=== PATIENT | female | born 1950 | race Caucasian/White ===

== ENCOUNTER 2021-02-12 13:13 | Outpatient (CLI) | payer MEDICARE, SELFPAY ==
--- NOTE | 2021-02-12 13:19 | USCV_ITS ---
Nyasia Sultana Age: 70 Gender: F : 1950 Exam Date: 02/12/2021 13:37 Ordering Phys: Ruslan Wrad MD Technologist: MARIA TERESA Exam Location: [facility] – [place] Indication: DIZZINESS WITH AO REPLACEMEMT BP: / HR: 91 Rhythm: Sinus Technical Quality: Adequate MEASUREMENTS (Male / Female) Normal Values 2D ECHO LV Chamber Size 3.3 cm RV Chamber Size 3.2 cm LVOT Diameter 2.0 cm LV Ejection Fraction MOD 2C 42.6 % LV Ejection Fraction 2C AL 34.9 % LA Diameter 3.5 cm LA Width 2.8 cm LA Height 4.5 cm RA Width 3.6 cm RA Height 4.0 cm Aorta at Sinotubular Diameter 2.5 cm M-MODE LV Diastolic Diameter MM 4.6 cm 4.2 - 5.9 / 3.9 - 5.3 cm LV Systolic Diameter MM 3.5 cm LV Ejection Fraction MM Teich 47.8 % IVS Diastolic Thickness MM 0.7 cm 0.6 - 1.0 / 0.6 - 0.9 cm IVS Systolic Thickness MM 1.7 cm LVPW Diastolic Thickness MM 0.9 cm 0.6 - 1.0 / 0.6 - 0.9 cm LVPW Systolic Thickness MM 2.1 cm RV Diastolic Diameter MM 2.6 cm Aortic Annulus Diameter 3.3 cm LA Ao Ratio MM 1.4 MV E Point Septal Separation 0.9 cm DOPPLER AV Peak Velocity 355.0 cm/s LVOT Peak Velocity 155.0 cm/s AV Area Cont Eq vti 1.7 cm squared AV Area Cont Eq pk 1.4 cm squared MV Area PHT 3.4 cm squared Mitral E to A Ratio 0.9 MV E' Velocity 101.0 cm/s Mitral E to MV E' Ratio 21.9 Mitral E to LV E' Lateral Ratio 18.1 Mitral E to LV E' Septal Ratio 28.4 TR Peak Velocity 202.6 cm/s TR Peak Gradient 16.4 mmHg TR Mean Velocity 114.7 cm/s TR Mean Gradient 5.7 mmHg TR Velocity Time Integral 36.3 cm TV Peak E Velocity 81.0 cm/s Right Atrial Pressure 3.0 mmHg Pulmonary Artery Systolic Pressu 19.4 mmHg PV Peak Velocity 116.0 cm/s RV Acceleration Time 0.2 s RV Ejection Time 0.3 s RV AcT/ET 0.6 FINDINGS Left Ventricle Normal left ventricular size and systolic function, EF 59 %. Mild hypokinesia of the basal inferior wall segment.Grade I/IV diastolic dysfunction (abnormal relaxation filling pattern), normal to mildly elevated filling pressures. Right Ventricle The right ventricle is normal in size and function. Right Atrium The right atrium is normal in size. Left Atrium Mildly increased left atrial size. Mitral Valve Moderate mitral annular calcification. Thickened mitral valve. Aortic Valve Moderate aortic valve stenosis, with a valve area of 1.4 cm squared. Peak velocity of 3.55 m/s with a peak gradient of 50 and a mean gradient of 25 mmHg. Tricuspid Valve Trace tricuspid valve regurgitation. Pulmonic Valve Structurally normal pulmonic valve without significant stenosis. There is no pulmonic regurgitation. Pericardium Normal pericardium without effusion. Aorta Normal ascending aorta dimension. CONCLUSIONS Normal left ventricular size and systolic function, EF 59 %. Mild hypokinesia of the basal inferior wall segment.Grade I/IV diastolic dysfunction (abnormal relaxation filling pattern), normal to mildly elevated filling pressures. Moderate mitral annular calcification. Thickened mitral valve. Moderate aortic valve stenosis, with a valve area of 1.4 cm squared. Peak velocity of 3.55 m/s with a peak gradient of 50 and a mean gradient of 25 mmHg. Trace tricuspid valve regurgitation Estimated pulmonary artery peak systolic pressure of 19 mmHg There is no pericardial effusion. There are no intracardiac masses. Compared to the study from 04/22/2016, the aortic valve stenosis appears to be less severe Dr Suzy Zuleta MD [facility] (Electronically Signed) Final Date: 12 February 2021 18:49 S
== END 2021-02-12 13:14 | disposition home or self-care (01) ==
PROVIDERS: PCP Family Medicine; Visit Provider Family Medicine
DX: R42 Dizziness and giddiness (principal); Z95.2 Presence of prosthetic heart valve; I08.3 Combined rheumatic disorders of mitral, aortic and tricuspid valves
CPT/HCPCS: 93306

== ENCOUNTER → 2021-10-05 15:35 | Outpatient (BNVA) | payer MEDICARE, SELFPAY | PROVIDERS: PCP Family Medicine; Visit Provider Internal Medicine Pulmonary Disease | DX: Z01.812 Encounter for preprocedural laboratory examination (principal); Z20.822 Contact with and (suspected) exposure to COVID-19 | CPT/HCPCS: 87635; 87801 ==

== ENCOUNTER 2021-10-11 08:35 | Outpatient (CLI) | payer MEDICARE, SELFPAY ==
--- NOTE | 2021-10-11 12:54 | PFTS_ITS ---
Date of Study:10/11/21 Date of Dictation: MECHANICS: Forced vital capacity (FVC) is normal. Forced expiratory volume in one second (FEV1) is reduced. FEV1/FVC is normal. FLOW VOLUME LOOP: Scooping present. LUNG VOLUMES: Total lung capacity (TLC) is normal. Residual volume (RV) is normal. DIFFUSING CAPACITY FOR CARBON MONOXIDE: Normal. INTERPRETATION: The prebronchodilator spirometry is consistent with moderate restriction. The postbronchodilator spirometry is suggestive of mild restriction. There is a significant postbronchodilator response. The flow-volume loop is consistent with small airways disease. Lung volumes are normal. Gas exchange (DLCO) is normal. Overall pulmonary function test is consistent with reversible small airways disease. MTDD
== END 2021-10-11 08:36 | disposition home or self-care (01) ==
LOC: RT 08:37
PROVIDERS: PCP Family Medicine; Visit Provider Internal Medicine Pulmonary Disease
DX: R06.02 Shortness of breath (principal); F17.210 Nicotine dependence, cigarettes, uncomplicated
CPT/HCPCS: 94060; 94618; 94726; 94729; J7611

== ENCOUNTER → 2021-10-25 10:03 | Outpatient (BNVA) | payer MEDICARE, SELFPAY | PROVIDERS: PCP Family Medicine; Visit Provider Internal Medicine Pulmonary Disease | DX: I50.32 Chronic diastolic (congestive) heart failure (principal); J44.9 Chronic obstructive pulmonary disease, unspecified; J45.909 Unspecified asthma, uncomplicated; K21.9 Gastro-esophageal reflux disease without esophagitis; R05.3 Chronic cough; R06.00 Dyspnea, unspecified; Z87.891 Personal history of nicotine dependence; Z11.52 Encounter for screening for COVID-19; Z01.812 Encounter for preprocedural laboratory examination | CPT/HCPCS: 71046; 82785; 85025; 86003; 99214 ==

== ENCOUNTER → 2022-01-25 12:45 | Outpatient (BNVA) | payer MEDICARE, SELFPAY | PROVIDERS: PCP Family Medicine; Visit Provider Internal Medicine Pulmonary Disease | DX: R06.00 Dyspnea, unspecified (principal); K21.9 Gastro-esophageal reflux disease without esophagitis; J44.9 Chronic obstructive pulmonary disease, unspecified; I50.32 Chronic diastolic (congestive) heart failure; J45.909 Unspecified asthma, uncomplicated; M25.641 Stiffness of right hand, not elsewhere classified; M25.642 Stiffness of left hand, not elsewhere classified; J98.4 Other disorders of lung; Z87.891 Personal history of nicotine dependence; E11.8 Type 2 diabetes mellitus with unspecified complications; Z79.84 Long term (current) use of oral hypoglycemic drugs | CPT/HCPCS: 99214 ==

== ENCOUNTER 2022-02-27 16:30 | Emergency (ER) | payer MEDICARE, SELFPAY ==
[2022-02-27 16:55] VITALS: BP 146/77; PULSE 78; RESP 20; TEMP 36.9; O2SAT 95; BMI 43.7
--- NOTE | 2022-02-27 17:01 | W.ED.ABDPA2 ---
Documented by User: POLO Pradhan 02/27/22 20:15 HPI - Abdominal Pain General: Chief Complaint: Abdominal Pain Stated Complaint: Abd pains Time Seen by Provider: 02/27/22 17:00 History of Present Illness: 71-year-old female comes in today for complaints of right flank pain radiating around to the front of abdomen starting yesterday with worsening pain today. Patient denies any previous abdominal surgeries. Patient states that she does have her gallbladder and appendix both. Patient denies any fever or nausea or vomiting. Patient reports pain is increased with movement. Patient has a history of COPD, diabetes mellitus, CHF, GERD. Review of Systems General: Reports: 10 or more systems reviewed and unremarkable except in HPI and below Card: Denies: chest pain Resp: Denies: dyspnea GI: Reports: abdominal pain : Reports: flank pain PFSH ED PFSH: Medical History ASHD (arteriosclerotic heart disease) CHF (congestive heart failure) COPD (chronic obstructive pulmonary disease) Diabetes mellitus Hepatitis C Surgical History S/P aortic valve replacement S/P knee surgery Family History Mother Diabetes Myocardial infarction Hypertension Father Diabetes Myocardial infarction Hypertension Grandmother Myocardial infarction Cancer Grandfather Myocardial infarction Cancer Other Heart disease Social History Smoking and tobacco status: former smoker Quit status (tobacco): has quit using tobacco Year quit tobacco: 1992 2-3-pack per day Former quit date comment: smoked for 30 years Alcohol intake: never Lives independently: Yes Household members: spouse and other Details: brother Housing: House Marital status: Number of children: 0 Pets and animals: Yes Pets & animals: cat(s), dog(s) and bird(s) History of recent travel: No Physical Exam Const: COMMON NORMALS: alert HENMT: COMMON NORMALS: normocephalic HEAD & SCALP: normocephalic Neck/C-Spine: COMMON NORMALS: full ROM Resp: COMMON NORMALS: normal respiratory effort and clear to auscultation bilaterally AUSCULTATION: clear to auscultation bilaterally Cardio: COMMON NORMALS: regular rate and regular rhythm RATE: regular rate RHYTHM: regular rhythm GI: COMMON NORMALS: Soft to palpation AUSCULTATION: Yes normoactive bowel sounds PALPATION: Yes Soft to palpation, No Tenderness to palpation present (GI), No Guarding due to palpation present (GI) and No Abdominal wall crepitus present : BLADDER/KIDNEY EXAM: Yes CVA tenderness on the right Back/Pelvis: GENERAL BACK: Yes CVA tenderness Extremity: COMMON NORMALS: normal to inspection Neuro: SENSORIUM/ORIENTATION: Yes alert Skin: COMMON NORMALS: no rashes or lesions noted GENERAL SKIN EXAM: no rashes or lesions noted Course ED course: 1812, reviewed patient with Dr. Powell who recommended evaluation of the gallbladder through ultrasound. So far CT was unremarkable for any acute illness. Patient does have some gallstones. Patient's pain was brought under control with a total of 8 mg of morphine. Initial labs CBC had some mild thrombocytopenia with platelets being at 117, CMP had a mild increase in bilirubin at 1.4, BNP was 486. Chest x-ray noted a slight effusion in the left lower lung. 1844, ultrasound was unremarkable. Reviewed exam again with Dr. Powell expressing my concern for a portal vein thrombosis he agreed with plan for further evaluation with CT of the abdomen pelvis with contrast. Vital Signs: Vital signs: Vital Signs Temperature 97.5 F L 02/27/22 21:06 Pulse Rate 90 02/27/22 21:06 Respiratory Rate 18 02/27/22 21:06 Blood Pressure 141/68 02/27/22 20:31 Pulse Oximetry 96 02/27/22 20:31 Oxygen Delivery Nh thod 02/27/22 20:31 MDM - Abdominal Pain Medical Decision Making 71-year-old female comes in today with abdominal/right flank pain starting yesterday. Patient reports no nausea or vomiting. Patient reports that the pain is worse with movement. Patient on exam has some right flank CVA tenderness. Abdomen is slightly distended but soft. No tenderness is noted to the abdomen. No guarding or rebound tenderness is noted. Vital signs are normal. Differential diagnosis includes cholecystitis, renal calculi, appendicitis, bowel obstruction, musculoskeletal pain, atypical chest pain, portal vein thrombosis. Initial CT of the abdomen and pelvis noted a small stone in the gallbladder, cirrhosis of the liver, and splenomegaly. No signs of acute abdominal concern was noted. CBC and CMP were unremarkable except for some mild elevation in bilirubin at 1.4. Patient has cirrhosis of the liver secondary to hepatitis C. No renal calculi was noted on this CT. Concern for possible thrombosis of the portal vein was evaluated with a CT of the abdomen pelvis with contrast and no portal vein thrombosis was noted. I think the pain may be related to her cirrhosis versus musculoskeletal pain. Patient's pain was brought under control with morphine in the ER. We will continue patient with some hydrocodone and recommend follow-up with primary care for further evaluation and treatment return to the ER for worsening symptoms. Patient reported understanding and agreed to plan. Lab Data : 02/27/22 17:15 02/27/22 17:15 Labs/Radiology: Radiology Impressions Chest X-Ray 02/27/22 17:03 IMPRESSION: No acute finding. Gallbladder Ultrasound 02/27/22 18:13 IMPRESSION: No acute findings. The tiny calcified stones in the gallbladder visible on the CT study were not visualized on the ultrasound. Abdomen/Pelvis CT 02/27/22 18:53 IMPRESSION: 1. No acute finding in the abdomen or pelvis. 2. 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 3. Splenomegaly. 4. Diverticulosis of the distal colon without diverticulitis. Laboratory Results WBC 4.0 10^3/uL (4.0-10.0) 02/27/22 17:15 RBC 4.61 10^6/uL (4.1-5.3) 02/27/22 17:15 Hgb 14.0 g/dL (11.5-15.3) 02/27/22 17:15 Hct 42.7 % (37.0-47.0) 02/27/22 17:15 MCV 92.6 fl (81-99) 02/27/22 17:15 MCH 30.4 pg (28.0-34.0) 02/27/22 17:15 MCHC 32.8 g/dL (30.0-36.0) 02/27/22 17:15 RDW 14.4 % (12.1-15.1) 02/27/22 17:15 Plt Count 117 10^3/cmm (130-400) L 02/27/22 17:15 MPV 10.6 fL (7.4-10.4) H 02/27/22 17:15 Neut % (Auto) 67.4 % 02/27/22 17:15 Lymph % (Auto) 19.7 % 02/27/22 17:15 [place] % (Auto) 9.0 % 02/27/22 17:15 Eos % (Auto) 3.2 % 02/27/22 17:15 Baso % (Auto) 0.5 % 02/27/22 17:15 Neut # (Auto) 2.70 10^3/uL (1.8-7.7) 02/27/22 17:15 Lymph # (Auto) 0.8 10^3/uL (0.8-4.8) 02/27/22 17:15 [place] # (Auto) 0.4 10^3/uL (0.2-0.9) 02/27/22 17:15 Eos # (Auto) 0.1 10^3/uL (0.0-0.8) 02/27/22 17:15 Baso # (Auto) 0.0 10^3/uL (0.0-0.1) 02/27/22 17:15 Nucleated RBC % (auto) 0 % 02/27/22 17:15 Nucleated RBCs # 0.0 /100WBC 02/27/22 17:15 D-Dimer 1.10 ug/mIFEU (0-0.59) H 02/27/22 17:18 Sodium 137 mmol/L (136-145) 02/27/22 17:15 Potassium 4.6 mmol/L (3.5-5.1) 02/27/22 17:15 Chloride 99 mmol/L (98-107) 02/27/22 17:15 Carbon Dioxide 27 mmol/L (22-29) 02/27/22 17:15 Anion Gap 15.6 (5-19) 02/27/22 17:15 BUN 15 mg/dL (8-23) 02/27/22 17:15 Creatinine 0.6 mg/dL (0.5-0.9) 02/27/22 17:15 GFR Calculation 99.1 mL/min (90-130) 02/27/22 17:15 Glucose 247 mg/dL (65-115) H 02/27/22 17:15 Calculated Osmolality 293 mOsm/kg (285-295) 02/27/22 17:15 Calcium 9.3 mg/dL (8.5-10.5) 02/27/22 17:15 Total Bilirubin 1.4 mg/dL (0.15-1.2) H 02/27/22 17:15 AST 21 U/L (0-32) 02/27/22 17:15 ALT 14 U/L (0-33) 02/27/22 17:15 Alkaline Phosphatase 76 IU/L (35-105) 02/27/22 17:15 Troponin T Baseline 8 ng/L (0-10) 02/27/22 17:15 Troponin T 120 Minute 8.74 ng/L (0-10) 02/27/22 19:11 Delta Troponin T 0.74 ABS# (0-10) 02/27/22 19:11 NT-Pro-B Natriuret Pep 486 pg/mL (0-125) H 02/27/22 17:15 Total Protein 7.9 g/dL (6.6-8.7) 02/27/22 17:15 Albumin 4.1 g/dL (3.5-5.2) 02/27/22 17:15 Globulin 3.8 g/dL (1.3-4.6) 02/27/22 17:15 Lipase 20 U/L (13-60) 02/27/22 17:15 Urine Color Yellow (Yellow) 02/27/22 18:09 Urine Appearance Clear (CLEAR) 02/27/22 18:09 Urine pH 5 (5-7) 02/27/22 18:09 Ur Specific [place] 1.020 (1.005-1.030) 02/27/22 18:09 Urine Protein Neg (Negative) 02/27/22 18:09 Urine Glucose (UA) 4+ (Normal) H 02/27/22 18:09 Urine Ketones Negative (Negative) 02/27/22 18:09 Urine Blood 2+ (Negative) H 02/27/22 18:09 Urine Nitrate Negative (Negative) 02/27/22 18:09 Urine Bilirubin Neg (Negative) 02/27/22 18:09 Urine Urobilinogen Neg mg/dL (Negative) 02/27/22 18:09 Ur Leukocyte Esterase Trace (Negative) H 02/27/22 18:09 Urine RBC 5-10 /hpf (0-2) H 02/27/22 18:09 Urine WBC 5-10 /hpf (0-5) H 02/27/22 18:09 Ur Squamous Epith Cells 10-15 /hpf (0-5) H 02/27/22 18:09 Amorphous Sediment Not Reportable 02/27/22 18:09 Urine Bacteria Trace /hpf (NONE) 02/27/22 18:09 Urine Mucus Trace /hpf 02/27/22 18:09 Discharge Plan Discharge Patient Disposition: Home Clinical Impression: Rt flank pain Cirrhosis of liver Qualifiers: Hepatic cirrhosis type: unspecified hepatic cirrhosis Ascites presence: without ascites Qualified Code(s): K74.60 - Unspecified cirrhosis of liver Condition: Stable Prescriptions: New hydrocodone-acetaminophen 7.5-325 mg tablet 1 tab PO Q8H PRN (Reason: pain (scale score 7-10)) Qty: 14 0RF No Action metformin 1,000 mg tablet 1,000 mg PO BID albuterol sulfate [ProAir HFA] 90 mcg/actuation HFA aerosol inhaler 2 puff INHALATION Q6H PRN multivitamin Tablet 1 tab PO DAILY glipizide 5 mg tablet 5 mg PO BID aspirin [Aspirin Childrens] 81 mg tablet,chewable 81 mg PO DAILY PRN metoprolol tartrate 25 mg tablet 12.5 mg PO BID Qty: 60 3RF Probiotic 3 billion cell capsule 3,000 mmu cells PO DAILY Rx Instructions: administer with a meal omeprazole 20 mg capsule,delayed release(DR/EC) 20 mg PO DAILY Qty: 30 5RF cholecalciferol (vitamin D3) 125 mcg (5,000 unit) capsule 5,000 unit PO DAILY fluticasone propion-salmeterol [Advair Diskus] 500-50 mcg/dose blister with device 1 inh inhalation BID Qty: 60 5RF ipratropium-albuterol 0.5 mg-3 mg(2.5 mg base)/3 mL solution for nebulization 3 ml inhalation Q6H PRN (Reason: wheezing) Qty: 180 5RF Discharge Orders: Discharge ED (Routine); Ordered 02/27/22 Ordered By: Nahid Claros Referrals: Ruslan Ward MD [Primary Care Provider] - Discharge Diet: Usual diet Discharge Activity: Increase activity as tolerated Patient Instructions: Opioid Safety Activity Restrictions/Additional Instructions: Home and rest. Drink plenty of water. Use a stool softener if using narcotics. Follow-up with primary care for further instruction regarding other treatment options for your abdominal pain. No signs of serious illness or need for surgical intervention was noted at this time. The abdominal pain most likely is related to your cirrhosis of the liver however we cannot rule out completely musculoskeletal back pain. Follow-up with primary care in the morning with recommendations for further evaluation and treatment. Return to ER for such as high worsening symptoms fever greater than 100.4, blood in vomit or stool, or uncontrolled pain, or new concerns. Coding Level of Care Code ED Poacher Wringer Operator for Chg Fwd Exam Comprehensive Documented by User: Dominic Powell DO 02/28/22 02:23 HPI - Abdominal Pain General: Chief Complaint: Abdominal Pain Stated Complaint: Abd pains Time Seen by Provider: 02/27/22 17:00 PFSH ED PFSH: Medical History ASHD (arteriosclerotic heart disease) CHF (congestive heart failure) COPD (chronic obstructive pulmonary disease) Diabetes mellitus Hepatitis C Surgical History S/P aortic valve replacement S/P knee surgery Family History Mother Diabetes Myocardial infarction Hypertension Father Diabetes Myocardial infarction Hypertension Grandmother Myocardial infarction Cancer Grandfather Myocardial infarction Cancer Other Heart disease Social History Smoking and tobacco status: former smoker Quit status (tobacco): has quit using tobacco Year quit tobacco: 1992 2-3-pack per day Former quit date comment: smoked for 30 years Alcohol intake: never Lives independently: Yes Household members: spouse and other Details: brother Housing: House Marital status: Number of children: 0 Pets and animals: Yes Pets & animals: cat(s), dog(s) and bird(s) History of recent travel: No Course Vital Signs: Vital signs: Vital Signs Temperature 97.5 F L 02/27/22 21:06 Pulse Rate 90 02/27/22 21:06 Respiratory Rate 18 02/27/22 21:06 Blood Pressure 141/68 02/27/22 20:31 Pulse Oximetry 96 02/27/22 20:31 Oxygen Delivery Me thod 02/27/22 20:31 MDM - Abdominal Pain Medical Decision Making 71-year-old female comes in today with abdominal/right flank pain starting yesterday. Patient reports no nausea or vomiting. Patient reports that the pain is worse with movement. Patient on exam has some right flank CVA tenderness. Abdomen is slightly distended but soft. No tenderness is noted to the abdomen. No guarding or rebound tenderness is noted. Vital signs are normal. Differential diagnosis includes cholecystitis, renal calculi, appendicitis, bowel obstruction, musculoskeletal pain, atypical chest pain, portal vein thrombosis. Initial CT of the abdomen and pelvis noted a small stone in the gallbladder, cirrhosis of the liver, and splenomegaly. No signs of acute abdominal concern was noted. CBC and CMP were unremarkable except for some mild elevation in bilirubin at 1.4. Patient has cirrhosis of the liver secondary to hepatitis C. No renal calculi was noted on this CT. Concern for possible thrombosis of the portal vein was evaluated with a CT of the abdomen pelvis with contrast and no portal vein thrombosis was noted. I think the pain may be related to her cirrhosis versus musculoskeletal pain. Patient's pain was brought under control with morphine in the ER. We will continue patient with some hydrocodone and recommend follow-up with primary care for further evaluation and treatment return to the ER for worsening symptoms. Patient reported understanding and agreed to plan. This patient was originally seen by POLO Lee.? I agree with his history, evaluation, and treatment. Lab Data : 02/27/22 17:15 02/27/22 17:15 Labs/Radiology: Radiology Impressions Chest X-Ray 02/27/22 17:03 IMPRESSION: No acute finding. Gallbladder Ultrasound 02/27/22 18:13 IMPRESSION: No acute findings. The tiny calcified stones in the gallbladder visible on the CT study were not visualized on the ultrasound. Abdomen/Pelvis CT 02/27/22 18:53 IMPRESSION: 1. No acute finding in the abdomen or pelvis. 2. 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 3. Splenomegaly. 4. Diverticulosis of the distal colon without diverticulitis. Laboratory Results WBC 4.0 10^3/uL (4.0-10.0) 02/27/22 17:15 RBC 4.61 10^6/uL (4.1-5.3) 02/27/22 17:15 Hgb 14.0 g/dL (11.5-15.3) 02/27/22 17:15 Hct 42.7 % (37.0-47.0) 02/27/22 17:15 MCV 92.6 fl (81-99) 02/27/22 17:15 MCH 30.4 pg (28.0-34.0) 02/27/22 17:15 MCHC 32.8 g/dL (30.0-36.0) 02/27/22 17:15 RDW 14.4 % (12.1-15.1) 02/27/22 17:15 Plt Count 117 10^3/cmm (130-400) L 02/27/22 17:15 MPV 10.6 fL (7.4-10.4) H 02/27/22 17:15 Neut % (Auto) 67.4 % 02/27/22 17:15 Lymph % (Auto) 19.7 % 02/27/22 17:15 [place] % (Auto) 9.0 % 02/27/22 17:15 Eos % (Auto) 3.2 % 02/27/22 17:15 Baso % (Auto) 0.5 % 02/27/22 17:15 Neut # (Auto) 2.70 10^3/uL (1.8-7.7) 02/27/22 17:15 Lymph # (Auto) 0.8 10^3/uL (0.8-4.8) 02/27/22 17:15 [place] # (Auto) 0.4 10^3/uL (0.2-0.9) 02/27/22 17:15 Eos # (Auto) 0.1 10^3/uL (0.0-0.8) 02/27/22 17:15 Baso # (Auto) 0.0 10^3/uL (0.0-0.1) 02/27/22 17:15 Nucleated RBC % (auto) 0 % 02/27/22 17:15 Nucleated RBCs # 0.0 /100WBC 02/27/22 17:15 D-Dimer 1.10 ug/mIFEU (0-0.59) H 02/27/22 17:18 Sodium 137 mmol/L (136-145) 02/27/22 17:15 Potassium 4.6 mmol/L (3.5-5.1) 02/27/22 17:15 Chloride 99 mmol/L (98-107) 02/27/22 17:15 Carbon Dioxide 27 mmol/L (22-29) 02/27/22 17:15 Anion Gap 15.6 (5-19) 02/27/22 17:15 BUN 15 mg/dL (8-23) 02/27/22 17:15 Creatinine 0.6 mg/dL (0.5-0.9) 02/27/22 17:15 GFR Calculation 99.1 mL/min (90-130) 02/27/22 17:15 Glucose 247 mg/dL (65-115) H 02/27/22 17:15 Calculated Osmolality 293 mOsm/kg (285-295) 02/27/22 17:15 Calcium 9.3 mg/dL (8.5-10.5) 02/27/22 17:15 Total Bilirubin 1.4 mg/dL (0.15-1.2) H 02/27/22 17:15 AST 21 U/L (0-32) 02/27/22 17:15 ALT 14 U/L (0-33) 02/27/22 17:15 Alkaline Phosphatase 76 IU/L (35-105) 02/27/22 17:15 Troponin T Baseline 8 ng/L (0-10) 02/27/22 17:15 Troponin T 120 Minute 8.74 ng/L (0-10) 02/27/22 19:11 Delta Troponin T 0.74 ABS# (0-10) 02/27/22 19:11 NT-Pro-B Natriuret Pep 486 pg/mL (0-125) H 02/27/22 17:15 Total Protein 7.9 g/dL (6.6-8.7) 02/27/22 17:15 Albumin 4.1 g/dL (3.5-5.2) 02/27/22 17:15 Globulin 3.8 g/dL (1.3-4.6) 02/27/22 17:15 Lipase 20 U/L (13-60) 02/27/22 17:15 Urine Color Yellow (Yellow) 02/27/22 18:09 Urine Appearance Clear (CLEAR) 02/27/22 18:09 Urine pH 5 (5-7) 02/27/22 18:09 Ur Specific [place] 1.020 (1.005-1.030) 02/27/22 18:09 Urine Protein Neg (Negative) 02/27/22 18:09 Urine Glucose (UA) 4+ (Normal) H 02/27/22 18:09 Urine Ketones Negative (Negative) 02/27/22 18:09 Urine Blood 2+ (Negative) H 02/27/22 18:09 Urine Nitrate Negative (Negative) 02/27/22 18:09 Urine Bilirubin Neg (Negative) 02/27/22 18:09 Urine Urobilinogen Neg mg/dL (Negative) 02/27/22 18:09 Ur Leukocyte Esterase Trace (Negative) H 02/27/22 18:09 Urine RBC 5-10 /hpf (0-2) H 02/27/22 18:09 Urine WBC 5-10 /hpf (0-5) H 02/27/22 18:09 Ur Squamous Epith Cells 10-15 /hpf (0-5) H 02/27/22 18:09 Amorphous Sediment Not Reportable 02/27/22 18:09 Urine Bacteria Trace /hpf (NONE) 02/27/22 18:09 Urine Mucus Trace /hpf 02/27/22 18:09 Discharge Plan Discharge Patient Disposition: Home Clinical Impression: Rt flank pain Cirrhosis of liver Qualifiers: Hepatic cirrhosis type: unspecified hepatic cirrhosis Ascites presence: without ascites Qualified Code(s): K74.60 - Unspecified cirrhosis of liver Condition: Stable Prescriptions: New hydrocodone-acetaminophen 7.5-325 mg tablet 1 tab PO Q8H PRN (Reason: pain (scale score 7-10)) Qty: 14 0RF No Action metformin 1,000 mg tablet 1,000 mg PO BID albuterol sulfate [ProAir HFA] 90 mcg/actuation HFA aerosol inhaler 2 puff INHALATION Q6H PRN multivitamin Tablet 1 tab PO DAILY glipizide 5 mg tablet 5 mg PO BID aspirin [Aspirin Childrens] 81 mg tablet,chewable 81 mg PO DAILY PRN metoprolol tartrate 25 mg tablet 12.5 mg PO BID Qty: 60 3RF Probiotic 3 billion cell capsule 3,000 mmu cells PO DAILY Rx Instructions: administer with a meal omeprazole 20 mg capsule,delayed release(DR/EC) 20 mg PO DAILY Qty: 30 5RF cholecalciferol (vitamin D3) 125 mcg (5,000 unit) capsule 5,000 unit PO DAILY fluticasone propion-salmeterol [Advair Diskus] 500-50 mcg/dose blister with device 1 inh inhalation BID Qty: 60 5RF ipratropium-albuterol 0.5 mg-3 mg(2.5 mg base)/3 mL solution for nebulization 3 ml inhalation Q6H PRN (Reason: wheezing) Qty: 180 5RF Discharge Orders: Discharge ED (Routine); Ordered 02/27/22 Ordered By: Nahid Claros Referrals: Ruslan Ward MD [Primary Care Provider] - Discharge Diet: Usual diet Discharge Activity: Increase activity as tolerated Patient Instructions: Opioid Safety Activity Restrictions/Additional Instructions: Home and rest. Drink plenty of water. Use a stool softener if using narcotics. Follow-up with primary care for further instruction regarding other treatment options for your abdominal pain. No signs of serious illness or need for surgical intervention was noted at this time. The abdominal pain most likely is related to your cirrhosis of the liver however we cannot rule out completely musculoskeletal back pain. Follow-up with primary care in the morning with recommendations for further evaluation and treatment. Return to ER for such as high worsening symptoms fever greater than 100.4, blood in vomit or stool, or uncontrolled pain, or new concerns. Coding Level of Care Code ED Poacher Wringer Operator for [place] Fwd Exam Comprehensive
--- NOTE | 2022-02-27 17:03 | CTR_ITS ---
PROCEDURE INFORMATION: Exam: CT Abdomen And Pelvis Without Contrast Exam date and time: 02/27/2022 5:17 PM Age: 71 years old Clinical indication: Abdominal pain; Right; Patient HX: C/O R flank pain worsening since yesterday; Additional info: Right flank pain TECHNIQUE: Imaging protocol: Computed tomography of the abdomen and pelvis without contrast. Radiation optimization: All CT scans at this facility use at least one of these dose optimization techniques: automated exposure control; mA and/or kV adjustment per patient size (includes targeted exams where dose is matched to clinical indication); or iterative reconstruction. COMPARISON: CT abdomen w con* [id number] 05/11/2018 9:32 AM RADIATION DOSE METRICS: Total DLP (mGy-cm): 1063.13 FINDINGS: Heart: Mitral annulus calcifications. Liver: Cirrhotic liver morphology. No focal lesion identified. Gallbladder and bile ducts: Small calculi in the gallbladder. No wall thickening. The bile ducts are normal. Pancreas: Atrophic pancreas. Spleen: Splenomegaly. Adrenal glands: Normal. No mass. Kidneys and ureters: Normal. No hydronephrosis. Stomach and bowel: Diverticulosis of the colon. No diverticulitis. The stomach and small bowel are unremarkable. No wall thickening or obstruction. Appendix: The appendix is not visualized. No secondary signs of appendicitis. Intraperitoneal space: Trace ascites. No free air. Vasculature: Splenic hilar and mild gastroesophageal varices. Arterial calcifications. No aneurysm. Enlarged recanalized umbilical vein with collaterals in the right abdominal wall. Lymph nodes: Prominent peripancreatic lymph nodes are most likely reactive. Urinary bladder: Unremarkable as visualized. Reproductive: The uterus and ovaries are unremarkable. Bones/joints: Mild degenerative changes of the spine with mild anterior subluxation of L4 on L5. No acute fracture. Soft tissues: Small fat containing umbilical hernia. CT/CT kidney stone [id number] IMPRESSION: 1. No renal calculus or obstructive uropathy. 2. 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 3. Splenomegaly. 4. Diverticulosis of the colon. 5. Cholelithiasis.
--- NOTE | 2022-02-27 17:03 | XRR_ITS ---
PROCEDURE INFORMATION: Exam: XR Chest Exam date and time: 02/27/2022 5:37 PM Age: 71 years old Clinical indication: Right-sided; Prior surgery; Surgery date: 6+ months; Surgery type: Cabg; Patient HX: C/O R sided abd pain TECHNIQUE: Imaging protocol: Radiologic exam of the chest. Views: 1 view. COMPARISON: CR XR chest 2V* [id number] 10/25/2021 11:37 AM FINDINGS: Lungs: Shallow inspiration with crowding. Chronic interstitial changes in both lungs. No consolidation. Pleural spaces: Unremarkable. No pleural effusion. No pneumothorax. Heart/Mediastinum: The heart size is upper normal. Bones/joints: Sternotomy changes. Old left clavicle fracture. XR/XR chest 1V portable [id number] IMPRESSION: No acute finding.
--- NOTE | 2022-02-27 17:03 | ECG_ITS ---
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 Measurements Intervals [place] Rate: 84 P: 59 AZ: 176 QRS: -31 QRSD: 134 T: 56 QT: 388 QTc: 461 Interpretive Statements SINUS RHYTHM LEFT AXIS DEVIATION [QRS AXIS < -30] RIGHT BUNDLE BRANCH BLOCK [120+ ms QRS DURATION, UPRIGHT V1, 40+ ms S IN I/aVL/V4/V5/V6] Compared to ECG 11/30/2017 18:42:32 Left-axis deviation now present Electronically Signed On 02-28-2022 9:30:54 CDT by Dangelo Amin M.D. [id number]
[2022-02-27 17:13] VITALS: RESP 16; O2SAT 98
[2022-02-27] MEDS: morphine 4 mg/mL SDV 1 mL IVP ×2 (17:13→17:47)
[2022-02-27] MEDS: ondansetron 2 mg/ML SDV 2 mL 4 MG IVP (17:13)
[2022-02-27 17:25] LABS: Basophils % 0.5 %; Eosinophils # 0.1 10^3/uL (0.0-0.8); Eosinophils % 3.2 %; Hematocrit 42.7 % (37.0-47.0); Lymphocytes # 0.8 10^3/uL (0.8-4.8); Lymphocytes % 19.7 %; Mean Corpuscular HGB Conc 32.8 g/dL (30.0-36.0); Mean Corpuscular Hemoglobin 30.4 pg (28.0-34.0); Mean Corpuscular Volume 92.6 fl (81-99); Mean Platelet Volume 10.6 fL (7.4-10.4); Monocytes # 0.4 10^3/uL (0.2-0.9); Neutrophils % 67.4 %; Nucleated Red Blood Cells % 0 %; Platelet Count 117 10^3/cmm (130-400); Red Blood Count 4.61 10^6/uL (4.1-5.3); Red Cell Distribution Width 14.4 % (12.1-15.1)
[2022-02-27 17:47] VITALS: RESP 16
[2022-02-27 17:54] LABS: Troponin(5th) Baseline 8 ng/L (0-10)
[2022-02-27 18:03] LABS: Alanine Aminotransferase 14 U/L (0-33); Albumin Level 4.1 g/dL (3.5-5.2); Alkaline Phosphatase 76 IU/L (35-105); Anion Gap 15.6 (5-19); Aspartate Amino Transferase 21 U/L (0-32); Blood Urea Nitrogen 15 mg/dL (8-23); Calcium 9.3 mg/dL (8.5-10.5); Carbon Dioxide 27 mmol/L (22-29); Chloride 99 mmol/L (98-107); Globulin 3.8 g/dL (1.3-4.6); Glomerular Filtration Rate 99.1 mL/min (90-130); Glucose 247 mg/dL (65-115); Lipase 20 U/L (13-60); NT Pro B Type Natriuretic Pept 486 pg/mL (0-125); Osmolality Calculated 293 mOsm/kg (285-295); Potassium 4.6 mmol/L (3.5-5.1); Sodium 137 mmol/L (136-145); Total Bilirubin 1.4 mg/dL (0.15-1.2); Total Protein 7.9 g/dL (6.6-8.7)
--- NOTE | 2022-02-27 18:13 | USR_ITS ---
PROCEDURE INFORMATION: Exam: US Abdomen, Limited; Right Upper Quadrant Exam date and time: 02/27/2022 6:22 PM Age: 71 years old Clinical indication: Abdominal pain; Additional info: Ruq abd pain TECHNIQUE: Imaging protocol: Real time ultrasound of the abdomen with image documentation. Limited exam focused on the right upper quadrant. COMPARISON: US abdomen limited [id number] 11/23/2018 8:49 AM FINDINGS: Liver: Normal. No masses. Gallbladder: Normal. No gallstones. There is no gallbladder wall thickening. Biliary ducts: Normal. No stones. No dilation. Pancreas: Not visualized. Right kidney: Normal. No mass. No hydronephrosis. US/US gall bladder [id number] IMPRESSION: No acute findings. The tiny calcified stones in the gallbladder visible on the CT study were not visualized on the ultrasound.
[2022-02-27] MEDS: fentaNYL 50 mcg/mL INJ 2mL IVP (18:45)
[2022-02-27] MEDS: sodium chloride 0.9% 1,000 ML 999 ML IV (18:48)
--- NOTE | 2022-02-27 18:53 | CTR_ITS ---
PROCEDURE INFORMATION: Exam: CT Abdomen And Pelvis With Contrast Exam date and time: 02/27/2022 7:18 PM Age: 71 years old Clinical indication: Abdominal pain; Localized; Right; Patient HX: R sided abd pain w HX of cirrhosis and diabetes; Additional info: Concern for portal vein thrombosis TECHNIQUE: Imaging protocol: Computed tomography of the abdomen and pelvis with contrast. Radiation optimization: All CT scans at this facility use at least one of these dose optimization techniques: automated exposure control; mA and/or kV adjustment per patient size (includes targeted exams where dose is matched to clinical indication); or iterative reconstruction. Contrast material: OMNI 350; Contrast volume: 95 ml; Contrast route: INTRAVENOUS (IV); COMPARISON: CT kidney stone [id number] 02/27/2022 5:17 PM RADIATION DOSE METRICS: Total DLP (mGy-cm): 1073.33 FINDINGS: Heart: Mitral annulus calcifications. Liver: Cirrhotic appearing liver. No focal lesion. Gallbladder and bile ducts: Tiny stones in the gallbladder. No wall thickening. The bile ducts are normal. Pancreas: Atrophic pancreas. No focal lesion. Spleen: Splenomegaly. Adrenal glands: Normal. No mass. Kidneys and ureters: Normal. No hydronephrosis. Stomach and bowel: Diverticulosis of the distal colon. No diverticulitis. The stomach and small bowel are unremarkable. No wall thickening or obstruction. Appendix: The appendix is visualized and is normal. Intraperitoneal space: Unremarkable. No free air. No significant fluid collection. Vasculature: Portal venous hypertension within large recanalized umbilical vein and prominent collaterals in the right abdominal wall. Splenic hilar varices and mild gastroesophageal varices. No portal venous thrombosis. Arterial calcifications. No aneurysm. Lymph nodes: Unremarkable. No enlarged lymph nodes. Urinary bladder: Unremarkable as visualized. Reproductive: Unremarkable as visualized. Bones/joints: Mild degenerative changes of the spine. Anterior subluxation of L4 on L5. No fracture. Soft tissues: Unremarkable. CT/CT abdomen pelvis w con* [id number] IMPRESSION: 1. No acute finding in the abdomen or pelvis. 2. 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 3. Splenomegaly. 4. Diverticulosis of the distal colon without diverticulitis.
[2022-02-27 19:20] LABS: Add Urine Microscopic? YES; Bilirubin Urine Neg (Negative); Blood Urine 2+ (Negative); Glucose Urine UA 4+ (Normal); Ketones Urine Negative (Negative); Leukocyte Esterase Urine Trace (Negative); Nitrate Urine Negative (Negative); Protein Urine Neg (Negative); Urine Appearance Clear (CLEAR); Urine Color Yellow (Yellow); Urobilinogen Urine Neg (Negative); pH Urine 5 (5-7)
[2022-02-27 19:22] LABS: Bacteria Urine TRACE /hpf; Mucus Urine TRACE /hpf
[2022-02-27 19:23] LABS: Add Urine Culture? No
[2022-02-27] MEDS: iohexol 350 mg/mL 100 mL Btl IV (19:23)
[2022-02-27 19:43] LABS: Troponin 5 2HR 8.74 ng/L (0-10)
[2022-02-27 19:45] LABS: Troponin 5 2HR Delta 0.74 ABS# (0-10)
[2022-02-27] MEDS: HYDROcodone-acetaminophen 7.5-325 mg Tablet 1 TAB PO (20:27)
[2022-02-27 20:31] VITALS: BP 141/68; PULSE 96; RESP 18; TEMP 36.7; O2SAT 96
[2022-02-27 21:06] VITALS: PULSE 90; RESP 18; TEMP 36.4
== END 2022-02-27 20:45 | disposition home or self-care (01) ==
PROVIDERS: Physician Assistant; Emergency Provider Nurse Practitioner Family; PCP Family Medicine
DX: K74.60 Unspecified cirrhosis of liver (principal); R10.9 Unspecified abdominal pain; Z79.84 Long term (current) use of oral hypoglycemic drugs; Z79.82 Long term (current) use of aspirin; I50.9 Heart failure, unspecified; J44.9 Chronic obstructive pulmonary disease, unspecified; E11.9 Type 2 diabetes mellitus without complications; Z86.19 Personal history of other infectious and parasitic diseases; Z87.891 Personal history of nicotine dependence
CPT/HCPCS: 36415; 71045; 74176; 74177; 76705; 80053; 81000; 81001; 83690; 83880; 84484; 85025; 85378; 93005; 96361; 96374; 96375; 96376; 99285; J2270; J2405; J3010; J7030; Q9967

== ENCOUNTER 2022-02-28 17:34 | Emergency (ER) | payer MEDICARE, SELFPAY ==
[2022-02-28 18:07] VITALS: BP 124/73; PULSE 90; RESP 16; TEMP 38.1; O2SAT 92; BMI 38.9
[2022-02-28 18:42] LABS: Basophils % 0.4 %; Eosinophils # 0.1 10^3/uL (0.0-0.8); Eosinophils % 1.1 %; Hematocrit 39.4 % (37.0-47.0); Hemoglobin 12.9 g/dL (11.5-15.3); Lymphocytes # 0.5 10^3/uL (0.8-4.8); Mean Corpuscular HGB Conc 32.7 g/dL (30.0-36.0); Mean Corpuscular Hemoglobin 30.5 pg (28.0-34.0); Mean Corpuscular Volume 93.1 fl (81-99); Mean Platelet Volume 9.7 fL (7.4-10.4); Monocytes # 0.4 10^3/uL (0.2-0.9); Monocytes % 8.5 %; Neutrophils % 78.3 %; Nucleated Red Blood Cells % 0 %; Platelet Count 96 10^3/cmm (130-400); Red Blood Count 4.23 10^6/uL (4.1-5.3); Red Cell Distribution Width 14.4 % (12.1-15.1); White Blood Count 4.5 10^3/uL (4.0-10.0)
[2022-02-28 19:22] LABS: Troponin T (5th) Once 13 ng/L (0-10)
[2022-02-28 19:25] LABS: Alanine Aminotransferase 11 U/L (0-33); Alkaline Phosphatase 66 IU/L (35-105); Anion Gap 12.1 (5-19); Aspartate Amino Transferase 17 U/L (0-32); Blood Urea Nitrogen 12 mg/dL (8-23); Calcium 8.6 mg/dL (8.5-10.5); Carbon Dioxide 28 mmol/L (22-29); Chloride 94 mmol/L (98-107); Globulin 3.3 g/dL (1.3-4.6); Glomerular Filtration Rate 122.3 mL/min (90-130); Glucose 238 mg/dL (65-115); Lipase 15 U/L (13-60); Osmolality Calculated 278 mOsm/kg (285-295); Potassium 4.1 mmol/L (3.5-5.1); Sodium 130 mmol/L (136-145); Total Bilirubin 2.2 mg/dL (0.15-1.2); Total Protein 7.3 g/dL (6.6-8.7)
== END 2022-02-28 22:38 | disposition left against medical advice (07) ==
PROVIDERS: Nurse Practitioner Family; Emergency Provider Family Medicine; PCP Family Medicine
DX: Z53.21 Procedure and treatment not carried out due to patient leaving prior to being seen by health care provider (principal)
CPT/HCPCS: 80053; 83690; 84484; 85025

== ENCOUNTER → 2022-03-24 13:48 | Outpatient (BNVA) | payer MEDICARE, SELFPAY | PROVIDERS: PCP Family Medicine; Visit Provider Nurse Practitioner Family | DX: E11.9 Type 2 diabetes mellitus without complications (principal); R53.83 Other fatigue; Z12.39 Encounter for other screening for malignant neoplasm of breast | CPT/HCPCS: 80053; 80061; 82306; 82607; 83036; 84443; 85025 ==

== ENCOUNTER → 2022-03-25 11:19 | Outpatient (BNVA) | payer MEDICARE, SELFPAY | PROVIDERS: PCP Family Medicine; Visit Provider Internal Medicine Cardiovascular Disease | DX: I25.10 Atherosclerotic heart disease of native coronary artery without angina pectoris (principal); K74.60 Unspecified cirrhosis of liver; J44.9 Chronic obstructive pulmonary disease, unspecified; E65 Localized adiposity; I50.32 Chronic diastolic (congestive) heart failure; Z95.2 Presence of prosthetic heart valve; Z87.891 Personal history of nicotine dependence | CPT/HCPCS: 99213; 99214 ==

== ENCOUNTER 2022-03-31 13:52 | Outpatient (CLI) | payer MEDICARE, SELFPAY ==
--- NOTE | 2022-03-31 14:00 | CT_ITS ---
WS: [id number] CT CHEST CT-HIGH RESOLUTION, NONCONTRAST. HISTORY: Interstitial lung disease. Technique: High-resolution chest CT is performed in inspiration, expiration, supine and prone positio rangel. All CT scans at [facility] use at least one of these dose optimization techniques: automated exposure control; mA and/or kV adjustment per patient size (includes targeted exams where dose is mat ched to clinical indication); or iterative reconstruction. DLP: 2776.88 mGy.cm COMPARISON: None. Findings: Moderate pulmonary hyperinflation. Seen best on the high-resolution imaging is mild hazy at tenuation. During expiration there are multiple bilateral areas of groundglass attenuation and mosaic pattern involving both the upper and lower lung parikh with mild sparing of the periphery. Mosaic at tenuation with scattered lucencies and segments of groundglass attenuation. Prone imaging obtained in inspiration and there is resolution with almost completely of the groundglass opacifications. No honeycombing or bronchiectasis is appreciated. Moderate atherosclerotic changes within the aorta. Dilated pulmonary artery. Prior CABG. Heavy calcif ications are noted within the [place] coronary arteries. No pericardial or pleural effusions. Small ly mph nodes in the hilar regions would be difficult to exclude without IV contrast. High RIGHT paratrac heal lymph node measures 9 mm. Lobular appearance of the liver consistent with cirrhosis. Very heterogeneous appearance of the liver on this unenhanced study. Recanalization of the umbilical vein. Gallbladder is slightly contracted a nd may contain a stone. Spleen is enlarged. The entire spleen is not included in this examination. Va rices are noted at the splenic hilum. Increase in thoracic kyphosis and mild curvature. CT/CT chest wo con [id number] Impression: 1. Mosaic and groundglass attenuation with air trapping bilaterally involving upper and lower lobes. Differential includes hypersensitivity pneumonia, asthma , obstructive bronchiolitis and chronic pulmonary emboli. 2. Cirrhosis with portal venous hypertension and varices in the upper abdomen. 3. Prior CABG. 4. Enlarged pulmonary artery. 5. Extensive coronary artery calcifications.
== END 2022-03-31 13:53 | disposition home or self-care (01) ==
PROVIDERS: PCP Family Medicine; Visit Provider Internal Medicine Pulmonary Disease
DX: J44.9 Chronic obstructive pulmonary disease, unspecified (principal); R91.8 Other nonspecific abnormal finding of lung field
CPT/HCPCS: 71250

== ENCOUNTER 2022-04-01 10:28 | Outpatient (CLI) | payer MEDICARE, SELFPAY ==
[2022-04-01 12:03] LABS: Erythrocyte Sedimentation Rate 6 mm/hr (0-15)
[2022-04-05 11:24] LABS: Anti-Double Strand DNA AB 5 IU/mL; Centromere B Antibody <1.0 NEG AI (<1.0 NEG)
[2022-04-05 13:17] LABS: SCL 70 <1.0 NEG AI (<1.0 NEG); SS A Ro Sjogrens Antibody <1.0 NEG AI (<1.0 NEG); SS-B/LA IGG <1.0 NEG AI (<1.0 NEG); Sm/RNP Antibody <1.0 NEG AI (<1.0 NEG); Smith Antibody <1.0 NEG AI (<1.0 NEG)
[2022-04-05 15:47] LABS: Cyclic Citrullinated Peptide <16 UNITS
[2022-04-05 18:58] LABS: Immunoglobulin E 24 kU/L (<OR=114)
[2022-04-06 17:42] LABS: Anti-Nuclear Antibody Screen POSITIVE (NEGATIVE)
[2022-04-06 18:58] LABS: Alternaria Alternata (M6) Ige <0.10 kU/L; Alternaria Class 0; Bermuda Class 0; Bermuda Grass (G2) Ige <0.10 kU/L; Cat Dander (E1) Ige <0.10 kU/L; Cat Dander Class 0; Common Ragweed (Short) (W1) Ig <0.10 kU/L; D. Farinae Class 0; Dermatophagoides Class 0; Dermatophagoides Farinae (D2) <0.10 kU/L; Dermatophagoides Pteronyssinus <0.10 kU/L; Dog Dander (E5) Ige <0.10 kU/L; Dog Dander Class 0; Elm (T8) Ige <0.10 kU/L; Elm Class 0; English Plantain (W9) Ige <0.10 kU/L; English Plantain Class 0; House Dust (Greer) (H1) Ige <0.10 kU/L; House Dust (Hollister- Stier) <0.10 kU/L; House Dust Class 0; Immunoglobulin E 18 kU/L (<OR=114); Johnson Grass (G10) Ige <0.10 kU/L; Johnson Grass Cl 0; June Grass Class 0; June Grass(Kentucky Blue) (G8) <0.10 kU/L; Lamb'S Quarters (Goose Foot) <0.10 kU/L; Lamb'S Quarters Class 0; Maple (Box Elder) (T1) Ige <0.10 kU/L; Maple Class 0; Meadow Fescue (G4) Ige <0.10 kU/L; Meadow Fescue Class 0; Mucor Racemosus Class 0; Oak (T7) Ige <0.10 kU/L; Oak Class 0; Orchard Grass (Cocksfoot) (G3) <0.10 kU/L; Penicillium Class 0; Penicillium Notatum (M1) Ige <0.10 kU/L; Perennial Rye Grass (G5) Ige <0.10 kU/L; Perennial Rye Grass Class 0; Ragweeed Class 0; Rough Marsh Elder (W16) Ige <0.10 kU/L; Rough Marsh Elder Class 0; Sweet Vernal Class 0; Sweet Vernal Grass (G1) Ige <0.10 kU/L; Timothy Grass (G6) Ige <0.10 kU/L; Timothy Grass Class 0
[2022-04-06 19:47] LABS: Aspergillus Fumigatus, Igg Ab, 49.5 mg/L (<=102)
[2022-04-08 15:53] LABS: Pigeon Serum Ab NEGATIVE (NEGATIVE); Thermoactinomyces candidus Ab NEGATIVE (NEGATIVE)
[2023-04-25 16:41] LABS: SM/RNP Antibodies <1.0 NEG
== END 2022-04-01 10:29 | disposition home or self-care (01) ==
PROVIDERS: PCP Family Medicine; Visit Provider Internal Medicine Pulmonary Disease
DX: J45.909 Unspecified asthma, uncomplicated (principal); J98.4 Other disorders of lung; M25.641 Stiffness of right hand, not elsewhere classified; M25.642 Stiffness of left hand, not elsewhere classified; R05.9 Cough, unspecified; R06.00 Dyspnea, unspecified; R91.8 Other nonspecific abnormal finding of lung field; R06.02 Shortness of breath
CPT/HCPCS: 36415; 82785; 85651; 86003; 86038; 86140; 86200; 86225; 86235; 86331; 86431; 86606; 86609

== ENCOUNTER → 2022-04-21 08:52 | Outpatient (BNVA) | payer MEDICARE, SELFPAY | PROVIDERS: PCP Family Medicine; Visit Provider Internal Medicine Pulmonary Disease | DX: J44.9 Chronic obstructive pulmonary disease, unspecified (principal); R06.00 Dyspnea, unspecified; M25.641 Stiffness of right hand, not elsewhere classified; M25.642 Stiffness of left hand, not elsewhere classified; J98.4 Other disorders of lung; R05.9 Cough, unspecified; K21.9 Gastro-esophageal reflux disease without esophagitis; I50.32 Chronic diastolic (congestive) heart failure; J45.909 Unspecified asthma, uncomplicated; Z87.891 Personal history of nicotine dependence | CPT/HCPCS: 99214 ==

== ENCOUNTER 2022-05-12 10:08 | Oncology outpatient (recurring) (ONCR) | payer MEDICARE, SELFPAY ==
[2022-05-12 12:39] LABS: Basophils % 0.4 %; Eosinophils # 0.1 10^3/uL (0.0-0.8); Eosinophils % 2.2 %; Hematocrit 37.4 % (37.0-47.0); Hemoglobin 12.5 g/dL (11.5-15.3); Lymphocytes # 0.4 10^3/uL (0.8-4.8); Lymphocytes % 15.4 %; Mean Corpuscular HGB Conc 33.4 g/dL (30.0-36.0); Mean Corpuscular Hemoglobin 31.6 pg (28.0-34.0); Mean Corpuscular Volume 94.4 fl (81-99); Mean Platelet Volume 10.4 fL (7.4-10.4); Monocytes # 0.2 10^3/uL (0.2-0.9); Monocytes % 8.4 %; Neutrophils % 73.2 %; Nucleated Red Blood Cells % 0 %; Platelet Count 75 10^3/cmm (130-400); Red Blood Count 3.96 10^6/uL (4.1-5.3); Red Cell Distribution Width 14.5 % (12.1-15.1); White Blood Count 2.7 10^3/uL (4.0-10.0)
[2022-05-12 12:58] LABS: Alanine Aminotransferase 13 U/L (0-33); Albumin Level 3.9 g/dL (3.5-5.2); Alkaline Phosphatase 72 U/L (35-105); Aspartate Amino Transferase 22 U/L (0-32); Blood Urea Nitrogen 12 mg/dL (8-23); Calcium 9.2 mg/dL (8.5-10.5); Carbon Dioxide 26 mmol/L (22-29); Chloride 101 mmol/L (98-107); Globulin 3.2 g/dL (1.3-4.6); Glomerular Filtration Rate 122.3 mL/min (90-130); Glucose 200 mg/dL (65-115); Osmolality Calculated 289 mOsm/kg (285-295); Sodium 137 mmol/L (136-145); Total Protein 7.1 g/dL (6.6-8.7)
[2022-05-12 13:00] LABS: LAB Peripheral Smear Sent for Review
[2022-05-12 13:15] LABS: Vitamin B12 357 pg/mL (232-1245)
[2022-05-12 13:22] LABS: Tumor Marker Alpha Fetoprotein 5.5 ng/mL (0-8.3)
== END 2022-05-30 23:59 | disposition home or self-care (01) ==
PROVIDERS: PCP Family Medicine; Visit Provider Internal Medicine Medical Oncology
DX: D61.818 Other pancytopenia (principal); D73.1 Hypersplenism; Z86.19 Personal history of other infectious and parasitic diseases; K74.60 Unspecified cirrhosis of liver; E11.9 Type 2 diabetes mellitus without complications; Z79.84 Long term (current) use of oral hypoglycemic drugs; Z87.891 Personal history of nicotine dependence
CPT/HCPCS: 36415; 80053; 82105; 82607; 85025; 99204

== ENCOUNTER → 2022-06-02 11:21 | Outpatient (BNVA) | payer MEDICARE, SELFPAY | PROVIDERS: PCP Family Medicine; Visit Provider Internal Medicine | DX: R76.8 Other specified abnormal immunological findings in serum (principal); D61.818 Other pancytopenia; J98.4 Other disorders of lung; E11.9 Type 2 diabetes mellitus without complications; Z11.59 Encounter for screening for other viral diseases; Z11.1 Encounter for screening for respiratory tuberculosis; Z79.84 Long term (current) use of oral hypoglycemic drugs; Z86.19 Personal history of other infectious and parasitic diseases | CPT/HCPCS: 36415; 82550; 82657; 83516; 84182; 85651; 86140; 86160; 86235; 86480; 86704; 86803; 87340; 87522; 99204 ==

== ENCOUNTER → 2022-06-09 13:38 | Outpatient (BNVA) | payer MEDICARE, SELFPAY | PROVIDERS: PCP Family Medicine; Visit Provider Nurse Practitioner Family | DX: E55.9 Vitamin D deficiency, unspecified (principal); D69.6 Thrombocytopenia, unspecified; E11.9 Type 2 diabetes mellitus without complications; J06.9 Acute upper respiratory infection, unspecified | CPT/HCPCS: 83036 ==

== ENCOUNTER 2022-06-17 10:52 | Outpatient (CLI) | payer MEDICARE, SELFPAY ==
--- NOTE | 2022-06-17 10:59 | MM_ITS ---
WS: [id number] BILATERAL SCREENING DIGITAL TOMOSYNTHESIS MAMMOGRAM WITH CAD HISTORY: Screening. COMPARISON: 07/08/2014 Bilateral CC and MLO views with tomosynthesis and synthetic mammography submitted. Computer aided det ection analyzed. Breast composition: The breasts are extremely dense, which lowers the sensitivity of mammography. No suspicious masses, microcalcifications or architectural distortion. Benign calcifications and nodules within each breast. Very similar appearance to the prior examination. No suspicious grouping of calc ification. Bilateral breast biopsy clips are also noted. MM/[place] [id number] IMPRESSION: BI-RADS: 2-Benign FOLLOW UP: 1 Year Follow-up
== END 2022-06-17 10:53 | disposition home or self-care (01) ==
PROVIDERS: PCP Family Medicine; Visit Provider Nurse Practitioner Family
DX: Z12.31 Encounter for screening mammogram for malignant neoplasm of breast (principal)
CPT/HCPCS: 77063; 77067

== ENCOUNTER → 2022-06-30 14:55 | Outpatient (BNVA) | payer MEDICARE, SELFPAY | PROVIDERS: PCP Family Medicine; Visit Provider Internal Medicine | DX: R76.8 Other specified abnormal immunological findings in serum (principal); M79.673 Pain in unspecified foot; D61.818 Other pancytopenia; K74.60 Unspecified cirrhosis of liver; Z86.19 Personal history of other infectious and parasitic diseases | CPT/HCPCS: 99214 ==

== ENCOUNTER → 2022-09-01 09:34 | Outpatient (BNVA) | payer MEDICARE, SELFPAY | PROVIDERS: PCP Family Medicine; Visit Provider Nurse Practitioner Family | DX: E11.9 Type 2 diabetes mellitus without complications (principal); R76.8 Other specified abnormal immunological findings in serum; E55.9 Vitamin D deficiency, unspecified | CPT/HCPCS: 80053; 80061; 83036; 84443; 85025 ==

== ENCOUNTER → 2022-09-15 10:06 | Outpatient (BNVA) | payer MEDICARE, SELFPAY | PROVIDERS: PCP Family Medicine; Visit Provider Internal Medicine Cardiovascular Disease | DX: I25.10 Atherosclerotic heart disease of native coronary artery without angina pectoris (principal); I50.32 Chronic diastolic (congestive) heart failure; J44.9 Chronic obstructive pulmonary disease, unspecified; E11.9 Type 2 diabetes mellitus without complications; Z79.84 Long term (current) use of oral hypoglycemic drugs; K21.9 Gastro-esophageal reflux disease without esophagitis; T82.857A Stenosis of other cardiac prosthetic devices, implants and grafts, initial encounter; Y71.2 Prosthetic and other implants, materials and accessory cardiovascular devices associated with adverse incidents; Z87.891 Personal history of nicotine dependence | CPT/HCPCS: 99214 ==

== ENCOUNTER 2022-10-06 08:55 | Outpatient (CLI) | payer MEDICARE, SELFPAY ==
--- NOTE | 2022-10-06 09:00 | CT_ITS ---
WS: [id number] CT CHEST WITHOUT INTRAVENOUS CONTRAST HISTORY: f/u restrictive lung disease TECHNIQUE: Contiguous 5 mm axial imaging performed on the thorax. Coronal and sagittal reformats are submitted. All CT scans at [facility] use at least one of these dose optimization techniques: automated exposure control; mA and/or kV adjustment per patient size (includes targeted exams where dose is matched to clinical indication); or iterative reconstruction. CONTRAST: None DLP: 586.58 mGy.cm COMPARISON: 03/31/2022 Lungs and central airway: High-resolution chest CT was not performed today. Biapical pleural scarring is linear. Lungs are hyperexpanded. No areas of mosaic attenuation appreciated on this examination b ut they would be difficult to visualize without the high resolution imaging. There is no lobar collap se or consolidation. No evidence for pneumonitis. Pleura: Normal. No pleural effusion. Heart and pericardium: Prior CABG. Moderate cardiomegaly. There is severe extensive calcification in the lower [place]oux coronary arteries. Mediastinum and connie: No mediastinal or hilar enlarged lymph node nodes. Largest RIGHT paratracheal l ymph node measures 12 mm and is unchanged. There are smaller lymph nodes within the mediastinum. Vessels: Moderate atherosclerosis aorta. Pulmonary artery is mildly prominent. Chest wall and lower neck: Negative. Prior CABG. Upper abdomen: Cirrhosis. Spleen is enlarged but incompletely visualized. Numerous varices are noted in the upper abdomen extending to the splenic hilum. Although incompletely visualized suspect recanal ization of the umbilical vein. Cholelithiasis. No evidence for acute cholecystitis. No adrenal mass. Osseous structures: Increase in thoracic kyphosis. Vacuum disc phenomenon at several discs throughout the thoracic spine. CT/CT chest wo con [id number] IMPRESSION: 1. No pneumonia or adverse changes within the lungs since the prior study of . 2. No pleural effusion. 3. Prior CABG with extensive lower sioux coronary artery calcification. 4. No mediastinal or hilar adenopathy. 5. Cirrhosis with evidence for portal venous hypertension.
== END 2022-10-06 08:56 | disposition home or self-care (01) ==
PROVIDERS: PCP Family Medicine; Visit Provider Internal Medicine Pulmonary Disease
DX: J98.4 Other disorders of lung (principal); R91.8 Other nonspecific abnormal finding of lung field; Z95.1 Presence of aortocoronary bypass graft; I25.10 Atherosclerotic heart disease of native coronary artery without angina pectoris; K74.60 Unspecified cirrhosis of liver
CPT/HCPCS: 71250; 94060; 94726; 94729; J7613

== ENCOUNTER 2022-10-06 10:13 | Outpatient (CLI) | payer MEDICARE, SELFPAY ==
[2022-10-06 10:28] VITALS: PULSE 78; RESP 18; O2SAT 97
[2022-10-06] MEDS: albuterol 2.5 mg/3 mL Neb INHALATION (10:28)
[2022-10-06 10:33] VITALS: PULSE 81
== END 2022-10-06 10:14 | disposition home or self-care (01) ==
PROVIDERS: PCP Family Medicine; Visit Provider Internal Medicine Pulmonary Disease
DX: J98.4 Other disorders of lung (principal)
CPT/HCPCS: 94060; 94726; 94729; J7613

== ENCOUNTER 2022-10-13 11:37 | Outpatient (CLI) | payer MEDICARE, SELFPAY ==
--- NOTE | 2022-10-13 12:15 | USCV_ITS ---
Tristonselvin Nyasia Age: 71 Gender: F : 1950 Exam Date: 10/13/2022 12:27 Ordering Phys: Suzy Zuleta MD ([email or web address]) Technologist: Jeffrey Segura Exam Location: [facility] [place] Indication: SOB BP: 132 / 77 HR: 75 Rhythm: Sinus Technical Quality: Adequate MEASUREMENTS (Male / Female) Normal Values 2D ECHO LV Diastolic Diameter PLAX 4.4 cm 4.2 - 5.9 / 3.9 - 5.3 cm LV Systolic Diameter PLAX 3.0 cm IVS Diastolic Thickness 1.0 cm 0.6 - 1.0 / 0.6 - 0.9 cm IVS Systolic Thickness 1.3 cm LVPW Diastolic Thickness 1.3 cm 0.6 - 1.0 / 0.6 - 0.9 cm LVPW Systolic Thickness 1.7 cm LVOT Diameter 2.0 cm LV Ejection Fraction 2D Teich 60.6 % LV Ejection Fraction MOD 2C 60.5 % LV Ejection Fraction 2C AL 61.3 % LA Diameter 4.2 cm LA Width 3.4 cm LA Height 5.3 cm RA Width 3.8 cm RA Height 4.2 cm Aorta at Sinotubular Diameter 2.3 cm IVC Diameter 1.6 cm M-MODE Aortic Annulus Diameter 2.6 cm LA Ao Ratio MM 1.6 MV E Point Septal Separation 1.1 cm DOPPLER AV Peak Velocity 403.3 cm/s LVOT Peak Velocity 105.0 cm/s AV Area Cont Eq vti 1.0 cm squared AV Area Cont Eq pk 0.8 cm squared MV Peak Velocity 231.0 cm/s MV Area PHT 3.1 cm squared Mitral E to A Ratio 1.0 MV E' Velocity 93.0 cm/s Mitral E to MV E' Ratio 21.3 Mitral E to LV E' Lateral Ratio 17.0 Mitral E to LV E' Septal Ratio 28.4 TR Peak Velocity 303.8 cm/s TR Peak Gradient 36.9 mmHg TR Mean Velocity 241.1 cm/s TR Mean Gradient 26.0 mmHg TR Velocity Time Integral 101.8 cm Right Atrial Pressure 3.0 mmHg Pulmonary Artery Systolic Pressu 39.9 mmHg PV Peak Velocity 129.0 cm/s RV Acceleration Time 0.1 s RV Ejection Time 0.3 s RV AcT/ET 0.4 FINDINGS Left Ventricle Normal left ventricular size and systolic function, EF 55 %. Mild left ventricular hypertrophy. No regional wall motion abnormalities. Grade I/IV diastolic dysfunction (abnormal relaxation filling pattern), normal to mildly elevated filling pressures. Right Ventricle The right ventricle is normal in size and function. Right Atrium The right atrium is normal in size. Left Atrium Mildly increased left atrial size. Mitral Valve Thickened mitral valve. Severe mitral annular calcification. Mild-moderate mitral valve regurgitation. Aortic Valve Moderately severe aortic valve stenosis, mean gradient 31.6 mmHg, SARAH 1 cm squared. Peak velocity of 4.1 m/s with a peak gradient of 67 mmHg Tricuspid Valve Mild tricuspid valve regurgitation. Estimated pulmonary artery peak systolic pressure 40 mmHg Pulmonic Valve No gross abnormalities noted Pericardium No pericardial effusion. Aorta Normal ascending aorta dimension. IVC Normal inferior vena cava. CONCLUSIONS Normal left ventricular size and systolic function, EF 55 %. Mild left ventricular hypertrophy. No regional wall motion abnormalities. Grade I/IV diastolic dysfunction (abnormal relaxation filling pattern), normal to mildly elevated filling pressures. Thickened mitral valve. Severe mitral annular calcification. Mild-moderate mitral valve regurgitation. Moderately severe aortic valve stenosis, mean gradient 31.6 mmHg, SARAH 1 cm squared. Peak velocity of 4.1 m/s with a peak gradient of 67 mmHg. Mild tricuspid valve regurgitation. Estimated pulmonary artery peak systolic pressure 40 mmHg There is no pericardial effusion. There are no intracardiac masses. Compared to the study from 02/12/2021, there is worsening of the aortic valve stenosis. Dr Suzy Zuleta MD [facility] (Electronically Signed) Final Date: 15 October 2022 14:33 S
== END 2022-10-13 11:38 | disposition home or self-care (01) ==
LOC: RAD 11:41
PROVIDERS: PCP Family Medicine; Visit Provider Internal Medicine Cardiovascular Disease
DX: T82.857A Stenosis of other cardiac prosthetic devices, implants and grafts, initial encounter (principal); R06.02 Shortness of breath; I08.3 Combined rheumatic disorders of mitral, aortic and tricuspid valves; X58.XXXA Exposure to other specified factors, initial encounter
CPT/HCPCS: 93306; 99214

== ENCOUNTER → 2022-10-19 09:57 | Outpatient (BNVA) | payer MEDICARE, SELFPAY | PROVIDERS: PCP Family Medicine; Visit Provider Internal Medicine Pulmonary Disease | DX: J44.9 Chronic obstructive pulmonary disease, unspecified (principal); K21.9 Gastro-esophageal reflux disease without esophagitis; I50.32 Chronic diastolic (congestive) heart failure; M25.641 Stiffness of right hand, not elsewhere classified; M25.642 Stiffness of left hand, not elsewhere classified; J98.4 Other disorders of lung; R05.3 Chronic cough; J30.9 Allergic rhinitis, unspecified; Z87.891 Personal history of nicotine dependence; I35.0 Nonrheumatic aortic (valve) stenosis; R76.8 Other specified abnormal immunological findings in serum; Z95.1 Presence of aortocoronary bypass graft | CPT/HCPCS: 99214 ==

== ENCOUNTER → 2022-10-20 11:14 | Outpatient (BNVA) | payer MEDICARE, SELFPAY | PROVIDERS: PCP Family Medicine; Visit Provider Internal Medicine Cardiovascular Disease | DX: I25.10 Atherosclerotic heart disease of native coronary artery without angina pectoris (principal); T82.857A Stenosis of other cardiac prosthetic devices, implants and grafts, initial encounter; Y71.2 Prosthetic and other implants, materials and accessory cardiovascular devices associated with adverse incidents; I50.32 Chronic diastolic (congestive) heart failure; R06.02 Shortness of breath; Z87.891 Personal history of nicotine dependence; Z79.82 Long term (current) use of aspirin | CPT/HCPCS: 99215 ==

== ENCOUNTER → 2022-10-27 10:32 | Outpatient (BNVA) | payer MEDICARE, SELFPAY | PROVIDERS: PCP Family Medicine; Visit Provider Internal Medicine | DX: R76.8 Other specified abnormal immunological findings in serum (principal); Z79.899 Other long term (current) drug therapy; D61.818 Other pancytopenia; K74.60 Unspecified cirrhosis of liver; M79.673 Pain in unspecified foot; Z86.19 Personal history of other infectious and parasitic diseases | CPT/HCPCS: 99214 ==

== ENCOUNTER → 2022-11-15 11:36 | Outpatient (BNVA) | payer MEDICARE, SELFPAY | PROVIDERS: PCP Family Medicine; Visit Provider Nurse Practitioner Family | DX: M25.532 Pain in left wrist (principal); E11.9 Type 2 diabetes mellitus without complications; T82.857A Stenosis of other cardiac prosthetic devices, implants and grafts, initial encounter; X58.XXXA Exposure to other specified factors, initial encounter; E55.9 Vitamin D deficiency, unspecified; R06.02 Shortness of breath; R76.8 Other specified abnormal immunological findings in serum; Y99.9 Unspecified external cause status | CPT/HCPCS: 73110; 80053; 80061; 83036; 84443; 85025 ==

== ENCOUNTER 2022-11-23 15:09 | Outpatient (CLI) | payer MEDICARE, SELFPAY ==
[2022-11-23 15:55] LABS: Basophils % 0.3 %; Eosinophils # 0.1 10^3/uL (0.0-0.8); Eosinophils % 2.7 %; Hematocrit 36.5 % (37.0-47.0); Hemoglobin 12.2 g/dL (11.5-15.3); Lymphocytes # 0.5 10^3/uL (0.8-4.8); Lymphocytes % 12.7 %; Mean Corpuscular HGB Conc 33.4 g/dL (30.0-36.0); Mean Corpuscular Hemoglobin 31.4 pg (28.0-34.0); Mean Corpuscular Volume 94.1 fl (81-99); Mean Platelet Volume 9.9 fL (7.4-10.4); Monocytes # 0.3 10^3/uL (0.2-0.9); Monocytes % 8.1 %; Neutrophils # 2.82 10^3/uL (1.8-7.7); Neutrophils % 75.9 %; Nucleated Red Blood Cells % 0 %; Platelet Count 96 10^3/cmm (130-400); Red Blood Count 3.88 10^6/uL (4.1-5.3); Red Cell Distribution Width 14.3 % (12.1-15.1); White Blood Count 3.7 10^3/uL (4.0-10.0)
[2022-11-23 16:14] LABS: INR 1.18 (0.83-1.21); Prothrombin Time (Patient) 15.4 Seconds (12.0-15.1)
[2022-11-23 16:25] LABS: Anion Gap 17.2 (5-19); Blood Urea Nitrogen 14 mg/dL (8-23); Calcium 8.7 mg/dL (8.5-10.5); Carbon Dioxide 23 mmol/L (22-29); Chloride 102 mmol/L (98-107); Glomerular Filtration Rate 82.7 mL/min (90-130); Glucose 119 mg/dL (65-115); Osmolality Calculated 288 mOsm/kg (285-295); Potassium 4.2 mmol/L (3.5-5.1); Sodium 138 mmol/L (136-145)
== END 2022-11-23 15:10 | disposition home or self-care (01) ==
LOC: LAB 15:15
PROVIDERS: PCP Family Medicine; Visit Provider Internal Medicine Cardiovascular Disease
DX: T82.857A Stenosis of other cardiac prosthetic devices, implants and grafts, initial encounter (principal); X58.XXXA Exposure to other specified factors, initial encounter; I50.32 Chronic diastolic (congestive) heart failure
CPT/HCPCS: 36415; 80048; 85025; 85610; 86850; 86900

== ENCOUNTER 2022-11-24 07:26 | Outpatient (CLI) | payer MEDICARE, SELFPAY ==
[2022-11-24] VITALS (34 sets, daily range): BP systolic 96–150; BP diastolic 49–88; PULSE 70–96; RESP 11–26; TEMP 36.3–37.3; O2SAT 92–97; BMI 38.4
--- NOTE | 2022-11-24 07:00 | XACV_ITS ---
Exam Room: [facility] Ht: 160 cm Wt: 98 kg BSA: 2.14 m2 Gender: Female : 1950 Any Known Allergies: No known allergies Exam Priority: Routine Procedure(s): Procedure Description: Diagnostic procedure Procedure Description: Coronary Angiography Song MCCAULEY; Diagnostic Cath Status: Elective Diagnostic Findings * Left main is a medium caliber vessel with no significant stenotic lesions. * The left anterior descending artery is a medium caliber vessel which appears to have moderate diffuse disease in the midsegment. The proximal segment was found to have mild diffuse intimal irregularities. Right after the second septal easement man, the artery appears to be subtotally occluded. Competently flow was noted in the distal segment of the artery. * The left circumflex artery is a medium to large caliber codominant vessel. The proximal segment of the artery was found to have around 40% eccentric segmental narrowing. The first obtuse marginal branch was found to have no significant stenotic lesions. The second obtuse marginal artery was found to have a 40% segmental narrowing proximally. The distal artery and the ureter was found to have mild diffuse intimal irregularities.. * The right coronary artery appears to be totally occluded proximally. Mild diffuse disease was noted in the proximal segment of the artery. Grade 2-3 [id number] collaterals were noted filling up the PLV and PDA branches, during the left coronary injections. * The left internal mammary artery graft to the distal LAD was found to be widely patent. The distal LAD was found to have mild diffuse disease. Conclusions 1. 72-year-old white female with history of coronary disease, status post single-vessel coronary bypass surgery and aortic valve replacement in 2018, presenting with increasing shortness of breath, dizziness and weakness. She was found to have severe bioprosthetic aortic valve stenosis. Her peak velocity across the aortic valve 4.1 m/s. She also was recently diagnosed with congestive heart failure. For further evaluation of her coronary status as well as the hemodynamics, and right and left heart catheterization with coronary angiogram and graft angiogram was recommended. The findings are as follows. 2. Coronary angiogram revealing 1. No significant left main disease. 2. Moderate diffuse disease in the mid LAD with subtotal occlusion right after the second septal easement man. Patent ESTES to the LAD. Mild diffuse disease in the distal LAD. 3. Mild disease in the left circumflex artery.4. Total occlusion of the right coronary artery at the proximal segment. Grade 2-3 [id number] collaterals. 3. The right heart catheterization revealed PA pressure 55/35 with a mean of 41. RV pressure 58/10. The mean right atrial pressure was 18. Pulmonary capillary wedge pressure was 27. Cardiac output of 4.0 with an index of 2.0 based on Letty's. Diagnostic RX Recommendation: other cardiac therapy w/o CABG/PCI Pressures Phase:Rest AO : 138 / 63 ( 94 ) @ 1:55:00 PM 133 / 63 ( 93 ) @ 2:05:00 PM RV : 58 / 10 / 18 @ 1:51:00 PM PA : 55 / 35 ( 41 ) @ 1:50:00 PM RA : a wave = 21 v wave = 20 mean = 18 @ 1:53:00 PM PCW : a wave = 29 v wave = 30 mean = 27 @ 1:49:00 PM O2 Content Phase:Rest PA : O2 Content O2: 67.0 @ 1:55:00 PM Saturations Phase:Rest AO : 96 @ 1:49:00 PM RA : 70 @ 1:50:00 PM RV : 69 @ 2:05:00 PM PA : 67 @ 1:55:00 PM PCW : 27 @ 1:53:00 PM Cardiac Output Phase:Rest Letty : 4 @ 1:50:05 PM Letty Cardiac Index: 2 @ 1:50:05 PM Flow Phase:Rest Qp : 4 @ 1:50:05 PM Qs : 5 @ 1:50:05 PM Clinical Evaluation EBL: 5mL-10mL Procedural Details Procedure Consent Obtained. Admit Source: Out Patient. Identified patient by full name and date of as verbalized by the patient/guarantor. Does the consent match the physician's order: Yes. Accurate & Complete Informed Consent: Yes. Inpatient/Outpatient History & Physical on Chart: Yes. If H&P is completed, is and addenduem needed: No; If yes, is the addendum complete: N/A. Visualize and Verify Site with Patient/Guarantor: N/A. Relevant Radiology Images available: N/A. The risks, benefits, and alternatives of sedation and/or procedure were discussed by physician. The patient agrees to continue. Procedure started. [facility] Clinical Fraility Score: 3: Managing Well. Rn Procedures Indications: Valvular Disease. Chest Pain Symptom Assessment: Typical Angina Symptoms. Cardiovascular Instability: No. Correct patient, site and procedure confirmed by cath team. PERRLA. 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 Lungs clear x 5 lobes. IV Site on Arrival: 20 gauge in the right anticubital. IV Fluids: 0.9% NaCl at KVO. 200 mL infused prior to laborer pipeline. Pre Procedural Pulses: bilateral radial was 2+. Pre Procedural Pulses: bilateral dorsalis pedis was Doppled. Pre Procedural Pulses: bilateral posterior tibial was Doppled. bilateral groins was prepped with chloroprep then draped in the usual sterile fashion. Physician notified. Baseline sample Acquired. HR: 84 BPM. Physician arrived. Physician scrubbed in. Immediate Pre-Procedure Time Out. Correct Patient: Yes; Correct Procedure: Yes; Correct Site: Yes; Correct Patient Position: Yes; Correct Supplies: Yes; Dried Flammable Prep: Yes; Blood Products Available: N/A;. Lidocaine 1% infiltrated to the right groin. Venous access obtained with a micropuncture set. Arterial access obtained with micropuncture set. [place]-Grace catheter inserted. Oximetry samples were obtained. Normal venous range: 60-85%. Normal arterial range: 95-100%. Pressure measurements obtained. ABG drawn and sent with respiratory therapy. Oxygen started at 2liters/min via nasal canula. [place]-Grace out. A 5 malawian JL4 catheter in over wire. Multiple views taken of left coronary artery. Catheter out. A 5 malawian JR4 catheter in over wire. Multiple views taken of right coronary artery. Catherter repositioned to ESTES. ESTES to LAD visualized. Glidewire in through JL4 in attempt to cross the valve. Catheter out. Wire out. A Manual Compression was successful obtaining hemostatsis at the Right Femoral vein insertion site. A Manual Compression was successful obtaining hemostatsis at the Right Femoral artery insertion site. PERRLA. 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 No VTE prophylaxis required. Medication's Wasted: Heparin = 4500 units. Medication's Wasted: Other = Fentanyl 25 mcg. Total IV fluids: 23 mL. Post-op diagnosis: T O of RCA, severe ACS, pulmonary hypertension. Complications: none. Estimated blood loss: 5mL-10mL. Responsiveness - Normal response to verbal stimuli; alert and oriented, PERRLA. Airway - Unaffected, no intervention required; spontaneous ventilation. Circulation: W/N/L, pulses unchanged. Nausea/Vomiting: No. Procedure completed. Patient transferred by bed to 1st floor. Vital chart was stopped. Access Site Site: Right Femoral vein Sheath Size: 6 Fr Hemostasis Method: Manual Compression Hemostasis Success: Successful Site: Right Femoral artery Sheath Size: 5 Fr Hemostasis Method: Manual Compression Hemostasis Success: Successful Procedure Medications Start: 12:45 PM Stop: 12:45 PM Medication: Heparin Amount: 1500 units Route: I.V. Start: 12:55 PM Stop: 12:55 PM Medication: Versed Amount: 1 mg Route: I.V. Start: 1:04 PM Stop: 1:04 PM Medication: Fentanyl Amount: 25 mcg Route: I.V. I, the attending physician, have reviewed and verified all procedure medications. Yes, all medications given per verbal order History/Risk Factors Hypertension: Yes Dyslipidemia: Yes Peripheral Arterial Disease (PAD): No Myocardial Infarction (VT): No Obesity: No Tobacco Use: Former Prior Interventions PCI: No CABG: Yes Valve Surgery: No Report Signatures Finalized by Dr Suzy Zuleta MD [facility] on 11/25/2022 06:03 PM
--- NOTE | 2022-11-24 07:55 | P.HPUD_ITS ---
Surgery/Procedure H&P Update DATE OF PROCEDURE: November 24, 2022 DATE H&P PERFORMED: 11/24/22 H&P UPDATE INFORMATION: I have reviewed H&P completed within last 30 days, I have examined patient prior to procedure and No changes to prior documentation PREOP DIAGNOSIS: CHF, Severe , bioprosthetic valve stenosis PLANNED PROCEDURE: Operation Date: 11/24/22 08:30 Proposed Procedures p [facility] [place] [id number] T82.857A,I50.32,I25.60(Bilateral) - Suzy Zuleta MD PATIENT REASSESSED PRIOR TO SEDATION, WITH NO CHANGE NOTED: Yes PHYSICAL EXAM: alert, oriented x 3, clear to auscultation bilaterally, regular rate & rhythm and operative site marked AIRWAY EVAL/ANESTHESIA PLAN: normal airway, see other exam findings, ASA III, Local Anesthesia, Risks, benefits & alternatives of sedation and/or procedure discussed and Patient agrees to continue as planned
[2022-11-24] MEDS: diphenhydrAMINE 50 mg Capsule PO (07:59)
[2022-11-24] MEDS: aspirin 325 mg Tablet PO (07:59)
--- NOTE | 2022-11-24 08:02 | PM.HP ---
Providers/Chief Complaint Primary Care Provider: Ruslan Ward MD Chief Complaint: T82.527O History of Present Illness Nyasia Sultana is a 72 year old female with a history of single-vessel coronary bypass surgery and aortic valve replacement, is presenting with increasing shortness of breath, dizziness and weakness. She was found to have severe aortic valve stenosis. She had features of congestive heart failure. Echocardiogram revealed a severe aortic valve stenosis. For further evaluation of her aortic valve, coronary status and the graft status, a left and right heart catheterization with coronary angiogram and graft angiogram was recommended. Patient underwent the following surgery in 2018. 1.? Aortic valve replacement with a 21 mm pericardial tissue valve #2.? Coronary artery bypass grafting ?1 (1 artery) utilizing in situ left internal mammary artery to left anterior descending artery Review of Systems Narrative: CONSTITUTIONAL: No fever or chills. EYES: No blurring of vision or other visual disturbances lately. ENT: No hoarseness of voice, auditory disturbances or sore throat. CARDIOVASCULAR: As mentioned above. RESPIRATORY: Increasing shortness of breath. GASTROINTESTINAL: History of cirrhosis of the liver GENITOURINARY: No dysuria or hematuria. INTEGUMENTARY: No skin rashes or history of skin cancer. NEURO: No transient ischemic attacks or amaurosis. PSYCHIATRIC: No history of psychosis or major depression. HEMATOLOGIC: No bleeding disorders or significant anemia. ENDOCRINE: No history of polyuria or polydipsia. MUSCULOSKELETAL: No recent joint pain or swelling. ALLERGY/IMMUNOLOGY: As mentioned above. Medications/Allergies Home Medications Medication Instructions Recorded Confirmed Last Taken Type multivitamin 1 tab PO DAILY 09/27/19 11/24/22 11/23/22 09:00 History aspirin 81 mg chewable tablet 81 mg PO DAILY 07/15/21 11/24/22 11/23/22 09:00 History (Aspirin Childrens) lactobacillus combination no.4 3 3,000 mmu cells PO DAILY 07/15/21 11/24/22 11/23/22 09:00 History billion cell capsule (Probiotic) ipratropium 0.5 mg-albuterol 3 mg 3 ml inhalation Q6H PRN wheezing 02/10/22 11/24/22 Unknown Rx (2.5 mg base)/3 mL nebulization #180 mL soln albuterol sulfate 90 mcg/actuation 2 puff inhalation Q6H PRN 05/09/22 11/24/22 Unknown Rx aerosol inhaler (ProAir HFA) shortness of breath or wheezing #8.5 grams metformin 1,000 mg tablet See Rx Instructions .Route 09/01/22 11/24/22 11/23/22 09:00 Rx .COMPLEX #180 tabs omeprazole 20 mg capsule,delayed 20 mg PO DAILY #90 caps 09/01/22 11/24/22 11/23/22 09:00 Rx release hydroxychloroquine 200 mg tablet 200 mg PO BID #60 tabs 10/27/22 11/24/22 11/22/22 21:00 Rx glipizide 5 mg tablet See Rx Instructions .Route 11/14/22 11/24/22 11/23/22 09:00 Rx .COMPLEX #180 tabs metoprolol tartrate 25 mg tablet 12.5 mg PO BID #60 tabs 11/14/22 11/24/22 11/23/22 09:00 Rx spironolactone 25 mg tablet See Rx Instructions .Route 11/14/22 11/24/22 11/23/22 09:00 Rx .COMPLEX #30 tabs cholecalciferol (vitamin D3) 1,250 50,000 unit PO .weekly #4 caps 11/15/22 11/24/22 11/18/22 09:00 Rx mcg (50,000 unit) capsule rosuvastatin 5 mg tablet (Crestor) 5 mg PO DAILY 30 days #30 tabs 11/15/22 11/24/22 11/23/22 09:00 Rx semaglutide 0.25 mg or 0.5 mg (2 0.5 mg (0.4 mL) SUBCUT .weekly 30 11/15/22 11/24/22 11/20/22 09:00 Rx mg/1.5 mL) subcutaneous pen days #1.5 mL injector Allergies Allergy/AdvReac Type Severity Reaction Status Date / Time prednisone Allergy ADR/ALGY-Pa Verified 11/24/22 08:45 lpitations PFSH Acute PFSH: Medical History ASHD (arteriosclerotic heart disease) CHF (congestive heart failure) Cirrhosis of liver COPD (chronic obstructive pulmonary disease) Diabetes mellitus Foot pain Hepatitis C Surgical History H/O bilateral cataract extraction S/P aortic valve replacement S/P knee surgery Family History Mother Diabetes Myocardial infarction Hypertension Father Diabetes Myocardial infarction Hypertension Grandmother Myocardial infarction Cancer Grandfather Myocardial infarction Cancer Other Heart disease Social History Smoking and tobacco status: former smoker Quit status (tobacco): has quit using tobacco Year quit tobacco: 1992 2-3-pack per day Former quit date comment: smoked for 30 years Alcohol intake: never Substance/Drug Use: never Lives independently: Yes Household members: spouse and other Details: brother Housing: House Marital status: Number of children: 0 Pets and animals: Yes Pets & animals: cat(s), dog(s) and bird(s) Physical Exam Narrative: GENERAL: The patient is alert and oriented times three. Not in any acute distress. HEENT: No significant pallor, icterus or lymphadenopathy.Oral cavity: There are no mucous membrane lesions. NECK: Trachea appears to be central. No masses noted. No JVD or thyromegaly appreciated. RESPIRATORY: Chest is symmetrical. No intercostals muscle retraction or any accessory muscle activation. There is no chest wall tenderness. Breath sounds are heard bilaterally. No rales or rhonchi heard. No evidence of any consolidation. BREASTS: Deferred. HEART: The heart sounds are normal. No S3 or S4. No significant murmurs. No pericardial rub ABDOMEN: No vessel pulsations or distention. No tenderness. No organomegaly appreciated. Bowel sounds are normally heard. : Deferred. RECTAL: Deferred. LYMPHATIC: No lymphadenopathy noted in the neck. EXTREMITIES: No edema or cyanosis. No clubbing. MUSCULOSKELETAL: No acute joint deformities or swelling SKIN: There are no significant rashes or ecchymosis NEUROPSYCHIATRIC: The patient is alert and oriented x3. Appears to be in a good mood. No tremors or rigidity noted. Data Other data: Laboratory Last Values POC Glucose 148 mg/dL (70-110) H 11/24/22 07:46 A&P Assessment and plan (1) Prosthetic aortic valve stenosis: This patient had a 21 mm pericardial valve placed to the aortic position on 13 November 2017. The patient was found to have severe aortic valve stenosis by echocardiogram. Patient may require redo valve intervention. We will try to get an aortic valve gradient and right heart pressures to decide on further management. (2) Cirrhosis of liver: Patient is known to have pancytopenia (3) ASHD (arteriosclerotic heart disease): Patient had single-vessel coronary artery bypass surgery with a ESTES to the LAD. (4) COPD (chronic obstructive pulmonary disease): Clinically seems to be staying stable Qualifiers: COPD type: unspecified COPD Qualified Code(s): J44.9 - Chronic obstructive pulmonary disease, unspecified (5) CHF (congestive heart failure): Clinically seems to be compensated. Qualifiers: Heart failure chronicity: chronic Heart failure type: diastolic Qualified Code(s): I50.32 - Chronic diastolic (congestive) heart failure (6) Pancytopenia: Patient's white cell count was found to be 3.7 thousand. The platelet count was 97,000. At this point, the patient did not require any specific intervention. Plan For further evaluation of the patient's aortic valve and the coronary artery/bypass graft status, categorization with the coronary angiograms/graft angiogram was recommended. Risk and benefits were discussed. The risk of bleeding, hematoma, vascular injury, myocardial infarction, myocardial perforation, malignant cardiac arrhythmias ,CVA, renal failure and other concomitant complications were explained in detail. Patient understood this well and consented to proceed. Patient is scheduled to have this procedure today. Based on the results, further recommendations will be made. Attestations Medical Necessity Statement*: Patient may require 1 midnight stay. Coding Level of Care Code 70039 Diagnoses Prosthetic aortic valve stenosis T82.857A Cirrhosis of liver K74.60 ASHD (arteriosclerotic heart disease) I25.10 COPD (chronic obstructive pulmonary disease) J44.9 COPD type: unspecified COPD CHF (congestive heart failure) I50.32 Heart failure chronicity: chronic Heart failure type: diastolic Pancytopenia D61.818
[2022-11-24 08:36] LABS: Glucose Point of Care 148 mg/dL (70-110)
[2022-11-24] MEDS: sodium chloride 0.45% 1,000 ML 75 ML IV ×2 (09:41→18:00)
[2022-11-24 13:06] LABS: Alveolar-Arterial Oxygen Gradi 7.7 mmHg (5-10); Arterial Blood Gas Hematocrit 37.7 % (37-47); Blood Gas Operator Identificat glc; Blood Gas Sample Type Arterial; HGB O2 Sat 66.9 % (95-100); Methemoglobin 0.7 % (0.4-1.5); Oxygen Device ROOM AIR; Total Hemoglobin 12.3 g/dL (12-16)
[2022-11-24 13:07] LABS: Blood Gas Sample Site RV
[2022-11-24 13:11] LABS: Alveolar-Arterial Oxygen Gradi 7.7 mmHg (5-10); Arterial Blood Gas Hematocrit 33.7 % (37-47); Blood Gas Operator Identificat glc; Blood Gas Sample Type Arterial; HGB O2 Sat 68.4 % (95-100); Methemoglobin 0.7 % (0.4-1.5); Oxygen Device ROOM AIR
[2022-11-24 13:12] LABS: Blood Gas Sample Site RA
[2022-11-24 13:15] LABS: Alveolar-Arterial Oxygen Gradi 7.9 mmHg (5-10); Arterial Blood Gas Hematocrit 31.8 % (37-47); Blood Gas Operator Identificat glc; Blood Gas Sample Type Arterial; HGB O2 Sat 65.3 % (95-100); Methemoglobin 0.5 % (0.4-1.5); Oxygen Device ROOM AIR; Total Hemoglobin 10.4 g/dL (12-16)
[2022-11-24 13:16] LABS: Blood Gas Sample Site PA
[2022-11-24 13:18] LABS: Alveolar-Arterial Oxygen Gradi 3.6 mmHg (5-10); Blood Gas Operator Identificat glc; Blood Gas Sample Type Arterial; HGB O2 Sat 93.3 % (95-100); Methemoglobin 0.6 % (0.4-1.5); Oxygen Device ROOM AIR; Total Hemoglobin 11.7 g/dL (12-16)
[2022-11-24 13:19] LABS: Blood Gas Sample Site AO
[2022-11-24 20:27] LABS: Basophils % 0.3 %; Eosinophils # 0.1 10^3/uL (0.0-0.8); Hematocrit 36.3 % (37.0-47.0); Lymphocytes # 0.5 10^3/uL (0.8-4.8); Lymphocytes % 16.2 %; Mean Corpuscular HGB Conc 33.1 g/dL (30.0-36.0); Mean Corpuscular Volume 93.8 fl (81-99); Mean Platelet Volume 9.9 fL (7.4-10.4); Monocytes # 0.2 10^3/uL (0.2-0.9); Monocytes % 8.1 %; Neutrophils # 2.13 10^3/uL (1.8-7.7); Neutrophils % 72.1 %; Nucleated Red Blood Cells % 0 %; Platelet Count 93 10^3/cmm (130-400); Red Blood Count 3.87 10^6/uL (4.1-5.3); Red Cell Distribution Width 14.3 % (12.1-15.1)
[2022-11-24 20:48] LABS: Anion Gap 13.9 (5-19); Blood Urea Nitrogen 12 mg/dL (8-23); Calcium 8.3 mg/dL (8.5-10.5); Carbon Dioxide 25 mmol/L (22-29); Chloride 103 mmol/L (98-107); Glomerular Filtration Rate 98.8 mL/min (90-130); Glucose 177 mg/dL (65-115); Osmolality Calculated 290 mOsm/kg (285-295); Potassium 3.9 mmol/L (3.5-5.1); Sodium 138 mmol/L (136-145)
[2022-11-24] MEDS: acetaminophen 325 mg Tablet 650 MG PO (21:01)
[2022-11-24] MEDS: metoprolol tartrate 25 mg Tablet 12.5 MG PO (21:02)
[2022-11-24] MEDS: hydroxychloroquine 200 mg Tablet PO (21:02)
[2022-11-25] VITALS (36 sets, daily range): BP systolic 94–126; BP diastolic 35–57; PULSE 69–93; RESP 13–27; TEMP 36.6–36.7; O2SAT 95–97
[2022-11-25] MEDS: pantoprazole DR 40 mg Tablet PO (09:16)
[2022-11-25] MEDS: aspirin 81 mg Chew Tablet PO (09:16)
[2022-11-25] MEDS: multivitamin therapeutic Tablet 1 TAB PO (09:16)
[2022-11-25] MEDS: spironolactone 25 mg Tablet PO (09:16)
[2022-11-25] MEDS: atorvastatin 40 mg Tablet 20 MG PO (09:16)
[2022-11-25] MEDS: hydroxychloroquine 200 mg Tablet PO (09:17)
[2022-11-25] MEDS: metoprolol tartrate 25 mg Tablet 12.5 MG PO (09:18)
--- NOTE | 2022-11-25 10:40 | PC.NURSE ---
discharge instructions given and explained.pt verb understanding of instructions.discharged via w/c to exit at this time.spouse to drive pt home
== END 2022-11-25 10:48 | disposition home or self-care (01) ==
LOC: CCL 07:27 → CSU 13:05
PROVIDERS: PCP Family Medicine; Visit Provider Internal Medicine Cardiovascular Disease
DX: T82.857A Stenosis of other cardiac prosthetic devices, implants and grafts, initial encounter (principal); Y71.2 Prosthetic and other implants, materials and accessory cardiovascular devices associated with adverse incidents; I25.10 Atherosclerotic heart disease of native coronary artery without angina pectoris; Z79.82 Long term (current) use of aspirin; Z79.84 Long term (current) use of oral hypoglycemic drugs; K74.60 Unspecified cirrhosis of liver; E11.9 Type 2 diabetes mellitus without complications; Z87.891 Personal history of nicotine dependence; D61.818 Other pancytopenia; J44.9 Chronic obstructive pulmonary disease, unspecified; I50.32 Chronic diastolic (congestive) heart failure; I11.0 Hypertensive heart disease with heart failure; E78.5 Hyperlipidemia, unspecified
CPT/HCPCS: 36415; 36416; 80048; 82810; 82962; 85025; 93461; 96361; 96365; 96367; 99152; 99153; C1751; C1769; C1887; C1894; J1644; J2250; J3010; J7030; Q0163; Q9967

== ENCOUNTER → 2023-01-10 14:43 | Outpatient (BNVA) | payer MEDICARE, SELFPAY | PROVIDERS: PCP Family Medicine; Visit Provider Nurse Practitioner Family | DX: R50.9 Fever, unspecified (principal); R07.89 Other chest pain; J44.1 Chronic obstructive pulmonary disease with (acute) exacerbation | CPT/HCPCS: 80053; 84484; 85025; 87426 ==

== ENCOUNTER → 2023-01-11 09:47 | Outpatient (BNVA) | payer MEDICARE, SELFPAY | PROVIDERS: PCP Family Medicine; Visit Provider Internal Medicine Cardiovascular Disease | DX: R07.9 Chest pain, unspecified (principal); I45.10 Unspecified right bundle-branch block | CPT/HCPCS: 93005 ==

== ENCOUNTER 2023-01-24 12:08 | Outpatient (CLI) | payer MEDICARE, SELFPAY ==
--- NOTE | 2023-01-24 12:21 | XR_ITS ---
WS: [id number] Exam: XR chest 2V* [id number] Date/Time of Exam: 01/24/2023 12:21 PM Reason For Exam: Cough Comparison 02/27/2022. Chronic interstitial changes noted throughout both lungs. No consolidating infiltrates. The lungs are fully inflated. No pleural effusions. Cardiomediastinal silhouette is unremarkable. Signs of previou s CABG surgery. Bony structures are intact. Degenerative changes and increased kyphosis of the T-spin e. Cardiac valve replacement. XR/XR chest 2V* [id number] IMPRESSION: 1. Chronic interstitial changes noted bilaterally. No acute cardiopulmonary pro cess.
== END 2023-01-24 12:09 | disposition home or self-care (01) ==
LOC: RAD 12:13
PROVIDERS: PCP Family Medicine; Visit Provider Family Medicine
DX: R05.9 Cough, unspecified (principal); R91.8 Other nonspecific abnormal finding of lung field
CPT/HCPCS: 71046

== ENCOUNTER → 2023-02-07 10:24 | Outpatient (BNVA) | payer MEDICARE, SELFPAY | PROVIDERS: PCP Family Medicine; Visit Provider Nurse Practitioner Family | DX: E11.9 Type 2 diabetes mellitus without complications (principal) | CPT/HCPCS: 80053; 80061; 83036; 84443; 85025 ==

== ENCOUNTER 2023-03-23 17:13 | Outpatient (CLI) | payer MEDICARE, SELFPAY ==
--- NOTE | 2023-03-23 17:23 | XR_ITS ---
WS: [id number] EXAMINATION: XR ribs LT 2V* [id number] REASON FOR EXAM: Left rib pain COMPARISON: None available. ORDER DATE: 03/23/2023 5:23 PM FINDINGS :Chronic interstitial changes noted throughout both lungs. No consolidating infiltrates. The lungs are fully inflated. No pleural effusions. Cardiomediastinal silhouette is unremarkable. Signs of previous CABG surgery. There is an acute fracture of the anterior aspect of the left sixth rib withou t displacement. Left-sided cervical rib. Old left clavicle fracture. Degenerative changes and increas ed kyphosis of the T-spine. Cardiac valve replacement. IMPRESSION: Nondisplaced acute fracture of the left sixth rib
== END 2023-03-23 17:14 | disposition home or self-care (01) ==
PROVIDERS: PCP Family Medicine; Visit Provider Family Medicine
DX: S22.32XA Fracture of one rib, left side, initial encounter for closed fracture (principal); X58.XXXA Exposure to other specified factors, initial encounter
CPT/HCPCS: 71100

== ENCOUNTER → 2023-05-08 08:19 | Outpatient (BNVA) | payer MEDICARE, SELFPAY | PROVIDERS: PCP Family Medicine; Visit Provider Nurse Practitioner Family | DX: E11.9 Type 2 diabetes mellitus without complications (principal); E55.9 Vitamin D deficiency, unspecified | CPT/HCPCS: 80053; 80061; 82306; 83036; 84443; 85025 ==

== ENCOUNTER → 2023-05-10 08:25 | Outpatient (BNVA) | payer MEDICARE, SELFPAY | PROVIDERS: PCP Family Medicine; Visit Provider Internal Medicine Pulmonary Disease | DX: J44.9 Chronic obstructive pulmonary disease, unspecified (principal); I50.32 Chronic diastolic (congestive) heart failure; K21.9 Gastro-esophageal reflux disease without esophagitis; J30.9 Allergic rhinitis, unspecified; Z87.891 Personal history of nicotine dependence; Z95.5 Presence of coronary angioplasty implant and graft; M25.641 Stiffness of right hand, not elsewhere classified; M25.642 Stiffness of left hand, not elsewhere classified | CPT/HCPCS: 99214 ==

== ENCOUNTER → 2023-05-18 11:12 | Outpatient (BNVA) | payer MEDICARE, SELFPAY | PROVIDERS: PCP Family Medicine; Visit Provider Internal Medicine Cardiovascular Disease | DX: T82.857A Stenosis of other cardiac prosthetic devices, implants and grafts, initial encounter (principal); Y71.2 Prosthetic and other implants, materials and accessory cardiovascular devices associated with adverse incidents; I50.32 Chronic diastolic (congestive) heart failure; I25.10 Atherosclerotic heart disease of native coronary artery without angina pectoris; E11.9 Type 2 diabetes mellitus without complications; Z79.84 Long term (current) use of oral hypoglycemic drugs; M79.605 Pain in left leg; Z87.891 Personal history of nicotine dependence | CPT/HCPCS: 99214 ==

== ENCOUNTER 2023-06-13 09:51 | Outpatient (CLI) | payer MEDICARE, SELFPAY ==
--- NOTE | 2023-06-13 10:04 | MM_ITS ---
WS: [id number] VIEWS: MLO and CC views both breasts. 3D digital tomosynthesis is also included in this exam. Comparison made with prior exam of 02/29/2008, 09/25/2008, 06/23/2010, 12/14/2011, 05/28/2013, 07/08/2014, 06/17/2022.. Findings: There was no sign of mass, architectural distortion or suspicious calcification in either breast. Sta ble appearing nodular densities in both breasts. Benign-appearing bilateral calcifications. The breas ts are heterogeneously dense which may obscure small masses. Impression: MM/[place] [id number] BI-RADS: 2-Benign finding. FOLLOW-UP: 1 Year Follow-up This mammogram was also analyzed by the Computer Aided Detection System R2 Imag e Super[employer].
--- NOTE | 2023-06-13 11:15 | USCV_ITS ---
Nyasia Sultana Age: 72 Gender: F : 1950 Exam Date: 06/13/2023 10:18 Ordering Phys: Suzy Zuleta MD ([email or web address]) Technologist: ABEBA Exam Location: [facility] [place] Indication: LLE PAIN AND SWELLING HISTORY: Lower extremity swelling. Lower extremity pain. PROCEDURES: Venous duplex imaging was performed in only the left lower extremity. The following venous structures were evaluated: common femoral vein, profunda vein, proximal portion of the greater saphenous vein, superficial femoral vein, and the popliteal vein. In addition, the posterior tibial and peroneal trunk were evaluated. Serial compression, augmentation maneuvers, and spectral Doppler flow evaluation were performed. FINDINGS: No evidence of DVT seen in any vessel visualized at this time. CONCLUSIONS No evidence of left lower extremity DVT. Severo Francis MD (Electronically Signed) Final Date: 13 June 2023 11:51 S
== END 2023-06-13 09:52 | disposition home or self-care (01) ==
LOC: RAD 09:52
PROVIDERS: PCP Family Medicine; Visit Provider Nurse Practitioner Family
DX: R06.00 Dyspnea, unspecified (principal); E11.9 Type 2 diabetes mellitus without complications; M79.605 Pain in left leg
CPT/HCPCS: 77063; 77067; 93971

== ENCOUNTER 2023-07-29 11:33 | Emergency (ER) | payer MEDICARE, SELFPAY ==
[2023-07-29] VITALS (76 sets, daily range): BP systolic 93–148; BP diastolic 50–104; PULSE 105–126; RESP 17–35; TEMP 36.4; O2SAT 88–100; BMI 40.0
--- NOTE | 2023-07-29 11:45 | XRR_ITS ---
PROCEDURE INFORMATION: Exam: XR Chest Exam date and time: 07/29/2023 12:23 PM Age: 72 years old Clinical indication: Dyspnea; Prior surgery; Surgery date: <1 month; Surgery type: Open heart valve x 2wks; Additional info: Dyspnea/cough TECHNIQUE: Imaging protocol: Radiologic exam of the chest. Views: 1 view. COMPARISON: CR XR chest 2V* [id number] 01/24/2023 12:23 PM FINDINGS: Lungs: The upper lung parikh are grossly clear. No large effusion on the left. Pleural spaces: Newly demonstrated opacification of the lower right hemithorax which appears to represent a combination of airspace process and right-sided pleural fluid. Heart/Mediastinum: Cardiac silhouette appears enlarged though may be accentuated by lordotic AP projection. Patient is also rotated. Bones/joints: Median sternotomy wires. Chronic healed fracture deformity left clavicle. XR/XR chest 1V portable [id number] IMPRESSION: 1. New opacification of the lower right hemithorax consistent with combination of pleural fluid and airspace process such as atelectasis or pneumonia. Other etiology can not be excluded in the appropriate clinical context.
--- NOTE | 2023-07-29 11:45 | ECG_ITS ---
[facility] Test Date: 2023-07-29 Pat Name: Nyasia Sultana Department: Room: Gender: Female Standpipe Tender: : 1950 Requested By: Js Batres Order Number: [id number] Marisela MD: Kin Erickson M.D. Measurements Intervals [place] Rate: 108 P: 119 [place]: 250 QRS: -12 QRSD: 145 T: 53 QT: 358 QTc: 480 Interpretive Statements SINUS TACHYCARDIA WITH FIRST DEGREE AV BLOCK RIGHT BUNDLE BRANCH BLOCK [120+ ms QRS DURATION, UPRIGHT V1, 40+ ms S IN I/aVL/V4/V5/V6] Compared to ECG 01/11/2023 09:55:45 First degree AV block now present Sinus rhythm no longer present Electronically Signed On 07-29-2023 13:31:12 BEAD PICKER by Kin Erickson M.D. [id number]
--- NOTE | 2023-07-29 12:23 | ED_ITS ---
HPI - SOB/Dyspnea 2 General: Chief Complaint: Shortness of Breath/Dyspnea Stated Complaint: sob, swollen feet Time Seen by Provider: 07/29/23 11:44 Source: patient Mode of arrival: ambulatory History of Present Illness: HPI Narrative: 72-year-old female presents to the emerg ency room with a history of COPD and congestive heart failure. 2 weeks ago she had a aortic valve replacement at [facility] in [place] she had a sternotomy at that time. She is not on any anticoagulation other than aspirin. She denies any fever sweats or chills or productive cough no chest pain she has had significant increase in swelling in her lower extremities as well as oral onset of orthopnea denies abdominal pain. No vomiting no diarrhea no dysuria urgency or frequency MD elicited complaint: shortness of breath Pertinent past history: COPD and congestive heart failure Onset (ago): day(s) Severity: mild Exacerbating factors: nothing Associated symptoms: Reports orthopnea; Deny abdominal pain, chest congestion, chest pain, cough, diaphoresis, dizziness, extremity pain, fever(s), hemoptysis, lightheadedness, myalgias, nausea, palpitations, paresthesias, polydipsia, polyuria, rash, sense of impending doom, syncope or vomiting Treatment prior to arrival: none Review of Systems 2 Const: Denies: fever(s) or diaphoresis Card: Reports: dyspnea on exertion and orthopnea; Denies: chest pain, palpitations, lightheadedness or syncope Resp: Reports: dyspnea and non-productive cough; Denies: hemoptysis or chest congestion GI: Denies: abdominal pain, nausea or vomiting : Denies: dysuria, urinary frequency or urinary urgency Musc: Reports: extremity swelling; Denies: extremity pain Skin/Breast: Denies: rash Neuro: Denies: dizziness Endo: Denies: polyuria or polydipsia PFSH ED 2 PFSH: Medical History Pulmonary hypertension Foot pain Cirrhosis of liver Diabetes mellitus COPD (chronic obstructive pulmonary disease) Hepatitis C CHF (congestive heart failure) ASHD (arteriosclerotic heart disease) Surgical History H/O bilateral cataract extraction S/P knee surgery S/P aortic valve replacement Family History Mother Diabetes Myocardial infarction Hypertension Father Diabetes Myocardial infarction Hypertension Grandmother Myocardial infarction Cancer Grandfather Myocardial infarction Cancer Other Heart disease Social History Smoking and tobacco/nicotine status: former use of tobacco/nicotine Quit status (tobacco/nicotine): has quit using Year quit tobacco: 1992 2-3-pack per day Former quit date comment: smoked for 30 years Alcohol intake: never Substance/Drug Use: never Lives independently: Yes Household members: spouse and other Details: brother Housing: House Marital status: Number of children: 0 Pets and animals: Yes Pets & animals: cat(s), dog(s) and bird(s) Physical Exam 2 Const: GENERAL APPEARANCE: cooperative and comfortable O RIENTATION/CONSCIOUSNESS: Yes awake, Yes oriented to person, Yes oriented to place and Yes oriented to time HENMT: COMMON NORMALS: normocephalic, atraumatic and hearing grossly normal bilaterally HEAD & SCALP: normocephalic and atraumatic Resp: COMMON NORMALS: normal respiratory effort, No retractions and No use of accessory muscles AUSCULTATION: crackles and diminished lung sounds (Right base) Cardio: COMMON NORMALS: regular rhythm and No murmurs present (Cardio) R ATE: tachycardic RHYTHM: regular rhythm GI: COMMON NORMALS: Soft to palpation and No hepatosplenomegaly present A USCULTATION: Yes normoactive bowel sounds PALPATION: Yes Soft to palpation, No Tenderness to palpation present (GI), No Guarding due to palpation present (GI) and Yes No hepatosplenomegaly present Extremity: COMMON NORMALS: normal to inspection, capillary refill normal, no clubbing, cyanosis or edema, no calf tenderness and no pedal edema Neuro: SENSORIUM/ORIENTATION: Yes oriented to person, Yes oriented to place and Yes oriented to time Skin: COMMON NORMALS: no rashes or lesions noted GENERAL SKIN EXAM: no rashes or lesions noted Course 2 Vital Signs: Vital signs: Vital Signs Temperature 97.6 F 07/29/23 11:35 Pulse Rate 119 H 07/29/23 19:16 Respiratory Rate 28 H 07/29/23 19:16 Blood Pressure 112/76 07/29/23 19:16 Pulse Oximetry 95 12/30/23 19:16 Oxygen Delivery Me thod Room Air 07/29/23 19:16 MDM - SOB/Dyspnea Medical Decision Making Patient has pneumonia at the right base right pleural effusion and a left pulmonary embolism. She is 2 weeks status post aortic valve replacement. Discussed with hospitalist who recommends transfer back to facility where the aortic valve was stopped. Discussed with patient transfer back to [facility] they have excepted transfer via ambulance patient stable at the time. Patient's oxygenation is normal we have held off on starting any anticoagulation at this time due to the fact that the patient will potentially need thoracentesis. Medical Records I reviewed the patient's medical records. Lab Data I reviewed the patient's lab results. 07/29/23 12:16 07/29/23 12:16 Labs/Radiology: Radiology Impressions Chest X-Ray 07/29/23 11:45 IMPRESSION: 1. New opacification of the lower right hemithorax consistent with combination of pleural fluid and airspace process such as atelectasis or pneumonia. Other etiology can not be excluded in the appropriate clinical context. Chest CTA 07/29/23 12:40 IMPRESSION: 1. Small left lower lobe pulmonary embolus. Heart RV/ LV ratio = 0.73 2. Central pulmonary arterial enlargement, a finding which may be associated with pulmonary hypertension. Postoperative changes from aortic valve replacement. 4. Moderate-sized right-sided pleural effusion with substantial compressive atelectasis in the right lung. 5. A few enlarged lower right paratracheal lymph nodes possibly reactive. COMMENT: THIS REPORT CONTAINS FINDINGS THAT MAY BE CRITICAL TO PATIENT CARE. The exam findings were verbally communicated by me to JS GAVIN via telephone conference at 2:12 PM WATER POLLUTION CONTROL TECHNICIAN on 07/29/2023. The findings were acknowledged and understood. Laboratory Results WBC 6.09 10^3/uL (3.29-11.43) 07/29/23 12:16 RBC 2.96 10^6/uL (3.85-5.65) L 07/29/23 12:16 Hgb 9.10 g/dL (11.27-16.99) L 07/29/23 12:16 Hct 29.3 % (36-47) L 07/29/23 12:16 MCV 99.0 fl (85-98) H 07/29/23 12:16 MCH 30.7 pg (27-33) 07/29/23 12:16 MCHC 31.1 g/dL (30-55) 07/29/23 12:16 RDW 19.6 % (12.1-15.1) H 07/29/23 12:16 Plt Count 148 10^3/cmm (157-399) L 07/29/23 12:16 MPV 9.5 fL (7.4-10.4) 07/29/23 12:16 Neut % (Auto) 86.3 % 07/29/23 12:16 Lymph % (Auto) 6.2 % 07/29/23 12:16 Greene % (Auto) 5.1 % 07/29/23 12:16 Eos % (Auto) 1.6 % 07/29/23 12:16 Baso % (Auto) 0.3 % 07/29/23 12:16 Neut # (Auto) 5.25 10^3/uL (1.8-7.7) 07/29/23 12:16 Lymph # (Auto) 0.4 10^3/uL (0.8-4.8) L 07/29/23 12:16 Greene # (Auto) 0.3 10^3/uL (0.2-0.9) 07/29/23 12:16 Eos # (Auto) 0.1 10^3/uL (0.0-0.8) 07/29/23 12:16 Baso # (Auto) 0.0 10^3/uL (0.0-0.1) 07/29/23 12:16 Nucleated RBC % (auto) 0 % 07/29/23 12:16 Nucleated RBCs # 0.0 /100WBC 07/29/23 12:16 Sodium 130 mmol/L (136-145) L 07/29/23 12:16 Potassium 3.9 mmol/L (3.5-5.1) 07/29/23 12:16 Chloride 93 mmol/L (98-107) L 07/29/23 12:16 Carbon Dioxide 26 mmol/L (22-29) 07/29/23 12:16 Anion Gap 14.9 (5-19) 07/29/23 12:16 BUN 19 mg/dL (8-23) 07/29/23 12:16 Creatinine 0.8 mg/dL (0.5-0.9) 07/29/23 12:16 GFR Calculation 70.9 mL/min (90-130) L 07/29/23 12:16 Glucose 314 mg/dL (65-115) H 07/29/23 12:16 Calculated Osmolality 284 mOsm/kg (285-295) L 07/29/23 12:16 Lactic Acid 2.3 mmol/L (0.5-2.2) H 07/29/23 12:16 Lactic Acid (Sepsis) 2.4 mmol/L (0.5-2.2) H 07/29/23 15:30 Calcium 8.9 mg/dL (8.5-10.5) 07/29/23 12:16 Total Bilirubin 2.9 mg/dL (0.15-1.2) H 07/29/23 12:16 AST 26 U/L (0-32) 07/29/23 12:16 ALT 18 U/L (0-33) 07/29/23 12:16 Alkaline Phosphatase 99 U/L (35-105) 07/29/23 12:16 Troponin T Baseline 72 ng/L (0-10) H 07/29/23 12:16 Troponin T 120 Minute 60.98 ng/L (0-10) H 07/29/23 14:19 Delta Troponin T -11.02 ABS# (0-10) L 07/29/23 14:19 Troponin T Hi Sens 6Hr 65.43 ng/L (0-10) H 07/29/23 19:05 Troponin T Hi Sens 6Hr Delta -6.57 ng/L (0-12) L 07/29/23 19:05 NT-Pro-B Natriuret Pep 2553 pg/mL (0-125) H 07/29/23 12:16 Total Protein 7.4 g/dL (6.6-8.7) 07/29/23 12:16 Albumin 3.7 g/dL (3.5-5.2) 07/29/23 12:16 Globulin 3.7 g/dL (1.3-4.6) 07/29/23 12:16 SARS-CoV-2 Ag (Rapid) negative (Negative) 07/29/23 14:41 All radiology interpretation(s) finalized by discharge Discharge Plan Discharge Patient Disposition: Xfer Short-Term Hosp Clinical Impression: Pneumonia, ASHD (arteriosclerotic heart disease), Prosthetic aortic valve stenosis, Pulmonary hypertension, CHF (congestive heart failure), COPD (chronic obstructive pulmonary disease), Diabetes mellitus, Pleural effusion on right, Pulmonary embolism on right Condition: Stable Referrals: Ruslan Ward MD [Primary Care Provider] - Coding Level of Care Code ED Cnc Service Technician for Collette Cooley
[2023-07-29 12:31] LABS: Basophils % 0.3 %; Eosinophils # 0.1 10^3/uL (0.0-0.8); Eosinophils % 1.6 %; Hematocrit 29.3 % (36-47); Lymphocytes # 0.4 10^3/uL (0.8-4.8); Lymphocytes % 6.2 %; Mean Corpuscular HGB Conc 31.1 g/dL (30-55); Mean Corpuscular Hemoglobin 30.7 pg (27-33); Mean Platelet Volume 9.5 fL (7.4-10.4); Monocytes # 0.3 10^3/uL (0.2-0.9); Monocytes % 5.1 %; Neutrophils # 5.25 10^3/uL (1.8-7.7); Neutrophils % 86.3 %; Nucleated Red Blood Cells % 0 %; Platelet Count 148 10^3/cmm (157-399); Red Blood Count 2.96 10^6/uL (3.85-5.65); Red Cell Distribution Width 19.6 % (12.1-15.1); White Blood Count 6.09 10^3/uL (3.29-11.43)
--- NOTE | 2023-07-29 12:40 | CTR_ITS ---
PROCEDURE INFORMATION: Exam: CTA Chest With Contrast Exam date and time: 07/29/2023 1:21 PM Age: 72 years old Clinical indication: Shortness of breath; Prior surgery; Surgery date: <1 month; Surgery type: Heart; Additional info: Dyspnea TECHNIQUE: Imaging protocol: Computed tomographic angiography of the chest with contrast. Exam focused on the arteries. 3D rendering (Not supervised by radiologist): MIP and/or 3D reconstructed images were created by the technologist. Radiation optimization: All CT scans at this facility use at least one of these dose optimization techniques: automated exposure control; mA and/or kV adjustment per patient size (includes targeted exams where dose is matched to clinical indication); or iterative reconstruction. Contrast material: OMNI 350; Contrast volume: 67 ml; Contrast route: INTRAVENOUS (IV); REPORTING DATA: Count of CT and Cardiac NM exams in prior 12 months: This patient has received [address] and 0 known cardiac nuclear medicine studies in the 12 months prior to the current study. COMPARISON: CT chest wo con [id number] 10/06/2022 9:20 AM RADIATION DOSE METRICS: Total DLP (mGy-cm): 697.1 FINDINGS: Pulmonary arteries: The main pulmonary artery is enlarged measuring 31 mm. Small embolus present within left lower lobe branches (series 17 image [id number] -[id number]. Aorta: The thoracic aorta is not enlarged. Other arteries: Atherosclerosis is present. Veins: Suspected recanalized periumbilical venous collateral as well. Lungs: Imaged portions of the distal trachea as well as right and left mainstem bronchi are patent. There is substantial compressive atelectasis of the right middle and lower lobes due to adjacent pleural effusion. Lesser amount of right upper lobe compressive atelectasis is present. Posterior left upper lobe density abutting the interlobar fissure is likely atelectasis as are scattered linear opacities. Pleural spaces: No pneumothorax identified. A moderate-sized right-sided pleural effusion is present with a subpulmonic component of approximately 3.5 cm depth. There is only trace left-sided pleural fluid. Heart: The heart is not enlarged. The heart RV: LV ratio = 34.4/47.3 = 0.73. Patient is status post aortic valve replacement. Calcification associated with the mitral valve annulus and with the mitral valve leaflets. Coronary artery atherosclerotic calcification is present. A small pericardial effusion is noted. Lymph nodes: A few enlarged lower right paratracheal lymph nodes up to 1.3 cm diameter are noted, nonspecific Mediastinal space: Fluid is present in the anterior mediastinum consistent with sequelae of recent surgery. Liver: Imaged upper abdomen demonstrates a cirrhotic liver configuration with enlarged spleen. These structures are not imaged in their entirety. Intraperitoneal space: Ascites. Bones/joints: Median sternotomy wires are noted. Skeletal windows do not demonstrate acute appearing osseous abnormalities. Soft tissues: No soft tissue fluid collection identified.. CT/CT angio chest PE protcl [id number] IMPRESSION: 1. Small left lower lobe pulmonary embolus. Heart RV/ LV ratio = 0.73 2. Central pulmonary arterial enlargement, a finding which may be associated with pulmonary hypertension. Postoperative changes from aortic valve replacement. 4. Moderate-sized right-sided pleural effusion with substantial compressive atelectasis in the right lung. 5. A few enlarged lower right paratracheal lymph nodes possibly reactive. COMMENT: THIS REPORT CONTAINS FINDINGS THAT MAY BE CRITICAL TO PATIENT CARE. The exam findings were verbally communicated by me to PARUL GAVIN via telephone conference at 2:12 PM ADJUSTER on 07/29/2023. The findings were acknowledged and understood.
[2023-07-29 12:47] LABS: Troponin(5th) Baseline 72 ng/L (0-10)
[2023-07-29 13:00] LABS: Lactic Sepsis W/Reflex 2.3 mmol/L (0.5-2.2)
[2023-07-29 13:11] LABS: Alanine Aminotransferase 18 U/L (0-33); Albumin Level 3.7 g/dL (3.5-5.2); Alkaline Phosphatase 99 U/L (35-105); Anion Gap 14.9 (5-19); Aspartate Amino Transferase 26 U/L (0-32); Blood Urea Nitrogen 19 mg/dL (8-23); Calcium 8.9 mg/dL (8.5-10.5); Carbon Dioxide 26 mmol/L (22-29); Chloride 93 mmol/L (98-107); Globulin 3.7 g/dL (1.3-4.6); Glomerular Filtration Rate 70.9 mL/min (90-130); Glucose 314 mg/dL (65-115); NT Pro B Type Natriuretic Pept 2553 pg/mL (0-125); Osmolality Calculated 284 mOsm/kg (285-295); Potassium 3.9 mmol/L (3.5-5.1); Sodium 130 mmol/L (136-145); Total Bilirubin 2.9 mg/dL (0.15-1.2); Total Protein 7.4 g/dL (6.6-8.7)
[2023-07-29] MEDS: iohexol 350 mg/mL 500 mL Btl (per mL) IV (13:38)
--- NOTE | 2023-07-29 13:46 | ECG_ITS ---
[facility] Test Date: 2023-07-29 Pat Name: Nyasia Sultana Department: Room: Gender: Female Care Mgr: : 1950 Requested By: Js Batres Order Number: [id number] Marisela MD: Kin Erickson M.D. Measurements Intervals [place] Rate: 109 P: 32 [place]: 176 QRS: -23 QRSD: 95 T: 48 QT: 354 QTc: 477 Interpretive Statements SUPRAVENTRICULAR RHYTHM LOW QRS VOLTAGE IN PRECORDIAL LEADS [QRS DEFLECTION < 1.0 mV IN CHEST LEADS] POSSIBLE ANTERIOR MYOCARDIAL INFARCTION , PROBABLY OLD [30 ms Q WAVE IN V3/V4, OR R < 0.2 mV IN V4] INCOMPLETE RIGHT BUNDLE BRANCH BLOCK Compared to ECG 07/29/2023 11:57:10 Low QRS voltage now present Myocardial infarct finding now present ST (T wave) deviation now present First degree AV block no longer present Right bundle-branch block no longer present Electronically Signed On 07-30-2023 10:26:05 DOCUMENT CONTROL ASSISTANT by Kin Erickson M.D. [email or web address].[id number]
[2023-07-29 14:30] LABS: Reflex Lactate Order REFLEX LACTIC ORDERD
[2023-07-29] MEDS: FUROsemide 10 mg/mL SDV 10mL 60 MG IVP (14:43)
--- NOTE | 2023-07-29 14:43 | PC.NURSE ---
I have been unable to start the patient's antibiotics due to blood cultures have not been obtained by lab. Per lab 2 phlebotomists have tried twice and we had to get Dr. Camargo's permission for the marklogic developer to be able to poke the patient more than twice.
[2023-07-29 14:59] LABS: Troponin 5 2HR 60.98 ng/L (0-10)
[2023-07-29 15:02] LABS: Troponin 5 2HR Delta -11.02 ABS# (0-10)
[2023-07-29 15:25] LABS: SARS Covid-2 Antigen negative (Negative)
[2023-07-29] MEDS: levofloxacin-dextrose 5 % 750 MG/150 ML PREMIX 100 MG IV (16:13)
[2023-07-29 16:33] LABS: Lactic Acid level (Lactate) 2.4 mmol/L (0.5-2.2)
--- NOTE | 2023-07-29 17:46 | ECG_ITS ---
[facility] Test Date: 2023-07-29 Pat Name: Nyasia Sultana Department: Room: Gender: Female Cooperative Manager: : 1950 Requested By: Js Batres Order Number: [id number] Marisela MD: Kin Erickson M.D. Measurements Intervals [place] Rate: 109 P: 0 [place]: 0 QRS: -11 QRSD: 147 T: 37 QT: 353 QTc: 477 Interpretive Statements ATRIAL FIBRILLATION WITH RAPID VENTRICULAR RESPONSE INTRAVENTRICULAR CONDUCTION DELAY [130+ ms QRS DURATION] Compared to ECG 07/29/2023 13:45:25 Intraventricular conduction delay now present Sinus tachycardia no longer present Myocardial infarct finding no longer present ST (T wave) deviation no longer present Electronically Signed On 07-30-2023 10:25:13 PRE PLANNING ADVISOR by Kin Erickson M.D. [email or web address] [email or web address] [email or web address]/store/[id number]
[2023-07-29 19:28] LABS: Troponin 5 6HR 65.43 ng/L (0-10)
[2023-07-29 19:32] LABS: Troponin 5 6HR Delta -6.57 ng/L (0-12)
== END 2023-07-29 20:20 | disposition short-term general hospital (02) ==
PROVIDERS: Emergency Provider Family Medicine; PCP Family Medicine
DX: J44.0 Chronic obstructive pulmonary disease with (acute) lower respiratory infection (principal); J18.9 Pneumonia, unspecified organism; I26.99 Other pulmonary embolism without acute cor pulmonale; I25.10 Atherosclerotic heart disease of native coronary artery without angina pectoris; I35.0 Nonrheumatic aortic (valve) stenosis; I27.20 Pulmonary hypertension, unspecified; I11.0 Hypertensive heart disease with heart failure; I50.9 Heart failure, unspecified; J90 Pleural effusion, not elsewhere classified; E11.9 Type 2 diabetes mellitus without complications; Z11.52 Encounter for screening for COVID-19; Z87.891 Personal history of nicotine dependence; Z86.19 Personal history of other infectious and parasitic diseases
CPT/HCPCS: 36415; 71045; 71275; 80053; 83605; 83880; 84484; 85025; 87040; 87426; 93005; 96374; 96375; 99285; J1940; J1956; Q9967

== ENCOUNTER 2023-08-23 11:45 | Outpatient (CLI) | payer MEDICARE, SELFPAY ==
--- NOTE | 2023-08-23 11:51 | XR_ITS ---
WS: [id number] XR chest 2V* [id number] REASON FOR EXAM: Dyspnea FINDINGS: Sternal sutures with previous coronary artery bypass surgery and prosthetic aortic valve. Mild cardiomegaly. There continues to be right lower lung atelectasis/consolidation and right pleural effusion. Right pleural effusion may be somewhat decreased in volume. No other interval change or new finding. IMPRESSION: Abnormal chest stable to mild improvement of the lower right hemithorax as above.
== END 2023-08-23 11:46 | disposition home or self-care (01) ==
LOC: RAD 11:48
PROVIDERS: PCP Family Medicine; Visit Provider Family Medicine
DX: J94.2 Hemothorax (principal); I50.32 Chronic diastolic (congestive) heart failure; J91.8 Pleural effusion in other conditions classified elsewhere; I51.7 Cardiomegaly; Z95.2 Presence of prosthetic heart valve; Z95.1 Presence of aortocoronary bypass graft
CPT/HCPCS: 71046

== ENCOUNTER 2023-08-23 17:01 | Inpatient (IN) | payer MEDICARE, SELFPAY ==
[2023-08-23] VITALS (8 sets, daily range): BP systolic 110–135; BP diastolic 48–72; PULSE 100–115; RESP 16–18; TEMP 36.9; O2SAT 92–99; BMI 40.7
--- NOTE | 2023-08-23 17:11 | XRR_ITS ---
PROCEDURE INFORMATION: Exam: XR Chest Exam date and time: 08/23/2023 5:55 PM Age: 72 years old Clinical indication: Shortness of breath; Prior surgery; Surgery date: 1-6 months; Patient HX: Increased SOB; Fluid retention; Cabg x 1 mo ago; Copd; Chf TECHNIQUE: Imaging protocol: Radiologic exam of the chest. Views: 1 view. COMPARISON: CR XR chest 2V* [id number] 08/23/2023 12:05 PM FINDINGS: Lungs: Right basilar opacity adjacent to the effusion. Pleural spaces: Similar moderate volume right pleural effusion. Probable trace left pleural effusion. No pneumothorax. Heart/Mediastinum: Similar cardiomegaly. Cardiac valve replacement again noted. Bones/joints: Sternotomy wires noted. Visualized osseous structures are intact. XR/XR chest 1V portable [id number] IMPRESSION: Similar moderate volume right pleural effusion and right basilar opacity, likely corresponding to atelectasis. Similar cardiomegaly.
--- NOTE | 2023-08-23 17:38 | ED_ITS ---
HPI - SOB/Dyspnea 2 General: Chief Complaint: Shortness of Breath/Dyspnea Stated Complaint: sent over by , fluid build up Time Seen by Provider: 08/23/23 17:12 Source: patient Mode of arrival: ambulatory Limitations: no limitations History of Present Illness: HPI Narrative: 72-year-old female history of COPD along with CHF she had a CABG in June she states that she feels like she is fluid overloaded she is swelling in extremities along with dyspnea especially exertion she does take Lasix daily she states she did start that yesterday though. Denies any fever cough Associated symptoms: Deny abdominal pain, chest pain, fever(s), nausea or vomiting Review of Systems 2 Const: Denies: fever(s), chills, body aches or change in appetite Eyes: Denies: blurry vision or eye discomfort ENMT: Denies: throat pain or dental pain Card: Denies: chest pain Resp: Reports: dyspnea GI: Denies: abdominal pain, nausea, vomiting or diarrhea Musc: Reports: extremity swelling; Denies: neck pain or back pain Skin/Breast: Denies: rash Neuro: Denies: headache(s) PFSH ED 2 PFSH: Medical History Pulmonary hypertension Foot pain Cirrhosis of liver Diabetes mellitus COPD (chronic obstructive pulmonary disease) Hepatitis C CHF (congestive heart failure) ASHD (arteriosclerotic heart disease) Surgical History H/O bilateral cataract extraction S/P knee surgery S/P aortic valve replacement Family History Mother Diabetes Myocardial infarction Hypertension Father Diabetes Myocardial infarction Hypertension Grandmother Myocardial infarction Cancer Grandfather Myocardial infarction Cancer Other Heart disease Social History Smoking and tobacco/nicotine status: former use of tobacco/nicotine Quit status (tobacco/nicotine): has quit using Year quit tobacco: 1992 2-3-pack per day Former quit date comment: smoked for 30 years Alcohol intake: never Substance/Drug Use: never Lives independently: Yes Household members: spouse and other Details: brother Housing: House Marital status: Number of children: 0 Pets and animals: Yes Pets & animals: cat(s), dog(s) and bird(s) Physical Exam 2 Const: COMMON NORMALS: patient oriented x3 HENMT: COMMON NORMALS: normocephalic and atraumatic HEAD & SCALP: n ormocephalic and atraumatic Eye: COMMON NORMALS: Equal, round and reactive pupils present and EOMs intact bilaterally PUPIL: Yes Equal, round and reactive pupils present Neck/C-Spine: COMMON NORMALS: full ROM and supple Chest: COMMONS NORMALS: normal inspection of the chest and normal palpation of entire chest wall Resp: COMMON NORMALS: normal respiratory effort, No retractions, No use of accessory muscles and clear to auscultation bilaterally AUSCULTATION: clear to auscultation bilaterally Cardio: COMMON NORMALS: regular rate, regular rhythm and No murmurs present (Cardio) RATE: regular rate RHYTHM: regular rhythm GI: COMMON NORMALS: Normal to inspection, nondistended, normoactive bowel sounds present, Soft to palpation, non-tender and no masses PALPATION: Yes Soft to palpation Extremity: COMMON NORMALS: full ROM NARRATIVE EXTREMITY EXAM: 2+edema to LE Neuro: COMMON NORMALS: patient oriented x3, moves all extremities and no focal motor deficits Psych: COMMON NORMALS: mental status grossly normal, Normal thought process present and cooperative THOUGHT PROCESS: Normal thought process present Skin: COMMON NORMALS: no rashes or lesions noted and no wounds GENERAL SKIN EXAM: no rashes or lesions noted Course 2 Vital Signs: Vital signs: Vital Signs Temperature 98.4 F 08/23/23 17:12 Pulse Rate 115 H 08/23/23 19:24 Respiratory Rate 16 08/23/23 19:24 Blood Pressure 135/69 08/23/23 19:24 Pulse Oximetry 94 08/23/23 19:24 Oxygen Delivery Me thod Room Air 08/23/23 18:03 MDM - SOB/Dyspnea Medical Decision Making Patient presents here with CHF she is also in A-fib with RVR patient started on a Cardizem drip patient given Lasix here I did talk to the hospitalist and will admit to cardiac stepdown Medical Records I reviewed the patient's medical records. Lab Data I reviewed the patient's lab results. 08/23/23 17:55 08/23/23 17:55 Labs/Radiology: Radiology Impressions Chest X-Ray 08/23/23 17:11 IMPRESSION: Similar moderate volume right pleural effusion and right basilar opacity, likely corresponding to atelectasis. Similar cardiomegaly. Laboratory Results WBC 3.97 10^3/uL (3.29-11.43) 08/23/23 17:55 RBC 2.99 10^6/uL (3.85-5.65) L 08/23/23 17:55 Hgb 8.90 g/dL (11.27-16.99) L 08/23/23 17:55 Hct 28.7 % (36-47) L 08/23/23 17:55 MCV 96.0 fl (85-98) 08/23/23 17:55 MCH 29.8 pg (27-33) 08/23/23 17:55 MCHC 31.0 g/dL (30-55) 08/23/23 17:55 RDW 17.1 % (12.1-15.1) H 08/23/23 17:55 Plt Count 141 10^3/cmm (157-399) L 08/23/23 17:55 MPV 9.3 fL (7.4-10.4) 08/23/23 17:55 Neut % (Auto) 74.8 % 08/23/23 17:55 Lymph % (Auto) 12.3 % 08/23/23 17:55 [place] % (Auto) 10.1 % 08/23/23 17:55 Eos % (Auto) 2.0 % 08/23/23 17:55 Baso % (Auto) 0.5 % 08/23/23 17:55 Neut # (Auto) 2.97 10^3/uL (1.8-7.7) 08/23/23 17:55 Lymph # (Auto) 0.5 10^3/uL (0.8-4.8) L 08/23/23 17:55 [place] # (Auto) 0.4 10^3/uL (0.2-0.9) 08/23/23 17:55 Eos # (Auto) 0.1 10^3/uL (0.0-0.8) 08/23/23 17:55 Baso # (Auto) 0.0 10^3/uL (0.0-0.1) 08/23/23 17:55 Nucleated RBC % (auto) 0 % 08/23/23 17:55 Nucleated RBCs # 0.0 /100WBC 08/23/23 17:55 Specimen Type Arterial 08/23/23 17:47 Sample Site Radial, right 08/23/23 17:47 ABG pH 7.52 (7.35-7.45) H 08/23/23 17:47 ABG pCO2 36.6 mmHg (35-45) 08/23/23 17:47 ABG pO2 52.7 mmHg (80.0-100.0) L 08/23/23 17:47 ABG PO2/FiO2 Ratio 0 08/23/23 17:47 ABG HCO3 30.0 mmol/L (22-26) H 08/23/23 17:47 ABG Base Excess 6.8 mmol/L (-2.0-2.0) H 08/23/23 17:47 Elpidio Test Pos 08/23/23 17:47 Hematocrit 27.9 % (37-47) L 08/23/23 17:47 O2 Delivery Device Room air 08/23/23 17:47 FiO2 21.0 % 08/23/23 17:47 Director Radio News ID Dong 08/23/23 17:47 Sodium 129 mmol/L (136-145) L 08/23/23 17:55 Potassium 3.0 mmol/L (3.5-5.1) L 08/23/23 17:55 Chloride 90 mmol/L (98-107) L 08/23/23 17:55 Carbon Dioxide 28 mmol/L (22-29) 08/23/23 17:55 Anion Gap 14.0 (5-19) 08/23/23 17:55 BUN 16 mg/dL (8-23) 08/23/23 17:55 Creatinine 0.8 mg/dL (0.5-0.9) 08/23/23 17:55 GFR Calculation 70.9 mL/min (90-130) L 08/23/23 17:55 Glucose 332 mg/dL (65-115) H 08/23/23 17:55 Calculated Osmolality 282 mOsm/kg (285-295) L 08/23/23 17:55 Calcium 8.6 mg/dL (8.5-10.5) 08/23/23 17:55 Total Bilirubin 2.2 mg/dL (0.15-1.2) H 08/23/23 17:55 AST 21 U/L (0-32) 08/23/23 17:55 ALT 10 U/L (0-33) 08/23/23 17:55 Alkaline Phosphatase 87 U/L (35-105) 08/23/23 17:55 Troponin T Baseline 33 ng/L (0-10) H 08/23/23 17:55 NT-Pro-B Natriuret Pep 2043 pg/mL (0-125) H 08/23/23 17:55 Total Protein 7.3 g/dL (6.6-8.7) 08/23/23 17:55 Albumin 3.1 g/dL (3.5-5.2) L 08/23/23 17:55 Globulin 4.2 g/dL (1.3-4.6) 08/23/23 17:55 All radiology interpretation(s) finalized by discharge Critical Care Time 2 Critical Care Time: Critical Care Time: Yes Total Critical Care Time: 45 Attestation: The high probability of a clinically significant, sudden or life threatening deterioration of the patient's cv system(s) required my full and direct attention, intervention and personal management. The critical care time is as shown. This time is in addition to time spent performing any reported procedures but includes the following: [x] Data and vital sign review and interpretation [x] Patient assessment, examination and intervention [x] Documentation [x] Medication orders and management Discharge Plan Discharge Patient Disposition: Admitted As Inpatient Clinical Impression: CHF (congestive heart failure), Atrial fibrillation with RVR Condition: Stable Prescriptions: No Action multivitamin Tablet 1 tab PO DAILY Probiotic 3 billion cell capsule 3,000 mmu cells PO DAILY Rx Instructions: administer with a meal nitroglycerin 0.4 mg tablet, sublingual 0.4 mg sublingual Q5M PRN (Reason: chest pain) Qty: 30 2RF Rx Instructions: do not exceed 3 doses per episode metformin 1,000 mg tablet 1,000 mg PO BID 30 Days Qty: 60 3RF Hold Instructions: Resume on 11/27/22. Patient may restart on Monday omeprazole 20 mg capsule,delayed release(DR/EC) 20 mg PO DAILY PRN (Reason: Acid Reflux) atorvastatin 40 mg tablet 40 mg PO DAILY cholecalciferol (vitamin D3) 125 mcg (5,000 unit) capsule 125 mcg PO DAILY Eliquis 2.5 mg tablet 2.5 mg PO BID digoxin 125 mcg (0.125 mg) tablet 125 mcg PO DAILY Qty: 90 3RF fluticasone propion-salmeterol [Advair Diskus] 500-50 mcg/dose blister with device 1 inh inhalation BID Qty: 60 5RF albuterol sulfate [ProAir HFA] 90 mcg/actuation HFA aerosol inhaler 2 puff inhalation Q6H PRN (Reason: shortness of breath or wheezing) Qty: 8.5 6RF furosemide 40 mg tablet 80 mg PO BID Qty: 120 3RF insulin detemir U-100 100 unit/mL (3 mL) insulin pen 20 unit SUBCUT DAILY Qty: 15 3RF Rx Instructions: Inject 20 U SQ daily, increase by 5 units every 3 days if glucose fasting is >150 citalopram 10 mg tablet 10 mg PO DAILY Qty: 30 3RF (DME) pen needle, diabetic [TechLITE Pen Needle] 31 gauge x 5/16 needle See Rx Instructions .ROUTE .MEDSUPPLY Qty: 100 6RF Rx Instructions: As directed (DME) oxygen concentrator w/portable See Rx Instructions .Route .MEDSUPPLY Qty: 1 0RF Rx Instructions: As directed oxygen concentrator w/portable 2 litters n/c Aspir-81 81 mg Tablet,Delayed Release (Dr/Ec) 81 mg PO DAILY potassium chloride 20 mEq tablet extended release 20 meq PO DAILY glipizide 5 mg tablet 5 mg PO BID Referrals: Ruslan Ward MD [Primary Care Provider] - Coding Level of Care Code ED Patient Safety Coordinator for Chg Yasir
--- NOTE | 2023-08-23 17:40 | ECG_ITS ---
[facility] Test Date: 2023-08-23 Pat Name: Nyasia Sultana Department: Room: Gender: Female Pearl Technician: : 1950 Requested By: Reji Godoy Order Number: [id number] Marisela MD: Suzy Zuleta M.D. Measurements Intervals [place] Rate: 109 P: 0 [place]: 0 QRS: -8 QRSD: 144 T: 72 QT: 330 QTc: 445 Interpretive Statements ATRIAL FLUTTER/TACHYCARDIA WITH RAPID VENTRICULAR RESPONSE RIGHT BUNDLE BRANCH BLOCK [120+ ms QRS DURATION, UPRIGHT V1, 40+ ms S IN I/aVL/V4/V5/V6] Compared to ECG 07/29/2023 13:48:18 Right bundle-branch block now present Atrial fibrillation no longer present Intraventricular conduction delay no longer present Electronically Signed On 08-23-2023 21:39:35 PEARL TECHNICIAN by Suzy Zuleta M.D. [id number]
[2023-08-23 17:59] LABS: ABG PCO2 36.6 mmHg (35-45); ABG PH Result 7.52 (7.35-7.45); Arterial Blood Gas Hematocrit 27.9 % (37-47); Base Excess ABG 6.8 mmol/L (-2.0-2.0); Blood Gas Allen Test Pos; Blood Gas Operator Identificat WALCI; Blood Gas Sample Site Radial, right; Blood Gas Sample Type Arterial; Oxygen Device ROOM AIR; PO2 ABG 52.7 mmHg (80.0-100.0); PO2 FiO2 Ratio Arterial Blood 0
[2023-08-23] MEDS: albuterol 2.5 mg/3 mL Neb INHALATION (18:05)
[2023-08-23 18:17] LABS: Basophils % 0.5 %; Eosinophils # 0.1 10^3/uL (0.0-0.8); Hematocrit 28.7 % (36-47); Lymphocytes # 0.5 10^3/uL (0.8-4.8); Lymphocytes % 12.3 %; Mean Corpuscular Hemoglobin 29.8 pg (27-33); Mean Platelet Volume 9.3 fL (7.4-10.4); Monocytes # 0.4 10^3/uL (0.2-0.9); Monocytes % 10.1 %; Neutrophils # 2.97 10^3/uL (1.8-7.7); Neutrophils % 74.8 %; Nucleated Red Blood Cells % 0 %; Platelet Count 141 10^3/cmm (157-399); Red Blood Count 2.99 10^6/uL (3.85-5.65); Red Cell Distribution Width 17.1 % (12.1-15.1); White Blood Count 3.97 10^3/uL (3.29-11.43)
[2023-08-23] MEDS: FUROsemide 10 mg/mL SDV 10mL 60 MG IVP (18:28)
--- NOTE | 2023-08-23 18:30 | ECG_ITS ---
[facility] Test Date: 2023-08-23 Pat Name: Nyasia Sultana Department: Room: Gender: Female Tennis Ball Coverer Hand: : 1950 Requested By: Reji Godoy Order Number: [id number] Marisela MD: Suzy Zuleta M.D. Measurements Intervals [place] Rate: 114 P: 0 [place]: 0 QRS: 46 QRSD: 146 T: 78 QT: 428 QTc: 591 Interpretive Statements ATRIAL FLUTTER/TACHYCARDIA WITH RAPID VENTRICULAR RESPONSE WITH ABERRANT CONDUCTION OR VENTRICULAR PREMATURE COMPLEXES RIGHT BUNDLE BRANCH BLOCK [120+ ms QRS DURATION, UPRIGHT V1, 40+ ms S IN I/aVL/V4/V5/V6] Compared to ECG 08/23/2023 17:40:48 Ventricular premature complex(es) now present Aberrant conduction of supraventricular beat(s) now present Electronically Signed On 08-23-2023 21:39:43 CREATIVE SERVICES PRODUCER by Suzy Zuleta M.D. [id number]
[2023-08-23 18:46] LABS: Alanine Aminotransferase 10 U/L (0-33); Albumin Level 3.1 g/dL (3.5-5.2); Alkaline Phosphatase 87 U/L (35-105); Aspartate Amino Transferase 21 U/L (0-32); Blood Urea Nitrogen 16 mg/dL (8-23); Calcium 8.6 mg/dL (8.5-10.5); Carbon Dioxide 28 mmol/L (22-29); Chloride 90 mmol/L (98-107); Globulin 4.2 g/dL (1.3-4.6); Glomerular Filtration Rate 70.9 mL/min (90-130); Glucose 332 mg/dL (65-115); NT Pro B Type Natriuretic Pept 2043 pg/mL (0-125); Osmolality Calculated 282 mOsm/kg (285-295); Sodium 129 mmol/L (136-145); Total Bilirubin 2.2 mg/dL (0.15-1.2); Total Protein 7.3 g/dL (6.6-8.7)
[2023-08-23 19:07] LABS: Troponin(5th) Baseline 33 ng/L (0-10)
[2023-08-23] MEDS: dilTIAZem 100 MG in sodium chloride 0.9% (add-van) 100 ML IV (19:49)
[2023-08-23 19:55] LABS: Troponin 5 2HR 35.07 ng/L (0-10); Troponin 5 2HR Delta 2.07 ABS# (0-10)
[2023-08-23 19:56] LABS: INR 1.63 (0.8-1.2)
[2023-08-23 20:30] LABS: Procalcitonin 0.15 ng/mL (0-0.5); Thyroid Stimulating Hormone 1.32 uIU/mL (0.27-4.20)
[2023-08-23 20:41] LABS: C Reactive Protein 18.7 mg/L (0.0-4.9); Ferritin 177 ng/mL (15-150); Iron 36 ug/dL (37-145); Magnesium 1.7 mg/dL (1.7-2.3); Percent Saturation 10.7 % (20-50); Total Iron Binding Capacity 336 mcg/dl; Unsaturated Iron Binding 300 ug/dL (112-347)
--- NOTE | 2023-08-23 20:47 | CTR_ITS ---
PROCEDURE INFORMATION: Exam: CT Chest Without Contrast; Diagnostic Exam date and time: 08/23/2023 9:15 PM Age: 72 years old Clinical indication: Shortness of breath; Prior surgery; Surgery date: 6+ months; Surgery type: Open heart; Additional info: SOB TECHNIQUE: Imaging protocol: Diagnostic computed tomography of the chest without contrast. Radiation optimization: All CT scans at this facility use at least one of these dose optimization techniques: automated exposure control; mA and/or kV adjustment per patient size (includes targeted exams where dose is matched to clinical indication); or iterative reconstruction. COMPARISON: CT angio chest PE protcl [id number] 07/29/2023 1:21 PM RADIATION DOSE METRICS: Total DLP (mGy-cm): 674 FINDINGS: Tubes, catheters and devices: Recannulated umbilical vein partially visualized consistent with portal hypertension. Lungs: Scarring versus atelectatic changes in the left and right upper lobes. Pleural spaces: Kigvmxav-ns-dicwt right-sided pleural effusion. Significant atelectatic changes in the right lung base and lingula. Heart: Severe mitral annular calcifications present. Lymph nodes: Unremarkable. No enlarged lymph nodes. Vasculature: Unremarkable. No aortic aneurysm. Liver: Cirrhotic liver. Gallbladder and bile ducts: Tiny calcified stones in the gallbladder. Spleen: Splenomegaly with the spleen measuring up to 17.2 cm in length. Intraperitoneal space: Abdominal ascites partially visualized in the upper abdomen. Bones/joints: Prior median sternotomy, aortic valve replacement and CABG. Soft tissues: Unremarkable. CT/CT chest [facility] [id number] IMPRESSION: 1. Vhqdzrev-qg-cttkg right-sided pleural effusion. Significant atelectatic changes in the right lung base and lingula. 2. Cirrhotic liver. 3. Splenomegaly with the spleen measuring up to 17.2 cm in length. 4. Abdominal ascites partially visualized in the upper abdomen. 5. Recannulated umbilical vein partially visualized consistent with portal hypertension.
--- NOTE | 2023-08-23 20:47 | USCV_ITS ---
Nyasia Sultana Age: 72 Gender: F : 1950 Exam Date: 08/23/2023 21:39 Ordering Phys: Guru Garcia MD Technologist: DOLORES Exam Location: [facility] [place] Indication: Anasarca, SOB, 3+ pitting edema BLE, History of COPD, s/p CABG Jun 2023, No history of DVT per patient. HISTORY: Anasarca, SOB, 3+ pitting edema BLE, History of COPD, s/p CABG Jun 2023, No history of DVT per patient. PROCEDURES: Venous duplex imaging was performed in bilateral lower extremities. The following venous structures were evaluated: common femoral vein, profunda vein, proximal portion of the greater saphenous vein, superficial femoral vein, and the popliteal vein. In addition, the posterior tibial veins were evaluated. Serial compression, augmentation maneuvers, and spectral Doppler flow evaluation were performed, which were normal. Bilaterally, the common femoral, superficial femoral, profunda femoral, popliteal, posterior tibial, and greater saphenous veins were identified and interrogated in the standard fashion. These veins were found to be easily compressible with spontaneous blood flow. No evidence of thrombus noted. Highly pulsatile bilateral venous compartments suggest CHF. CONCLUSIONS No evidence of right lower extremity DVT. No evidence of left lower extremity DVT. Severo Francis MD (Electronically Signed) Final Date: 24 August 2023 10:36 S
--- NOTE | 2023-08-23 20:47 | USCV_ITS ---
Nyasia Sultana Age: 72 Gender: F : 1950 Exam Date: 08/23/2023 22:06 Ordering Phys: Guru Garcia MD Technologist: DOLORES [place] [facility] [place]: Anasarca, 3+ pitting edema BLE, SOB, history of COPD, s/p open-heart surgery 2022. BP: 110 / 58 HR: 102 Rhythm: Atrial fibrillation Technical Quality: Suboptimal MEASUREMENTS (Male / Female) Normal Values 2D ECHO LV Diastolic Diameter PLAX 4.5 cm 4.2 - 5.9 / 3.9 - 5.3 cm LV Systolic Diameter PLAX 2.6 cm IVS Diastolic Thickness 1.1 cm 0.6 - 1.0 / 0.6 - 0.9 cm IVS Systolic Thickness 1.1 cm LVPW Diastolic Thickness 1.4 cm 0.6 - 1.0 / 0.6 - 0.9 cm LVPW Systolic Thickness 1.1 cm LVOT Diameter 2.0 cm LV Ejection Fraction 2D Teich 72.9 % LV Ejection Fraction MOD 2C 72.0 % LV Ejection Fraction 2C AL 72.2 % LA Diameter 3.4 cm LA Width 3.9 cm LA Height 4.9 cm RA Width 4.3 cm RA Height 5.9 cm Aorta at Sinotubular Diameter 2.1 cm IVC Diameter 2.6 cm M-MODE Aortic Annulus Diameter 2.2 cm LA Ao Ratio MM 1.8 MV E Point Septal Separation 0.4 cm DOPPLER AV Peak Velocity 325.0 cm/s LVOT Peak Velocity 92.0 cm/s AV Area Cont Eq vti 0.9 cm squared AV Area Cont Eq pk 0.9 cm squared MV Peak Velocity 246.0 cm/s MV Area PHT 2.9 cm squared MV E' Velocity 138.0 cm/s Mitral E to MV E' Ratio 14.6 Mitral E to LV E' Lateral Ratio 15.0 Mitral E to LV E' Septal Ratio 14.2 TR Peak Velocity 280.0 cm/s TR Peak Gradient 31.4 mmHg TV Peak E Velocity 101.0 cm/s Right Atrial Pressure 10.0 mmHg Pulmonary Artery Systolic Pressu 41.4 mmHg PV Peak Velocity 121.0 cm/s RV Acceleration Time 0.1 s RV Ejection Time 0.3 s RV AcT/ET 0.4 FINDINGS Left Ventricle Normal left ventricular size, systolic function and wall thickness, with no regional wall motion abnormalities. Rhythm precludes evaluation of diastolic function. Left ventricular ejection fraction is estimated at 65 %. Abnormal (paradoxical) septal motion consistent with postoperative status. Right Ventricle Right Atrium Mildly increased right atrial size. Left Atrium Mildly increased left atrial size. Mitral Valve Severe mitral annular calcification. There is also some mitral calcification. The valve area by pressure half-time is normal however there may be some functional mitral stenosis. Trace to mild mitral regurgitation. Aortic Valve Aortic valve is very poorly seen. It has some characteristics of a prosthetic valve. Interrogation was difficult but it is stenotic.mild aortic valve stenosis, mean gradient 19.3 mmHg. Visually 1 cannot see the valve opening close. The gradient would suggest mild to moderate stenosis. No obvious aortic insufficiency. Tricuspid Valve Structurally normal tricuspid valve. Trace tricuspid valve regurgitation. Pulmonic Valve Structurally normal pulmonic valve. Pericardium Small pericardial effusion. Echocardiographic findings suggest a non hemodynamically significant pericardial effusion. Aorta The descending aorta appears to be mildly dilated 3.5 cm IVC The inferior vena cava is mildly dilated and does not collapse normally with respiration. This suggest mild elevation in the right atrial pressure to approximately 10 mmHg. CONCLUSIONS Normal left ventricular size, systolic function and wall thickness, with no regional wall motion abnormalities. Rhythm precludes evaluation of diastolic function. Left ventricular ejection fraction is estimated at 65 %. Abnormal (paradoxical) septal motion consistent with postoperative status. Normal right ventricular size and systolic function. Mild pulmonary hypertension, RVSP 41.4 mmHg. Mildly increased right atrial size. Mildly increased left atrial size. Severe mitral annular calcification. There is also some mitral calcification. The valve area by pressure half-time is normal however there may be some functional mitral stenosis. Trace to mild mitral regurgitation. Aortic valve is very poorly seen. It has some characteristics of a prosthetic valve. Interrogation was difficult but it is stenotic.mild aortic valve stenosis, mean gradient 19.3 mmHg. Visually 1 cannot see the valve opening close. The gradient would suggest mild to moderate stenosis. No obvious aortic insufficiency. Small pericardial effusion. Echocardiographic findings suggest a non hemodynamically significant pericardial effusion. The descending aorta appears to be mildly dilated 3.5 cm. The inferior vena cava is mildly dilated and does not collapse normally with respiration. This suggest mild elevation in the right atrial pressure to approximately 10 mmHg. Previous echo was performed 1 year ago. Since then, the atrial fibrillation is new, the degree of aortic stenosis is less suggesting the valve may have been replaced. The pericardial effusion is new. Dr. Dangelo Amin MD (Electronically Signed) Final Date: 24 August 2023 08:57 S
--- NOTE | 2023-08-23 21:16 | P.HP_ITS ---
Providers/Chief Complaint 2 Admitting Physician: Guru Garcia MD Primary Care Provider: Ruslan Ward MD Chief Complaint: sent over by dr, fluid build up History of Present Illness Nyasia Sultana is a 72 year old female who recently had a CABG at [facility] June 2023, history of bioprosthetic aortic valve for aortic valve stenosis, history of PE, history of atrial fibrillation, on Eliquis, hypertension, hyperlipidemia, history of mitral valve regurg with consideration of mitral valve surgery in [facility], COPD, liver cirrhosis, who presents to [facility] for shortness of breath. Patient tells me that in the last 2 months she has been hospitalized twice each for 2 weeks at [facility] since her open heart surgery, for fluid overload requiring diuresis regarding thoracocentesis, every time she is discharged she continues to have shortness of breath, she has been told that she has a leaky mitral valve and that at some point she is going to need to have mitral valve surgery at [facility], she was hoping that they would have fixed mitral valve when they did her open heart surgery but they did not, she tells me that she just got out of [facility] on Monday since getting out of the hospital she continues to feel short of breath, shortness of breath with exertion, orthopnea, proximal nocturnal dyspnea, with bilateral lower extremity edema, no fevers, no chills, no cough, no chest pain Review of Systems 2 Card: Denies: chest pain Resp: Reports: dyspnea GI: Denies: abdominal pain Medications/Allergies Home Medications Medication Instructions Recorded Confirmed Last Taken Type multivitamin 1 tab PO DAILY 09/27/19 07/29/23 07/28/23 History lactobacillus combination no.4 3 3,000 mmu cells PO DAILY 07/15/21 07/29/23 07/28/23 History billion cell capsule (Probiotic) oxygen concentrator w/portable #1 ea 03/09/23 07/29/23 Unknown Rx metformin 1,000 mg tablet 1,000 mg PO BID 30 days #60 tabs 05/08/23 07/29/23 Unknown Rx nitroglycerin 0.4 mg sublingual 0.4 mg sublingual Q5M PRN chest 05/08/23 07/29/23 Unknown Rx tablet pain #30 tabs omeprazole 20 mg capsule,delayed 20 mg PO DAILY PRN Acid Reflux 05/10/23 07/29/23 07/28/23 History release aspirin 81 mg tablet,delayed 81 mg PO DAILY 07/29/23 08/22/23 07/28/23 History release glipizide 5 mg tablet 5 mg PO BID 07/29/23 07/29/23 Unknown History potassium chloride 20 mEq 20 meq PO DAILY 07/29/23 07/29/23 07/28/23 History tablet,extended release albuterol sulfate 90 mcg/actuation 2 puff inhalation Q6H PRN 08/22/23 08/22/23 Unknown Rx aerosol inhaler (ProAir HFA) shortness of breath or wheezing #8.5 grams apixaban 2.5 mg tablet (Eliquis) 2.5 mg PO BID 08/22/23 08/22/23 Unknown History atorvastatin 40 mg tablet 40 mg PO DAILY 08/22/23 08/22/23 Unknown History cholecalciferol (vitamin D3) 125 125 mcg PO DAILY 08/22/23 08/22/23 Unknown History mcg (5,000 unit) capsule citalopram 10 mg tablet 10 mg PO DAILY #30 tabs 08/22/23 08/22/23 Unknown Rx digoxin 125 mcg (0.125 mg) tablet 125 mcg PO DAILY #90 tabs 08/22/23 08/22/23 Unknown Rx fluticasone 500 mcg-salmeterol 50 1 inh inhalation BID #60 ea 08/22/23 08/22/23 Unknown Rx mcg/dose blistr powdr for inhalation (Advair Diskus) furosemide 40 mg tablet 80 mg (2 x 40 mg) PO BID #120 tabs 08/22/23 08/22/23 Unknown Rx insulin detemir U-100 100 unit/mL 20 unit (0.2 mL) SUBCUT DAILY #15 08/22/23 08/22/23 Unknown Rx (3 mL) subcutaneous pen mL pen needle, diabetic 31 gauge x #100 ea 08/22/23 08/22/23 Unknown Rx 5/16 (TechLITE Pen Needle) Allergies Allergy/AdvReac Type Severity Reaction Status Date / Time prednisone Allergy ADR/ALGY-Pa Verified 05/18/23 12:10 lpitations PFSH Acute 2 PFSH: Medical History Pulmonary hypertension Foot pain Cirrhosis of liver Diabetes mellitus COPD (chronic obstructive pulmonary disease) Hepatitis C CHF (congestive heart failure) ASHD (arteriosclerotic heart disease) Surgical History H/O bilateral cataract extraction S/P knee surgery S/P aortic valve replacement Family History Mother Diabetes Myocardial infarction Hypertension Father Diabetes Myocardial infarction Hypertension Grandmother Myocardial infarction Cancer Grandfather Myocardial infarction Cancer Other Heart disease Social History Smoking and tobacco/nicotine status: former use of tobacco/nicotine Quit status (tobacco/nicotine): has quit using Year quit tobacco: 1993 2-3-pack per day Former quit date comment: smoked for 30 years Alcohol intake: never Substance/Drug Use: never Lives independently: Yes Household members: spouse and other Details: brother Housing: House Marital status: Number of children: 0 Pets and animals: Yes Pets & animals: cat(s), dog(s) and bird(s) Vitals/I&O/Wt Last Vital Signs Temp 98.4 F 08/23/23 17:12 Pulse 110 H 08/23/23 20:45 Resp 16 08/23/23 20:45 BP 110/58 08/23/23 20:45 Pulse Ox 92 08/23/23 20:45 O2 Del Method Room Air 08/23/23 20:45 Weight last 48 hrs Weight 104.326 kg Physical Exam 2 Const: COMMON NORMALS: no acute distress and patient oriented x3 HENMT: COMMON NORMALS: normocephalic HEAD & SCALP: normocephalic Eye: COMMON NORMALS: Equal, round and reactive pupils present and EOMs intact bilaterally Neck/C-Spine: COMMON NORMALS: no JVD Resp: COMMON NORMALS: normal respiratory effort, No retractions, No use of accessory muscles and clear to auscultation bilaterally AUSCULTATION: c rackles Cardio: COMMON NORMALS: regular rate, regular rhythm, S1 normal heart sound present and S2 normal heart sound present RATE: tachycardic RHYTHM: a bnormal rhythm HEART SOUNDS: S1 normal heart sound present and S2 normal heart sound present GI: COMMON NORMALS: Normal to inspection, nondistended, normoactive bowel sounds present, Soft to palpation and non-tender Extremity: OTHER: 2+ pitting edema Neuro: COMMON NORMALS: patient oriented x3, CN's II-XII intact bilaterally and moves all extremities Psych: COMMON NORMALS: mental status grossly normal Data 08/23/23 17:55 08/23/23 17:55 A&P Assessment and plan (1) Systolic CHF, acute: (2) Recurrent right pleural effusion: (3) Diabetes mellitus: (4) Atrial fibrillation with RVR: (5) Prosthetic aortic valve stenosis: (6) COPD (chronic obstructive pulmonary disease): Qualifiers: COPD type: unspecified COPD Qualified Code(s): J44.9 - Chronic obstructive pulmonary disease, unspecified (7) Central obesity: (8) Cirrhosis of liver: Plan Acute respiratory failure -secondary to systolic CHF -Pulmonary edema -Fluid overload -A-fib with RVR Plan -Admit to cardiac stepdown unit -Fluid restrictions at 1000 cc -Lasix 40 mg IV twice daily -Monitor creatinine, to potassium monitor sodium -Repeat cardiac echo -Continue Cardizem drip -Add p.o. Cardizem 30 every 6 hours -Continue Eliquis 2.5 mg twice daily -Monitor respiratory status closely -Start BiPAP if needed, as she continues to be short of breath -Full code -Eliquis for DVT prophylaxis A-fib with RVR, is on Eliquis 2.5 mg twice daily is on digoxin, no documented history of atrial fibrillation Patient has a known history of a small left lower lobe pulmonary embolism on CT scan 07/29/2023, she is on low-dose Eliquis 2.5 mg twice daily, potentially related to her anemia? Will o order a venous ultrasound bilateral lower extremities Recurrent right pleural effusion -She tells me that she had a thoracocentesis done at [facility], there was no infection there was no blood -Will consider ultrasound thoracocentesis tomorrow Type 2 diabetes mellitus, low-dose sliding scale History of bioprosthetic aortic valve History of CABG Acute on chronic anemia, iron studies Attestations 2 Medical Necessity Statement*: Patient requires hospitalization, inpatient, greater than 2 midnights, for acute respiratory failure, secondary to CHF exacerbation fluid overload, pulm edema, A-fib, inpatient, greater than 2 midnights Diagnoses Systolic CHF, acute I50.21 Recurrent right pleural effusion J90 Diabetes mellitus E11.9 Atrial fibrillation with RVR I48.91 Prosthetic aortic valve stenosis T82.857A Chronic obstructive pulmonary disease, unspecified COPD type J44.9 COPD type: unspecified COPD Central obesity E65 Cirrhosis of liver K74.60
[2023-08-23 21:43] LABS: Digoxin 0.6 ng/mL (0.6-1.2)
[2023-08-23 21:47] LABS: Lactic Sepsis W/Reflex 2.5 mmol/L (0.5-2.2)
[2023-08-23 22:46] LABS: Adenovirus Not Detected (NOT DETECT); Chlamydia Pneumoniae Not Detected (NOT DETECT); Coronavirus 229E,HKU1,NL63,OC4 Not Detected (NOT DETECT); Human Metapneumovirus Not Detected (NOT DETECT); Human Rhinovirus/Enterovirus Not Detected (NOT DETECT); Influenza A Not Detected (NOT DETECT); Influenza A H1 Not Detected (NOT DETECT); Influenza A H1-2009 Not Detected (NOT DETECT); Influenza A H3 Not Detected (NOT DETECT); Influenza B Not Detected (NOT DETECT); Mycoplasma Pneumoniae Not Detected (NOT DETECT); Parainfluenza Virus Type 1 Not Detected (NOT DETECT); Parainfluenza Virus Type 2 Not Detected (NOT DETECT); Parainfluenza Virus Type 3 Not Detected (NOT DETECT); Parainfluenza Virus Type 4 Not Detected (NOT DETECT); Respiratory Syncytial Virus A Not Detected (NOT DETECT); Respiratory Syncytial Virus B Not Detected (NOT DETECT); SARS-COV-2 Not Detected (NOT DETECT)
[2023-08-23 22:51] LABS: Reflex Lactate Order REFLEX LACTIC ORDERD
[2023-08-23] MEDS: dilTIAZem 30 mg Tablet PO (23:18)
[2023-08-23] MEDS: pantoprazole 40 mg SDV IVP (23:18)
[2023-08-23] MEDS: lidocaine 1% 5 ML in potassium chloride premix 100 ML 26.25 ML IV (23:20)
[2023-08-23 23:21] LABS: Lactic Acid level (Lactate) 2.8 mmol/L (0.5-2.2)
[2023-08-24] VITALS (21 sets, daily range): BP systolic 106–131; BP diastolic 46–68; PULSE 85–102; RESP 16–25; TEMP 36.4–37.1; O2SAT 96–100
[2023-08-24 00:40] LABS: Basophils % 0.4 %; Eosinophils # 0.1 10^3/uL (0.0-0.8); Eosinophils % 2.2 %; Hematocrit 28.9 % (36-47); Lymphocytes # 0.6 10^3/uL (0.8-4.8); Lymphocytes % 12.7 %; Mean Corpuscular HGB Conc 31.8 g/dL (30-55); Mean Corpuscular Volume 94.1 fl (85-98); Monocytes # 0.3 10^3/uL (0.2-0.9); Monocytes % 7.4 %; Neutrophils # 3.51 10^3/uL (1.8-7.7); Neutrophils % 76.9 %; Nucleated Red Blood Cells % 0 %; Platelet Count 150 10^3/cmm (157-399); Red Blood Count 3.07 10^6/uL (3.85-5.65); Red Cell Distribution Width 17.1 % (12.1-15.1); White Blood Count 4.57 10^3/uL (3.29-11.43)
[2023-08-24 00:50] LABS: Estmated Average Glucose 146; Hemoglobin A1C 6.7 % (4.0-6.0)
[2023-08-24 00:57] LABS: Troponin 5 6HR 35.89 ng/L (0-10); Troponin 5 6HR Delta 2.89 ng/L (0-12)
[2023-08-24 01:05] LABS: NT Pro B Type Natriuretic Pept 2408 pg/mL (0-125)
[2023-08-24 01:09] LABS: Anion Gap 17.3 (5-19); Blood Urea Nitrogen 16 mg/dL (8-23); Calcium 8.9 mg/dL (8.5-10.5); Carbon Dioxide 27 mmol/L (22-29); Chloride 92 mmol/L (98-107); Glomerular Filtration Rate 70.9 mL/min (90-130); Glucose 329 mg/dL (65-115); Magnesium 1.7 mg/dL (1.7-2.3); Osmolality Calculated 290 mOsm/kg (285-295); Phosphorus 3.1 mg/dL (2.5-4.5); Potassium 3.3 mmol/L (3.5-5.1); Sodium 133 mmol/L (136-145); Thyroid Stimulating Hormone 1.31 uIU/mL (0.27-4.20)
[2023-08-24] MEDS: ipratropium-albuterol 3 mL Neb INHALATION ×4 (02:35→20:24)
[2023-08-24] MEDS: dilTIAZem 30 mg Tablet PO ×4 (02:56→20:21)
--- NOTE | 2023-08-24 03:09 | PC.NURSE ---
Optifoam dressing provided to prevent breakdown on legs from rossi catheter.
[2023-08-24] MEDS: FUROsemide 10 mg/mL SDV 4mL 40 MG IVP ×2 (05:02→17:42)
[2023-08-24] MEDS: digoxin 125 mcg Tablet PO (10:38)
[2023-08-24] MEDS: citalopram 20 mg Tablet 10 MG PO (10:38)
[2023-08-24] MEDS: atorvastatin 40 mg Tablet PO (10:39)
[2023-08-24] MEDS: apixaban 5 mg Tablet 2.5 MG PO (10:39)
[2023-08-24] MEDS: aspirin 81 mg EC Tablet PO (10:39)
[2023-08-24 10:44] LABS: Glucose Point of Care 375 mg/dL (70-110)
[2023-08-24] MEDS: insulin glargine 100 units/1 mL 10 UNIT SUBCUT (10:49)
[2023-08-24 11:43] LABS: Glucose Point of Care 415 mg/dL (70-110)
[2023-08-24] MEDS: insulin lispro 100 unit/1 mL SUBCUT ×2 (12:20→17:42)
--- NOTE | 2023-08-24 14:50 | P.PN_ITS ---
Subjective 2 Subjective: Overnight labs and H&P reviewed. Patient states that her breathing is improved compared to last night. Currently on 3 L/min supplemental O2, saturating 94%. Fingersticks have been uncontrolled Medications: Reviewed: Yes Vitals/I&O/Wt Last Vital Signs Temp 98.6 F 08/24/23 12:00 Pulse 86 08/24/23 14:45 Resp 20 H 08/24/23 14:45 BP 116/60 08/24/23 12:00 Pulse Ox 98 08/24/23 14:45 O2 Del Method Nasal Cannula 08/24/23 14:45 O2 Flow Rate 3 08/24/23 14:45 FiO2 2 08/24/23 12:00 08/23/23 08/24/23 08/24/23 22:59 06:59 14:59 Intake Total 185.583 / 185.583 Balance 185.583 / 185.583 Weight last 48 hrs Weight 104.326 kg Physical Exam 2 Narrative: General: No acute distress, AO x3 HEENT: PERRLA, pupils bilaterally equal and reactive, pallors not present Chest: Normal vesicular breath sounds, no added sounds, equal good air entry bilaterally CVS: S1-S2 regular, no murmurs, no tachycardia, no gallops, no rubs Abdomen: Soft, nontender, no organomegaly, bowel sounds present Neuro: No focal deficits, no facial deformity, AO x3, power 5/5 in all limbs Extremities: 3+ pitting edema B/L Urinary Catheter Management: Begum Latex: Cath Placed During This Visit: yes Reason for Continuing Indwelling Catheter: Accurate Measurement of Urinary Output in Critically Ill Patients Urinary Catheter Date of Insertion: 08/23/23 Urinary Catheter Time of Insertion: 23:53 Data 08/24/23 00:26 08/24/23 00:26 A&P Assessment and plan (1) Systolic CHF, acute: (2) Recurrent right pleural effusion: (3) Diabetes mellitus: (4) Atrial fibrillation with RVR: (5) Prosthetic aortic valve stenosis: (6) COPD (chronic obstructive pulmonary disease): Qualifiers: COPD type: unspecified COPD Qualified Code(s): J44.9 - Chronic obstructive pulmonary disease, unspecified (7) Central obesity: (8) Cirrhosis of liver: Plan # Acute hypoxic respiratory failure -secondary to cute on chronic diastolic CHF -Pulmonary edema -Fluid overload -A-fib with RVR Plan -Admit to cardiac stepdown unit -Fluid restrictions at 1000 cc -Lasix 40 mg IV twice daily -Monitor creatinine, to potassium monitor sodium -Repeat cardiac echo -Continue Cardizem drip -Add p.o. Cardizem 30 every 6 hours -Continue Eliquis 2.5 mg twice daily -Monitor respiratory status closely -Start BiPAP if needed, as she continues to be short of breath -Full code -Eliquis for DVT prophylaxis A-fib with RVR, is on Eliquis 2.5 mg twice daily is on digoxin, no documented history of atrial fibrillation Patient has a known history of a small left lower lobe pulmonary embolism on CT scan 07/29/2023, she is on low-dose Eliquis 2.5 mg twice daily, potentially related to her anemia? Will o order a venous ultrasound bilateral lower extremities Recurrent right pleural effusion -She tells me that she had a thoracocentesis done at [facility], there was no infection there was no blood -Will consider ultrasound thoracocentesis tomorrow Type 2 diabetes mellitus, low-dose sliding scale History of bioprosthetic aortic valve History of CABG Acute on chronic anemia, iron studies Plan for today. August 24, 2023. Patient reports improved breathing status today. Less tachypneic and less dyspneic than before. States that she has intermittent panic attacks because of her dyspnea and also thinking about the future course of her illness, pending surgery for the mitral valve etc. At this present time she does not want to travel to [place]. Echocardiogram reviewed. LVEF estimated at 65%, abnormal septal motion consistent with postoperative status from CABG. Mild pulmonary hypertension with RSVP of 41.4. Mildly increased right atrial size. There is severe mitral annular calcification for which patient has been recommended surgery at [place], however at this present time she is unsure if she wants to proceed with surgery. Also noted to have mild aortic valve stenosis, initially was planned for a TAVR at the time of CABG, however it is my understanding that during procedure aortic valve was not as bad as previously estimated. Dilated IVC. Continue diuresis with Lasix 40 mg IV every 12 hours. Urine output not accurately charted. Patient has a Begum catheter in place. Unable to assess if she is net negative yet. She has close 3+ pitting edema bilateral lower extremities., Closely monitor urine output and renal function. Noted right- sided moderate to large pleural effusion on CT. May need thoracentesis. Repeat chest x-ray in a.m. to assess for improvement with diuresis. Hold Eliquis in case needs thoracentesis this admission. Add as needed Xanax and fluoxetine for panic disorder. Change insulin from low- dose sliding scale to high-dose sliding scale. Heart rate is currently well-controlled on p.o. Cardizem. She was able to be titrated off Cardizem drip overnight. Attestations 2 Medical Necessity Statement*: Need continued inpatient admission for IV diuresis. Coding Level of Care Code Acute Code for Chg Fwd Diagnoses Systolic CHF, acute I50.21 Recurrent right pleural effusion J90 Diabetes mellitus E11.9 Atrial fibrillation with RVR I48.91 Prosthetic aortic valve stenosis T82.857A Chronic obstructive pulmonary disease, unspecified COPD type J44.9 COPD type: unspecified COPD Central obesity E65 Cirrhosis of liver K74.60
[2023-08-24] MEDS: potassium chloride ER 20 mEq Tablet 40 MEQ PO (15:38)
[2023-08-24] MEDS: ALPRAZolam 0.5 mg Tablet 0.25 MG PO (15:39)
[2023-08-24 16:19] LABS: Glucose Point of Care 245 mg/dL (70-110)
[2023-08-24] MEDS: saline nasal spray 44mL Btl 1 SPRAY NASAL ×2 (17:41→20:21)
--- NOTE | 2023-08-24 18:00 | XRR_ITS ---
PROCEDURE INFORMATION: Exam: XR Chest Exam date and time: 08/24/2023 6:11 PM Age: 72 years old Clinical indication: Shortness of breath; Prior surgery; Surgery date: 6+ months; Surgery type: Open heart; Additional info: F/up pleural effusion TECHNIQUE: Imaging protocol: Radiologic exam of the chest. Views: 1 view. COMPARISON: CT chest wo con [id number] 08/23/2023 9:15 PM FINDINGS: Lungs: Stable mild interstitial pulmonary edema. Stable compressive atelectasis in the right middle and lower lobes. Pleural spaces: Stable large right pleural effusion. No pneumothorax. Heart/Mediastinum: Stable moderate enlargement of the cardiac silhouette. Mediastinal contours are unremarkable. Vasculature: Stable vascular calcifications in the aorta. Bones/joints: Poststernotomy changes in the chest. Bones are diffusely osteopenic. Degenerative changes in the spine and shoulders. XR/XR chest 1V portable [id number] IMPRESSION: 1. Stable mild interstitial pulmonary edema with a large right pleural effusion and compressive atelectasis in the right middle and lower lobes. 2. Incidental/nonacute findings are listed in the report.
--- NOTE | 2023-08-24 19:07 | PC.NURSE ---
Low / no urine output via rossi catheter. Called Dr. Guaman to notify that after having given 40mg IV Lasix approx 1 hour earlier that we still don't have any urine output. Informed her that we have checked the rossi and will bladder scan to make sure that low urine volume is accurate. Bladder scan was performed and was noted to only show 26ml urine at most in pt's bladder at this time. There may be 40-50ml in the rossi catheter bag at present.
[2023-08-24] MEDS: pantoprazole 40 mg SDV IVP (20:21)
[2023-08-24 21:12] LABS: Glucose Point of Care 351 mg/dL (70-110)
[2023-08-25] VITALS (13 sets, daily range): BP systolic 106–137; BP diastolic 52–73; PULSE 69–152; RESP 18–24; TEMP 36.6–37.1; O2SAT 94–100
[2023-08-25] MEDS: ipratropium-albuterol 3 mL Neb INHALATION ×4 (02:40→20:00)
[2023-08-25] MEDS: dilTIAZem 30 mg Tablet PO ×4 (03:37→21:53)
[2023-08-25] MEDS: FUROsemide 10 mg/mL SDV 4mL 40 MG IVP (04:55)
[2023-08-25 05:21] LABS: Basophils % 0.6 %; Eosinophils # 0.1 10^3/uL (0.0-0.8); Hematocrit 26.8 % (36-47); Lymphocytes # 0.5 10^3/uL (0.8-4.8); Mean Corpuscular HGB Conc 30.2 g/dL (30-55); Mean Corpuscular Volume 96.1 fl (85-98); Mean Platelet Volume 9.4 fL (7.4-10.4); Monocytes # 0.4 10^3/uL (0.2-0.9); Monocytes % 10.7 %; Neutrophils # 2.58 10^3/uL (1.8-7.7); Neutrophils % 71.1 %; Nucleated Red Blood Cells % 0 %; Platelet Count 126 10^3/cmm (157-399); Red Blood Count 2.79 10^6/uL (3.85-5.65); Red Cell Distribution Width 17.1 % (12.1-15.1); White Blood Count 3.63 10^3/uL (3.29-11.43)
[2023-08-25 05:36] LABS: INR 1.46 (0.8-1.2)
[2023-08-25 05:51] LABS: Alanine Aminotransferase 9 U/L (0-33); Albumin Level 3.2 g/dL (3.5-5.2); Alkaline Phosphatase 84 U/L (35-105); Anion Gap 15.8 (5-19); Aspartate Amino Transferase 19 U/L (0-32); Blood Urea Nitrogen 20 mg/dL (8-23); Calcium 8.6 mg/dL (8.5-10.5); Carbon Dioxide 28 mmol/L (22-29); Chloride 94 mmol/L (98-107); Glomerular Filtration Rate 54.8 mL/min (90-130); Glucose 312 mg/dL (65-115); Osmolality Calculated 292 mOsm/kg (285-295); Potassium 3.8 mmol/L (3.5-5.1); Sodium 134 mmol/L (136-145); Total Bilirubin 2.1 mg/dL (0.15-1.2); Total Protein 7.2 g/dL (6.6-8.7)
[2023-08-25 06:33] LABS: Glucose Point of Care 352 mg/dL (70-110)
[2023-08-25] MEDS: aspirin 81 mg EC Tablet PO (09:12)
[2023-08-25] MEDS: ALPRAZolam 0.5 mg Tablet 0.25 MG PO ×2 (09:12→23:07)
[2023-08-25] MEDS: digoxin 125 mcg Tablet PO (09:12)
[2023-08-25] MEDS: saline nasal spray 44mL Btl 1 SPRAY NASAL ×3 (09:13→21:52)
[2023-08-25] MEDS: insulin glargine 100 units/1 mL 10 UNIT SUBCUT (09:13)
[2023-08-25] MEDS: atorvastatin 40 mg Tablet PO (09:13)
[2023-08-25] MEDS: insulin lispro 100 unit/1 mL SUBCUT ×3 (09:13→17:23)
[2023-08-25] MEDS: fluoxetine 10 mg Capsule PO (09:13)
[2023-08-25 10:51] LABS: Glucose Point of Care 361 mg/dL (70-110)
--- NOTE | 2023-08-25 13:22 | PC.SOCIAL ---
Pg 2 IMM Explained to pt Pg 2 IMM. No questions voiced. Provided pt a copy. Initialed, dated, & timed a copy & placed in chart.
--- NOTE | 2023-08-25 15:36 | PM.PN ---
Subjective Subjective: Appears to be more tachypneic today. Unable to talk in complete sentences. Remains on same oxygen requirement. Unchanged lower extremity edema. Hemoglobin at 8.1. Uncontrolled fingersticks. Medications: Reviewed: Yes Vitals/I&O/Wt Last Vital Signs Temp 98.0 F 08/25/23 12:00 Pulse 97 08/25/23 14:00 Resp 20 H 08/25/23 14:00 BP 106/52 08/25/23 12:00 Pulse Ox 98 08/25/23 14:00 O2 Del Method Nasal Cannula 08/25/23 14:00 O2 Flow Rate 2 08/25/23 14:00 FiO2 3 08/24/23 16:00 08/25/23 08/25/23 08/25/23 06:59 14:59 22:59 Intake Total 150 / 150 Output Total 200 / 200 Balance -50 / -50 Weight last 48 hrs Weight 104.326 kg Physical Exam Narrative: General: No acute distress, AO x3 HEENT: PERRLA, pupils bilaterally equal and reactive, pallors not present Chest: Normal vesicular breath sounds, no added sounds, equal good air entry bilaterally CVS: S1-S2 regular, no murmurs, no tachycardia, no gallops, no rubs Abdomen: Soft, nontender, no organomegaly, bowel sounds present Neuro: No focal deficits, no facial deformity, AO x3, power 5/5 in all limbs Extremities: 3+ pitting edema B/L Urinary Catheter Management: Begum Latex: Cath Placed During This Visit: yes Reason for Continuing Indwelling Catheter: Accurate Measurement of Urinary Output in Critically Ill Patients Urinary Catheter Date of Insertion: 08/23/23 Urinary Catheter Time of Insertion: 23:53 Data 08/25/23 04:44 08/25/23 04:44 A&P Assessment and plan (1) Systolic CHF, acute: (2) Recurrent right pleural effusion: (3) Diabetes mellitus: (4) Atrial fibrillation with RVR: (5) Prosthetic aortic valve stenosis: (6) COPD (chronic obstructive pulmonary disease): Qualifiers: COPD type: unspecified COPD Qualified Code(s): J44.9 - Chronic obstructive pulmonary disease, unspecified (7) Central obesity: (8) Cirrhosis of liver: Plan # Acute hypoxic respiratory failure -secondary to cute on chronic diastolic CHF -Pulmonary edema -Fluid overload -A-fib with RVR Plan -Admit to cardiac stepdown unit -Fluid restrictions at 1000 cc -Lasix 40 mg IV twice daily -Monitor creatinine, to potassium monitor sodium -Repeat cardiac echo -Continue Cardizem drip -Add p.o. Cardizem 30 every 6 hours -Continue Eliquis 2.5 mg twice daily -Monitor respiratory status closely -Start BiPAP if needed, as she continues to be short of breath -Full code -Eliquis for DVT prophylaxis A-fib with RVR, is on Eliquis 2.5 mg twice daily is on digoxin, no documented history of atrial fibrillation Patient has a known history of a small left lower lobe pulmonary embolism on CT scan 07/29/2023, she is on low-dose Eliquis 2.5 mg twice daily, potentially related to her anemia? Will o order a venous ultrasound bilateral lower extremities Recurrent right pleural effusion -She tells me that she had a thoracocentesis done at [facility], there was no infection there was no blood -Will consider ultrasound thoracocentesis tomorrow Type 2 diabetes mellitus, low-dose sliding scale History of bioprosthetic aortic valve History of CABG Acute on chronic anemia, iron studies Plan for today. August 24, 2023. Patient reports improved breathing status today. Less tachypneic and less dyspneic than before. States that she has intermittent panic attacks because of her dyspnea and also thinking about the future course of her illness, pending surgery for the mitral valve etc. At this present time she does not want to travel to [place]. Echocardiogram reviewed. LVEF estimated at 65%, abnormal septal motion consistent with postoperative status from CABG. Mild pulmonary hypertension with RSVP of 41.4. Mildly increased right atrial size. There is severe mitral annular calcification for which patient has been recommended surgery at [place], however at this present time she is unsure if she wants to proceed with surgery. Also noted to have mild aortic valve stenosis, initially was planned for a TAVR at the time of CABG, however it is my understanding that during procedure aortic valve was not as bad as previously estimated. Dilated IVC. Continue diuresis with Lasix 40 mg IV every 12 hours. Urine output not accurately charted. Patient has a Begum catheter in place. Unable to assess if she is net negative yet. She has close 3+ pitting edema bilateral lower extremities., Closely monitor urine output and renal function. Noted right-sided moderate to large pleural effusion on CT. May need thoracentesis. Repeat chest x-ray in a.m. to assess for improvement with diuresis. Hold Eliquis in case needs thoracentesis this admission. Add as needed Xanax and fluoxetine for panic disorder. Change insulin from low-dose sliding scale to high-dose sliding scale. Heart rate is currently well-controlled on p.o. Cardizem. She was able to be titrated off Cardizem drip overnight. Plan for today. August 25, 2023. Heart heart rate remains controlled. Continue digoxin and Cardizem. Continue Prozac and Xanax. Increased frequency of Xanax to 3 times a day. Increase Lasix to 80 mg IV every 12 hours. Increase insulin glargine to 20 units daily from 10 units daily due to uncontrolled fingersticks. Continue to hold Eliquis for planned thoracentesis on Monday. Attestations Medical Necessity Statement*: Increase iv lasix, monitor kidney function, urine output Coding Level of Care Code Acute Code for [facility] Diagnoses Systolic CHF, acute I50.21 Recurrent right pleural effusion J90 Diabetes mellitus E11.9 Atrial fibrillation with RVR I48.91 Prosthetic aortic valve stenosis T82.857A Chronic obstructive pulmonary disease, unspecified COPD type J44.9 COPD type: unspecified COPD Central obesity E65 Cirrhosis of liver K74.60
[2023-08-25 16:58] LABS: Glucose Point of Care 364 mg/dL (70-110)
[2023-08-25] MEDS: FUROsemide 10 mg/mL SDV 10mL 80 MG IVP (17:23)
[2023-08-25 20:36] LABS: Glucose Point of Care 422 mg/dL (70-110)
[2023-08-25] MEDS: pantoprazole 40 mg SDV IVP (21:53)
[2023-08-26] VITALS (19 sets, daily range): BP systolic 104–116; BP diastolic 57–71; PULSE 83–103; RESP 16–29; TEMP 36.5–37; O2SAT 94–99
[2023-08-26] MEDS: ipratropium-albuterol 3 mL Neb INHALATION ×4 (02:22→19:27)
[2023-08-26] MEDS: FUROsemide 10 mg/mL SDV 10mL 80 MG IVP ×2 (03:03→15:10)
[2023-08-26] MEDS: dilTIAZem 30 mg Tablet PO ×3 (03:03→15:11)
[2023-08-26 04:04] LABS: Basophils % 0.9 %; Eosinophils # 0.1 10^3/uL (0.0-0.8); Eosinophils % 3.1 %; Hematocrit 27.1 % (36-47); Lymphocytes # 0.5 10^3/uL (0.8-4.8); Lymphocytes % 16.3 %; Mean Corpuscular HGB Conc 30.3 g/dL (30-55); Mean Corpuscular Hemoglobin 28.7 pg (27-33); Mean Corpuscular Volume 94.8 fl (85-98); Mean Platelet Volume 9.9 fL (7.4-10.4); Monocytes # 0.4 10^3/uL (0.2-0.9); Neutrophils # 2.22 10^3/uL (1.8-7.7); Neutrophils % 68.1 %; Nucleated Red Blood Cells % 0 %; Platelet Count 125 10^3/cmm (157-399); Red Blood Count 2.86 10^6/uL (3.85-5.65); Red Cell Distribution Width 16.9 % (12.1-15.1); White Blood Count 3.26 10^3/uL (3.29-11.43)
[2023-08-26 04:36] LABS: Alanine Aminotransferase 9 U/L (0-33); Albumin Level 3.2 g/dL (3.5-5.2); Alkaline Phosphatase 84 U/L (35-105); Aspartate Amino Transferase 23 U/L (0-32); Blood Urea Nitrogen 19 mg/dL (8-23); Calcium 8.4 mg/dL (8.5-10.5); Carbon Dioxide 30 mmol/L (22-29); Chloride 91 mmol/L (98-107); Globulin 3.9 g/dL (1.3-4.6); Glomerular Filtration Rate 61.9 mL/min (90-130); Glucose 354 mg/dL (65-115); Osmolality Calculated 290 mOsm/kg (285-295); Sodium 132 mmol/L (136-145); Total Bilirubin 2.2 mg/dL (0.15-1.2); Total Protein 7.1 g/dL (6.6-8.7)
[2023-08-26 04:37] LABS: Anion Gap 14.7 (5-19); Potassium 3.7 mmol/L (3.5-5.1)
[2023-08-26 06:32] LABS: Glucose Point of Care 351 mg/dL (70-110)
[2023-08-26] MEDS: aspirin 81 mg EC Tablet PO (09:25)
[2023-08-26] MEDS: saline nasal spray 44mL Btl 1 SPRAY NASAL ×3 (09:25→21:55)
[2023-08-26] MEDS: insulin glargine 100 units/1 mL 20 UNIT SUBCUT (09:25)
[2023-08-26] MEDS: fluoxetine 10 mg Capsule PO (09:25)
[2023-08-26] MEDS: atorvastatin 40 mg Tablet PO (09:25)
[2023-08-26] MEDS: digoxin 125 mcg Tablet PO (09:25)
[2023-08-26] MEDS: insulin lispro 100 unit/1 mL SUBCUT ×4 (09:26→21:54)
[2023-08-26 12:12] LABS: Glucose Point of Care 419 mg/dL (70-110)
[2023-08-26] MEDS: ALPRAZolam 0.5 mg Tablet 0.25 MG PO ×2 (12:27→22:44)
--- NOTE | 2023-08-26 15:53 | P.PN_ITS ---
Subjective 2 Subjective: States that she feels her breathing is worse today. She is on supplemental O2 at 2 L/min. Lower extremity edema continues to be about the same. Urine output 1.6 L. Net -400 cc. Medications: Reviewed: Yes Vitals/I&O/Wt Last Vital Signs Temp 98.5 F 08/26/23 11:46 Pulse 102 H 08/26/23 13:55 Resp 20 H 08/26/23 13:55 BP 115/60 08/26/23 11:46 Pulse Ox 94 08/26/23 13:55 O2 Del Method Nasal Cannula 08/26/23 13:55 O2 Flow Rate 2 08/26/23 13:55 FiO2 3 08/24/23 16:00 08/26/23 08/26/23 08/26/23 06:59 14:59 22:59 Intake Total 700 / 700 480 / 480 Output Total 1250 / 1650 Balance -550 / -950 480 / 480 Physical Exam 2 Narrative: General: No acute distress, AO x3 HEENT: PERRLA, pupils bilaterally equal and reactive, pallors not present Chest: Normal vesicular breath sounds, no added sounds, equal good air entry bilaterally CVS: S1-S2 regular, no murmurs, no tachycardia, no gallops, no rubs Abdomen: Soft, nontender, no organomegaly, bowel sounds present Neuro: No focal deficits, no facial deformity, AO x3, power 5/5 in all limbs Extremities: 3+ pitting edema B/L Urinary Catheter Management: Begum Latex: Cath Placed During This Visit: yes Reason for Continuing Indwelling Catheter: Accurate Measurement of Urinary Output in Critically Ill Patients Urinary Catheter Date of Insertion: 08/23/23 Urinary Catheter Time of Insertion: 23:53 Data 08/26/23 03:27 08/26/23 03:27 Micro: Microbiology 08/26/23 10:29 Occult Blood (FIT) - Final Stool Routine Collection A&P Assessment and plan (1) Systolic CHF, acute: (2) Recurrent right pleural effusion: (3) Diabetes mellitus: (4) Atrial fibrillation with RVR: (5) Prosthetic aortic valve stenosis: (6) COPD (chronic obstructive pulmonary disease): Qualifiers: COPD type: unspecified COPD Qualified Code(s): J44.9 - Chronic obstructive pulmonary disease, unspecified (7) Central obesity: (8) Cirrhosis of liver: Plan # Acute hypoxic respiratory failure -secondary to cute on chronic diastolic CHF -Pulmonary edema -Fluid overload -A-fib with RVR Plan -Admit to cardiac stepdown unit -Fluid restrictions at 1000 cc -Lasix 40 mg IV twice daily -Monitor creatinine, to potassium monitor sodium -Repeat cardiac echo -Continue Cardizem drip -Add p.o. Cardizem 30 every 6 hours -Continue Eliquis 2.5 mg twice daily -Monitor respiratory status closely -Start BiPAP if needed, as she continues to be short of breath -Full code -Eliquis for DVT prophylaxis A-fib with RVR, is on Eliquis 2.5 mg twice daily is on digoxin, no documented history of atrial fibrillation Patient has a known history of a small left lower lobe pulmonary embolism on CT scan 07/29/2023, she is on low-dose Eliquis 2.5 mg twice daily, potentially related to her anemia? Will o order a venous ultrasound bilateral lower extremities Recurrent right pleural effusion -She tells me that she had a thoracocentesis done at [facility], there was no infection there was no blood -Will consider ultrasound thoracocentesis tomorrow Type 2 diabetes mellitus, low-dose sliding scale History of bioprosthetic aortic valve History of CABG Acute on chronic anemia, iron studies Plan for today. August 24, 2023. Patient reports improved breathing status today. Less tachypneic and less dyspneic than before. States that she has intermittent panic attacks because of her dyspnea and also thinking about the future course of her illness, pending surgery for the mitral valve etc. At this present time she does not want to travel to [place]. Echocardiogram reviewed. LVEF estimated at 65%, abnormal septal motion consistent with postoperative status from CABG. Mild pulmonary hypertension with RSVP of 41.4. Mildly increased right atrial size. There is severe mitral annular calcification for which patient has been recommended surgery at [place], however at this present time she is unsure if she wants to proceed with surgery. Also noted to have mild aortic valve stenosis, initially was planned for a TAVR at the time of CABG, however it is my understanding that during procedure aortic valve was not as bad as previously estimated. Dilated IVC. Continue diuresis with Lasix 40 mg IV every 12 hours. Urine output not accurately charted. Patient has a Begum catheter in place. Unable to assess if she is net negative yet. She has close 3+ pitting edema bilateral lower extremities., Closely monitor urine output and renal function. Noted right- sided moderate to large pleural effusion on CT. May need thoracentesis. Repeat chest x-ray in a.m. to assess for improvement with diuresis. Hold Eliquis in case needs thoracentesis this admission. Add as needed Xanax and fluoxetine for panic disorder. Change insulin from low- dose sliding scale to high-dose sliding scale. Heart rate is currently well-controlled on p.o. Cardizem. She was able to be titrated off Cardizem drip overnight. Plan for today. August 25, 2023. Heart heart rate remains controlled. Continue digoxin and Cardizem. Continue Prozac and Xanax. Increased frequency of Xanax to 3 times a day. Increase Lasix to 80 mg IV every 12 hours. Increase insulin glargine to 20 units daily from 10 units daily due to uncontrolled fingersticks. Continue to hold Eliquis for planned thoracentesis on Monday. Plan for today August 26, 2023. HR remains controlled. LE edema is unchanged, patient feels more tachypneic today, though 02 requirements are stable. Increase lasix to 40mg iv q8h and use metolazone 5mg x 1. Closely monitor bicarb , kidney function and urine output. Attestations 2 Medical Necessity Statement*: ongoing need for iv diuresis Coding Level of Care Code Acute Code for [facility] Diagnoses Systolic CHF, acute I50.21 Recurrent right pleural effusion J90 Diabetes mellitus E11.9 Atrial fibrillation with RVR I48.91 Prosthetic aortic valve stenosis T82.857A Chronic obstructive pulmonary disease, unspecified COPD type J44.9 COPD type: unspecified COPD Central obesity E65 Cirrhosis of liver K74.60
[2023-08-26 16:53] LABS: Glucose Point of Care 303 mg/dL (70-110)
[2023-08-26] MEDS: metOLazone 5 MG Tablet PO (17:59)
[2023-08-26] MEDS: insulin lispro 100 unit/1 mL 10 UNIT SUBCUT (17:59)
[2023-08-26] MEDS: FUROsemide 10 mg/mL SDV 4mL 40 MG IVP (17:59)
[2023-08-26 21:19] LABS: Glucose Point of Care 177 mg/dL (70-110)
[2023-08-26] MEDS: metoprolol tartrate 25 mg Tablet PO (21:55)
[2023-08-26] MEDS: pantoprazole 40 mg SDV IVP (21:55)
[2023-08-27] VITALS (19 sets, daily range): BP systolic 105–115; BP diastolic 52–60; PULSE 82–91; RESP 14–26; TEMP 36.4–37.3; O2SAT 96–100
[2023-08-27] MEDS: FUROsemide 10 mg/mL SDV 4mL 40 MG IVP ×3 (00:20→16:58)
[2023-08-27] MEDS: ipratropium-albuterol 3 mL Neb INHALATION ×4 (01:47→19:53)
[2023-08-27 05:28] LABS: Basophils % 0.4 %; Eosinophils # 0.1 10^3/uL (0.0-0.8); Hematocrit 26.2 % (36-47); Lymphocytes # 0.4 10^3/uL (0.8-4.8); Lymphocytes % 15.4 %; Mean Corpuscular HGB Conc 30.2 g/dL (30-55); Mean Corpuscular Hemoglobin 28.5 pg (27-33); Mean Corpuscular Volume 94.6 fl (85-98); Mean Platelet Volume 9.2 fL (7.4-10.4); Monocytes # 0.3 10^3/uL (0.2-0.9); Monocytes % 10.4 %; Neutrophils % 68.1 %; Nucleated Red Blood Cells % 0 %; Platelet Count 109 10^3/cmm (157-399); Red Blood Count 2.77 10^6/uL (3.85-5.65); Red Cell Distribution Width 16.7 % (12.1-15.1); White Blood Count 2.79 10^3/uL (3.29-11.43)
[2023-08-27 05:48] LABS: Alanine Aminotransferase 8 U/L (0-33); Alkaline Phosphatase 77 U/L (35-105); Anion Gap 10.4 (5-19); Aspartate Amino Transferase 22 U/L (0-32); Blood Urea Nitrogen 17 mg/dL (8-23); Calcium 8.5 mg/dL (8.5-10.5); Carbon Dioxide 34 mmol/L (22-29); Chloride 92 mmol/L (98-107); Globulin 3.9 g/dL (1.3-4.6); Glomerular Filtration Rate 70.9 mL/min (90-130); Glucose 191 mg/dL (65-115); Osmolality Calculated 285 mOsm/kg (285-295); Sodium 134 mmol/L (136-145); Total Protein 6.9 g/dL (6.6-8.7)
[2023-08-27 05:54] LABS: Potassium 2.4 mmol/L (3.5-5.1)
[2023-08-27 06:27] LABS: Glucose Point of Care 208 mg/dL (70-110)
[2023-08-27] MEDS: lidocaine 1% 5 ML in potassium chloride premix 100 ML 26.25 ML IV ×2 (06:53→10:53)
[2023-08-27] MEDS: metoprolol tartrate 25 mg Tablet PO ×2 (08:35→21:27)
[2023-08-27] MEDS: fluoxetine 10 mg Capsule PO (08:35)
[2023-08-27] MEDS: aspirin 81 mg EC Tablet PO (08:35)
[2023-08-27] MEDS: digoxin 125 mcg Tablet PO (08:35)
[2023-08-27] MEDS: atorvastatin 40 mg Tablet PO (08:35)
[2023-08-27] MEDS: saline nasal spray 44mL Btl 1 SPRAY NASAL ×2 (08:36→16:57)
[2023-08-27] MEDS: insulin lispro 100 unit/1 mL SUBCUT ×4 (08:36→21:27)
[2023-08-27] MEDS: insulin glargine 100 units/1 mL 20 UNIT SUBCUT (08:36)
--- NOTE | 2023-08-27 08:37 | P.PN_ITS ---
Subjective 2 Subjective: net negative 1900 cc. hypokalemia today, increasing bicarb. Her lower extremity edema is improving today. States that her breathing is easier. She is noted to be more sleepy today, however states that she has been up since 3 AM and has finally settled down to rest. Medications: Reviewed: Yes Vitals/I&O/Wt Last Vital Signs Temp 97.6 F 08/27/23 07:11 Pulse 87 08/27/23 08:35 Resp 17 08/27/23 07:11 BP 110/52 08/27/23 07:11 Pulse Ox 98 08/27/23 07:11 O2 Del Method Nasal Cannula 08/27/23 07:11 O2 Flow Rate 2 08/27/23 01:47 FiO2 3 08/24/23 16:00 08/26/23 08/27/23 08/27/23 22:59 06:59 14:59 Intake Total 240 / 720 740 / 1460 Output Total 1000 / 1000 2000 / 3000 Balance -760 / -280 -1260 / -1540 Physical Exam 2 Narrative: General: No acute distress, AO x3 HEENT: PERRLA, pupils bilaterally equal and reactive, pallors not present Chest: Normal vesicular breath sounds, no added sounds, equal good air entry bilaterally CVS: S1-S2 regular, no murmurs, no tachycardia, no gallops, no rubs Abdomen: Soft, nontender, no organomegaly, bowel sounds present Neuro: No focal deficits, no facial deformity, AO x3, power 5/5 in all limbs Extremities: 3+ pitting edema B/L Urinary Catheter Management: Begum Latex: Cath Placed During This Visit: yes Reason for Continuing Indwelling Catheter: Accurate Measurement of Urinary Output in Critically Ill Patients Urinary Catheter Date of Insertion: 08/23/23 Urinary Catheter Time of Insertion: 23:53 Data 08/27/23 04:45 08/27/23 04:45 Micro: Microbiology 08/26/23 10:29 Occult Blood (FIT) - Final Stool Routine Collection A&P Assessment and plan (1) Systolic CHF, acute: (2) Recurrent right pleural effusion: (3) Diabetes mellitus: (4) Atrial fibrillation with RVR: (5) Prosthetic aortic valve stenosis: (6) COPD (chronic obstructive pulmonary disease): Qualifiers: COPD type: unspecified COPD Qualified Code(s): J44.9 - Chronic obstructive pulmonary disease, unspecified (7) Central obesity: (8) Cirrhosis of liver: Plan # Acute hypoxic respiratory failure -secondary to acute on chronic diastolic CHF -Pulmonary edema -Fluid overload -A-fib with RVR Plan -Admit to cardiac stepdown unit -Fluid restrictions at 1000 cc -Lasix 40 mg IV twice daily -Monitor creatinine, to potassium monitor sodium -Repeat cardiac echo -Continue Cardizem drip -Add p.o. Cardizem 30 every 6 hours -Continue Eliquis 2.5 mg twice daily -Monitor respiratory status closely -Start BiPAP if needed, as she continues to be short of breath -Full code -Eliquis for DVT prophylaxis A-fib with RVR, is on Eliquis 2.5 mg twice daily is on digoxin, no documented history of atrial fibrillation Patient has a known history of a small left lower lobe pulmonary embolism on CT scan 07/29/2023, she is on low-dose Eliquis 2.5 mg twice daily, potentially related to her anemia? Will o order a venous ultrasound bilateral lower extremities Recurrent right pleural effusion -She tells me that she had a thoracocentesis done at [facility], there was no infection there was no blood -Will consider ultrasound thoracocentesis tomorrow Type 2 diabetes mellitus, low-dose sliding scale History of bioprosthetic aortic valve History of CABG Acute on chronic anemia, iron studies Plan for today. August 24, 2023. Patient reports improved breathing status today. Less tachypneic and less dyspneic than before. States that she has intermittent panic attacks because of her dyspnea and also thinking about the future course of her illness, pending surgery for the mitral valve etc. At this present time she does not want to travel to [place]. Echocardiogram reviewed. LVEF estimated at 65%, abnormal septal motion consistent with postoperative status from CABG. Mild pulmonary hypertension with RSVP of 41.4. Mildly increased right atrial size. There is severe mitral annular calcification for which patient has been recommended surgery at [place], however at this present time she is unsure if she wants to proceed with surgery. Also noted to have mild aortic valve stenosis, initially was planned for a TAVR at the time of CABG, however it is my understanding that during procedure aortic valve was not as bad as previously estimated. Dilated IVC. Continue diuresis with Lasix 40 mg IV every 12 hours. Urine output not accurately charted. Patient has a Begum catheter in place. Unable to assess if she is net negative yet. She has close 3+ pitting edema bilateral lower extremities., Closely monitor urine output and renal function. Noted right- sided moderate to large pleural effusion on CT. May need thoracentesis. Repeat chest x-ray in a.m. to assess for improvement with diuresis. Hold Eliquis in case needs thoracentesis this admission. Add as needed Xanax and fluoxetine for panic disorder. Change insulin from low- dose sliding scale to high-dose sliding scale. Heart rate is currently well-controlled on p.o. Cardizem. She was able to be titrated off Cardizem drip overnight. Plan for today. August 25, 2023. Heart heart rate remains controlled. Continue digoxin and Cardizem. Continue Prozac and Xanax. Increased frequency of Xanax to 3 times a day. Increase Lasix to 80 mg IV every 12 hours. Increase insulin glargine to 20 units daily from 10 units daily due to uncontrolled fingersticks. Continue to hold Eliquis for planned thoracentesis on Monday. Plan for today August 26, 2023. HR remains controlled. LE edema is unchanged, patient feels more tachypneic today, though 02 requirements are stable. Increase lasix to 40mg iv q8h and use metolazone 5mg x 1. Closely monitor bicarb , kidney function and urine output. Oral Cardizem changed to [id number] 25 mg p.o. twice daily. Patient tells me that she takes metoprolol at home, however I am unable to find it on her list of home medications that she provided. Plan for today August 27, 2023. Heart rate remains controlled. Blood pressure is stable after starting metoprolol 25 mg p.o. twice daily. Lower extremity edema is finally starting to improve today. She is net negative by ~2 L over last 24 hours. Bicarb increased to 34 today. Continue with Lasix 40 mg IV every 8 hours with close monitoring of renal function. Currently creatinine remains stable at 0.8. Diamox to 50 mg p.o. x 1 additionally. Continue to hold Eliquis pending thoracentesis tomorrow. Reduce alprazolam to 0.25 mg twice daily as needed. Labs notable for developing leukopenia, thrombocytopenia at recent baseline. Mildly reduced hemoglobin as well. Respiratory viral panel is negative. Pancytopenia may be related to acute illness, will additionally check for hemolysis labs. Check LDH, haptoglobin and bilirubin fraction with a.m. labs. Fingersticks are much better controlled today. on 2lpm supplemental 02 today. Attestations 2 Medical Necessity Statement*: Continued admission for iv diuresis, monitor kidney function and respiratory status Coding Level of Care Code Acute Code for Chg Fwd High MDM includes number and complexity of problems actively addressed during encounter, amount and/or complexity of data reviewed/ordered and described risk of complication, morbidity or mortality of management as documented Diagnoses Systolic CHF, acute I50.21 Recurrent right pleural effusion J90 Diabetes mellitus E11.9 Atrial fibrillation with RVR I48.91 Prosthetic aortic valve stenosis T82.857A Chronic obstructive pulmonary disease, unspecified COPD type J44.9 COPD type: unspecified COPD Central obesity E65 Cirrhosis of liver K74.60
[2023-08-27] MEDS: acetaZOLAMIDE 250 mg Tablet PO (10:22)
[2023-08-27] MEDS: FUROsemide 40 mg Tablet PO (10:22)
[2023-08-27 11:40] LABS: Glucose Point of Care 207 mg/dL (70-110)
[2023-08-27 16:59] LABS: Glucose Point of Care 154 mg/dL (70-110)
[2023-08-27] MEDS: budesonide 0.5 mg/2 mL Neb 0.25 MG INHALATION (19:53)
[2023-08-27 20:28] LABS: Glucose Point of Care 188 mg/dL (70-110)
[2023-08-27] MEDS: pantoprazole 40 mg SDV IVP (21:26)
[2023-08-28] VITALS (16 sets, daily range): BP systolic 92–98; BP diastolic 49–52; PULSE 77–100; RESP 14–21; TEMP 36.6–36.9; O2SAT 95–100
[2023-08-28] MEDS: FUROsemide 10 mg/mL SDV 4mL 40 MG IVP ×3 (00:10→21:08)
[2023-08-28] MEDS: ipratropium-albuterol 3 mL Neb INHALATION ×4 (02:21→19:49)
[2023-08-28 04:23] LABS: Basophils % 0.6 %; Eosinophils # 0.2 10^3/uL (0.0-0.8); Eosinophils % 4.7 %; Hematocrit 27.5 % (36-47); Lymphocytes # 0.5 10^3/uL (0.8-4.8); Mean Corpuscular HGB Conc 29.8 g/dL (30-55); Mean Corpuscular Hemoglobin 28.2 pg (27-33); Mean Corpuscular Volume 94.5 fl (85-98); Mean Platelet Volume 9.6 fL (7.4-10.4); Monocytes # 0.3 10^3/uL (0.2-0.9); Monocytes % 10.3 %; Neutrophils # 2.16 10^3/uL (1.8-7.7); Neutrophils % 67.8 %; Nucleated Red Blood Cells % 0 %; Platelet Count 124 10^3/cmm (157-399); Red Blood Count 2.91 10^6/uL (3.85-5.65); Red Cell Distribution Width 16.9 % (12.1-15.1); White Blood Count 3.19 10^3/uL (3.29-11.43)
[2023-08-28 04:43] LABS: Lactate Dehydrogenase 286 U/L (135-214)
[2023-08-28 04:48] LABS: Alanine Aminotransferase 8 U/L (0-33); Albumin Level 3.2 g/dL (3.5-5.2); Alkaline Phosphatase 82 U/L (35-105); Anion Gap 11.8 (5-19); Aspartate Amino Transferase 20 U/L (0-32); Blood Urea Nitrogen 19 mg/dL (8-23); Calcium 8.8 mg/dL (8.5-10.5); Carbon Dioxide 38 mmol/L (22-29); Chloride 90 mmol/L (98-107); Globulin 4.1 g/dL (1.3-4.6); Glomerular Filtration Rate 54.8 mL/min (90-130); Glucose 149 mg/dL (65-115); Osmolality Calculated 289 mOsm/kg (285-295); Sodium 137 mmol/L (136-145); Total Bilirubin 1.9 mg/dL (0.15-1.2); Total Protein 7.3 g/dL (6.6-8.7)
[2023-08-28 04:57] LABS: Potassium 2.8 mmol/L (3.5-5.1)
[2023-08-28] MEDS: lidocaine 1% 5 ML in potassium chloride premix 100 ML 26.25 ML IV ×2 (05:54→21:18)
[2023-08-28 06:04] LABS: Glucose Point of Care 153 mg/dL (70-110)
[2023-08-28] MEDS: budesonide 0.5 mg/2 mL Neb 0.25 MG INHALATION ×2 (08:14→19:49)
[2023-08-28] MEDS: fluoxetine 10 mg Capsule PO (09:05)
[2023-08-28] MEDS: digoxin 125 mcg Tablet PO (09:05)
[2023-08-28] MEDS: atorvastatin 40 mg Tablet PO (09:05)
[2023-08-28] MEDS: aspirin 81 mg EC Tablet PO (09:05)
[2023-08-28] MEDS: insulin lispro 100 unit/1 mL SUBCUT ×3 (09:06→22:40)
[2023-08-28] MEDS: insulin glargine 100 units/1 mL 20 UNIT SUBCUT (09:06)
[2023-08-28] MEDS: saline nasal spray 44mL Btl 1 SPRAY NASAL (09:06)
[2023-08-28 09:18] LABS: INR 1.37 (0.8-1.2)
--- NOTE | 2023-08-28 11:10 | PC.SOCIAL ---
[facility]dp[facility] pg 2 of [facility] updated and reviewed w/ patient. Copy provided and copy dated, initialed and placed in chart.
[2023-08-28 11:18] LABS: Glucose Point of Care 272 mg/dL (70-110)
[2023-08-28] MEDS: potassium chloride ER 20 mEq Tablet 40 MEQ PO (12:25)
--- NOTE | 2023-08-28 13:50 | P.PN_ITS ---
Subjective 2 Subjective: seen this morning at bedside pressure soft therefore lopressor was held pt net 4.3L neg since admission Vitals/I&O/Wt Last Vital Signs Temp 97.9 F 08/28/23 09:19 Pulse 100 08/28/23 09:19 Resp 20 H 08/28/23 09:19 BP 94/50 08/28/23 09:19 Pulse Ox 97 08/28/23 09:19 O2 Del Method Nasal Cannula 08/28/23 08:00 O2 Flow Rate 2 08/28/23 08:00 FiO2 3 08/24/23 16:00 08/27/23 08/28/23 08/28/23 22:59 06:59 14:59 Intake Total 240 / 690 Output Total 1700 / 1700 1000 / 2700 Balance -1460 / -1010 -1000 / -2009 Physical Exam 2 Narrative: General: No acute distress, AO x3 HEENT: PERRLA, pupils bilaterally equal and reactive, pallors not present Chest: Normal vesicular breath sounds, no added sounds, equal good air entry bilaterally CVS: S1-S2 regular, no murmurs, no tachycardia, no gallops, no rubs Abdomen: Soft, nontender, no organomegaly, bowel sounds present Neuro: No focal deficits, no facial deformity, AO x3, Extremities: 2+ pitting edema B/L , pedal edema 3+, improved since admission Urinary Catheter Management: Begum Latex: Cath Placed During This Visit: yes Reason for Continuing Indwelling Catheter: Accurate Measurement of Urinary Output in Critically Ill Patients Urinary Catheter Date of Insertion: 08/23/23 Urinary Catheter Time of Insertion: 23:53 Data 08/28/23 03:49 08/28/23 03:49 A&P Assessment and plan (1) Systolic CHF, acute: (2) Recurrent right pleural effusion: (3) Diabetes mellitus: (4) Atrial fibrillation with RVR: (5) Prosthetic aortic valve stenosis: (6) COPD (chronic obstructive pulmonary disease): Qualifiers: COPD type: unspecified COPD Qualified Code(s): J44.9 - Chronic obstructive pulmonary disease, unspecified (7) Central obesity: (8) Cirrhosis of liver: Plan # Acute hypoxic respiratory failure -secondary to acute on chronic diastolic CHF -Pulmonary edema -Fluid overload -A-fib with RVR Plan -Admit to cardiac stepdown unit -Fluid restrictions at 1000 cc -Lasix 40 mg IV twice daily -Monitor creatinine, to potassium monitor sodium -Repeat cardiac echo -Continue Cardizem drip -Add p.o. Cardizem 30 every 6 hours -Continue Eliquis 2.5 mg twice daily -Monitor respiratory status closely -Start BiPAP if needed, as she continues to be short of breath -Full code -Eliquis for DVT prophylaxis A-fib with RVR, is on Eliquis 2.5 mg twice daily is on digoxin, no documented history of atrial fibrillation Patient has a known history of a small left lower lobe pulmonary embolism on CT scan 07/29/2023, she is on low-dose Eliquis 2.5 mg twice daily, potentially related to her anemia? Will o order a venous ultrasound bilateral lower extremities Recurrent right pleural effusion -She tells me that she had a thoracocentesis done at [facility], there was no infection there was no blood -Will consider ultrasound thoracocentesis tomorrow Type 2 diabetes mellitus, low-dose sliding scale History of bioprosthetic aortic valve History of CABG Acute on chronic anemia, iron studies Plan for today. August 24, 2023. Patient reports improved breathing status today. Less tachypneic and less dyspneic than before. States that she has intermittent panic attacks because of her dyspnea and also thinking about the future course of her illness, pending surgery for the mitral valve etc. At this present time she does not want to travel to [place]. Echocardiogram reviewed. LVEF estimated at 65%, abnormal septal motion consistent with postoperative status from CABG. Mild pulmonary hypertension with RSVP of 41.4. Mildly increased right atrial size. There is severe mitral annular calcification for which patient has been recommended surgery at [place], however at this present time she is unsure if she wants to proceed with surgery. Also noted to have mild aortic valve stenosis, initially was planned for a TAVR at the time of CABG, however it is my understanding that during procedure aortic valve was not as bad as previously estimated. Dilated IVC. Continue diuresis with Lasix 40 mg IV every 12 hours. Urine output not accurately charted. Patient has a Begum catheter in place. Unable to assess if she is net negative yet. She has close 3+ pitting edema bilateral lower extremities., Closely monitor urine output and renal function. Noted right- sided moderate to large pleural effusion on CT. May need thoracentesis. Repeat chest x-ray in a.m. to assess for improvement with diuresis. Hold Eliquis in case needs thoracentesis this admission. Add as needed Xanax and fluoxetine for panic disorder. Change insulin from low- dose sliding scale to high-dose sliding scale. Heart rate is currently well-controlled on p.o. Cardizem. She was able to be titrated off Cardizem drip overnight. Plan for today. August 25, 2023. Heart heart rate remains controlled. Continue digoxin and Cardizem. Continue Prozac and Xanax. Increased frequency of Xanax to 3 times a day. Increase Lasix to 80 mg IV every 12 hours. Increase insulin glargine to 20 units daily from 10 units daily due to uncontrolled fingersticks. Continue to hold Eliquis for planned thoracentesis on Monday. Plan for today August 26, 2023. HR remains controlled. LE edema is unchanged, patient feels more tachypneic today, though 02 requirements are stable. Increase lasix to 40mg iv q8h and use metolazone 5mg x 1. Closely monitor bicarb , kidney function and urine output. Oral Cardizem changed to [id number] 25 mg p.o. twice daily. Patient tells me that she takes metoprolol at home, however I am unable to find it on her list of home medications that she provided. Plan for today August 27, 2023. Heart rate remains controlled. Blood pressure is stable after starting metoprolol 25 mg p.o. twice daily. Lower extremity edema is finally starting to improve today. She is net negative by ~2 L over last 24 hours. Bicarb increased to 34 today. Continue with Lasix 40 mg IV every 8 hours with close monitoring of renal function. Currently creatinine remains stable at 0.8. Diamox to 50 mg p.o. x 1 additionally. Continue to hold Eliquis pending thoracentesis tomorrow. Reduce alprazolam to 0.25 mg twice daily as needed. Labs notable for developing leukopenia, thrombocytopenia at recent baseline. Mildly reduced hemoglobin as well. Respiratory viral panel is negative. Pancytopenia may be related to acute illness, will additionally check for hemolysis labs. Check LDH, haptoglobin and bilirubin fraction with a.m. labs. Fingersticks are much better controlled today. on 2lpm supplemental 02 today. Aug 28 2023 - stop alprazolam - bp soft. give 250 cc fluid bolus - switch to lasix 40 BID - refer to cts as outpatient at discharge - hb stable at 8.20 today - check occult blood - K 40 IV x 1 given this am. 40 oral added. recheck bmp at 6 pm - thoracentesis planned for today. await fluid cytology full code Attestations 2 Medical Necessity Statement*: Continued admission for iv diuresis, monitor kidney function and respiratory status Diagnoses Systolic CHF, acute I50.21 Recurrent right pleural effusion J90 Diabetes mellitus E11.9 Atrial fibrillation with RVR I48.91 Prosthetic aortic valve stenosis T82.857A Chronic obstructive pulmonary disease, unspecified COPD type J44.9 COPD type: unspecified COPD Central obesity E65 Cirrhosis of liver K74.60
[2023-08-28] MEDS: sodium chloride 0.9% 250 ML IV (15:12)
[2023-08-28 15:49] LABS: LAB Peripheral Smear Sent for Review
[2023-08-28 19:33] LABS: Anion Gap 11.6 (5-19); Blood Urea Nitrogen 19 mg/dL (8-23); Calcium 8.4 mg/dL (8.5-10.5); Carbon Dioxide 36 mmol/L (22-29); Chloride 88 mmol/L (98-107); Glomerular Filtration Rate 49.1 mL/min (90-130); Glucose 261 mg/dL (65-115); Osmolality Calculated 287 mOsm/kg (285-295); Sodium 133 mmol/L (136-145)
[2023-08-28 19:36] LABS: Potassium 2.6 mmol/L (3.5-5.1)
[2023-08-28] MEDS: pantoprazole 40 mg SDV IVP (21:07)
[2023-08-28] MEDS: metoprolol tartrate 25 mg Tablet PO (21:29)
[2023-08-28 21:55] LABS: Glucose Point of Care 316 mg/dL (70-110)
[2023-08-29] VITALS (12 sets, daily range): BP systolic 93–118; BP diastolic 47–64; PULSE 84–102; RESP 13–30; TEMP 36.9–37.8; O2SAT 89–100
[2023-08-29] MEDS: lidocaine 1% 5 ML in potassium chloride premix 100 ML 26.25 ML IV ×2 (02:10→09:36)
[2023-08-29] MEDS: ALPRAZolam 0.5 mg Tablet 0.25 MG PO (02:18)
[2023-08-29] MEDS: FUROsemide 10 mg/mL SDV 4mL 40 MG IVP ×2 (06:14→17:38)
[2023-08-29 06:18] LABS: Basophils % 0.3 %; Eosinophils # 0.1 10^3/uL (0.0-0.8); Eosinophils % 3.1 %; Hematocrit 26.7 % (36-47); Lymphocytes # 0.4 10^3/uL (0.8-4.8); Lymphocytes % 14.7 %; Mean Corpuscular HGB Conc 30.3 g/dL (30-55); Mean Corpuscular Hemoglobin 28.9 pg (27-33); Mean Corpuscular Volume 95.4 fl (85-98); Mean Platelet Volume 9.4 fL (7.4-10.4); Monocytes # 0.3 10^3/uL (0.2-0.9); Monocytes % 10.9 %; Neutrophils # 2.07 10^3/uL (1.8-7.7); Neutrophils % 70.7 %; Nucleated Red Blood Cells % 0 %; Platelet Count 107 10^3/cmm (157-399); Red Cell Distribution Width 17.2 % (12.1-15.1); White Blood Count 2.93 10^3/uL (3.29-11.43)
[2023-08-29 06:30] LABS: Glucose Point of Care 200 mg/dL (70-110)
[2023-08-29 06:39] LABS: Alanine Aminotransferase 8 U/L (0-33); Alkaline Phosphatase 80 U/L (35-105); Anion Gap 14.8 (5-19); Aspartate Amino Transferase 23 U/L (0-32); Blood Urea Nitrogen 20 mg/dL (8-23); Carbon Dioxide 34 mmol/L (22-29); Chloride 89 mmol/L (98-107); Glomerular Filtration Rate 54.8 mL/min (90-130); Glucose 177 mg/dL (65-115); Magnesium 1.9 mg/dL (1.7-2.3); Osmolality Calculated 287 mOsm/kg (285-295); Sodium 135 mmol/L (136-145)
[2023-08-29 06:53] LABS: Potassium 2.8 mmol/L (3.5-5.1)
--- NOTE | 2023-08-29 09:11 | P.CONIM_ITS ---
Providers/Reason For Consult 2 Consulting Physician/Specialty*: Chadwick Morillo MD, [facility]/p[facility] critical care Reason for Consult*: Right pleural effusion Requesting Physician: Yamileth Grace MD Attending Physician: Yamileth Grace MD Primary Care Provider: Ruslan Ward MD History of Present Illness History of Present Illness Nyasia Sultana is a 72 year old female recently had CABG [facility] June 2023, history of bioprosthetic aortic valve for aortic valve stenosis, history of PE, history of atrial fibrillation, on Eliquis, hypertension, hyperlipidemia, history of mitral valve regurg with consideration of mitral valve surgery in [facility], COPD, liver cirrhosis, presented on 08/23/2023 to [facility] for shortness of breath. Patient had TAVR replacement in 2018 number echocardiogram September 2022 showed mild to moderate mitral valve regurgitation and moderately severe aortic valve stenosis which is worsening compared to January 2021 echo. She had a redo open heart surgery at [facility] after aortic valve replacement but she got readmitted to [facility] for 2 weeks on 2 separate occasions in last 2 months since her open heart surgery. She had fluid overload requiring diuresis and even underwent thoracentesis, every time she got she continues to have shortness of breath and was told that her leaky mitral valve needs to have surgery at [facility]. Patient was also placed on Eliquis for left subsegmental PE noted in June last week. This admission she was admitted to cardiac stepdown unit for respiratory failure secondary to systolic CHF and acute pulmonary edema while patient is in A-fib RVR. She was placed on fluid restriction, given Lasix 40 Mg IV twice daily, started on Cardizem drip, Eliquis and BiPAP. Eventually her heart rate was controlled with digoxin and Cardizem. Patient had component of anxiety and Xanax helped. Lasix was increased to 80 Mg IV every 12 hours. Echocardiogram showed LV ejection fraction 65% with abnormal septal motion consistent with postoperative CABG. Mild pulmonary hypertension with RVSP 41. Mildly increased right atrial size. There is severe mitral annular calcification however there is trace to mild mitral regurgitation. There is also mild prosthetic aortic valve stenosis with mean gradient 19.3. CT chest 08/23/2023 showed moderate to large right-sided pleural effusion with significant atelectatic changes in the right lung base and lingula. Despite diuresing aggressively and patient being net -5 L-there is persistence of right pleural effusion as well as patient has conversational dyspnea although she is requiring only 2 L supplemental oxygen. Pulmonary consulted for thoracentesis. Today I have seen patient at bedside. She is a known patient to me in my pulmonary clinic-last seen in April 2023. She had 4-5-ejex-year smoking history for 30 years quit in 1992 and was following up with me for shortness of breath. She has a coexisting COPD as well as significant diastolic heart failure at that time. She also had aortic valve replacement in 2017 but she still had aortic valve regurgitation. 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 Tells me that she is tired. Denied any chest pains. Review of Systems 2 General: Reports: 10 or more systems reviewed and unremarkable except in HPI and below Medications/Allergies Home Medications Medication Instructions Recorded Confirmed Last Taken Type multivitamin 1 tab PO DAILY 09/27/19 08/24/23 08/23/23 History lactobacillus combination no.4 3 3,000 mmu cells PO DAILY 07/15/21 08/24/23 08/23/23 History billion cell capsule (Probiotic) oxygen concentrator w/portable #1 ea 03/09/23 08/24/23 Unknown Rx metformin 1,000 mg tablet 1,000 mg PO BID 30 days #60 tabs 05/08/23 08/24/23 08/23/23 Rx nitroglycerin 0.4 mg sublingual 0.4 mg sublingual Q5M PRN chest 05/08/23 08/24/23 Unknown Rx tablet pain #30 tabs omeprazole 20 mg capsule,delayed 20 mg PO DAILY PRN Acid Reflux 05/10/23 08/24/23 08/23/23 History release aspirin 81 mg tablet,delayed 81 mg PO DAILY 07/29/23 08/24/23 08/23/23 History release glipizide 5 mg tablet 5 mg PO BID 07/29/23 08/24/23 08/23/23 History potassium chloride 20 mEq 20 meq PO DAILY 07/29/23 08/24/23 08/23/23 History tablet,extended release albuterol sulfate 90 mcg/actuation 2 puff inhalation Q6H PRN 08/22/23 08/24/23 08/24/23 Rx aerosol inhaler (ProAir HFA) shortness of breath or wheezing #8.5 grams apixaban 2.5 mg tablet (Eliquis) 2.5 mg PO BID 08/22/23 08/24/23 08/23/23 08:00 History atorvastatin 40 mg tablet 40 mg PO DAILY 08/22/23 08/24/23 08/23/23 History cholecalciferol (vitamin D3) 125 125 mcg PO DAILY 08/22/23 08/24/23 08/23/23 History mcg (5,000 unit) capsule citalopram 10 mg tablet 10 mg PO DAILY #30 tabs 08/22/23 08/24/23 08/23/23 Rx digoxin 125 mcg (0.125 mg) tablet 125 mcg PO DAILY #90 tabs 08/22/23 08/24/23 08/23/23 Rx fluticasone 500 mcg-salmeterol 50 1 inh inhalation BID #60 ea 08/22/23 08/24/23 08/23/23 Rx mcg/dose blistr powdr for inhalation (Advair Diskus) furosemide 40 mg tablet 80 mg (2 x 40 mg) PO BID #120 tabs 08/22/23 08/24/23 08/23/23 Rx insulin detemir U-100 100 unit/mL 20 unit (0.2 mL) SUBCUT DAILY #15 08/22/23 08/24/23 08/23/23 Rx (3 mL) subcutaneous pen mL pen needle, diabetic 31 gauge x #100 ea 08/22/23 08/24/23 Unknown Rx 5/16 (TechLITE Pen Needle) midodrine 5 mg tablet 5 mg PO Q8H 08/24/23 08/24/23 Unknown History spironolactone 25 mg tablet 12.5 mg PO DAILY 08/24/23 08/24/23 Unknown History Allergies Allergy/AdvReac Type Severity Reaction Status Date / Time prednisone Allergy ADR/ALGY-Pa Verified 05/18/23 12:10 lpitations Current Medications Generic Name Dose Route Start Last Admin Trade Name Freq PRN Reason Stop Dose Admin Albuterol/Ipratropium 3 ml 08/24/23 02:00 08/29/23 02:46 Ipratropium-Albuterol 3 Ml Neb INHALATION Not Given Q6H.RESP KAYDEN Alprazolam 0.25 mg 08/27/23 14:35 08/29/23 02:18 Alprazolam 0.5 Mg Tablet PO 0.25 mg BID PRN Administration anxiety, sleep Apixaban 2.5 mg 08/24/23 09:00 08/24/23 10:39 Apixaban 5 Mg Tablet PO 2.5 mg BID KAYDEN Administration Aspirin 81 mg 08/24/23 09:00 08/28/23 09:05 Aspirin 81 Mg Ec Tablet PO 81 mg DAILY KAYDEN Administration Atorvastatin Calcium 40 mg 08/24/23 09:00 08/28/23 09:05 Atorvastatin 40 Mg Tablet PO 40 mg DAILY KAYDEN Administration Budesonide 0.25 mg 08/27/23 20:00 08/28/23 19:49 Budesonide 0.5 Mg/2 Ml Neb INHALATION 0.25 mg BID.RESPIRATORY KAYDEN Administration Digoxin 125 mcg 08/24/23 09:00 08/28/23 09:05 Digoxin 125 Mcg Tablet PO 125 mcg DAILY KAYDEN Administration Fluoxetine HCl 10 mg 08/25/23 09:00 08/28/23 09:05 Fluoxetine 10 Mg Capsule PO 10 mg DAILY KAYDEN Administration Furosemide 40 mg 08/28/23 19:00 08/29/23 06:14 Furosemide 10 Mg/Ml Sdv 4ml IVP 40 mg Q12H KAYDEN Administration Insulin Glargine 20 unit 08/26/23 09:00 08/28/23 09:06 Insulin Glargine 100 Units/1 Ml SUBCUT 20 unit DAILY KAYDEN Administration Insulin Human Lispro 0 unit 08/26/23 12:26 08/28/23 22:40 Insulin Lispro 100 Unit/1 Ml SUBCUT 14 unit WM&BEDTIME KAYDEN Administration Protocol Metoprolol Tartrate 25 mg 08/26/23 21:00 08/28/23 21:29 Metoprolol Tartrate 25 Mg Tablet PO 25 mg BID@0900,2100 KAYDEN Administration Pantoprazole Sodium 40 mg 08/23/23 21:00 08/28/23 21:07 Pantoprazole 40 Mg Sdv IVP 40 mg Q24H KAYDEN Administration Sodium Chloride 1 spray 08/24/23 15:00 08/28/23 21:32 Saline Nasal [place] 44ml Btl NASAL Not Given TID KAYDEN PFSH Acute 2 PFSH: Medical History Pulmonary hypertension Foot pain Cirrhosis of liver Diabetes mellitus COPD (chronic obstructive pulmonary disease) Hepatitis C CHF (congestive heart failure) ASHD (arteriosclerotic heart disease) Surgical History H/O bilateral cataract extraction S/P knee surgery S/P aortic valve replacement Family History Mother Diabetes Myocardial infarction Hypertension Father Diabetes Myocardial infarction Hypertension Grandmother Myocardial infarction Cancer Grandfather Myocardial infarction Cancer Other Heart disease Social History Smoking and tobacco/nicotine status: former use of tobacco/nicotine Quit status (tobacco/nicotine): has quit using Year quit tobacco: 1993 2-3-pack per day Former quit date comment: smoked for 30 years Alcohol intake: never Substance/Drug Use: never Lives independently: Yes Household members: spouse and other Details: brother Housing: House Marital status: Number of children: 0 Pets and animals: Yes Pets & animals: cat(s), dog(s) and bird(s) Vitals/I&O/Wt Last Vital Signs Temp 98.5 F 08/29/23 03:48 Pulse 84 08/29/23 05:37 Resp 16 08/29/23 03:48 BP 118/64 08/29/23 03:48 Pulse Ox 98 08/29/23 03:48 O2 Del Method Nasal Cannula 08/29/23 03:48 O2 Flow Rate 2 08/29/23 02:00 FiO2 3 08/24/23 16:00 08/28/23 08/29/23 08/29/23 22:59 06:59 14:59 Intake Total 850 / 850 210 / 1060 Output Total 1250 / 1250 Balance -400 / -400 210 / -190 Physical Exam 2 Narrative: General: alert, NAD HEENT: conj clear, EOMI, PERRL, mmm, Neck: supple, no meningismus Heme: no cervical LAP Respiratory: Inspection: No visible deformity of the chest wall Palpation: Trachea is mildly deviated to the right, bilateral symmetric expansion Percussion: Bilateral tympanic percussion note both anterior and posteriorly Auscultation: Reduced breath sounds on right lower lung zone Cardiovascular: rrr, nl s1s2, no mrg Abdomen: soft, nt, nd, no r/g, bs+ Extremities: pulses +, no edema, no c/c : no CVA tenderness Skin: intact, no rash MSK: no back or neck pain Neurologic: grossly intact Urinary Catheter Management: Begum Latex: Cath Placed During This Visit: yes Reason for Continuing Indwelling Catheter: Accurate Measurement of Urinary Output in Critically Ill Patients Urinary Catheter Date of Insertion: 08/23/23 Urinary Catheter Time of Insertion: 23:53 Data 08/31/23 04:39 08/31/23 17:12 A&P Assessment and plan (1) COPD (chronic obstructive pulmonary disease): She is on DuoNeb every 6 hours scheduled dose Pulmicort due to will Qualifiers: COPD type: unspecified COPD Qualified Code(s): J44.9 - Chronic obstructive pulmonary disease, unspecified (2) Recurrent right pleural effusion: (3) CHF (congestive heart failure): Currently on Lasix Acceptable urine output Hypokalemia-supplemented and monitoring Qualifiers: Heart failure type: diastolic Heart failure chronicity: chronic Qualified Code(s): I50.32 - Chronic diastolic (congestive) heart failure (4) S/P aortic valve replacement: (5) Atrial fibrillation with RVR: Heart rate is well-controlled Currently she is on metoprolol 25 twice daily digoxin 125 mcg p.o. daily Held Eliquis in view of thoracentesis Plan # Patient with significant cardiac history with a previous aortic valve replacement in 2018 and recent redo open heart surgery June 2023 at [facility] # Since then recurrent pleural effusion on right side-patient reports undergoing thoracentesis once at [facility] -Today thoracentesis showed 1000 cc dark red color pleural fluid-fluid analysis suggestive of transudative -Postthoracentesis chest x-ray-no pneumothorax-and significant improvement in pleural effusion -Patient is on diuretics and he is net -5 L since admission and currently requiring 2 to 3 L supplemental oxygen -Not sure if recurrent pleural effusion is secondary to trapped lung physiology or postoperative complication -Will continue to monitor H&H and chest x-ray to check for any recurrence-if there is any recurrence we will plan to place a chest tube -If there is no recurrence and patient respiratory status is better-she can be discharged from pulmonary standpoint Consult Attestations 2 Medical Necessity Statement: Monitor for 24 to 48 hours for improvement in respiratory status Time Spent in Patient Care: Greater than 35 minutes (>than 50% of time spent in counselling and/or direct pt care on unit) . Critical Care Time: The high probability of a clinically significant, sudden or life threatening deterioration of the patient's [pulmonary, cardiac] system(s) required my full and direct attention, intervention and personal management. The critical care time is as shown. This time is in addition to time spent performing any reported procedures but includes the following: [x] Data and vital sign review and interpretation [x] Patient assessment, examination and intervention [x] Documentation [x] Medication orders and management Critical Care Time (min): 51 Coding Level of Care Code Acute Code for [facility] Fwd Diagnoses Chronic obstructive pulmonary disease, unspecified COPD type J44.9 COPD type: unspecified COPD Recurrent right pleural effusion J90 Chronic diastolic congestive heart failure I50.32 Heart failure type: diastolic Heart failure chronicity: chronic S/P aortic valve replacement Z95.2 Atrial fibrillation with RVR I48.91 Time Spent (min) 51
--- NOTE | 2023-08-29 09:11 | P.PCN_ITS ---
Procedure/Consent 2 Time out: Time Out Performed: Yes Consent: Consent for Procedure: Consent obtained from patient Procedure Narrative: Pulmonary & Critical Care Medicine Procedure - Ultrasound guided Thoracentesis Procedure: CPT code 77901 thoracentesis, needle or catheter, aspiration of the pleural space; with imaging guidance Indication: Worsening right pleural effusion. C56.2 Residential Sales Associate(s): Chadwick Morillo MD [facility] Clinical history: 72-year-old female with past medical history of diastolic CHF; aortic stenosis s/p aortic valve replacement in 2017 as well as redo surgery June 2023-presents to hospital for shortness of breath secondary to acute pulmonary edema due to A-fib RVR/CHF. persistence of right pleural effusion despite aggressive diuresis. Plan for thoracentesis for symptomatic relief. Technique: The study was performed in an ACR accredited facility. Medication reconciliation form reviewed and any changes related this procedure resolved. Report: The procedure for thoracentesis was explained to the patient including the risks, benefits and possible complications. The patient was given the opportunity to ask questions, wished to proceed, and signed the written informed consent form. Using ultrasound guidance, a safe route of access was identified into the right pleural space. The site was then prepped and draped using maximal sterile barrier technique. The 1% lidocaine was used for local anesthetic. With sonographic guidance, a 6 Hungarian thoracentesis catheter was placed with return of 5 cc hemorrhagic pleural fluid. The catheter was slipped into the pleural cavity and approximately 1000 cc of dark maroon-colored pleural fluid was removed. The patient tolerated the procedure well without any immediate complications. Impression: 1. Successful ultrasound-guided right t horacentesis with removal of approximately 1000 cc sanguinous pleural fluid. ICD-10 code-J90 pleural effusion, not elsewhere classified Figure 1: Prior to thoracentesis Figure 2: Postthoracentesis Figure 3: 1000 cc bloody pleural fluid Acute Procedures 2 Epistaxis Control: Time out performed: Yes
--- NOTE | 2023-08-29 09:12 | XR_ITS ---
WS: [id number] CHEST XRAY TECHNIQUE: Portable chest. CLINICAL INFORMATION: post right side thoracentesis COMPARISON: None. FINDINGS: Heart: Cardiomegaly. Sternotomy. Aortic calcification. Lungs: Improved RIGHT pleural effusion post thoracentesis. Pulmonary vascular congestion. Patchy infi ltrates or atelectasis RIGHT lower lobe. Bones: Osteopenia. IMPRESSION: No pneumothorax post thoracentesis.
[2023-08-29] MEDS: insulin glargine 100 units/1 mL 20 UNIT SUBCUT (09:31)
[2023-08-29] MEDS: insulin lispro 100 unit/1 mL SUBCUT ×4 (09:31→21:41)
[2023-08-29] MEDS: aspirin 81 mg EC Tablet PO (09:34)
[2023-08-29] MEDS: metoprolol tartrate 25 mg Tablet PO ×2 (09:34→20:32)
[2023-08-29] MEDS: digoxin 125 mcg Tablet PO (09:35)
[2023-08-29] MEDS: atorvastatin 40 mg Tablet PO (09:35)
[2023-08-29] MEDS: potassium chloride ER 20 mEq Tablet 40 MEQ PO (09:35)
[2023-08-29] MEDS: fluoxetine 10 mg Capsule PO (09:35)
[2023-08-29 09:36] LABS: Body Fluid Polynuclear #Cells 0.029; Body Fluid WBC 211 /uL; Monocytes # Body Fluid 0.182
[2023-08-29] MEDS: saline nasal spray 44mL Btl 1 SPRAY NASAL ×3 (09:38→21:46)
[2023-08-29 09:41] LABS: Hematocrit Body Fluid 2.3 %
--- NOTE | 2023-08-29 09:46 | PC.NURSE ---
dr alcala performed thorocentesis on right lung.1 liter dark red drng noted.pt tolerated procedure well.
[2023-08-29 09:56] LABS: Apprearance, Body Fluid CLOUDY; Color, Body Fluid RED; PATH Referral YES
[2023-08-29 09:57] LABS: Fluid Laterality RIGHT PLEURAL FLUID
[2023-08-29 10:06] LABS: Albumin Body Fluid 1.7 g/dL; Creatinine Body Fluid 0.93 (0.5-0.9); Triglycerides, Pleural Fluid 30 mg/dL
[2023-08-29 10:07] LABS: LDH Pleural Fluid 139 U/L; Total Protein Pleural Fluid 3.2 g/dL
[2023-08-29 10:51] LABS: Cyto Order Verification Order Verified
--- NOTE | 2023-08-29 10:59 | P.CONIM_ITS ---
Providers/Reason For Consult 2 Consulting Physician/Specialty*: Kin Erickson MD/ Cardiology Reason for Consult*: Congestive heart failure Requesting Physician: Dr Grace Attending Physician: Yamileth Grace MD Primary Care Provider: Ruslan Ward MD History of Present Illness History of Present Illness Nyasia Sultana is a 72 year old female with past medical history of aortic valve replacement and a redo surgery was done last month at [facility] in [place]. Since then she had 2 admissions to [facility] and thoracentesis were done. She again presented to hospital with shortness of breath. She is getting diuresed. Still has pleural effusion. Pulmonology on board. Plan for possible thoracentesis. EKG is unremarkable. Echo here shows normal LV systolic function with mild mitral regurgitation. Aortic valve gradient is elevated and was 19 mmHg. Review of Systems 2 Card: Denies: chest pain Resp: Reports: dyspnea GI: Denies: abdominal pain Medications/Allergies Home Medications Medication Instructions Recorded Confirmed Last Taken Type multivitamin 1 tab PO DAILY 09/27/19 08/24/23 08/23/23 History lactobacillus combination no.4 3 3,000 mmu cells PO DAILY 07/15/21 08/24/23 08/23/23 History billion cell capsule (Probiotic) oxygen concentrator w/portable #1 ea 03/09/23 08/24/23 Unknown Rx metformin 1,000 mg tablet 1,000 mg PO BID 30 days #60 tabs 05/08/23 08/24/23 08/23/23 Rx nitroglycerin 0.4 mg sublingual 0.4 mg sublingual Q5M PRN chest 05/08/23 08/24/23 Unknown Rx tablet pain #30 tabs omeprazole 20 mg capsule,delayed 20 mg PO DAILY PRN Acid Reflux 05/10/23 08/24/23 08/23/23 History release aspirin 81 mg tablet,delayed 81 mg PO DAILY 07/29/23 08/24/23 08/23/23 History release glipizide 5 mg tablet 5 mg PO BID 07/29/23 08/24/23 08/23/23 History potassium chloride 20 mEq 20 meq PO DAILY 07/29/23 08/24/23 08/23/23 History tablet,extended release albuterol sulfate 90 mcg/actuation 2 puff inhalation Q6H PRN 08/22/23 08/24/23 08/24/23 Rx aerosol inhaler (ProAir HFA) shortness of breath or wheezing #8.5 grams apixaban 2.5 mg tablet (Eliquis) 2.5 mg PO BID 08/22/23 08/24/23 08/23/23 08:00 History atorvastatin 40 mg tablet 40 mg PO DAILY 08/22/23 08/24/23 08/23/23 History cholecalciferol (vitamin D3) 125 125 mcg PO DAILY 08/22/23 08/24/23 08/23/23 History mcg (5,000 unit) capsule citalopram 10 mg tablet 10 mg PO DAILY #30 tabs 08/22/23 08/24/23 08/23/23 Rx digoxin 125 mcg (0.125 mg) tablet 125 mcg PO DAILY #90 tabs 08/22/23 08/24/23 08/23/23 Rx fluticasone 500 mcg-salmeterol 50 1 inh inhalation BID #60 ea 08/22/23 08/24/23 08/23/23 Rx mcg/dose blistr powdr for inhalation (Advair Diskus) furosemide 40 mg tablet 80 mg (2 x 40 mg) PO BID #120 tabs 08/22/23 08/24/23 08/23/23 Rx insulin detemir U-100 100 unit/mL 20 unit (0.2 mL) SUBCUT DAILY #15 08/22/23 08/24/23 08/23/23 Rx (3 mL) subcutaneous pen mL pen needle, diabetic 31 gauge x #100 ea 08/22/23 08/24/23 Unknown Rx 5/16 (TechLITE Pen Needle) midodrine 5 mg tablet 5 mg PO Q8H 08/24/23 08/24/23 Unknown History spironolactone 25 mg tablet 12.5 mg PO DAILY 08/24/23 08/24/23 Unknown History Allergies Allergy/AdvReac Type Severity Reaction Status Date / Time prednisone Allergy ADR/ALGY-Pa Verified 05/18/23 12:10 lpitations Current Medications Generic Name Dose Route Start Last Admin Trade Name Freq PRN Reason Stop Dose Admin Albuterol/Ipratropium 3 ml 08/24/23 02:00 08/29/23 09:51 Ipratropium-Albuterol 3 Ml Neb INHALATION Not Given Q6H.RESP KAYDEN Alprazolam 0.25 mg 08/27/23 14:35 08/29/23 02:18 Alprazolam 0.5 Mg Tablet PO 0.25 mg BID PRN Administration anxiety, sleep Apixaban 2.5 mg 08/24/23 09:00 08/29/23 09:33 Apixaban 5 Mg Tablet PO Not Given BID KAYDEN Aspirin 81 mg 08/24/23 09:00 08/29/23 09:34 Aspirin 81 Mg Ec Tablet PO 81 mg DAILY KAYDEN Administration Atorvastatin Calcium 40 mg 08/24/23 09:00 08/29/23 09:35 Atorvastatin 40 Mg Tablet PO 40 mg DAILY KAYDEN Administration Budesonide 0.25 mg 08/27/23 20:00 08/29/23 09:51 Budesonide 0.5 Mg/2 Ml Neb INHALATION Not Given BID.RESPIRATORY KAYDEN Digoxin 125 mcg 08/24/23 09:00 08/29/23 09:35 Digoxin 125 Mcg Tablet PO 125 mcg DAILY KAYDEN Administration Fluoxetine HCl 10 mg 08/25/23 09:00 08/29/23 09:35 Fluoxetine 10 Mg Capsule PO 10 mg DAILY KAYDEN Administration Furosemide 40 mg 08/28/23 19:00 08/29/23 06:14 Furosemide 10 Mg/Ml Sdv 4ml IVP 40 mg Q12H KAYDEN Administration Lidocaine HCl 5 ml/ Potassium 105 mls @ 26.25 mls/hr 08/29/23 08:45 08/29/23 09:36 Chloride IV 08/29/23 12:44 26.25 mls/hr ONCE ONE Administration Insulin Glargine 20 unit 08/26/23 09:00 08/29/23 09:31 Insulin Glargine 100 Units/1 Ml SUBCUT 20 unit DAILY KAYDEN Administration Insulin Human Lispro 0 unit 08/26/23 12:26 08/29/23 09:31 Insulin Lispro 100 Unit/1 Ml SUBCUT 8 unit WM&BEDTIME KAYDEN Administration Protocol Metoprolol Tartrate 25 mg 08/26/23 21:00 08/29/23 09:34 Metoprolol Tartrate 25 Mg Tablet PO 25 mg BID@0900,2100 KAYDEN Administration Pantoprazole Sodium 40 mg 08/23/23 21:00 08/28/23 21:07 Pantoprazole 40 Mg Sdv IVP 40 mg Q24H KAYDEN Administration Sodium Chloride 1 spray 08/24/23 15:00 08/29/23 09:38 Saline Nasal Henriette 44ml Btl NASAL 1 spray TID KAYDEN Administration PFSH Acute 2 PFSH: Medical History Pulmonary hypertension Foot pain Cirrhosis of liver Diabetes mellitus COPD (chronic obstructive pulmonary disease) Hepatitis C CHF (congestive heart failure) ASHD (arteriosclerotic heart disease) Surgical History H/O bilateral cataract extraction S/P knee surgery S/P aortic valve replacement Family History Mother Diabetes Myocardial infarction Hypertension Father Diabetes Myocardial infarction Hypertension Grandmother Myocardial infarction Cancer Grandfather Myocardial infarction Cancer Other Heart disease Social History Smoking and tobacco/nicotine status: former use of tobacco/nicotine Quit status (tobacco/nicotine): has quit using Year quit tobacco: 1993 2-3-pack per day Former quit date comment: smoked for 30 years Alcohol intake: never Substance/Drug Use: never Lives independently: Yes Household members: spouse and other Details: brother Housing: House Marital status: Number of children: 0 Pets and animals: Yes Pets & animals: cat(s), dog(s) and bird(s) Vitals/I&O/Wt Last Vital Signs Temp 98.5 F 08/29/23 03:48 Pulse 102 H 08/29/23 09:51 Resp 16 08/29/23 09:51 BP 118/64 08/29/23 03:48 Pulse Ox 96 08/29/23 09:51 O2 Del Method Nasal Cannula 08/29/23 09:51 O2 Flow Rate 2 08/29/23 09:51 FiO2 3 08/24/23 16:00 08/28/23 08/29/23 08/29/23 22:59 06:59 14:59 Intake Total 850 / 850 210 / 1060 Output Total 1250 / 1250 Balance -400 / -400 210 / -190 Physical Exam 2 Narrative: GENERAL: Patient is alert, awake and oriented x3. [] NECK: No jugular vein distension. [] HEENT: No cyanosis. No icterus. No pallor. [] HEART: Regular S1 and S2. No murmur, rub or gallop. [] LUNGS: Diminished air entry. CENTRAL NERVOUS SYSTEM: Grossly nonfocal. [] EXTREMITIES: Lower extremities with 1+ edema bilaterally. Urinary Catheter Management: Begum Latex: Cath Placed During This Visit: yes Reason for Continuing Indwelling Catheter: Accurate Measurement of Urinary Output in Critically Ill Patients Urinary Catheter Date of Insertion: 08/23/23 Urinary Catheter Time of Insertion: 23:53 Data 08/31/23 04:39 08/31/23 04:39 A&P Assessment and plan (1) S/P aortic valve replacement: (2) CHF (congestive heart failure): Qualifiers: Heart failure type: diastolic Heart failure chronicity: chronic Qualified Code(s): I50.32 - Chronic diastolic (congestive) heart failure (3) Exertional dyspnea: (4) Atrial fibrillation with RVR: (5) Diabetes mellitus: Plan Patient appears volume overloaded. Continue IV diuresis. Monitor renal function Plan for possible thoracentesis. If patient's condition does not improve after significant diuresis/thoracentesis, can consider transfer to operating facility. Patient prefers not to go back to [facility]. Thank you for involving us with care of this patient. We will continue to follow. Please call with questions. Consult Attestations 2 Medical Necessity Statement: Care expected to cross 2 midnights. Coding Level of Care Code Acute Code for Chg Fwd Diagnoses S/P aortic valve replacement Z95.2 Chronic diastolic congestive heart failure I50.32 Heart failure type: diastolic Heart failure chronicity: chronic Exertional dyspnea R06.00 Atrial fibrillation with RVR I48.91 Diabetes mellitus E11.9
[2023-08-29 12:18] LABS: Glucose Point of Care 330 mg/dL (70-110)
--- NOTE | 2023-08-29 13:22 | PM.PN ---
Subjective Subjective: Seen this morning. Patient is status post paracentesis. 1 L bloody fluid was drained. Dr. Pryor saw patient in consultation. Cardiology also to see patient today. She has had 1250 urine output overnight. Net 4.5 L negative since admission at this time. Right ankle slightly weeping fluid at this time. Compression stockings in place. at bedside. and both state that they would like to follow-up with [facility] as an outpatient after discharge. Eliquis was restarted this morning however held after seen the bloody aspirate from thoracentesis. Hemoglobin is 8.10. I discussed with family that we will be holding Eliquis again today and may consider restarting it tomorrow versus holding at discharge for a few days. I will monitor hemoglobin. They are on board with the plan. Vitals/I&O/Wt Last Vital Signs Temp 98.5 F 08/29/23 03:48 Pulse 102 H 08/29/23 09:51 Resp 16 08/29/23 09:51 BP 118/64 08/29/23 03:48 Pulse Ox 96 08/29/23 09:51 O2 Del Method Nasal Cannula 08/29/23 09:51 O2 Flow Rate 2 08/29/23 09:51 FiO2 3 08/24/23 16:00 08/28/23 08/29/23 08/29/23 22:59 06:59 14:59 Intake Total 850 / 850 210 / 1060 Output Total 1250 / 1250 Balance -400 / -400 210 / -190 Physical Exam Narrative: General: No acute distress, AO x3 patient coughing. HEENT: PERRLA, pupils bilaterally equal and reactive, pallors not present Chest: Normal vesicular breath sounds, no added sounds, rhonchi bilaterally worse on right than left. CVS: S1-S2 regular, no murmurs, no tachycardia, no gallops, no rubs Abdomen: Soft, nontender, no organomegaly, bowel sounds present Neuro: No focal deficits, no facial deformity, AO x3, Extremities: 2+ pitting edema B/L , pedal edema 3+, improved since admission Urinary Catheter Management: Begum Latex: Cath Placed During This Visit: yes Reason for Continuing Indwelling Catheter: Accurate Measurement of Urinary Output in Critically Ill Patients Urinary Catheter Date of Insertion: 08/23/23 Urinary Catheter Time of Insertion: 23:53 Data 01/30/24 05:39 08/29/23 05:39 A&P Assessment and plan (1) Systolic CHF, acute: (2) Recurrent right pleural effusion: (3) Diabetes mellitus: (4) Atrial fibrillation with RVR: (5) Prosthetic aortic valve stenosis: (6) COPD (chronic obstructive pulmonary disease): Qualifiers: COPD type: unspecified COPD Qualified Code(s): J44.9 - Chronic obstructive pulmonary disease, unspecified (7) Central obesity: (8) Cirrhosis of liver: Plan # Acute hypoxic respiratory failure -secondary to acute on chronic diastolic CHF -Pulmonary edema -Fluid overload -A-fib with RVR Plan -Admit to cardiac stepdown unit -Fluid restrictions at 1000 cc -Lasix 40 mg IV twice daily -Monitor creatinine, to potassium monitor sodium -Repeat cardiac echo -Continue Cardizem drip -Add p.o. Cardizem 30 every 6 hours -Continue Eliquis 2.5 mg twice daily -Monitor respiratory status closely -Start BiPAP if needed, as she continues to be short of breath -Full code -Eliquis for DVT prophylaxis A-fib with RVR, is on Eliquis 2.5 mg twice daily is on digoxin, no documented history of atrial fibrillation Patient has a known history of a small left lower lobe pulmonary embolism on CT scan 07/29/2023, she is on low-dose Eliquis 2.5 mg twice daily, potentially related to her anemia? Will o order a venous ultrasound bilateral lower extremities Recurrent right pleural effusion -She tells me that she had a thoracocentesis done at [facility], there was no infection there was no blood -Will consider ultrasound thoracocentesis tomorrow Type 2 diabetes mellitus, low-dose sliding scale History of bioprosthetic aortic valve History of CABG Acute on chronic anemia, iron studies Plan for today. August 24, 2023. Patient reports improved breathing status today. Less tachypneic and less dyspneic than before. States that she has intermittent panic attacks because of her dyspnea and also thinking about the future course of her illness, pending surgery for the mitral valve etc. At this present time she does not want to travel to [place]. Echocardiogram reviewed. LVEF estimated at 65%, abnormal septal motion consistent with postoperative status from CABG. Mild pulmonary hypertension with RSVP of 41.4. Mildly increased right atrial size. There is severe mitral annular calcification for which patient has been recommended surgery at [place], however at this present time she is unsure if she wants to proceed with surgery. Also noted to have mild aortic valve stenosis, initially was planned for a TAVR at the time of CABG, however it is my understanding that during procedure aortic valve was not as bad as previously estimated. Dilated IVC. Continue diuresis with Lasix 40 mg IV every 12 hours. Urine output not accurately charted. Patient has a Begum catheter in place. Unable to assess if she is net negative yet. She has close 3+ pitting edema bilateral lower extremities., Closely monitor urine output and renal function. Noted right-sided moderate to large pleural effusion on CT. May need thoracentesis. Repeat chest x-ray in a.m. to assess for improvement with diuresis. Hold Eliquis in case needs thoracentesis this admission. Add as needed Xanax and fluoxetine for panic disorder. Change insulin from low-dose sliding scale to high-dose sliding scale. Heart rate is currently well-controlled on p.o. Cardizem. She was able to be titrated off Cardizem drip overnight. Plan for today. August 25, 2023. Heart heart rate remains controlled. Continue digoxin and Cardizem. Continue Prozac and Xanax. Increased frequency of Xanax to 3 times a day. Increase Lasix to 80 mg IV every 12 hours. Increase insulin glargine to 20 units daily from 10 units daily due to uncontrolled fingersticks. Continue to hold Eliquis for planned thoracentesis on Monday. Plan for today August 26, 2023. HR remains controlled. LE edema is unchanged, patient feels more tachypneic today, though 02 requirements are stable. Increase lasix to 40mg iv q8h and use metolazone 5mg x 1. Closely monitor bicarb , kidney function and urine output. Oral Cardizem changed to ghvs-vpvuyjjo-syebfowskw 25 mg p.o. twice daily. Patient tells me that she takes metoprolol at home, however I am unable to find it on her list of home medications that she provided. Plan for today August 27, 2023. Heart rate remains controlled. Blood pressure is stable after starting metoprolol 25 mg p.o. twice daily. Lower extremity edema is finally starting to improve today. She is net negative by ~2 L over last 24 hours. Bicarb increased to 34 today. Continue with Lasix 40 mg IV every 8 hours with close monitoring of renal function. Currently creatinine remains stable at 0.8. Diamox to 50 mg p.o. x 1 additionally. Continue to hold Eliquis pending thoracentesis tomorrow. Reduce alprazolam to 0.25 mg twice daily as needed. Labs notable for developing leukopenia, thrombocytopenia at recent baseline. Mildly reduced hemoglobin as well. Respiratory viral panel is negative. Pancytopenia may be related to acute illness, will additionally check for hemolysis labs. Check LDH, haptoglobin and bilirubin fraction with a.m. labs. Fingersticks are much better controlled today. on 2lpm supplemental 02 today. Aug 28 2023 - stop alprazolam - bp soft. give 250 cc fluid bolus - switch to lasix 40 BID - refer to cts as outpatient at discharge - hb stable at 8.20 today - check occult blood - K 40 IV x 1 given this am. 40 oral added. recheck bmp at 6 pm - thoracentesis planned for today. await fluid cytology August 29, 2023 ? Continue Lasix 40 twice daily at this time ? Continue to monitor urine output ? Refer to interventional cardiology at outpatient after discharge. Preferably [facility] as per family request ? Alcohol blood test still pending ? Peripheral smear sent for review. Pending as well. ? Potassium 2.8 this morning. 40 IV and 40 oral given. ? Thoracentesis done this morning showed red cloudy fluid. Will repeat chest x-ray in a.m. ? Consulted pulmonology. Appreciate recommendations ? Consult cardiology. Recommendations appreciated. ? Check BMP at 6 PM to monitor potassium. Patient is on high risk medication such as Lasix. full code Attestations Medical Necessity Statement*: Continued admission for iv diuresis, monitor kidney function and respiratory status Diagnoses Systolic CHF, acute I50.21 Recurrent right pleural effusion J90 Diabetes mellitus E11.9 Atrial fibrillation with RVR I48.91 Prosthetic aortic valve stenosis T82.857A Chronic obstructive pulmonary disease, unspecified COPD type J44.9 COPD type: unspecified COPD Central obesity E65 Cirrhosis of liver K74.60
[2023-08-29] MEDS: ipratropium-albuterol 3 mL Neb INHALATION ×2 (13:54→20:18)
[2023-08-29 17:18] LABS: Glucose Point of Care 204 mg/dL (70-110)
[2023-08-29] MEDS: budesonide 0.5 mg/2 mL Neb 0.25 MG INHALATION (20:18)
[2023-08-29] MEDS: pantoprazole 40 mg SDV IVP (20:32)
[2023-08-29 20:39] LABS: Hematocrit 30.7 % (36-47); Mean Corpuscular HGB Conc 30.3 g/dL (30-55); Mean Corpuscular Hemoglobin 28.9 pg (27-33); Mean Corpuscular Volume 95.3 fl (85-98); Mean Platelet Volume 9.7 fL (7.4-10.4); Platelet Count 111 10^3/cmm (157-399); Red Blood Count 3.22 10^6/uL (3.85-5.65); Red Cell Distribution Width 17.2 % (12.1-15.1); White Blood Count 4.34 10^3/uL (3.29-11.43)
[2023-08-29 20:56] LABS: Blood Urea Nitrogen 20 mg/dL (8-23); Calcium 8.5 mg/dL (8.5-10.5); Carbon Dioxide 36 mmol/L (22-29); Chloride 90 mmol/L (98-107); Glomerular Filtration Rate 61.9 mL/min (90-130); Glucose 205 mg/dL (65-115); Osmolality Calculated 287 mOsm/kg (285-295); Sodium 134 mmol/L (136-145)
[2023-08-29 20:58] LABS: Anion Gap 10.9 (5-19); Potassium 2.9 mmol/L (3.5-5.1)
[2023-08-29 21:12] LABS: Absolute Segmented Neutrophil 3.7 10/cmm (1.6-7.1); Lymphocytes 10 %; Monocytes Absolute 0.2 10^3/cmm (0.1-0.6); Segmented Neutrophils 86 %; Total Cells Counted 100 (0-100)
[2023-08-29 21:14] LABS: Eosinophils 0 %
[2023-08-29 21:29] LABS: Glucose Point of Care 243 mg/dL (70-110)
[2023-08-29 21:45] LABS: Platelet Estimate Decreased (Normal)
[2023-08-30] VITALS (14 sets, daily range): BP systolic 101–134; BP diastolic 61–68; PULSE 89–107; RESP 16–22; TEMP 36.8–37.6; O2SAT 89–100
[2023-08-30 03:52] LABS: Basophils % 0.3 %; Eosinophils # 0.1 10^3/uL (0.0-0.8); Eosinophils % 1.6 %; Hematocrit 27.6 % (36-47); Lymphocytes # 0.7 10^3/uL (0.8-4.8); Lymphocytes % 17.7 %; Mean Corpuscular HGB Conc 30.8 g/dL (30-55); Mean Corpuscular Hemoglobin 28.4 pg (27-33); Mean Corpuscular Volume 92.3 fl (85-98); Mean Platelet Volume 9.2 fL (7.4-10.4); Monocytes # 0.4 10^3/uL (0.2-0.9); Monocytes % 10.1 %; Neutrophils # 2.57 10^3/uL (1.8-7.7); Nucleated Red Blood Cells % 0 %; Platelet Count 110 10^3/cmm (157-399); Red Blood Count 2.99 10^6/uL (3.85-5.65); Red Cell Distribution Width 17.1 % (12.1-15.1); White Blood Count 3.67 10^3/uL (3.29-11.43)
[2023-08-30 04:15] LABS: Anion Gap 13.7 (5-19); Blood Urea Nitrogen 22 mg/dL (8-23); Calcium 8.9 mg/dL (8.5-10.5); Carbon Dioxide 35 mmol/L (22-29); Chloride 90 mmol/L (98-107); Glomerular Filtration Rate 61.9 mL/min (90-130); Glucose 178 mg/dL (65-115); Magnesium 1.8 mg/dL (1.7-2.3); Osmolality Calculated 290 mOsm/kg (285-295); Sodium 136 mmol/L (136-145)
[2023-08-30 04:43] LABS: Potassium 2.7 mmol/L (3.5-5.1)
[2023-08-30] MEDS: FUROsemide 10 mg/mL SDV 4mL 40 MG IVP ×3 (06:10→18:30)
[2023-08-30 06:45] LABS: Glucose Point of Care 214 mg/dL (70-110)
[2023-08-30] MEDS: ipratropium-albuterol 3 mL Neb INHALATION ×3 (07:28→20:14)
[2023-08-30] MEDS: budesonide 0.5 mg/2 mL Neb 0.25 MG INHALATION (07:28)
[2023-08-30] MEDS: insulin lispro 100 unit/1 mL SUBCUT ×4 (09:01→20:59)
[2023-08-30] MEDS: fluoxetine 10 mg Capsule PO (09:02)
[2023-08-30] MEDS: lidocaine 1% 5 ML in potassium chloride premix 100 ML 26.25 ML IV ×2 (09:02→13:32)
[2023-08-30] MEDS: atorvastatin 40 mg Tablet PO (09:02)
[2023-08-30] MEDS: metoprolol tartrate 25 mg Tablet PO ×2 (09:03→20:59)
[2023-08-30] MEDS: digoxin 125 mcg Tablet PO (09:03)
[2023-08-30] MEDS: aspirin 81 mg EC Tablet PO (09:04)
[2023-08-30] MEDS: insulin glargine 100 units/1 mL 20 UNIT SUBCUT (09:04)
[2023-08-30] MEDS: saline nasal spray 44mL Btl 1 SPRAY NASAL ×2 (09:05→23:52)
--- NOTE | 2023-08-30 10:28 | PM.PN ---
Subjective Subjective: This morning. No acute events overnight. 5.3 L net negative since admission. Hemoglobin 8.5 this morning. No evidence of true bleed from anywhere. Chest x-ray from this morning is pending at this time. Patient does feel dyspneic. Especially has some conversational dyspnea which is very mild. Does not appear to be in acute respiratory distress however. states that overnight her legs were weeping and MARTY stockings were soaked. Vitals/I&O/Wt Last Vital Signs Temp 98.4 F 08/30/23 08:13 Pulse 107 H 08/30/23 09:03 Resp 22 H 08/30/23 08:13 BP 101/61 08/30/23 08:13 Pulse Ox 90 08/30/23 08:13 O2 Del Method Room Air 08/30/23 08:13 O2 Flow Rate 2 08/30/23 02:00 FiO2 3 08/24/23 16:00 08/29/23 08/30/23 08/30/23 22:59 06:59 14:59 Intake Total 240 / 240 Output Total 250 / 250 850 / 1100 Balance -250 / -250 -850 / -1100 240 / 240 Physical Exam Narrative: General: No acute distress, AO x3 patient coughing. HEENT: PERRLA, pupils bilaterally equal and reactive, pallors not present Chest: Normal vesicular breath sounds, no added sounds, clear to auscultation bilaterally, improved than yesterday. CVS: S1-S2 regular, no murmurs, no tachycardia, no gallops, no rubs Abdomen: Soft, nontender, no organomegaly, bowel sounds present Neuro: No focal deficits, no facial deformity, AO x3, Extremities: 1+ pitting edema B/L , pedal edema 3+, Urinary Catheter Management: Begum Latex: Cath Placed During This Visit: yes Reason for Continuing Indwelling Catheter: Accurate Measurement of Urinary Output in Critically Ill Patients Urinary Catheter Date of Insertion: 08/23/23 Urinary Catheter Time of Insertion: 23:53 Data 08/30/23 03:23 08/30/23 03:23 Micro: Microbiology 08/29/23 08:45 Gram Stain - Final Pleural Fluid A&P Assessment and plan (1) Systolic CHF, acute: (2) Recurrent right pleural effusion: (3) Diabetes mellitus: (4) Atrial fibrillation with RVR: (5) Prosthetic aortic valve stenosis: (6) COPD (chronic obstructive pulmonary disease): Qualifiers: COPD type: unspecified COPD Qualified Code(s): J44.9 - Chronic obstructive pulmonary disease, unspecified (7) Central obesity: (8) Cirrhosis of liver: Plan #Acute hypoxic respiratory failure #Secondary to acute on chronic diastolic CHF #Recent CABG at [facility] June 2023 #Bioprosthetic aortic valve in place, history of arctic valve stenosis #History of PE #History of atrial fibrillation, chronically on Eliquis #Chronic anemia #History of liver cirrhosis #Chronic hypoxic respiratory failure on 2 L nasal cannula at home #Thrombocytopenia #Pulmonary hypertension ? Patient had a recent CABG and srzsfhvjyxxwg-dvbg-wtm graft placement in June 2023 at [facility]. She presented to [facility] for shortness of breath. She does state in the last 2 months she has been hospitalized twice each for 2 weeks since her CABG. She keeps having fluid overload and requires diuresis. He has been told that she has a leaky mitral valve and at some point she will need to have mitral valve surgery in particular MitraClip to be placed. Patient was discharged from [facility] on Sunday, August 20, 2023 but due to continued shortness of breath patient came into our emergency room on the . She is being diuresed aggressively since then. She has been placed on fluid restrictions 1000 daily. She was also found to be in A-fib with RVR initially and required a Cardizem drip which was later de-escalated to Cardizem 30 every 6. She was also on Eliquis 2.5 twice daily however it was held for potential thoracentesis. Thoracentesis was performed on 08/29 2023 which yielded 1 L dark bloody aspirate. It seems it was old blood and not a new bleed. Eliquis was restarted 08/30 2023. Due to recent CABG hemoglobin goal should be above 9. For hemoglobin 8.5 she was ordered a unit of blood on 08/30 2023. BiPAP has been ordered as needed. Pulmonology also was consulted. Cardiology has been consulted as well. Of note patient was also known to have pulmonary embolism diagnosed on 07/29 2023. She is being continued on Eliquis for that as well. Venous Dopplers bilateral lower extremities have ruled out DVT at this time. For her diabetes she has been on low-dose sliding scale insulin. Patient does have known history of liver cirrhosis. She also has thrombocytopenia which is most likely attributed to that at this time. Echo obtained this hospitalization: Echocardiogram reviewed. LVEF estimated at 65%, abnormal septal motion consistent with postoperative status from CABG. Mild pulmonary hypertension with RSVP of 41.4. Mildly increased right atrial size. There is severe mitral annular calcification for which patient has been recommended surgery at [place], however at this present time she is unsure if she wants to proceed with surgery. Plan for today 08/30 2023 ? Patient is 5.3 L net negative since admission ? Continue aggressive diuresis Lasix 40 IV 3 times daily ? Has been persistently hypokalemic and requiring up to 80 mEq of potassium daily. I will place her on 40 potassium oral twice daily for now. She is also getting additional IV 80 mill equivalents today. Oral potassium to start tonight after BMP reviewed. Continue to check BMP twice daily to keep an eye on creatinine and potassium. ? Restart Eliquis 2.5 twice daily ? Order 1 unit of blood today. Check posttransfusion CBC ? Recheck chest x-ray today to evaluate for reaccumulation of pleural effusion. ? Continue MARTY stockings ? Continue Cardizem 30 every 6 ? Continue digoxin 125 daily ? Thrombocytopenia secondary most likely to liver cirrhosis. ? Peripheral smear is pending. ? Pleural effusion is transudate by lights criteria. Most likely secondary to her CHF. ? Discussed with cardiology, nursing staff, at bedside. Full code DVT prophylaxis: Eliquis should suffice. Attestations Medical Necessity Statement*: Continued admission for iv diuresis, monitor kidney function and respiratory status Diagnoses Systolic CHF, acute I50.21 Recurrent right pleural effusion J90 Diabetes mellitus E11.9 Atrial fibrillation with RVR I48.91 Prosthetic aortic valve stenosis T82.857A Chronic obstructive pulmonary disease, unspecified COPD type J44.9 COPD type: unspecified COPD Central obesity E65 Cirrhosis of liver K74.60
--- NOTE | 2023-08-30 10:41 | XRR_ITS ---
PROCEDURE INFORMATION: Exam: XR Chest Exam date and time: 08/30/2023 10:46 AM Age: 72 years old Clinical indication: Condition or disease; Lung condition and disease; Pleural effusion; Other: Not soecified; Additional info: F/u pleural effusion TECHNIQUE: Imaging protocol: Radiologic exam of the chest. Views: 1 view. COMPARISON: CR XR chest 1V portable [id number] 08/29/2023 9:54 AM FINDINGS: Lungs: There is vascular and interstitial prominence. Pleural spaces: Right-sided pleural effusion with probable accompanying infiltrate or atelectasis is again seen and appears to be increasing. Heart/Mediastinum: Stable cardiomegaly. There is an aortic valve prosthesis. Bones/joints: Sternal sutures are again seen. No acute findings. XR/XR chest 1V portable [id number] IMPRESSION: 1. Right-sided pleural effusion with probable accompanying infiltrate or atelectasis is again seen and appears to be increasing. 2. There is vascular and interstitial prominence.
--- NOTE | 2023-08-30 12:00 | PC.SOCIAL ---
IMM Update pg 2 of IMM updated and reviewed w/ patient. Copy provided and copy dated, initialed and placed in chart.
[2023-08-30 12:11] LABS: Glucose Point of Care 211 mg/dL (70-110)
--- NOTE | 2023-08-30 18:27 | PM.PN ---
Subjective Subjective: Patient feeling better. Denies chest pain. Still has significant shortness of breath. Vitals/I&O/Wt Last Vital Signs Temp 98.2 F 08/30/23 12:27 Pulse 93 08/30/23 16:00 Resp 22 H 08/30/23 16:00 BP 134/68 08/30/23 12:27 Pulse Ox 96 08/30/23 16:00 O2 Del Method Nasal Cannula 08/30/23 16:00 O2 Flow Rate 1 08/30/23 16:00 FiO2 3 08/24/23 16:00 08/30/23 08/30/23 08/30/23 06:59 14:59 22:59 Intake Total 345 / 345 Output Total 850 / 1100 700 / 700 Balance -850 / -1100 345 / 345 -700 / -355 Physical Exam Narrative: GENERAL: Patient is alert, awake and oriented x3. [] NECK: No jugular vein distension. [] HEENT: No cyanosis. No icterus. No pallor. [] HEART: Regular S1 and S2. No murmur, rub or gallop. [] LUNGS: Diminished air entry. CENTRAL NERVOUS SYSTEM: Grossly nonfocal. [] EXTREMITIES: Lower extremities with 1+ edema bilaterally. Urinary Catheter Management: Begum Latex: Cath Placed During This Visit: yes Reason for Continuing Indwelling Catheter: Accurate Measurement of Urinary Output in Critically Ill Patients Urinary Catheter Date of Insertion: 08/23/23 Urinary Catheter Time of Insertion: 23:53 Data 08/31/23 04:39 08/31/23 04:39 Micro: Microbiology 08/29/23 08:45 Gram Stain - Final Pleural Fluid Body Fluid Culture - Preliminary A&P Assessment and plan (1) S/P aortic valve replacement: (2) CHF (congestive heart failure): Qualifiers: Heart failure type: diastolic Heart failure chronicity: chronic Qualified Code(s): I50.32 - Chronic diastolic (congestive) heart failure (3) Exertional dyspnea: (4) Atrial fibrillation with RVR: (5) Diabetes mellitus: Plan Will continue with IV diuresis. She had thoracentesis done with blood-tinged fluid obtained. Per initial report it appears transudative. If there is reaccumulation of fluid, can consider transfer to facility with CT surgery availability for assessment. Aortic valve gradients are moderately elevated. Thank you for involving us with care of this patient. We will continue to follow. Please call with questions. Attestations Medical Necessity Statement*: Care expected to cross 2 midnights. Coding Level of Care Code Acute Code for [facility] [employer] [facility] Diagnoses S/P aortic valve replacement Z95.2 Chronic diastolic congestive heart failure I50.32 Heart failure type: diastolic Heart failure chronicity: chronic Exertional dyspnea R06.00 Atrial fibrillation with RVR I48.91 Diabetes mellitus E11.9
[2023-08-30] MEDS: potassium chloride ER 20 mEq Tablet 40 MEQ PO (18:30)
--- NOTE | 2023-08-30 18:46 | PC.NURSE ---
Arrived from [facility] approximatly 0615, Dr. Morillo assessed and performed ultrasound. plan to monitor Hgb and HCP will perform another ultrasound in AM to determine if chest tube is indicated
[2023-08-30 19:31] LABS: Blood Urea Nitrogen 22 mg/dL (8-23); Calcium 8.5 mg/dL (8.5-10.5); Carbon Dioxide 30 mmol/L (22-29); Chloride 91 mmol/L (98-107); Glomerular Filtration Rate 70.9 mL/min (90-130); Glucose 238 mg/dL (65-115); Osmolality Calculated 281 mOsm/kg (285-295); Sodium 130 mmol/L (136-145)
[2023-08-30 19:34] LABS: Anion Gap 14.7 (5-19); Potassium 5.7 mmol/L (3.5-5.1)
[2023-08-30 19:34] LABS: Basophils % 0.5 %; Eosinophils # 0.1 10^3/uL (0.0-0.8); Eosinophils % 1.8 %; Hematocrit 28.1 % (36-47); Lymphocytes # 0.6 10^3/uL (0.8-4.8); Lymphocytes % 15.1 %; Mean Corpuscular HGB Conc 32.4 g/dL (30-55); Mean Corpuscular Hemoglobin 29.4 pg (27-33); Mean Corpuscular Volume 90.6 fl (85-98); Monocytes # 0.3 10^3/uL (0.2-0.9); Monocytes % 8.2 %; Neutrophils # 2.88 10^3/uL (1.8-7.7); Neutrophils % 73.9 %; Nucleated Red Blood Cells % 0 %; Platelet Count 41 10^3/cmm (157-399); Red Cell Distribution Width 17.2 % (12.1-15.1)
--- NOTE | 2023-08-30 20:02 | P.PNCC_ITS ---
Critical Care Event Note The high probability of a clinically significant, sudden or life threatening deterioration of the patient's [] system(s) required my full and direct attention, intervention and personal management. The critical care time is as shown. This time is in addition to time spent performing any reported procedures but includes the following: [x] Data and vital sign review and interpretation [x] Patient assessment, examination and intervention [x] Documentation [x] Medication orders and management Coding Level of Care Code Acute Code for [facility]
[2023-08-30 20:07] LABS: Slide Review Slide Review Perform
[2023-08-30] MEDS: sodium polystyrene sulfonate 15 gm/60 mL Btl PO (20:07)
[2023-08-30] MEDS: calcium gluconate 0.1 gm/mL 10% SDV 10mL 1 GM IVP (20:08)
[2023-08-30] MEDS: dextrose 50% syringe 50 mL IVP (20:19)
[2023-08-30] MEDS: insulin regular-human 10 UNIT in SYRINGE 1 EACH 2 UNIT IVP (20:21)
[2023-08-30 20:50] LABS: Glucose Point of Care 344 mg/dL (70-110)
[2023-08-30 20:50] LABS: Glucose Point of Care 245 mg/dL (70-110)
[2023-08-30] MEDS: pantoprazole 40 mg SDV IVP (22:25)
[2023-08-30 22:39] LABS: Anion Gap 11.7 (5-19); Blood Urea Nitrogen 23 mg/dL (8-23); Calcium 9.2 mg/dL (8.5-10.5); Carbon Dioxide 36 mmol/L (22-29); Chloride 90 mmol/L (98-107); Glomerular Filtration Rate 61.9 mL/min (90-130); Glucose 260 mg/dL (65-115); Osmolality Calculated 293 mOsm/kg (285-295); Sodium 135 mmol/L (136-145)
[2023-08-30 22:48] LABS: Potassium 2.7 mmol/L (3.5-5.1)
[2023-08-30] MEDS: potassium chloride ER 20 mEq Tablet PO (23:50)
[2023-08-31] VITALS (16 sets, daily range): BP systolic 90–102; BP diastolic 46–58; PULSE 79–97; RESP 14–30; TEMP 36.6; O2SAT 97–100
[2023-08-31] MEDS: FUROsemide 10 mg/mL SDV 4mL 40 MG IVP ×3 (02:40→17:42)
[2023-08-31] MEDS: ipratropium-albuterol 3 mL Neb INHALATION ×3 (03:25→20:56)
[2023-08-31 05:03] LABS: Basophils % 0.5 %; Eosinophils # 0.1 10^3/uL (0.0-0.8); Eosinophils % 2.7 %; Hematocrit 27.6 % (36-47); Lymphocytes # 0.6 10^3/uL (0.8-4.8); Lymphocytes % 16.2 %; Mean Corpuscular HGB Conc 30.4 g/dL (30-55); Mean Corpuscular Hemoglobin 28.8 pg (27-33); Mean Corpuscular Volume 94.5 fl (85-98); Mean Platelet Volume 9.6 fL (7.4-10.4); Monocytes # 0.3 10^3/uL (0.2-0.9); Monocytes % 9.3 %; Neutrophils # 2.57 10^3/uL (1.8-7.7); Neutrophils % 70.8 %; Nucleated Red Blood Cells % 0 %; Platelet Count 99 10^3/cmm (157-399); Red Blood Count 2.92 10^6/uL (3.85-5.65); Red Cell Distribution Width 17.3 % (12.1-15.1); White Blood Count 3.64 10^3/uL (3.29-11.43)
--- NOTE | 2023-08-31 05:26 | PC.NURSE ---
Patient rested comfortably throughout shift. at bedside. Patient remains on 2L NC, no reports of pain. Two soft bowel movements. Patient ambulated to bedside commode with 1X assist. 550 urine out for shift. K+ swings treated with medication per hospitalist.
[2023-08-31 05:31] LABS: Blood Urea Nitrogen 22 mg/dL (8-23); Carbon Dioxide 35 mmol/L (22-29); Chloride 92 mmol/L (98-107); Glomerular Filtration Rate 61.9 mL/min (90-130); Glucose 210 mg/dL (65-115); Osmolality Calculated 292 mOsm/kg (285-295); Sodium 136 mmol/L (136-145)
[2023-08-31] MEDS: potassium chloride ER 20 mEq Tablet PO (06:19)
--- NOTE | 2023-08-31 08:00 | XR_ITS ---
WS: [id number] Portable AP upright chest, 08/31/2023 Clinical Data: f/u effusion Comparison: Portable chest, 08/30/2023 Findings: The right pleural effusion appears to be the same. The pulmonary vascularity is slightly in creased. The heart is enlarged. No pneumothorax is seen. There are no nodules or masses. The aortic a rch and descending thoracic aorta show calcification and tortuosity. There is an artificial heart irma ve. Midline sternotomy sutures and monitor leads are noted. There is a healed fracture of the mid sha ft of the left clavicle. Impression: 1. No change in right pleural effusion. 2. No change in cardiomegaly, atherosclerosis and pulmonary vascular congestion.
[2023-08-31] MEDS: budesonide 0.5 mg/2 mL Neb 0.25 MG INHALATION ×2 (08:50→20:56)
[2023-08-31] MEDS: insulin lispro 100 unit/1 mL SUBCUT ×4 (08:58→20:29)
[2023-08-31] MEDS: aspirin 81 mg EC Tablet PO (09:02)
[2023-08-31] MEDS: digoxin 125 mcg Tablet PO (09:03)
[2023-08-31] MEDS: fluoxetine 10 mg Capsule PO (09:03)
[2023-08-31] MEDS: atorvastatin 40 mg Tablet PO (09:03)
--- NOTE | 2023-08-31 09:08 | P.PN_ITS ---
Subjective 2 Subjective: Patient feeling shortness of breath. Vitals/I&O/Wt Last Vital Signs Temp 97.9 F 08/31/23 05:42 Pulse 97 08/31/23 09:03 Resp 18 08/31/23 08:52 BP 90/58 08/31/23 05:42 Pulse Ox 99 08/31/23 08:52 O2 Del Method Nasal Cannula 08/31/23 08:52 O2 Flow Rate 3 08/31/23 08:52 FiO2 3 08/24/23 16:00 08/30/23 08/31/23 08/31/23 22:59 06:59 14:59 Intake Total 400 / 745 Output Total 700 / 700 Balance -700 / -355 400 / 45 Physical Exam 2 Narrative: GENERAL: Patient is alert, awake and oriented x3. [] NECK: No jugular vein distension. [] HEENT: No cyanosis. No icterus. No pallor. [] HEART: Regular S1 and S2. No murmur, rub or gallop. [] LUNGS: Diminished air entry. CENTRAL NERVOUS SYSTEM: Grossly nonfocal. [] EXTREMITIES: Lower extremities with 1+ edema bilaterally. Urinary Catheter Management: Begum Latex: Cath Placed During This Visit: yes Reason for Continuing Indwelling Catheter: Accurate Measurement of Urinary Output in Critically Ill Patients Urinary Catheter Date of Insertion: 08/23/23 Urinary Catheter Time of Insertion: 23:53 Data 09/01/23 04:33 09/01/23 04:33 Micro: Microbiology 08/29/23 08:45 Gram Stain - Final Pleural Fluid Body Fluid Culture - Preliminary A&P Assessment and plan (1) S/P aortic valve replacement: (2) CHF (congestive heart failure): Qualifiers: Heart failure type: diastolic Heart failure chronicity: chronic Qualified Code(s): I50.32 - Chronic diastolic (congestive) heart failure (3) Exertional dyspnea: (4) Atrial fibrillation with RVR: (5) Diabetes mellitus: Plan Patient is feeling worsening shortness of breath. Plan for possible chest tube placement per pulmonology. Continue IV diuresis. Close I&O's. Monitor renal function. Thank you for involving us with care of this patient. We will continue to follow. Please call with questions. Attestations 2 Medical Necessity Statement*: Care expected to cross 2 midnights. Coding Level of Care Code Acute Code for [facility]g Fwd Diagnoses S/P aortic valve replacement Z95.2 Chronic diastolic congestive heart failure I50.32 Heart failure type: diastolic Heart failure chronicity: chronic Exertional dyspnea R06.00 Atrial fibrillation with RVR I48.91 Diabetes mellitus E11.9
[2023-08-31] MEDS: insulin glargine 100 units/1 mL 20 UNIT SUBCUT (09:19)
[2023-08-31] MEDS: metoprolol tartrate 25 mg Tablet PO (09:19)
[2023-08-31] MEDS: saline nasal spray 44mL Btl 1 SPRAY NASAL (09:19)
[2023-08-31] MEDS: ALPRAZolam 0.5 mg Tablet 0.25 MG PO (09:33)
[2023-08-31 11:31] LABS: Glucose Point of Care 247 mg/dL (70-110)
[2023-08-31 11:31] LABS: Glucose Point of Care 371 mg/dL (70-110)
--- NOTE | 2023-08-31 12:12 | PM.PN ---
Subjective Subjective: Seen this morning. Currently on 1 L nasal cannula. Overnight required 5 L Chest x-ray from this morning shows similar effusion compared to yesterday however there is slightly greater fluid in the fissure. States my legs are looking better today. Vitals/I&O/Wt Last Vital Signs Temp 97.9 F 08/31/23 05:42 Pulse 91 08/31/23 10:15 Resp 17 08/31/23 10:15 BP 94/55 08/31/23 10:15 Pulse Ox 100 08/31/23 10:15 O2 Del Method Nasal Cannula 08/31/23 08:52 O2 Flow Rate 3 08/31/23 08:52 FiO2 3 08/24/23 16:00 08/30/23 08/31/23 08/31/23 22:59 06:59 14:59 Intake Total 400 / 745 Output Total 700 / 700 Balance -700 / -355 400 / 45 Physical Exam Narrative: General: No acute distress, AO x3 HEENT: PERRLA, pallors not present Chest: Normal vesicular breath sounds, no added sounds, clear to auscultation bilaterally, improved than yesterday. CVS: S1-S2 regular, no murmurs, no tachycardia, no gallops, no rubs Abdomen: Soft, nontender, bowel sounds present Neuro: No focal deficits, no facial deformity, AO x3, Extremities: 1+ pitting edema B/L , pedal edema 3+, Urinary Catheter Management: Begum Latex: Cath Placed During This Visit: yes Reason for Continuing Indwelling Catheter: Accurate Measurement of Urinary Output in Critically Ill Patients Urinary Catheter Date of Insertion: 08/23/23 Urinary Catheter Time of Insertion: 23:53 Data 08/31/23 04:39 08/31/23 04:39 Micro: Microbiology 08/29/23 08:45 Gram Stain - Final Pleural Fluid Body Fluid Culture - Preliminary A&P Assessment and plan (1) Systolic CHF, acute: (2) Recurrent right pleural effusion: (3) Diabetes mellitus: (4) Atrial fibrillation with RVR: (5) Prosthetic aortic valve stenosis: (6) COPD (chronic obstructive pulmonary disease): Qualifiers: COPD type: unspecified COPD Qualified Code(s): J44.9 - Chronic obstructive pulmonary disease, unspecified (7) Central obesity: (8) Cirrhosis of liver: Plan #Acute hypoxic respiratory failure #Secondary to acute on chronic diastolic CHF #Recent CABG at [facility] June 2023 #Bioprosthetic aortic valve in place, history of arctic valve stenosis #History of PE #History of atrial fibrillation, chronically on Eliquis #Chronic anemia #History of liver cirrhosis #Chronic hypoxic respiratory failure on 2 L nasal cannula at home #Thrombocytopenia #Pulmonary hypertension ? Patient had a recent CABG and xwevmayqfoknm-ybgp-yft graft placement in June 2023 at [facility]. She presented to [facility] for shortness of breath. She does state in the last 2 months she has been hospitalized twice each for 2 weeks since her CABG. She keeps having fluid overload and requires diuresis. He has been told that she has a leaky mitral valve and at some point she will need to have mitral valve surgery in particular MitraClip to be placed. Patient was discharged from [facility] on Monday, August 20, 2023 but due to continued shortness of breath patient came into our emergency room on the . She is being diuresed aggressively since then. She has been placed on fluid restrictions 1000 daily. She was also found to be in A-fib with RVR initially and required a Cardizem drip which was later de-escalated to Cardizem 30 every 6. She was also on Eliquis 2.5 twice daily however it was held for potential thoracentesis. Thoracentesis was performed on 08/29 2023 which yielded 1 L dark bloody aspirate. It seems it was old blood and not a new bleed. Eliquis was restarted 08/30 2023. Due to recent CABG hemoglobin goal should be above 9. For hemoglobin 8.5 she was ordered a unit of blood on 08/30 2023. BiPAP has been ordered as needed. Pulmonology also was consulted. Cardiology has been consulted as well. Of note patient was also known to have pulmonary embolism diagnosed on 07/29 2023. She is being continued on Eliquis for that as well. Venous Dopplers bilateral lower extremities have ruled out DVT at this time. For her diabetes she has been on low-dose sliding scale insulin. Patient does have known history of liver cirrhosis. She also has thrombocytopenia which is most likely attributed to that at this time. Echo obtained this hospitalization: Echocardiogram reviewed. LVEF estimated at 65%, abnormal septal motion consistent with postoperative status from CABG. Mild pulmonary hypertension with RSVP of 41.4. Mildly increased right atrial size. There is severe mitral annular calcification for which patient has been recommended surgery at [place], however at this present time she is unsure if she wants to proceed with surgery. Plan for today 08/31/2023 ? Patient is 5.6 L net negative since admission ? Continue aggressive diuresis Lasix 40 IV 3 times daily ? Hypokalemic today. Potassium 3.0. Will order 40 oral x 1. ? Continue to hold Eliquis at this time. We are unsure of the repeat effusion is bloody or not. I have discussed with the family and they are well aware of why anticoagulation is being held at this time. ? Blood was not given. ? Recheck chest x-ray today to evaluate for reaccumulation of pleural effusion. ? Continue MARTY stockings ? Continue Cardizem 30 every 6 ? Continue digoxin 125 daily ? Thrombocytopenia secondary most likely to liver cirrhosis. ? Peripheral smear is pending. ? Pleural effusion is transudate by lights criteria. Most likely secondary to her CHF. ? Discussed with cardiology, nursing staff, at bedside. ? Discussed with pulmonology. Patient may require a chest tube today. Full code DVT prophylaxis: Eliquis should suffice. Attestations Medical Necessity Statement*: Continued admission for iv diuresis, monitor kidney function and respiratory status Diagnoses Systolic CHF, acute I50.21 Recurrent right pleural effusion J90 Diabetes mellitus E11.9 Atrial fibrillation with RVR I48.91 Prosthetic aortic valve stenosis T82.857A Chronic obstructive pulmonary disease, unspecified COPD type J44.9 COPD type: unspecified COPD Central obesity E65 Cirrhosis of liver K74.60
[2023-08-31] MEDS: fentaNYL 50 mcg/mL INJ 2mL 25 MCG IVP (12:20)
--- NOTE | 2023-08-31 13:26 | PM.ACPR ---
Procedure/Consent Time out: Time Out Performed: Yes Consent: Consent for Procedure: Consent obtained from patient Procedure Narrative: Name of the procedure:CPT code 95598: Pleural drainage, percutaneous, with insertion of indwelling catheter with imaging guidance Indication: Recurrent right pleural effusion Picker(s): Chadwick Bustillor [facility] Consent: Signed by patient. Placed in chart Anesthesia: 15 cc 1% lidocaine without epinephrine; fentanyl 25 mcg Description of the procedure: An ultrasound was performed and a moderate right-sided pleural effusion was identified. A safe fluid pocket was identified with the ultrasound guidance and marked. The skin, subcutaneous tissue and the pleura was anesthetized with 1% lidocaine. Using ultrasound guidance (16581 ) needle was advanced till flash back was noted. Straw-colored fluid was noted. Using Seldinger technique the 14 Tamazight indwelling chest tube was put in(20975). Catheter was connected to chest tube chamber and left under gravity. The chest tube was secured with suture and transparent dressing. 1000 cc serosanguineous fluid was obtained. Complications:There was minimal air leak which resolved after few minutes. Postprocedure chest x-ray showed small apical pneumothorax-which might be unexpanded lung. Ultrasound guidance used: Yes EBL: 5-10 cc Acute Procedures Epistaxis Control: Time out performed: Yes
--- NOTE | 2023-08-31 13:38 | PC.NURSE ---
Left chest tube placed by Dr. Morillo at bedside, 1,000 ml of pleural fluid drained upon insertion
--- NOTE | 2023-08-31 13:41 | XR_ITS ---
WS: [id number] Portable AP upright chest, 08/31/2023,1356 hours Clinical Data: Chest tube placement Comparison: Portable chest, 08/31/2023, 0809 hours Findings: A small right chest tube has been inserted to drain the right pleural effusion. There is a minimal right apical pneumothorax. The remainder of the chest shows no change. Impression: Insertion of small right basilar chest tube with drainage of right pleural effusion.
--- NOTE | 2023-08-31 14:15 | CTR_ITS ---
PROCEDURE INFORMATION: Exam: CTA Chest With Contrast Exam date and time: 08/31/2023 4:00 PM Age: 72 years old Clinical indication: Pain; Chest pressure; Additional info: R/O pe, PT dyspneic, has chest tube in place TECHNIQUE: Imaging protocol: Computed tomographic angiography of the chest with contrast. Exam focused on the arteries. 3D rendering (Not supervised by radiologist): MIP and/or 3D reconstructed images were created by the technologist. Radiation optimization: All CT scans at this facility use at least one of these dose optimization techniques: automated exposure control; mA and/or kV adjustment per patient size (includes targeted exams where dose is matched to clinical indication); or iterative reconstruction. Contrast material: OMNI 350; Contrast volume: 100 ml; Contrast route: INTRAVENOUS (IV); COMPARISON: CT angio chest PE protcl [id number] 07/29/2023 1:21 PM, CT chest 08/23/2023 RADIATION DOSE METRICS: Total DLP (mGy-cm): 457 FINDINGS: Pulmonary arteries: The previously visualized left lower lobe subsegmental PE has resolved. No evidence of new PE within limitations of motion degradation. Within the same pulmonary segment as the previously visualized PE, there is subtle hypoattenuation within a small distal subsegmental branch, favored to be motion related though may reflect residual subsegmental PE (for example, image 302 of the axial series 6). Dilation of the pulmonary trunk to 3.3 cm suggesting pulmonary arterial hypertension. Aorta: Mild atherosclerosis without evidence of aneurysmal dilatation or dissection of the thoracic aorta. Thyroid: Grossly unremarkable. Lungs: No focal consolidation. Moderate pulmonary edema with mid to lower lung ground-glass and interlobular septal thickening. Pleural spaces: Trace bilateral pleural effusions, tvlgn-qzfyyyb-ylvi-left, significantly improved since prior exam from August 23, 2023. There is a right-sided chest tube in place with trace associated pneumothorax (less than 5%). Heart: Mild cardiomegaly. Trace pericardial effusion. Mediastinal space: Postsurgical changes of the mediastinum compatible with prior CABG. Aortic mechanical valve in place. There is mediastinal adenopathy, similar to prior exam from August 23, 2023. For example, there is a 17 mm short axis right paratracheal node, previously measuring approximately 15 mm short axis. Lymph nodes: No mediastinal or hilar adenopathy. Bones/joints: No evidence of acute fracture or aggressive osseous lesion. Soft tissues: No evidence of fluid collection or hematoma in the superficial soft tissues. Other findings: Hepatic cirrhosis with splenomegaly, similar to prior exam from July 29, 2023. CT/CT angio chest PE protcl [id number] IMPRESSION: 1. Resolution of the previously visualized left lower lobe subsegmental PE. No evidence of new PE within limitations of motion degradation. Within the same pulmonary segment as the previously visualized PE, there is subtle hypoattenuation within a small distal subsegmental branch, favored to be motion related though may reflect residual subsegmental PE. 2. Moderate pulmonary edema with trace bilateral pleural effusions, significantly improved since placement of the right-sided chest tube. The degree of pulmonary edema has worsened since prior. 3. Trace right-sided pneumothorax associated with the indwelling chest tube. 4. Postsurgical changes of the mediastinum status post CABG and aortic valve replacement. There is mediastinal adenopathy, possibly secondary to lymphovascular congestion. Correlation with clinical laboratory findings to exclude a lymphoproliferative process is recommended. 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 The findings were acknowledged and understood.
[2023-08-31] MEDS: iohexol 350 mg/mL 500 mL Btl (per mL) IV (16:02)
[2023-08-31 17:25] LABS: Glucose Point of Care 254 mg/dL (70-110)
[2023-08-31 17:38] LABS: Anion Gap 12.1 (5-19); Blood Urea Nitrogen 23 mg/dL (8-23); Calcium 8.4 mg/dL (8.5-10.5); Carbon Dioxide 35 mmol/L (22-29); Chloride 90 mmol/L (98-107); Glomerular Filtration Rate 61.9 mL/min (90-130); Glucose 258 mg/dL (65-115); Osmolality Calculated 291 mOsm/kg (285-295); Potassium 3.1 mmol/L (3.5-5.1); Sodium 134 mmol/L (136-145)
[2023-08-31] MEDS: potassium chloride ER 20 mEq Tablet 40 MEQ PO (18:24)
[2023-08-31] MEDS: metOLazone 5 MG Tablet 2.5 MG PO (18:25)
[2023-08-31] MEDS: FUROsemide 10 mg/mL SDV 4mL 60 MG IVP (18:25)
[2023-08-31 20:24] LABS: Glucose Point of Care 234 mg/dL (70-110)
[2023-08-31] MEDS: pantoprazole 40 mg SDV IVP (20:29)
[2023-09-01] VITALS (23 sets, daily range): BP systolic 92–121; BP diastolic 46–58; PULSE 84–111; RESP 14–20; TEMP 36.5–37.1; O2SAT 93–100
[2023-09-01] MEDS: acetaminophen 325 mg Tablet 650 MG PO (00:57)
[2023-09-01] MEDS: ALPRAZolam 0.5 mg Tablet 0.25 MG PO (01:19)
[2023-09-01] MEDS: ipratropium-albuterol 3 mL Neb INHALATION ×4 (02:02→20:40)
[2023-09-01] MEDS: albumin 25 G/100 ML BAG 60 G IV (02:23)
--- NOTE | 2023-09-01 02:35 | PC.NURSE ---
Addendum entered by Go Pulido RN 09/01/23 05:30: Patient responded to treatment, Maps maintaining 65+. Original Note: Hospitalist notified of low MAP results while patient is sleeping. MAPs trending into the 50s. Hospitalist gave order to hold 0200 lasix. Patient noted to have had low albumin levels and order to admin 25mg albumin now. Patient noted to be nearing -8L for hospital stay. Pulses remain strong with cap refill of 2 seconds. Consent signed and patient and spouse educated on purpose of Albumin.
[2023-09-01 05:23] LABS: Basophils % 0.7 %; Eosinophils # 0.1 10^3/uL (0.0-0.8); Eosinophils % 3.4 %; Lymphocytes # 0.5 10^3/uL (0.8-4.8); Lymphocytes % 16.2 %; Mean Corpuscular HGB Conc 30.4 g/dL (30-55); Mean Corpuscular Hemoglobin 28.9 pg (27-33); Mean Corpuscular Volume 94.9 fl (85-98); Mean Platelet Volume 9.7 fL (7.4-10.4); Monocytes # 0.3 10^3/uL (0.2-0.9); Monocytes % 9.4 %; Neutrophils # 2.08 10^3/uL (1.8-7.7); Nucleated Red Blood Cells % 0 %; Platelet Count 90 10^3/cmm (157-399); Red Blood Count 2.53 10^6/uL (3.85-5.65); Red Cell Distribution Width 17.4 % (12.1-15.1); White Blood Count 2.97 10^3/uL (3.29-11.43)
[2023-09-01 05:48] LABS: Anion Gap 11.9 (5-19); Blood Urea Nitrogen 23 mg/dL (8-23); Calcium 8.6 mg/dL (8.5-10.5); Carbon Dioxide 36 mmol/L (22-29); Chloride 91 mmol/L (98-107); Glomerular Filtration Rate 54.8 mL/min (90-130); Glucose 192 mg/dL (65-115); Magnesium 1.7 mg/dL (1.7-2.3); Osmolality Calculated 291 mOsm/kg (285-295); Phosphorus 3.5 mg/dL (2.5-4.5); Sodium 136 mmol/L (136-145)
[2023-09-01 05:58] LABS: Potassium 2.9 mmol/L (3.5-5.1)
[2023-09-01] MEDS: lidocaine 1% 5 ML in potassium chloride premix 100 ML 26.25 ML IV ×2 (06:58→21:23)
--- NOTE | 2023-09-01 07:16 | P.PN_ITS ---
Subjective 2 Subjective: Patient has chest tube. Feeling better. Vitals/I&O/Wt Last Vital Signs Temp 98.8 F 09/01/23 04:53 Pulse 90 09/01/23 06:00 Resp 18 09/01/23 04:53 BP 97/47 09/01/23 04:53 Pulse Ox 98 09/01/23 04:53 O2 Del Method Nasal Cannula 09/01/23 02:05 O2 Flow Rate 3 09/01/23 02:05 FiO2 3 08/24/23 16:00 08/31/23 09/01/23 09/01/23 22:59 06:59 14:59 Intake Total 240 / 240 Output Total 1750 / 1750 975 / 2725 Balance -1750 / -1750 -735 / -2485 Physical Exam 2 Narrative: GENERAL: Patient is alert, awake and oriented x3. [] NECK: No jugular vein distension. [] HEENT: No cyanosis. No icterus. No pallor. [] HEART: Regular S1 and S2. No murmur, rub or gallop. [] LUNGS: Diminished air entry. CENTRAL NERVOUS SYSTEM: Grossly nonfocal. [] EXTREMITIES: Lower extremities with 1+ edema bilaterally. Urinary Catheter Management: Begum Latex: Cath Placed During This Visit: yes Reason for Continuing Indwelling Catheter: Accurate Measurement of Urinary Output in Critically Ill Patients Urinary Catheter Date of Insertion: 08/23/23 Urinary Catheter Time of Insertion: 23:53 Data 09/02/23 03:25 09/02/23 03:25 Micro: Microbiology 08/29/23 08:45 Gram Stain - Final Pleural Fluid Body Fluid Culture - Preliminary A&P Assessment and plan (1) S/P aortic valve replacement: (2) CHF (congestive heart failure): Qualifiers: Heart failure type: diastolic Heart failure chronicity: chronic Qualified Code(s): I50.32 - Chronic diastolic (congestive) heart failure (3) Exertional dyspnea: (4) Atrial fibrillation with RVR: (5) Diabetes mellitus: Plan Diuretic therapy has been uptitrated. Close I&O's. Monitor renal function. Chest tube in place. Management per pulmonary team. Thank you for involving us with care of this patient. We will continue to follow. Please call with questions. Attestations 2 Medical Necessity Statement*: Care expected to cross 2 midnights. Coding Level of Care Code Acute Code for Chg Fwd Diagnoses S/P aortic valve replacement Z95.2 Chronic diastolic congestive heart failure I50.32 Heart failure type: diastolic Heart failure chronicity: chronic Exertional dyspnea R06.00 Atrial fibrillation with RVR I48.91 Diabetes mellitus E11.9
[2023-09-01 07:47] LABS: Glucose Point of Care 220 mg/dL (70-110)
[2023-09-01] MEDS: insulin lispro 100 unit/1 mL SUBCUT ×4 (08:27→20:45)
[2023-09-01] MEDS: digoxin 125 mcg Tablet PO (08:28)
[2023-09-01] MEDS: fluoxetine 10 mg Capsule PO (08:28)
[2023-09-01] MEDS: metOLazone 5 MG Tablet 2.5 MG PO (08:28)
[2023-09-01] MEDS: aspirin 81 mg EC Tablet PO (08:28)
[2023-09-01] MEDS: atorvastatin 40 mg Tablet PO (08:28)
[2023-09-01] MEDS: insulin glargine 100 units/1 mL 20 UNIT SUBCUT (08:29)
[2023-09-01] MEDS: budesonide 0.5 mg/2 mL Neb 0.25 MG INHALATION ×2 (09:08→20:40)
[2023-09-01] MEDS: FUROsemide 10 mg/mL SDV 4mL 60 MG IVP ×2 (09:37→17:56)
--- NOTE | 2023-09-01 10:41 | XR_ITS ---
WS: [id number] Portable AP upright chest, 09/01/2023 Clinical Data: pleural effusions, chest tube Comparison: Portable chest, 08/31/2023 Findings: The small right basilar chest tube remains in good position. There is minimal opacification over the surface of the right diaphragm. There is probable linear atelectasis in the minor fissure. A small right apical pneumothorax still remains. The left lung shows no change. Midline sternotomy wagner tures with an artificial cardiac valve remain the same. The heart is slightly enlarged. The aortic ar ch and descending thoracic aorta show calcification and minimal tortuosity. There are monitor leads o n the chest wall. Impression: 1. No change in small right basilar chest tube. 2. Slight increase in opacification over right diaphragm. 3. Persistence of small apical right pneumothorax. 4. No change in cardiomegaly and atherosclerosis.
[2023-09-01 11:48] LABS: Glucose Point of Care 350 mg/dL (70-110)
--- NOTE | 2023-09-01 12:02 | PM.PN ---
Subjective Subjective: -Patient seen today morning at bedside -Reported that her shortness of breath has improved since placing the pigtail catheter-drained about 600 cc since insertion yesterday afternoon -Postprocedure CT chest showed small apical pneumothorax-suspect trapped lung-as there is good tidaing but no air leak in the chamber -Clamp chest tube today morning-repeat chest x-ray showed persistence of small apical right pneumo; slight increase in opacification of right hemidiaphragm -If there is recurrence of fluid-she may benefit from pleurodesis -Review of labs showed drop in H&H to 7.3/24-1 unit PRBC ordered Medications: Reviewed: Yes Vitals/I&O/Wt Last Vital Signs Temp 98.8 F 09/01/23 11:03 Pulse 92 09/01/23 11:03 Resp 16 09/01/23 11:03 BP 104/56 09/01/23 11:03 Pulse Ox 98 09/01/23 11:03 O2 Del Method Nasal Cannula 09/01/23 09:10 O2 Flow Rate 2 09/01/23 09:10 FiO2 3 08/24/23 16:00 08/31/23 09/01/23 09/01/23 22:59 06:59 14:59 Intake Total 240 / 240 200 / 200 Output Total 1750 / 1750 975 / 2725 Balance -1750 / -1750 -735 / -2485 200 / 200 Physical Exam Narrative: General: alert, NAD HEENT: conj clear, EOMI, PERRL, mmm, Neck: supple, no meningismus Heme: no cervical LAP Respiratory: Inspection: No visible deformity of the chest wall Palpation: Trachea is mildly deviated to the right, bilateral symmetric expansion Percussion: Bilateral tympanic percussion note both anterior and posteriorly Auscultation: Improved breath sounds on right lower lung zone Cardiovascular: rrr, nl s1s2, no mrg Abdomen: soft, nt, nd, no r/g, bs+ Extremities: pulses +, no edema, no c/c : no CVA tenderness Skin: intact, no rash MSK: no back or neck pain Neurologic: grossly intact Urinary Catheter Management: Begum Latex: Cath Placed During This Visit: yes Reason for Continuing Indwelling Catheter: Accurate Measurement of Urinary Output in Critically Ill Patients Urinary Catheter Date of Insertion: 08/23/23 Urinary Catheter Time of Insertion: 23:53 Data 09/01/23 04:33 09/01/23 04:33 Other Labs: Radiology Impressions Chest CT 08/23/23 20:47 IMPRESSION: 1. Gdewkkoc-ny-ulfib right-sided pleural effusion. Significant atelectatic changes in the right lung base and lingula. 2. Cirrhotic liver. 3. Splenomegaly with the spleen measuring up to 17.2 cm in length. 4. Abdominal ascites partially visualized in the upper abdomen. 5. Recannulated umbilical vein partially visualized consistent with portal hypertension. Chest CTA 08/31/23 14:15 IMPRESSION: 1. Resolution of the previously visualized left lower lobe subsegmental PE. No evidence of new PE within limitations of motion degradation. Within the same pulmonary segment as the previously visualized PE, there is subtle hypoattenuation within a small distal subsegmental branch, favored to be motion related though may reflect residual subsegmental PE. 2. Moderate pulmonary edema with trace bilateral pleural effusions, significantly improved since placement of the right-sided chest tube. The degree of pulmonary edema has worsened since prior. 3. Trace right-sided pneumothorax associated with the indwelling chest tube. 4. Postsurgical changes of the mediastinum status post CABG and aortic valve replacement. There is mediastinal adenopathy, possibly secondary to lymphovascular congestion. Correlation with clinical laboratory findings to exclude a lymphoproliferative process is recommended. The findings were verbally communicated by telephone with Yamileth Dunham at 4:44 PM VP PRODUCT on 08/31/2023. The findings were acknowledged and understood. Laboratory Results WBC 2.97 10^3/uL (3.29-11.43) L 09/01/23 04:33 RBC 2.53 10^6/uL (3.85-5.65) L 09/01/23 04:33 Hgb 7.30 g/dL (11.27-16.99) L 09/01/23 04:33 Hct 24.0 % (36-47) L 09/01/23 04:33 MCV 94.9 fl (85-98) 09/01/23 04:33 MCH 28.9 pg (27-33) 09/01/23 04: MCHC 30.4 g/dL (30-55) 09/01/23 04:33 RDW 17.4 % (12.1-15.1) H 09/01/23 04:33 Plt Count 90 10^3/cmm (157-399) L 09/01/23 04:33 MPV 9.7 fL (7.4-10.4) 09/01/23 04:33 Neut % (Auto) 70.0 % 09/01/23 04:33 Lymph % (Auto) 16.2 % 09/01/23 04:33 Fountain % (Auto) 9.4 % 09/01/23 04:33 Eos % (Auto) 3.4 % 09/01/23 04:33 Baso % (Auto) 0.7 % 09/01/23 04:33 Neut # (Auto) 2.08 10^3/uL (1.8-7.7) 09/01/23 04:33 Lymph # (Auto) 0.5 10^3/uL (0.8-4.8) L 09/01/23 04:33 Fountain # (Auto) 0.3 10^3/uL (0.2-0.9) 09/01/23 04:33 Eos # (Auto) 0.1 10^3/uL (0.0-0.8) 09/01/23 04:33 Baso # (Auto) 0.0 10^3/uL (0.0-0.1) 09/01/23 04:33 Nucleated RBC % (auto) 0 % 09/01/23 04:33 Total Counted 100 (0-100) 08/29/23 20:33 Atypical Lymphs % Not Reportable 08/29/23 20:33 Segmented Neutrophils 86 % 08/29/23 20:33 Abs Segm Neuts (Man) 3.7 10/cmm (1.6-7.1) 08/29/23 20:33 Band Neutrophils Not Reportable 08/29/23 20:33 Lymphocytes (Manual) 10 % 08/29/23 20:33 Monocytes (Manual) 4.0 % 08/29/23 20:33 Absolute Monocytes 0.2 10^3/cmm (0.1-0.6) 08/29/23 20:33 Eosinophils (Manual) 0 % 08/29/23 20:33 Absolute Eosinophils 0.0 10^3/cmm (0.0-0.7) 08/29/23 20:33 Basophils (Manual) 0.0 % 08/29/23 20:33 Absolute Basophils 0.0 10^3/cmm (0.0-0.2) 08/29/23 20:33 Nucleated RBCs # 0.0 /100WBC 09/01/23 04:33 Differential Comment Yes 08/29/23 08:45 Platelet Estimate Decreased (Normal) L 08/29/23 20:33 Peripher Smr Path Cons Sent for review 08/28/23 03:49 Haptoglobin 36.0 mg/L (30-200) 08/28/23 03:49 PT 17.30 SECONDS (12.1-14.9) H 08/28/23 08:39 INR 1.37 (0.8-1.2) H 08/28/23 08:39 Specimen Type Arterial 08/23/23 17:47 Sample Site Radial, right 08/23/23 17:47 ABG pH 7.52 (7.35-7.45) H 08/23/23 17:47 ABG pCO2 36.6 mmHg (35-45) 08/23/23 17:47 ABG pO2 52.7 mmHg (80.0-100.0) L 08/23/23 17:47 ABG PO2/FiO2 Ratio 0 08/23/23 17:47 ABG HCO3 30.0 mmol/L (22-26) H 08/23/23 17:47 ABG Base Excess 6.8 mmol/L (-2.0-2.0) H 08/23/23 17:47 Elpidio Test Pos 08/23/23 17:47 Hematocrit 27.9 % (37-47) L 08/23/23 17:47 O2 Delivery Device Room air 08/23/23 17:47 FiO2 21.0 % 08/23/23 17:47 Generation Technologist ID Dong 08/23/23 17:47 Sodium 136 mmol/L (136-145) 09/01/23 04:33 Potassium 2.9 mmol/L (3.5-5.1) L 09/01/23 04:33 Chloride 91 mmol/L (98-107) L 09/01/23 04:33 Carbon Dioxide 36 mmol/L (22-29) H 09/01/23 04:33 Anion Gap 11.9 (5-19) 09/01/23 04:33 BUN 23 mg/dL (8-23) 09/01/23 04:33 Creatinine 1.0 mg/dL (0.5-0.9) H 09/01/23 04:33 GFR Calculation 54.8 mL/min (90-130) L 09/01/23 04:33 Glucose 192 mg/dL (65-115) H 09/01/23 04:33 POC Glucose 350 mg/dL (70-110) H 09/01/23 11:12 Estimat Average Glucose 146 08/24/23 00:26 Hemoglobin A1c 6.7 % (4.0-6.0) H 08/24/23 00:26 Calculated Osmolality 291 mOsm/kg (285-295) 09/01/23 04:33 Lactic Acid 2.5 mmol/L (0.5-2.2) H 08/23/23 17:55 Lactic Acid (Sepsis) 2.8 mmol/L (0.5-2.2) H 08/23/23 22:59 Calcium 8.6 mg/dL (8.5-10.5) 09/01/23 04:33 Phosphorus 3.5 mg/dL (2.5-4.5) 09/01/23 04:33 Magnesium 1.7 mg/dL (1.7-2.3) 09/01/23 04:33 Iron 36 ug/dL (37-145) L 08/23/23 19:27 TIBC 336 mcg/dl 08/23/23 19:27 % Saturation 10.7 % (20-50) L 08/23/23 19:27 Unsat Iron Binding 300 ug/dL (112-347) 08/23/23 19:27 Ferritin 177 ng/mL (15-150) H 08/23/23 19:27 Total Bilirubin 2.0 mg/dL (0.15-1.2) H 08/29/23 05:39 Direct Bilirubin 0.70 mg/dL (0.00-0.30) H 08/28/23 03:49 Indirect Bilirubin 1.30 08/28/23 03:49 AST 23 U/L (0-32) 08/29/23 05:39 ALT 8 U/L (0-33) 08/29/23 05:39 Alkaline Phosphatase 80 U/L (35-105) 08/29/23 05:39 Lactate Dehydrogenase 286 U/L (135-214) H 08/28/23 03:49 Troponin T Baseline 33 ng/L (0-10) H 08/23/23 17:55 Troponin T 120 Minute 35.07 ng/L (0-10) H 08/23/23 19:27 Delta Troponin T 2.07 ABS# (0-10) 08/23/23 19:27 Troponin T Hi Sens 6Hr 35.89 ng/L (0-10) H 08/24/23 00:26 Troponin T Hi Sens 6Hr Delta 2.89 ng/L (0-12) 08/24/23 00:26 C-Reactive Protein 18.7 mg/L (0.0-4.9) H 08/23/23 19:27 NT-Pro-B Natriuret Pep 2408 pg/mL (0-125) H 08/24/23 00:26 Total Protein 7.0 g/dL (6.6-8.7) 08/29/23 05:39 Albumin 3.0 g/dL (3.5-5.2) L 08/29/23 05:39 Globulin 4.0 g/dL (1.3-4.6) 08/29/23 05:39 Procalcitonin 0.15 ng/mL (0-0.5) 08/23/23 19:27 TSH 1.31 uIU/mL (0.27-4.20) 08/24/23 00:26 Fluid Color Red 08/29/23 08:45 Fluid Appearance Cloudy 08/29/23 08:45 Fluid WBC 211 /uL 08/29/23 08:45 Fluid RBC 202.000 10^3/uL 08/29/23 08:45 Fluid Hematocrit 2.3 % 08/29/23 08:45 Fld Polynuclear WBCs # 0.029 08/29/23 08:45 Fld Polynuclear WBCs % 13.700 % 08/29/23 08:45 Fl Mononucl WBCs #(Auto) 0.182 08/29/23 08:45 Fl Mononuclear % Auto 86.300 % 08/29/23 08:45 Fld Crystal Laterality Right pleural fluid 08/29/23 08:45 Fluid Albumin 1.7 g/dL 08/29/23 08:45 Fluid Creatinine 0.93 (0.5-0.9) H 08/29/23 08:45 Pleural pH 7.00 (6.5-7.5) 08/29/23 08:45 Pleural Total Protein 3.2 g/dL 08/29/23 08:45 Pleural LDH 139 U/L 08/29/23 08:45 Pleural Glucose 198.0 mg/dL 08/29/23 08:45 Pleural Amylase 16.0 U/L 08/29/23 08:45 Pleural Triglycerides 30 mg/dL 08/29/23 08:45 Digoxin 0.6 ng/mL (0.6-1.2) 08/23/23 19:27 Adenovirus (PCR) Not detected (NOT DETECT) 08/23/23 20:42 C. pneumoniae DNA (PCR) Not detected (NOT DETECT) 08/23/23 20:42 Coronavirus 229E (PCR) Not detected (NOT DETECT) 08/23/23 20:42 Human Metapneumovir PCR Not detected (NOT DETECT) 08/23/23 20:42 Influenza A (H1) PCR Not detected (NOT DETECT) 08/23/23 20:42 Influ A (H1/09) PCR Not detected (NOT DETECT) 08/23/23 20:42 Influenza A (H3) PCR Not detected (NOT DETECT) 08/23/23 20:42 Influenza Type A (PCR) Not detected (NOT DETECT) 08/23/23 20:42 Influenza Type B (PCR) Not detected (NOT DETECT) 08/23/23 20:42 M. pneumoniae (PCR) Not detected (NOT DETECT) 08/23/23 20:42 Parainfluenza 1 (PCR) Not detected (NOT DETECT) 08/23/23 20:42 Parainfluenza 2 (PCR) Not detected (NOT DETECT) 08/23/23 20:42 Parainfluenza 3 (PCR) Not detected (NOT DETECT) 08/23/23 20:42 Parainfluenza 4 (PCR) Not detected (NOT DETECT) 08/23/23 20:42 RSV Type A (PCR) Not detected (NOT DETECT) 08/23/23 20:42 RSV Type B (PCR) Not detected (NOT DETECT) 08/23/23 20:42 Entero/Rhino (PCR) Not detected (NOT DETECT) 08/23/23 20:42 SARS-CoV-2 (PCR) Not detected (NOT DETECT) 08/23/23 20:42 Blood Type O Positive 08/30/23 11:16 Rho(D) Type Rh positive 08/30/23 11:16 Antibody Screen Negative 08/30/23 11:16 Crossmatch See Detail 08/30/23 11:16 Micro: Microbiology 08/29/23 08:45 Gram Stain - Final Pleural Fluid Body Fluid Culture - Preliminary A&P Assessment and plan (1) Recurrent right pleural effusion: S/p 14 Greek pigtail placement 08/31/2023-drained 1600 cc serosanguineous fluid Clamped chest tube today morning-chest x-ray 2 hours later slight increase in opacification over right hemidiaphragm and persistence of small apical right pneumothorax If there is recurrence of pleural effusion-she may benefit from pleurodesis (2) COPD (chronic obstructive pulmonary disease): She is on DuoNeb every 6 hours scheduled dose She is not in exacerbation-we can switch to as needed Qualifiers: COPD type: unspecified COPD Qualified Code(s): J44.9 - Chronic obstructive pulmonary disease, unspecified (3) CHF (congestive heart failure): Currently on Lasix 60 Mg every 8-and metolazone 2.5 Mg daily Acceptable urine output Hypokalemia-supplemented and monitoring Qualifiers: Heart failure type: diastolic Heart failure chronicity: chronic Qualified Code(s): I50.32 - Chronic diastolic (congestive) heart failure (4) S/P aortic valve replacement: Patient with significant cardiac history with a previous aortic valve replacement in 2018 and recent redo open heart surgery June 2023 at [facility] (5) Atrial fibrillation with RVR: Heart rate is well-controlled Currently she is on metoprolol 25 twice daily digoxin 125 mcg p.o. daily Held [facility] in view of thoracentesis Attestations Medical Necessity Statement*: Patient has a pigtail for persistent right pleural effusion- Coding Level of Care Code Acute Code for Chg Fwd Diagnoses Recurrent right pleural effusion J90 Chronic obstructive pulmonary disease, unspecified COPD type J44.9 COPD type: unspecified COPD Chronic diastolic congestive heart failure I50.32 Heart failure type: diastolic Heart failure chronicity: chronic S/P aortic valve replacement Z95.2 Atrial fibrillation with RVR I48.91 Time Spent (min) 41
--- NOTE | 2023-09-01 12:08 | PM.PN ---
Subjective Subjective: Seen at bedside this morning. Hemoglobin 7.30. Currently running a blood transfusion Potassium 2.9. Patient states she is finally starting to feel better no longer dyspneic. Chest tube was clamped earlier today. There was serosanguineous drainage about 1500 cc since it was placed. Urine output 1200 overnight. Patient 7.8 L net negative since admission. Vitals/I&O/Wt Last Vital Signs Temp 98.8 F 09/01/23 11:03 Pulse 92 09/01/23 11:03 Resp 16 09/01/23 11:03 BP 104/56 09/01/23 11:03 Pulse Ox 98 09/01/23 11:03 O2 Del Method Nasal Cannula 09/01/23 09:10 O2 Flow Rate 2 09/01/23 09:10 FiO2 3 08/24/23 16:00 08/31/23 09/01/23 09/01/23 22:59 06:59 14:59 Intake Total 240 / 240 200 / 200 Output Total 1750 / 1750 975 / 2725 Balance -1750 / -1750 -735 / -2485 200 / 200 Physical Exam Narrative: General: No acute distress, AO x3 HEENT: PERRLA, pallors not present Chest: Normal vesicular breath sounds, no added sounds, clear to auscultation bilaterally CVS: S1-S2 regular, no murmurs, no tachycardia, no gallops, no rubs Abdomen: Soft, nontender, bowel sounds present Neuro: No focal deficits, no facial deformity, AO x3, Extremities: 1+ pitting edema B/L , pedal edema 2+, Urinary Catheter Management: Begum Latex: Cath Placed During This Visit: yes Reason for Continuing Indwelling Catheter: Accurate Measurement of Urinary Output in Critically Ill Patients Urinary Catheter Date of Insertion: 08/23/23 Urinary Catheter Time of Insertion: 23:53 Data 09/01/23 04:33 09/01/23 04:33 Micro: Microbiology 08/29/23 08:45 Gram Stain - Final Pleural Fluid Body Fluid Culture - Preliminary A&P Assessment and plan (1) Systolic CHF, acute: (2) Recurrent right pleural effusion: (3) Diabetes mellitus: (4) Atrial fibrillation with RVR: (5) Prosthetic aortic valve stenosis: (6) COPD (chronic obstructive pulmonary disease): Qualifiers: COPD type: unspecified COPD Qualified Code(s): J44.9 - Chronic obstructive pulmonary disease, unspecified (7) Central obesity: (8) Cirrhosis of liver: Plan #Acute hypoxic respiratory failure #Secondary to acute on chronic diastolic CHF #Recent CABG at [facility] June 2023 #Bioprosthetic aortic valve in place, history of arctic valve stenosis #History of PE #History of atrial fibrillation, chronically on Eliquis #Chronic anemia #History of liver cirrhosis #Chronic hypoxic respiratory failure on 2 L nasal cannula at home #Thrombocytopenia #Pulmonary hypertension ? Patient had a recent CABG and xgbzuaqobmcrv-mfbl-kjz graft placement in June 2023 at [facility]. She presented to [facility] for shortness of breath. She does state in the last 2 months she has been hospitalized twice each for 2 weeks since her CABG. She keeps having fluid overload and requires diuresis. He has been told that she has a leaky mitral valve and at some point she will need to have mitral valve surgery in particular MitraClip to be placed. Patient was discharged from [facility] on Sunday, August 20, 2023 but due to continued shortness of breath patient came into our emergency room on the . She is being diuresed aggressively since then. She has been placed on fluid restrictions 1000 daily. She was also found to be in A-fib with RVR initially and required a Cardizem drip which was later de-escalated to Cardizem 30 every 6. She was also on Eliquis 2.5 twice daily however it was held for potential thoracentesis. Thoracentesis was performed on 08/29 2023 which yielded 1 L dark bloody aspirate. It seems it was old blood and not a new bleed. Eliquis was restarted 08/30 2023. Due to recent CABG hemoglobin goal should be above 9. For hemoglobin 8.5 she was ordered a unit of blood on 08/30 2023. BiPAP has been ordered as needed. Pulmonology also was consulted. Cardiology has been consulted as well. Of note patient was also known to have pulmonary embolism diagnosed on 07/29 2023. She is being continued on Eliquis for that as well. Venous Dopplers bilateral lower extremities have ruled out DVT at this time. For her diabetes she has been on low-dose sliding scale insulin. Patient does have known history of liver cirrhosis. She also has thrombocytopenia which is most likely attributed to that at this time. Echo obtained this hospitalization: Echocardiogram reviewed. LVEF estimated at 65%, abnormal septal motion consistent with postoperative status from CABG. Mild pulmonary hypertension with RSVP of 41.4. Mildly increased right atrial size. There is severe mitral annular calcification for which patient has been recommended surgery at [place], however at this present time she is unsure if she wants to proceed with surgery. Plan for today 09/01/2023 ? Patient is 7.8 L net negative since admission ? Continue aggressive diuresis Lasix 60 IV 3 times daily, add metolazone 2.5 daily ? Hypokalemic today. Potassium 3.0. Will order 40 oral x 1. ? Continue to hold Eliquis at this time. We are unsure of the repeat effusion is bloody or not. I have discussed with the family and they are well aware of why anticoagulation is being held at this time. ? Order 1 unit blood transfusion today. Recheck CBC posttransfusion. ? Recheck chest x-ray today and tomorrow. ? Continue MARTY stockings ? Continue Cardizem 30 every 6 ? Continue digoxin 125 daily ? Thrombocytopenia secondary most likely to liver cirrhosis. ? Discussed with cardiology, nursing staff, at bedside. ? Discussed with pulmonology. Patient may require a chest tube today. -Continue current management as stated above. Full code DVT prophylaxis: SCDs. Still awaiting operative records from [facility] updated at bedside. Attestations Medical Necessity Statement*: Patient has a pigtail for persistent right pleural effusion- Diagnoses Systolic CHF, acute I50.21 Recurrent right pleural effusion J90 Diabetes mellitus E11.9 Atrial fibrillation with RVR I48.91 Prosthetic aortic valve stenosis T82.857A Chronic obstructive pulmonary disease, unspecified COPD type J44.9 COPD type: unspecified COPD Central obesity E65 Cirrhosis of liver K74.60
--- NOTE | 2023-09-01 12:46 | PC.SOCIAL ---
IMM Update pg 2 of IMM updated and reviewed w/ patient and her . Copy provided and copy dated, initialed and placed in chart.
[2023-09-01] MEDS: HYDROcodone-acetaminophen 5-325 mg Tablet 1 TAB PO (12:52)
[2023-09-01 13:55] LABS: Basophils % 0.5 %; Eosinophils # 0.1 10^3/uL (0.0-0.8); Eosinophils % 2.7 %; Hematocrit 29.2 % (36-47); Lymphocytes # 0.4 10^3/uL (0.8-4.8); Lymphocytes % 10.6 %; Mean Corpuscular HGB Conc 30.8 g/dL (30-55); Mean Corpuscular Hemoglobin 29.1 pg (27-33); Mean Corpuscular Volume 94.5 fl (85-98); Mean Platelet Volume 9.8 fL (7.4-10.4); Monocytes # 0.3 10^3/uL (0.2-0.9); Monocytes % 7.4 %; Neutrophils # 3.17 10^3/uL (1.8-7.7); Neutrophils % 78.3 %; Nucleated Red Blood Cells % 0 %; Platelet Count 107 10^3/cmm (157-399); Red Blood Count 3.09 10^6/uL (3.85-5.65); Red Cell Distribution Width 17.3 % (12.1-15.1); White Blood Count 4.05 10^3/uL (3.29-11.43)
[2023-09-01] MEDS: saline nasal spray 44mL Btl 1 SPRAY NASAL ×2 (16:00→21:24)
[2023-09-01 16:58] LABS: Glucose Point of Care 323 mg/dL (70-110)
[2023-09-01 20:17] LABS: Glucose Point of Care 237 mg/dL (70-110)
[2023-09-01] MEDS: pantoprazole 40 mg SDV IVP (20:45)
[2023-09-01 20:59] LABS: Blood Urea Nitrogen 23 mg/dL (8-23); Calcium 8.3 mg/dL (8.5-10.5); Carbon Dioxide 35 mmol/L (22-29); Chloride 88 mmol/L (98-107); Glomerular Filtration Rate 54.8 mL/min (90-130); Glucose 222 mg/dL (65-115); Osmolality Calculated 289 mOsm/kg (285-295); Sodium 134 mmol/L (136-145)
[2023-09-01 21:00] LABS: Anion Gap 13.7 (5-19)
[2023-09-01 21:01] LABS: Potassium 2.7 mmol/L (3.5-5.1)
[2023-09-02] VITALS (33 sets, daily range): BP systolic 90–124; BP diastolic 50–74; PULSE 79–103; RESP 14–30; TEMP 36.8–37; O2SAT 95–100
[2023-09-02] MEDS: FUROsemide 10 mg/mL SDV 4mL 60 MG IVP ×3 (02:36→18:42)
--- NOTE | 2023-09-02 04:00 | XRR_ITS ---
PROCEDURE INFORMATION: Exam: XR Chest Exam date and time: 09/02/2023 4:52 AM Age: 72 years old Clinical indication: Patient HX: F/u for RT pneumothorax. Chest tube in place. ; Additional info: Watching pnumo TECHNIQUE: Imaging protocol: Radiologic exam of the chest. Views: 1 view. COMPARISON: CR XR chest 1V portable [id number] 09/01/2023 11:21 AM FINDINGS: Tubes, catheters and devices: Right chest tube stable in position. Lungs: Diffuse increase in interstitial markings. Diffuse nodular/linear opacities of the bilateral lung bases.. Pleural spaces: Stable blunting of the right costophrenic angle. Heart/Mediastinum: Stable prominence of the cardiomediastinal silhouette. Bones/joints: Unremarkable. XR/XR chest 1V portable [id number] IMPRESSION: Stable nodular/linear opacities of the bilateral lung bases. Stable increased interstitial markings. Stable appearance of the right pleural effusion.
[2023-09-02 04:23] LABS: Basophils % 0.7 %; Eosinophils # 0.2 10^3/uL (0.0-0.8); Eosinophils % 3.6 %; Hematocrit 28.7 % (36-47); Lymphocytes # 0.4 10^3/uL (0.8-4.8); Lymphocytes % 9.7 %; Mean Corpuscular Hemoglobin 29.1 pg (27-33); Mean Corpuscular Volume 93.8 fl (85-98); Mean Platelet Volume 9.7 fL (7.4-10.4); Monocytes # 0.3 10^3/uL (0.2-0.9); Neutrophils # 3.21 10^3/uL (1.8-7.7); Neutrophils % 77.8 %; Nucleated Red Blood Cells % 0 %; Platelet Count 101 10^3/cmm (157-399); Red Blood Count 3.06 10^6/uL (3.85-5.65); Red Cell Distribution Width 17.8 % (12.1-15.1); White Blood Count 4.13 10^3/uL (3.29-11.43)
[2023-09-02 04:41] LABS: Anion Gap 9.8 (5-19); Blood Urea Nitrogen 22 mg/dL (8-23); Calcium 8.3 mg/dL (8.5-10.5); Carbon Dioxide 38 mmol/L (22-29); Chloride 89 mmol/L (98-107); Glomerular Filtration Rate 61.9 mL/min (90-130); Glucose 215 mg/dL (65-115); Magnesium 1.7 mg/dL (1.7-2.3); Osmolality Calculated 288 mOsm/kg (285-295); Sodium 134 mmol/L (136-145)
[2023-09-02 05:34] LABS: Potassium 2.8 mmol/L (3.5-5.1)
[2023-09-02] MEDS: lidocaine 1% 5 ML in potassium chloride premix 100 ML 26.25 ML IV ×2 (06:42→20:04)
[2023-09-02 08:09] LABS: Glucose Point of Care 252 mg/dL (70-110)
[2023-09-02] MEDS: insulin lispro 100 unit/1 mL SUBCUT ×4 (08:21→21:03)
[2023-09-02] MEDS: insulin glargine 100 units/1 mL 20 UNIT SUBCUT (08:21)
[2023-09-02] MEDS: metoprolol tartrate 25 mg Tablet PO ×2 (08:22→21:04)
[2023-09-02] MEDS: fluoxetine 10 mg Capsule PO (08:22)
[2023-09-02] MEDS: digoxin 125 mcg Tablet PO (08:22)
[2023-09-02] MEDS: atorvastatin 40 mg Tablet PO (08:22)
[2023-09-02] MEDS: aspirin 81 mg EC Tablet PO (08:22)
[2023-09-02] MEDS: metOLazone 5 MG Tablet 2.5 MG PO (08:22)
[2023-09-02] MEDS: saline nasal spray 44mL Btl 1 SPRAY NASAL ×3 (08:23→21:05)
[2023-09-02] MEDS: budesonide 0.5 mg/2 mL Neb 0.25 MG INHALATION ×2 (08:26→19:45)
[2023-09-02] MEDS: ipratropium-albuterol 3 mL Neb INHALATION ×3 (08:26→19:46)
--- NOTE | 2023-09-02 10:16 | P.PN_ITS ---
Subjective 2 Subjective: Patient is feeling better. However has on and off shortness of breath. Vitals/I&O/Wt Last Vital Signs Temp 98.3 F 09/02/23 04:58 Pulse 98 09/02/23 08:45 Resp 19 H 09/02/23 08:30 BP 110/54 09/02/23 08:30 Pulse Ox 96 09/02/23 08:30 O2 Del Method Nasal Cannula 09/02/23 08:30 O2 Flow Rate 2 09/02/23 08:30 FiO2 3 08/24/23 16:00 09/01/23 09/02/23 09/02/23 22:59 06:59 14:59 Intake Total 200 / 950 0 / 950 120 / 120 Output Total 850 / 850 1150 / 2000 Balance -650 / 100 -1150 / -1050 120 / 120 Physical Exam 2 Narrative: GENERAL: Patient is alert, awake and oriented x3. [] NECK: No jugular vein distension. [] HEENT: No cyanosis. No icterus. No pallor. [] HEART: Regular S1 and S2. No murmur, rub or gallop. [] LUNGS: Diminished air entry. CENTRAL NERVOUS SYSTEM: Grossly nonfocal. [] EXTREMITIES: Lower extremities with 1+ edema bilaterally. Urinary Catheter Management: Begum Latex: Cath Placed During This Visit: yes Reason for Continuing Indwelling Catheter: Accurate Measurement of Urinary Output in Critically Ill Patients Urinary Catheter Date of Insertion: 08/23/23 Urinary Catheter Time of Insertion: 23:53 Data 09/03/23 03:51 09/03/23 03:51 Micro: Microbiology 08/29/23 08:45 Gram Stain - Final Pleural Fluid Body Fluid Culture - Final A&P Assessment and plan (1) S/P aortic valve replacement: (2) CHF (congestive heart failure): Qualifiers: Heart failure type: diastolic Heart failure chronicity: chronic Qualified Code(s): I50.32 - Chronic diastolic (congestive) heart failure (3) Exertional dyspnea: (4) Atrial fibrillation with RVR: (5) Diabetes mellitus: Plan Continue diuresis. If renal function worsens, will need to down titrate. Close I&O's. If pleural effusion continued to reaccumulate, will need CT surgery evaluation. Aortic valve has mild to moderately elevated gradients. Thank you for involving us with care of this patient. We will continue to follow. Please call with questions. Attestations 2 Medical Necessity Statement*: Care expected to cross 2 [facility]. Coding Level of Care Code Acute Code for [facility] Fw Diagnoses S/P aortic valve replacement Z95.2 Chronic diastolic congestive heart failure I50.32 Heart failure type: diastolic Heart failure chronicity: chronic Exertional dyspnea R06.00 Atrial fibrillation with RVR I48.91 Diabetes mellitus E11.9
[2023-09-02] MEDS: ondansetron 2 mg/ML SDV 2 mL 4 MG IVP (11:24)
[2023-09-02 11:46] LABS: Glucose Point of Care 243 mg/dL (70-110)
--- NOTE | 2023-09-02 12:51 | PM.PN ---
Subjective Subjective: Seen this morning. Chest x-ray from this morning reviewed. Effusion seems to be returning. Hemoglobin 8.90 this morning. Potassium 2.8. Patient starting to get short of breath again. 9 Liters negative balance since admission. Vitals/I&O/Wt Last Vital Signs Temp 98.3 F 09/02/23 04:58 Pulse 98 09/02/23 08:45 Resp 19 H 09/02/23 08:30 BP 110/54 09/02/23 08:30 Pulse Ox 96 09/02/23 08:30 O2 Del Method Nasal Cannula 09/02/23 08:30 O2 Flow Rate 2 09/02/23 08:30 FiO2 3 08/24/23 16:00 09/01/23 09/02/23 09/02/23 22:59 06:59 14:59 Intake Total 200 / 950 0 / 950 330 / 330 Output Total 850 / 850 1150 / 2000 500 / 500 Balance -650 / 100 -1150 / -1050 -170 / -170 Physical Exam Narrative: General: No acute distress, AO x3 HEENT: PERRLA, pallors not present Chest: Normal vesicular breath sounds, no added sounds, clear to auscultation bilaterally CVS: S1-S2 regular, no murmurs, no tachycardia, no gallops, no rubs Abdomen: Soft, nontender, bowel sounds present Neuro: No focal deficits, no facial deformity, AO x3, Extremities: 1+ pitting edema B/L , pedal edema 2+, Urinary Catheter Management: Begum Latex: Cath Placed During This Visit: yes Reason for Continuing Indwelling Catheter: Accurate Measurement of Urinary Output in Critically Ill Patients Urinary Catheter Date of Insertion: 08/23/23 Urinary Catheter Time of Insertion: 23:53 Data 09/02/23 03:25 09/02/23 03:25 Micro: Microbiology 08/29/23 08:45 Gram Stain - Final Pleural Fluid Body Fluid Culture - Final A&P Assessment and plan (1) Systolic CHF, acute: (2) Recurrent right pleural effusion: (3) Diabetes mellitus: (4) Atrial fibrillation with RVR: (5) Prosthetic aortic valve stenosis: (6) COPD (chronic obstructive pulmonary disease): Qualifiers: COPD type: unspecified COPD Qualified Code(s): J44.9 - Chronic obstructive pulmonary disease, unspecified (7) Central obesity: (8) Cirrhosis of liver: Plan #Acute hypoxic respiratory failure #Secondary to acute on chronic diastolic CHF #Recent CABG at [facility] June 2023 #Bioprosthetic aortic valve in place, history of arctic valve stenosis #History of PE #History of atrial fibrillation, chronically on Eliquis #Chronic anemia #History of liver cirrhosis #Chronic hypoxic respiratory failure on 2 L nasal cannula at home #Thrombocytopenia #Pulmonary hypertension ? Patient had a recent CABG and rliznaikqwuqu-jiwb-fzy graft placement in June 2023 at [facility]. She presented to [facility] for shortness of breath. She does state in the last 2 months she has been hospitalized twice each for 2 weeks since her CABG. She keeps having fluid overload and requires diuresis. He has been told that she has a leaky mitral valve and at some point she will need to have mitral valve surgery in particular MitraClip to be placed. Patient was discharged from [facility] on Monday, August 20, 2023 but due to continued shortness of breath patient came into our emergency room on the . She is being diuresed aggressively since then. She has been placed on fluid restrictions 1000 daily. She was also found to be in A-fib with RVR initially and required a Cardizem drip which was later de-escalated to Cardizem 30 every 6. She was also on Eliquis 2.5 twice daily however it was held for potential thoracentesis. Thoracentesis was performed on 08/29 2023 which yielded 1 L dark bloody aspirate. It seems it was old blood and not a new bleed. Eliquis was restarted 08/30 2023. Due to recent CABG hemoglobin goal should be above 9. For hemoglobin 8.5 she was ordered a unit of blood on 08/30 2023. BiPAP has been ordered as needed. Pulmonology also was consulted. Cardiology has been consulted as well. Of note patient was also known to have pulmonary embolism diagnosed on 07/29 2023. She is being continued on Eliquis for that as well. Venous Dopplers bilateral lower extremities have ruled out DVT at this time. For her diabetes she has been on low-dose sliding scale insulin. Patient does have known history of liver cirrhosis. She also has thrombocytopenia which is most likely attributed to that at this time. Echo obtained this hospitalization: Echocardiogram reviewed. LVEF estimated at 65%, abnormal septal motion consistent with postoperative status from CABG. Mild pulmonary hypertension with RSVP of 41.4. Mildly increased right atrial size. There is severe mitral annular calcification for which patient has been recommended surgery at [place], however at this present time she is unsure if she wants to proceed with surgery. Plan for today 09/02/2023 ? Patient is 9 L net negative since admission ? Continue aggressive diuresis Lasix 60 IV 3 times daily,continue metolazone 2.5 daily ? Hypokalemic today. Potassium 3.0. Will order 40 oral x 1. ? Continue to hold Eliquis at this time. I have discussed with the family and they are well aware of why anticoagulation is being held at this time. ? s/p 1 unit blood transfusion 09/01. hb 8.9 today ? Recheck chest x-ray today and tomorrow. ? Continue MARTY stockings ? Continue Cardizem 30 every 6 ? Continue digoxin 125 daily ? Thrombocytopenia secondary most likely to liver cirrhosis. ? Discussed with cardiology, nursing staff, at bedside. ? Discussed with pulmonology. continue chest tube clamp. recheck cxr in am. pt may need pleurodesis -Continue current management as stated above. Full code DVT prophylaxis: SCDs. Family updated at bedside. Attestations Medical Necessity Statement*: Patient has a pigtail for persistent right pleural effusion- Diagnoses Systolic CHF, acute I50.21 Recurrent right pleural effusion J90 Diabetes mellitus E11.9 Atrial fibrillation with RVR I48.91 Prosthetic aortic valve stenosis T82.857A Chronic obstructive pulmonary disease, unspecified COPD type J44.9 COPD type: unspecified COPD Central obesity E65 Cirrhosis of liver K74.60
[2023-09-02 17:49] LABS: Glucose Point of Care 296 mg/dL (70-110)
[2023-09-02 19:12] LABS: Anion Gap 9.8 (5-19); Blood Urea Nitrogen 24 mg/dL (8-23); Calcium 8.5 mg/dL (8.5-10.5); Carbon Dioxide 38 mmol/L (22-29); Chloride 85 mmol/L (98-107); Glomerular Filtration Rate 49.1 mL/min (90-130); Glucose 295 mg/dL (65-115); Osmolality Calculated 285 mOsm/kg (285-295); Sodium 130 mmol/L (136-145)
[2023-09-02 19:17] LABS: Potassium 2.8 mmol/L (3.5-5.1)
[2023-09-02 20:39] LABS: Glucose Point of Care 280 mg/dL (70-110)
[2023-09-02] MEDS: pantoprazole 40 mg SDV IVP (21:04)
[2023-09-03] VITALS (41 sets, daily range): BP systolic 78–108; BP diastolic 37–55; PULSE 74–94; RESP 9–24; TEMP 36.3–37; O2SAT 90–100
[2023-09-03] MEDS: FUROsemide 10 mg/mL SDV 4mL 60 MG IVP ×2 (02:13→10:10)
[2023-09-03] MEDS: ipratropium-albuterol 3 mL Neb INHALATION ×4 (03:18→19:55)
[2023-09-03 05:00] LABS: Basophils % 0.6 %; Eosinophils # 0.2 10^3/uL (0.0-0.8); Eosinophils % 4.4 %; Hematocrit 30.5 % (36-47); Lymphocytes # 0.6 10^3/uL (0.8-4.8); Lymphocytes % 13.6 %; Mean Corpuscular HGB Conc 30.2 g/dL (30-55); Mean Corpuscular Hemoglobin 28.9 pg (27-33); Mean Corpuscular Volume 95.9 fl (85-98); Mean Platelet Volume 10.5 fL (7.4-10.4); Monocytes # 0.3 10^3/uL (0.2-0.9); Monocytes % 7.2 %; Neutrophils # 3.46 10^3/uL (1.8-7.7); Neutrophils % 73.4 %; Nucleated Red Blood Cells % 0 %; Platelet Count 112 10^3/cmm (157-399); Red Blood Count 3.18 10^6/uL (3.85-5.65); Red Cell Distribution Width 17.9 % (12.1-15.1); White Blood Count 4.72 10^3/uL (3.29-11.43)
[2023-09-03 05:17] LABS: Blood Urea Nitrogen 25 mg/dL (8-23); Calcium 8.4 mg/dL (8.5-10.5); Carbon Dioxide 36 mmol/L (22-29); Chloride 87 mmol/L (98-107); Glomerular Filtration Rate 49.1 mL/min (90-130); Glucose 196 mg/dL (65-115); Magnesium 1.8 mg/dL (1.7-2.3); Osmolality Calculated 284 mOsm/kg (285-295); Sodium 132 mmol/L (136-145)
[2023-09-03 05:18] LABS: Anion Gap 12.1 (5-19); Potassium 3.1 mmol/L (3.5-5.1)
--- NOTE | 2023-09-03 06:32 | XRR_ITS ---
PROCEDURE INFORMATION: Exam: XR Chest Exam date and time: 09/03/2023 8:01 AM Age: 72 years old Clinical indication: Other: Pleural effusion TECHNIQUE: Imaging protocol: Radiologic exam of the chest. Views: 1 view. COMPARISON: CR (CHEST, ) 09/02/2023 4:52 AM FINDINGS: Tubes, catheters and devices: Right-sided chest tube remains in satisfactory position. Lungs: There are increased lung markings and haziness of the lungs in association with small right pleural effusion, which in the setting of cardiomegaly is consistent with pulmonary edema. Pneumonia should be excluded clinically. No pneumothorax. Pleural spaces: See Lungs finding. Heart/Mediastinum: Stable cardiomediastinal silhouette. The patient is status post CABG. Bones/joints: Median sternotomy changes seen. Degenerative changes of the spine seen. XR/XR chest 1V portable [id number] IMPRESSION: 1. Imaging findings of pulmonary edema with small right pleural effusion. Pneumonia should be excluded clinically. 2. Right-sided chest tube remains in satisfactory position. No pneumothorax.
[2023-09-03 07:56] LABS: Glucose Point of Care 235 mg/dL (70-110)
[2023-09-03] MEDS: budesonide 0.5 mg/2 mL Neb 0.25 MG INHALATION ×2 (08:35→19:55)
[2023-09-03] MEDS: aspirin 81 mg EC Tablet PO (08:36)
[2023-09-03] MEDS: metoprolol tartrate 25 mg Tablet PO (08:36)
[2023-09-03] MEDS: fluoxetine 10 mg Capsule PO (08:36)
[2023-09-03] MEDS: atorvastatin 40 mg Tablet PO (08:37)
[2023-09-03] MEDS: digoxin 125 mcg Tablet PO (08:37)
[2023-09-03] MEDS: insulin lispro 100 unit/1 mL SUBCUT ×4 (08:37→21:10)
[2023-09-03] MEDS: metOLazone 5 MG Tablet 2.5 MG PO (08:37)
[2023-09-03] MEDS: saline nasal spray 44mL Btl 1 SPRAY NASAL ×3 (08:40→21:11)
[2023-09-03] MEDS: insulin glargine 100 units/1 mL 20 UNIT SUBCUT (08:40)
--- NOTE | 2023-09-03 08:51 | P.PN_ITS ---
Subjective 2 Subjective: Patient seen at bedside today morning in recliner Tells me that her sleep was not as good as it was the day, has mild respiratory distress Morning chest x-ray showed worsening right pleural effusion-will unclamp chest tube Currently on 2 L nasal cannula saturating 96% Recommended CT surgery to evaluate for pleurodesis Medications: Reviewed: Yes Vitals/I&O/Wt Last Vital Signs Temp 97.4 F L 09/03/23 02:00 Pulse 88 09/03/23 08:37 Resp 16 09/03/23 08:35 BP 96/49 09/03/23 06:00 Pulse Ox 96 09/03/23 08:35 O2 Del Method Nasal Cannula 09/03/23 08:35 O2 Flow Rate 2 09/03/23 08:35 FiO2 3 08/24/23 16:00 09/02/23 09/03/23 09/03/23 22:59 06:59 14:59 Intake Total 420 / 990 135 / 1125 240 / 240 Output Total 350 / 850 850 / 1700 Balance 70 / 140 -715 / -575 240 / 240 Physical Exam 2 Narrative: General: alert, NAD HEENT: conj clear, EOMI, PERRL, mmm, Neck: supple, no meningismus Heme: no cervical LAP Respiratory: Inspection: No visible deformity of the chest wall Palpation: Trachea is mildly deviated to the right, bilateral symmetric expansion Percussion: Bilateral tympanic percussion note both anterior and posteriorly Auscultation: Improved breath sounds on right lower lung zone Cardiovascular: rrr, nl s1s2, no mrg Abdomen: soft, nt, nd, no r/g, bs+ Extremities: pulses +, no edema, no c/c : no CVA tenderness Skin: intact, no rash MSK: no back or neck pain Neurologic: grossly intact Urinary Catheter Management: Begum Latex: Cath Placed During This Visit: yes Reason for Continuing Indwelling Catheter: Accurate Measurement of Urinary Output in Critically Ill Patients Urinary Catheter Date of Insertion: 08/23/23 Urinary Catheter Time of Insertion: 23:53 Data 09/03/23 03:51 09/03/23 03:51 Other Labs: Radiology Impressions Chest CT 08/23/23 20:47 IMPRESSION: 1. Ynzteumf-ew-jdtkd right-sided pleural effusion. Significant atelectatic changes in the right lung base and lingula. 2. Cirrhotic liver. 3. Splenomegaly with the spleen measuring up to 17.2 cm in length. 4. Abdominal ascites partially visualized in the upper abdomen. 5. Recannulated umbilical vein partially visualized consistent with portal hypertension. Chest CTA 08/31/23 14:15 IMPRESSION: 1. Resolution of the previously visualized left lower lobe subsegmental PE. No evidence of new PE within limitations of motion degradation. Within the same pulmonary segment as the previously visualized PE, there is subtle hypoattenuation within a small distal subsegmental branch, favored to be motion related though may reflect residual subsegmental PE. 2. Moderate pulmonary edema with trace bilateral pleural effusions, significantly improved since placement of the right-sided chest tube. The degree of pulmonary edema has worsened since prior. 3. Trace right-sided pneumothorax associated with the indwelling chest tube. 4. Postsurgical changes of the mediastinum status post CABG and aortic valve replacement. There is mediastinal adenopathy, possibly secondary to lymphovascular congestion. Correlation with clinical laboratory findings to exclude a lymphoproliferative process is recommended. The findings were verbally communicated by telephone with Yamileth Dunham at 4:44 PM FERTILIZER MIXER on 08/31/2023. The findings were acknowledged and understood. Chest X-Ray 09/03/23 06:32 IMPRESSION: 1. Imaging findings of pulmonary edema with small right pleural effusion. Pneumonia should be excluded clinically. 2. Right-sided chest tube remains in satisfactory position. No pneumothorax. Laboratory Results WBC 4.72 10^3/uL (3.29-11.43) 09/03/23 03:51 RBC 3.18 10^6/uL (3.85-5.65) L 09/03/23 03:51 Hgb 9.20 g/dL (11.27-16.99) L 09/03/23 03:51 Hct 30.5 % (36-47) L 09/03/23 03:51 MCV 95.9 fl (85-98) 09/03/23 03:51 MCH 28.9 pg (27-33) 09/03/23 03:51 MCHC 30.2 g/dL (30-55) 09/03/23 03:51 RDW 17.9 % (12.1-15.1) H 09/03/23 03:51 Plt Count 112 10^3/cmm (157-399) L 09/03/23 03:51 MPV 10.5 fL (7.4-10.4) H 09/03/23 03:51 Neut % (Auto) 73.4 % 09/03/23 03:51 Lymph % (Auto) 13.6 % 09/03/23 03:51 [place] % (Auto) 7.2 % 09/03/23 03:51 Eos % (Auto) 4.4 % 09/03/23 03:51 Baso % (Auto) 0.6 % 09/03/23 03:51 Neut # (Auto) 3.46 10^3/uL (1.8-7.7) 09/03/23 03:51 Lymph # (Auto) 0.6 10^3/uL (0.8-4.8) L 09/03/23 03:51 [place] # (Auto) 0.3 10^3/uL (0.2-0.9) 09/03/23 03:51 Eos # (Auto) 0.2 10^3/uL (0.0-0.8) 09/03/23 03:51 Baso # (Auto) 0.0 10^3/uL (0.0-0.1) 09/03/23 03:51 Nucleated RBC % (auto) 0 % 09/03/23 03:51 Total Counted 100 (0-100) 08/29/23 20:33 Atypical Lymphs % Not Reportable 08/29/23 20:33 Segmented Neutrophils 86 % 08/29/23 20:33 Abs Segm Neuts (Man) 3.7 10/cmm (1.6-7.1) 08/29/23 20:33 Band Neutrophils Not Reportable 08/29/23 20:33 Lymphocytes (Manual) 10 % 08/29/23 20:33 Monocytes (Manual) 4.0 % 08/29/23 20:33 Absolute Monocytes 0.2 10^3/cmm (0.1-0.6) 08/29/23 20:33 Eosinophils (Manual) 0 % 08/29/23 20:33 Absolute Eosinophils 0.0 10^3/cmm (0.0-0.7) 08/29/23 20:33 Basophils (Manual) 0.0 % 08/29/23 20:33 Absolute Basophils 0.0 10^3/cmm (0.0-0.2) 08/29/23 20:33 Nucleated RBCs # 0.0 /100WBC 09/03/23 03:51 Differential Comment Yes 08/29/23 08:45 Platelet Estimate Decreased (Normal) L 08/29/23 20:33 Peripher Smr Path Cons Sent for review 08/28/23 03:49 Haptoglobin 36.0 mg/L (30-200) 08/28/23 03:49 PT 17.30 SECONDS (12.1-14.9) H 08/28/23 08:39 INR 1.37 (0.8-1.2) H 08/28/23 08:39 Specimen Type Arterial 08/23/23 17:47 Sample Site Radial, right 08/23/23 17:47 ABG pH 7.52 (7.35-7.45) H 08/23/23 17:47 ABG pCO2 36.6 mmHg (35-45) 08/23/23 17:47 ABG pO2 52.7 mmHg (80.0-100.0) L 08/23/23 17:47 ABG PO2/FiO2 Ratio 0 08/23/23 17:47 ABG HCO3 30.0 mmol/L (22-26) H 08/23/23 17:47 ABG Base Excess 6.8 mmol/L (-2.0-2.0) H 08/23/23 17:47 Elpidio Test Pos 08/23/23 17:47 Hematocrit 27.9 % (37-47) L 08/23/23 17:47 O2 Delivery Device Room air 08/23/23 17:47 FiO2 21.0 % 08/23/23 17:47 Crawler Dragline Operator ID Dong 08/23/23 17:47 Sodium 132 mmol/L (136-145) L 09/03/23 03:51 Potassium 3.1 mmol/L (3.5-5.1) L 09/03/23 03:51 Chloride 87 mmol/L (98-107) L 09/03/23 03:51 Carbon Dioxide 36 mmol/L (22-29) H 09/03/23 03:51 Anion Gap 12.1 (5-19) 09/03/23 03:51 BUN 25 mg/dL (8-23) H 09/03/23 03:51 Creatinine 1.1 mg/dL (0.5-0.9) H 09/03/23 03:51 GFR Calculation 49.1 mL/min (90-130) L 09/03/23 03:51 Glucose 196 mg/dL (65-115) H 09/03/23 03:51 POC Glucose 235 mg/dL (70-110) H 09/03/23 07:33 Estimat Average Glucose 146 08/24/23 00:26 Hemoglobin A1c 6.7 % (4.0-6.0) H 08/24/23 00:26 Calculated Osmolality 284 mOsm/kg (285-295) L 09/03/23 03:51 Lactic Acid 2.5 mmol/L (0.5-2.2) H 08/23/23 17:55 Lactic Acid (Sepsis) 2.8 mmol/L (0.5-2.2) H 08/23/23 22:59 Calcium 8.4 mg/dL (8.5-10.5) L 09/03/23 03:51 Phosphorus 3.5 mg/dL (2.5-4.5) 09/01/23 04:33 Magnesium 1.8 mg/dL (1.7-2.3) 09/03/23 03:51 Iron 36 ug/dL (37-145) L 08/23/23 19:27 TIBC 336 mcg/dl 08/23/23 19:27 % Saturation 10.7 % (20-50) L 08/23/23 19:27 Unsat Iron Binding 300 ug/dL (112-347) 08/23/23 19:27 Ferritin 177 ng/mL (15-150) H 08/23/23 19:27 Total Bilirubin 2.0 mg/dL (0.15-1.2) H 08/29/23 05:39 Direct Bilirubin 0.70 mg/dL (0.00-0.30) H 08/28/23 03:49 Indirect Bilirubin 1.30 08/28/23 03:49 AST 23 U/L (0-32) 08/29/23 05:39 ALT 8 U/L (0-33) 08/29/23 05:39 Alkaline Phosphatase 80 U/L (35-105) 08/29/23 05:39 Lactate Dehydrogenase 286 U/L (135-214) H 08/28/23 03:49 Troponin T Baseline 33 ng/L (0-10) H 08/23/23 17:55 Troponin T 120 Minute 35.07 ng/L (0-10) H 08/23/23 19:27 Delta Troponin T 2.07 ABS# (0-10) 08/23/23 19:27 Troponin T Hi Sens 6Hr 35.89 ng/L (0-10) H 08/24/23 00:26 Troponin T Hi Sens 6Hr Delta 2.89 ng/L (0-12) 08/24/23 00:26 C-Reactive Protein 18.7 mg/L (0.0-4.9) H 08/23/23 19:27 NT-Pro-B Natriuret Pep 2408 pg/mL (0-125) H 08/24/23 00:26 Total Protein 7.0 g/dL (6.6-8.7) 08/29/23 05:39 Albumin 3.0 g/dL (3.5-5.2) L 08/29/23 05:39 Globulin 4.0 g/dL (1.3-4.6) 08/29/23 05:39 Procalcitonin 0.15 ng/mL (0-0.5) 08/23/23 19:27 TSH 1.31 uIU/mL (0.27-4.20) 08/24/23 00:26 Fluid Color Red 08/29/23 08:45 Fluid Appearance Cloudy 08/29/23 08:45 Fluid WBC 211 /uL 08/29/23 08:45 Fluid RBC 202.000 10^3/uL 08/29/23 08:45 Fluid Hematocrit 2.3 % 08/29/23 08:45 Fld Polynuclear WBCs # 0.029 08/29/23 08:45 Fld Polynuclear WBCs % 13.700 % 08/29/23 08:45 Fl Mononucl WBCs #(Auto) 0.182 08/29/23 08:45 Fl Mononuclear % Auto 86.300 % 08/29/23 08:45 Fld Crystal Laterality Right pleural fluid 08/29/23 08:45 Fluid Albumin 1.7 g/dL 08/29/23 08:45 Fluid Creatinine 0.93 (0.5-0.9) H 08/29/23 08:45 Pleural pH 7.00 (6.5-7.5) 08/29/23 08:45 Pleural Total Protein 3.2 g/dL 08/29/23 08:45 Pleural LDH 139 U/L 08/29/23 08:45 Pleural Glucose 198.0 mg/dL 08/29/23 08:45 Pleural Amylase 16.0 U/L 08/29/23 08:45 Pleural Triglycerides 30 mg/dL 08/29/23 08:45 Digoxin 0.6 ng/mL (0.6-1.2) 08/23/23 19:27 Adenovirus (PCR) Not detected (NOT DETECT) 08/23/23 20:42 C. pneumoniae DNA (PCR) Not detected (NOT DETECT) 08/23/23 20:42 Coronavirus 229E (PCR) Not detected (NOT DETECT) 08/23/23 20:42 Human Metapneumovir PCR Not detected (NOT DETECT) 08/23/23 20:42 Influenza A (H1) PCR Not detected (NOT DETECT) 08/23/23 20:42 Influ A (H1/09) PCR Not detected (NOT DETECT) 08/23/23 20:42 Influenza A (H3) PCR Not detected (NOT DETECT) 08/23/23 20:42 Influenza Type A (PCR) Not detected (NOT DETECT) 08/23/23 20:42 Influenza Type B (PCR) Not detected (NOT DETECT) 08/23/23 20:42 M. pneumoniae (PCR) Not detected (NOT DETECT) 08/23/23 20:42 Parainfluenza 1 (PCR) Not detected (NOT DETECT) 08/23/23 20:42 Parainfluenza 2 (PCR) Not detected (NOT DETECT) 08/23/23 20:42 Parainfluenza 3 (PCR) Not detected (NOT DETECT) 08/23/23 20:42 Parainfluenza 4 (PCR) Not detected (NOT DETECT) 08/23/23 20:42 RSV Type A (PCR) Not detected (NOT DETECT) 08/23/23 20:42 RSV Type B (PCR) Not detected (NOT DETECT) 08/23/23 20:42 Entero/Rhino (PCR) Not detected (NOT DETECT) 08/23/23 20:42 SARS-CoV-2 (PCR) Not detected (NOT DETECT) 08/23/23 20:42 Blood Type O Positive 08/30/23 11:16 Rho(D) Type Rh positive 08/30/23 11:16 Antibody Screen Negative 08/30/23 11:16 Crossmatch See Detail 08/30/23 11:16 A&P Assessment and plan (1) Recurrent right pleural effusion: S/p 14 [place] pigtail placement 08/31/2023-drained 1900 cc serosanguineous fluid Clamped chest tube 2 days ago-chest x-ray today morning show gradual recurrence of right pleural effusion despite aggressive diuresis Will unclamp chest tube today-she may benefit from pleurodesis-please consult CT surgery (2) COPD (chronic obstructive pulmonary disease): She is on DuoNeb every 6 hours scheduled dose She is not in exacerbation-we can switch to as needed Qualifiers: COPD type: unspecified COPD Qualified Code(s): J44.9 - Chronic obstructive pulmonary disease, unspecified (3) CHF (congestive heart failure): Currently on Lasix 60 Mg every 8-and metolazone 2.5 Mg daily She is net -9 L. Hypokalemia-supplemented and monitoring Qualifiers: Heart failure type: diastolic Heart failure chronicity: chronic Qualified Code(s): I50.32 - Chronic diastolic (congestive) heart failure (4) S/P aortic valve replacement: Patient with significant cardiac history with a previous aortic valve replacement in 2017 and recent redo open heart surgery June 2023 at [facility] 08/23/2023-showed severe mitral annular calcification with trace to mild mitral regurgitation. Aortic valve is poorly seen but appeared mild aortic valve stenosis with mean gradient 19.3. The gradient to suggest mild to moderate stenosis Cardiology is following up (5) Atrial fibrillation with RVR: Heart rate is well-controlled Currently she is on metoprolol 25 twice daily digoxin 125 mcg p.o. daily Held Eliquis in view of chest tube; CTA 08/31/2019 for 3 days ago showed resolution of previously visualized left lower lobe subsegmental PE. Attestations 2 Medical Necessity Statement*: Patient has a pigtail for persistent right pleural effusion- Time Spent in Patient Care: Greater than 35 minutes (>than 50% of time spent in counselling and/or direct pt care on unit) . Coding Level of Care Code Acute Code for Chg Fwd Diagnoses Recurrent right pleural effusion J90 Chronic obstructive pulmonary disease, unspecified COPD type J44.9 COPD type: unspecified COPD Chronic diastolic congestive heart failure I50.32 Heart failure type: diastolic Heart failure chronicity: chronic S/P aortic valve replacement Z95.2 Atrial fibrillation with RVR I48.91 Time Spent (min) 46
--- NOTE | 2023-09-03 10:07 | PM.PN ---
Subjective Subjective: Patient is hypotensive. Shortness of breath improved after chest tube is unclamped. Vitals/I&O/Wt Last Vital Signs Temp 97.4 F L 09/03/23 02:00 Pulse 88 09/03/23 08:37 Resp 16 09/03/23 08:35 BP 96/49 09/03/23 06:00 Pulse Ox 96 09/03/23 08:35 O2 Del Method Nasal Cannula 09/03/23 08:35 O2 Flow Rate 2 09/03/23 08:35 FiO2 3 08/24/23 16:00 09/02/23 09/03/23 09/03/23 22:59 06:59 14:59 Intake Total 420 / 990 135 / 1125 240 / 240 Output Total 350 / 850 850 / 1700 Balance 70 / 140 -715 / -575 240 / 240 Physical Exam Narrative: GENERAL: Patient is alert, awake and oriented x3. [] NECK: No jugular vein distension. [] HEENT: No cyanosis. No icterus. No pallor. [] HEART: Regular S1 and S2. No murmur, rub or gallop. [] LUNGS: Diminished air entry. CENTRAL NERVOUS SYSTEM: Grossly nonfocal. [] EXTREMITIES: Lower extremities with 1+ edema bilaterally. Urinary Catheter Management: Begum Latex: Cath Placed During This Visit: yes Reason for Continuing Indwelling Catheter: Accurate Measurement of Urinary Output in Critically Ill Patients Urinary Catheter Date of Insertion: 08/23/23 Urinary Catheter Time of Insertion: 23:53 Data 09/04/23 03:17 09/04/23 03:17 A&P Assessment and plan (1) S/P aortic valve replacement: (2) CHF (congestive heart failure): Qualifiers: Heart failure type: diastolic Heart failure chronicity: chronic Qualified Code(s): I50.32 - Chronic diastolic (congestive) heart failure (3) Exertional dyspnea: (4) Atrial fibrillation with RVR: (5) Diabetes mellitus: Plan Patient is hypotensive. Will hold diuresis for tonight. Depending on renal function and blood pressure in the morning can decide further diuretics. Breathing is improved after chest tube was unclamped and more pleural effusion drained. Recommend CT surgery evaluation I reviewed the records from [facility] for surgery and postsurgical admissions. She was found to have elevated aortic valve gradients even during those admissions. Medical therapy was decided. Mean gradient was 20 which is in line with echocardiogram performed here. Peak velocity is over 3 m/s. This will need further evaluation. Thank you for involving us with care of this patient. We will continue to follow. Please call with questions. Attestations Medical Necessity Statement*: Care expected to cross 2 midnights. Coding Level of Care Code Acute Code for [facility] Diagnoses S/P aortic valve replacement Z95.2 Chronic diastolic congestive heart failure I50.32 Heart failure type: diastolic Heart failure chronicity: chronic Exertional dyspnea R06.00 Atrial fibrillation with RVR I48.91 Diabetes mellitus E11.9
[2023-09-03] MEDS: HYDROcodone-acetaminophen 5-325 mg Tablet 1 TAB PO (10:24)
[2023-09-03 11:35] LABS: Glucose Point of Care 225 mg/dL (70-110)
[2023-09-03] MEDS: potassium chloride ER 20 mEq Tablet 40 MEQ PO (12:35)
--- NOTE | 2023-09-03 12:51 | P.PN_ITS ---
Subjective 2 Subjective: seen this am says she feels dryness in nose 2/2 to o2 cxr this am shows recurring effusion chest tube unclamped, drained 450 cc immediately. hb stable 9.4L net neg since admission Vitals/I&O/Wt Last Vital Signs Temp 97.4 F L 09/03/23 02:00 Pulse 88 09/03/23 08:37 Resp 16 09/03/23 08:35 BP 96/49 09/03/23 06:00 Pulse Ox 96 09/03/23 08:35 O2 Del Method Nasal Cannula 09/03/23 08:35 O2 Flow Rate 2 09/03/23 08:35 FiO2 3 08/24/23 16:00 09/02/23 09/03/23 09/03/23 22:59 06:59 14:59 Intake Total 420 / 990 135 / 1125 240 / 240 Output Total 350 / 850 850 / 1700 Balance 70 / 140 -715 / -575 240 / 240 Physical Exam 2 Narrative: General: No acute distress, AO x3 HEENT: PERRLA, pallors not present Chest: Normal vesicular breath sounds, no added sounds, clear to auscultation bilaterally CVS: S1-S2 regular, no murmurs, no tachycardia, no gallops, no rubs Abdomen: Soft, nontender, bowel sounds present Neuro: No focal deficits, no facial deformity, AO x3, Extremities: 1+ pitting edema B/L , pedal edema 2+, slightly improved Urinary Catheter Management: Begum Latex: Cath Placed During This Visit: yes Reason for Continuing Indwelling Catheter: Accurate Measurement of Urinary Output in Critically Ill Patients Urinary Catheter Date of Insertion: 08/23/23 Urinary Catheter Time of Insertion: 23:53 Data 09/03/23 03:51 09/03/23 03:51 A&P Assessment and plan (1) Systolic CHF, acute: (2) Recurrent right pleural effusion: (3) Diabetes mellitus: (4) Atrial fibrillation with RVR: (5) Prosthetic aortic valve stenosis: (6) COPD (chronic obstructive pulmonary disease): Qualifiers: COPD type: unspecified COPD Qualified Code(s): J44.9 - Chronic obstructive pulmonary disease, unspecified (7) Central obesity: (8) Cirrhosis of liver: Plan #Acute hypoxic respiratory failure #Recurrent pleural effusion #Small pneumothorax right side #Secondary to acute on chronic diastolic CHF #Recent CABG at [facility] June 2023 #Bioprosthetic aortic valve in place, history of arctic valve stenosis #History of PE #History of atrial fibrillation, chronically on Eliquis #Chronic anemia #History of liver cirrhosis #Chronic hypoxic respiratory failure on 2 L nasal cannula at home #Thrombocytopenia #Pulmonary hypertension ? Patient had a recent CABG and cdfwmtfouioyl-gljq-vwy graft placement in June 2023 at [facility]. She presented to [facility] for shortness of breath. She does state in the last 2 months she has been hospitalized twice each for 2 weeks since her CABG. She keeps having fluid overload and requires diuresis. He has been told that she has a leaky mitral valve and at some point she will need to have mitral valve surgery in particular MitraClip to be placed. Patient was discharged from [facility] on Sunday, August 20, 2023 but due to continued shortness of breath patient came into our emergency room on the . She is being diuresed aggressively since then. She has been placed on fluid restrictions 1000 daily. She was also found to be in A-fib with RVR initially and required a Cardizem drip which was later de- escalated to Cardizem 30 every 6. She was also on Eliquis 2.5 twice daily however it was held for potential thoracentesis. Thoracentesis was performed on 08/29 2023 which yielded 1 L dark bloody aspirate. It seems it was old blood and not a new bleed. Eliquis was restarted 08/30 2023. Due to recent CABG hemoglobin goal should be above 9. For hemoglobin 8.5 she was ordered a unit of blood on 08/30 2023. BiPAP has been ordered as needed. Pulmonology also was consulted. Cardiology has been consulted as well. Of note patient was also known to have pulmonary embolism diagnosed on 07/29 2023. She is being continued on Eliquis for that as well. Venous Dopplers bilateral lower extremities have ruled out DVT at this time. For her diabetes she has been on low-dose sliding scale insulin. Patient does have known history of liver cirrhosis. She also has thrombocytopenia which is most likely attributed to that at this time. Chest tube placed regarding effusion 08/31/2023. It was clamped for 24 hours later but due to recurring fluid it was unclamped 09/03/1911/18/2023 with immediate drainage of 400 cc. Total drainage so far has been 2 L from chest tube output since placement. Patient also required blood transfusion 08/2023. Hemoglobin stable since then. Effusion has recurred and we will plan to discuss with CT surgery for potential pleurodesis at this time. CT surgery not available playground monitor today. Plan to consult in AM. Echo obtained this hospitalization: Echocardiogram reviewed. LVEF estimated at 65%, abnormal septal motion consistent with postoperative status from CABG. Mild pulmonary hypertension with RSVP of 41.4. Mildly increased right atrial size. There is severe mitral annular calcification for which patient has been recommended surgery at [place], however at this present time she is unsure if she wants to proceed with surgery. Plan for today 09/03/2023 ? Patient is 9.4 L net negative since admission ? Continue aggressive diuresis Lasix 60 IV 3 times daily,stop metolazone 2.5 daily ? Hypokalemic today. Potassium 3.1. Will order 40 oral x 1. ? Continue to hold Eliquis at this time. I have discussed with the family and they are well aware of why anticoagulation is being held at this time. ? s/p 1 unit blood transfusion 09/01. hb 8.9 today ? Recheck chest x-ray today and tomorrow. ? Continue MARTY stockings ? Stop Cardizem 30 every 6 hours. Switch to 30 every 8 hours with holding parameters of not to be administered if BP less than 100/60. Discussed with RN. Blood pressure slightly soft today. ? Continue digoxin 125 daily ? Thrombocytopenia secondary most likely to liver cirrhosis. ? Discussed with cardiology, nursing staff, at bedside. ? Discussed with pulmonology. Chest tube placed regarding effusion 08/31/2023. It was clamped for 24 hours later but due to recurring fluid it was unclamped 09/03/1911/18/2023 with immediate drainage of 400 cc. Total drainage so far has been 2 L from chest tube output since placement. Patient also required blood transfusion 08/2023. Hemoglobin stable since then. Effusion has recurred and we will plan to discuss with CT surgery for potential pleurodesis at this time. CT surgery not available playground monitor today. Plan to consult in AM. -Patient also has a small pneumothorax on right side which appears to be present on previous scans that were also done at [facility]. ? Records from [facility] reviewed. They are in the chart. They will be scanned into the computer. Operative note also reviewed and available. Full code DVT prophylaxis: SCDs. Family updated at bedside. Attestations 2 Medical Necessity Statement*: Patient has a pigtail for persistent right pleural effusion- Diagnoses Systolic CHF, acute I50.21 Recurrent right pleural effusion J90 Diabetes mellitus E11.9 Atrial fibrillation with RVR I48.91 Prosthetic aortic valve stenosis T82.857A Chronic obstructive pulmonary disease, unspecified COPD type J44.9 COPD type: unspecified COPD Central obesity E65 Cirrhosis of liver K74.60
[2023-09-03] MEDS: sodium chloride 0.9% 250 ML IV ×2 (17:02→19:26)
[2023-09-03 17:12] LABS: Glucose Point of Care 340 mg/dL (70-110)
[2023-09-03 18:33] LABS: Anion Gap 9.9 (5-19); Blood Urea Nitrogen 28 mg/dL (8-23); Calcium 8.2 mg/dL (8.5-10.5); Carbon Dioxide 38 mmol/L (22-29); Chloride 86 mmol/L (98-107); Glomerular Filtration Rate 40.5 mL/min (90-130); Glucose 302 mg/dL (65-115); Osmolality Calculated 289 mOsm/kg (285-295); Sodium 131 mmol/L (136-145)
[2023-09-03 18:37] LABS: Potassium 2.9 mmol/L (3.5-5.1)
[2023-09-03 21:04] LABS: Glucose Point of Care 297 mg/dL (70-110)
[2023-09-03] MEDS: pantoprazole 40 mg SDV IVP (21:11)
[2023-09-03] MEDS: norepinephrine 4 MG/250 ML BAG 7.5 MG IV (23:17)
[2023-09-03 23:19] LABS: C Reactive Protein 19.6 mg/L (0.0-4.9)
[2023-09-03 23:26] LABS: Procalcitonin 0.18 ng/mL (0-0.5)
[2023-09-04] VITALS (94 sets, daily range): BP systolic 89–142; BP diastolic 45–72; PULSE 72–107; RESP 6–31; TEMP 36.8–37.1; O2SAT 88–100
[2023-09-04] MEDS: HYDROcodone-acetaminophen 5-325 mg Tablet 1 TAB PO ×2 (01:47→18:14)
--- NOTE | 2023-09-04 02:11 | PC.NURSE ---
Addendum entered by GABRIELA Chow 09/04/23 03:32: Levo restarted with new IV access @0300 in Right AC per MAP of 64 Original Note: Pt Levophed paused, MAP 69. Left IV infiltration, nursing attempting New IV access at this time. Will continue to monitor BP
[2023-09-04] MEDS: ipratropium-albuterol 3 mL Neb INHALATION ×4 (03:25→20:28)
[2023-09-04 04:12] LABS: Basophils % 0.8 %; Eosinophils # 0.2 10^3/uL (0.0-0.8); Eosinophils % 4.5 %; Hematocrit 27.1 % (36-47); Lymphocytes # 0.4 10^3/uL (0.8-4.8); Lymphocytes % 11.5 %; Mean Corpuscular Hemoglobin 29.1 pg (27-33); Mean Corpuscular Volume 93.8 fl (85-98); Mean Platelet Volume 9.6 fL (7.4-10.4); Monocytes # 0.4 10^3/uL (0.2-0.9); Monocytes % 10.2 %; Neutrophils % 72.2 %; Nucleated Red Blood Cells % 0 %; Platelet Count 92 10^3/cmm (157-399); Red Blood Count 2.89 10^6/uL (3.85-5.65); White Blood Count 3.74 10^3/uL (3.29-11.43)
[2023-09-04 04:40] LABS: Blood Urea Nitrogen 30 mg/dL (8-23); Carbon Dioxide 38 mmol/L (22-29); Chloride 88 mmol/L (98-107); Glomerular Filtration Rate 37.2 mL/min (90-130); Glucose 255 mg/dL (65-115); Magnesium 1.9 mg/dL (1.7-2.3); Osmolality Calculated 287 mOsm/kg (285-295); Sodium 131 mmol/L (136-145)
--- NOTE | 2023-09-04 08:00 | PC.NURSE ---
Dr Morillo stated pt no longer NPO. Advised nurse to restart diet order.
[2023-09-04] MEDS: budesonide 0.5 mg/2 mL Neb 0.25 MG INHALATION ×2 (08:12→20:28)
[2023-09-04 08:20] LABS: Glucose Point of Care 280 mg/dL (70-110)
--- NOTE | 2023-09-04 08:53 | P.PN_ITS ---
Subjective 2 Subjective: Patient is feeling well. No chest pain Vitals/I&O/Wt Last Vital Signs Temp 98.5 F 09/03/23 21:15 Pulse 88 09/04/23 08:20 Resp 20 H 09/04/23 08:08 BP 108/51 09/04/23 06:00 Pulse Ox 97 09/04/23 08:08 O2 Del Method Nasal Cannula 09/04/23 08:08 O2 Flow Rate 2 09/04/23 08:08 FiO2 3 08/24/23 16:00 09/03/23 09/04/23 09/04/23 22:59 06:59 14:59 Intake Total 700 / 1060 239.125 / 1299.125 Output Total 1050 / 1050 916 / 1966 Balance -350 / 10 -676.875 / -666.875 Physical Exam 2 Narrative: GENERAL: Patient is alert, awake and oriented x3. [] NECK: No jugular vein distension. [] HEENT: No cyanosis. No icterus. No pallor. [] HEART: Regular S1 and S2. No murmur, rub or gallop. [] LUNGS: Diminished air entry. CENTRAL NERVOUS SYSTEM: Grossly nonfocal. [] EXTREMITIES: Lower extremities with 1+ edema bilaterally. Urinary Catheter Management: Begum Latex: Cath Placed During This Visit: yes Reason for Continuing Indwelling Catheter: Accurate Measurement of Urinary Output in Critically Ill Patients Urinary Catheter Date of Insertion: 08/23/23 Urinary Catheter Time of Insertion: 23:53 Data 09/05/23 04:15 09/05/23 04:15 A&P Assessment and plan (1) S/P aortic valve replacement: (2) CHF (congestive heart failure): Qualifiers: Heart failure type: diastolic Heart failure chronicity: chronic Qualified Code(s): I50.32 - Chronic diastolic (congestive) heart failure (3) Exertional dyspnea: (4) Atrial fibrillation with RVR: (5) Diabetes mellitus: Plan Patient continues to diurese. Renal function worsening noted. Will continue with Lasix however urine output decreases or renal function shows significant worsening, may need to slow down. Has moderately elevated gradients across the aortic valve. Will need outpatient workup. ECHO done here does not show severe mitral regurgitation. Strict I and Os. Thank you for involving us with care of this patient. We will continue to follow. Please call with questions. Attestations 2 Medical Necessity Statement*: Care expected to cross 2 midnights. Coding Level of Care Code Acute Code for [facility] Diagnoses S/P aortic valve replacement Z95.2 Chronic diastolic congestive heart failure I50.32 Heart failure type: diastolic Heart failure chronicity: chronic Exertional dyspnea R06.00 Atrial fibrillation with RVR I48.91 Diabetes mellitus E11.9
[2023-09-04] MEDS: atorvastatin 40 mg Tablet PO (10:03)
[2023-09-04] MEDS: digoxin 125 mcg Tablet PO (10:03)
[2023-09-04] MEDS: aspirin 81 mg EC Tablet PO (10:04)
[2023-09-04] MEDS: fluoxetine 10 mg Capsule PO (10:04)
[2023-09-04] MEDS: insulin lispro 100 unit/1 mL SUBCUT ×4 (10:04→20:38)
[2023-09-04] MEDS: insulin glargine 100 units/1 mL 20 UNIT SUBCUT (10:16)
[2023-09-04] MEDS: saline nasal spray 44mL Btl 1 SPRAY NASAL ×3 (10:17→21:45)
[2023-09-04] MEDS: FUROsemide 10 mg/mL SDV 10mL 60 MG IVP ×2 (11:15→21:45)
--- NOTE | 2023-09-04 11:16 | PC.NURSE ---
Informed Dr Guaman of Metoprolol and Cardizem morning meds held d/t parameters. Informed her of pt's BP and verified Lasix dose to be administered. Dr Guaman wishes Lasix 60 mg IVP order to be continued. Med administered per order.
--- NOTE | 2023-09-04 11:19 | P.PN_ITS ---
Subjective 2 Subjective: Discussed course with pulmonology and CT surgery. Attempting to decide the course forward with regards to pleurodesis versus Pleurx catheter. Patient currently on Levophed at 1 katharina. Tachycardic 101 at this time. She has not been getting metoprolol or Cardizem due to low blood pressure. Resuming midodrine today. Medications: Reviewed: Yes Vitals/I&O/Wt Last Vital Signs Temp 98.2 F 09/04/23 07:00 Pulse 101 H 09/04/23 10:03 Resp 31 H 09/04/23 09:30 BP 111/53 09/04/23 09:30 Pulse Ox 100 09/04/23 09:15 O2 Del Method Nasal Cannula 09/04/23 08:08 O2 Flow Rate 2 09/04/23 08:08 FiO2 3 08/24/23 16:00 09/03/23 09/04/23 09/04/23 22:59 06:59 14:59 Intake Total 700 / 1060 239.125 / 1299.125 40.625 / 40.625 Output Total 1050 / 1050 916 / 1966 Balance -350 / 10 -676.875 / -666.875 40.625 / 40.625 Physical Exam 2 Narrative: General: No acute distress, AO x3 HEENT: PERRLA, pupils bilaterally equal and reactive, pallors not present Chest: chest tube in place, sraining serous fluid, blood tinged in pleur vac but clear in tube. CVS: S1-S2 regular, no murmurs, no tachycardia, no gallops, no rubs Abdomen: Soft, nontender, no organomegaly, bowel sounds present Neuro: No focal deficits, no facial deformity, AO x3, power 5/5 in all limbs Extremities: pitting edema B/L LE Urinary Catheter Management: Begum Latex: Cath Placed During This Visit: yes Reason for Continuing Indwelling Catheter: Accurate Measurement of Urinary Output in Critically Ill Patients Urinary Catheter Date of Insertion: 08/23/23 Urinary Catheter Time of Insertion: 23:53 Data 09/04/23 03:17 09/04/23 03:17 A&P Assessment and plan (1) Systolic CHF, acute: (2) Recurrent right pleural effusion: (3) Diabetes mellitus: (4) Atrial fibrillation with RVR: (5) Prosthetic aortic valve stenosis: (6) COPD (chronic obstructive pulmonary disease): Qualifiers: COPD type: unspecified COPD Qualified Code(s): J44.9 - Chronic obstructive pulmonary disease, unspecified (7) Central obesity: (8) Cirrhosis of liver: Plan #Acute hypoxic respiratory failure #Recurrent pleural effusion #Small pneumothorax right side #Secondary to acute on chronic diastolic CHF #Recent CABG at [facility] June 2023 #Bioprosthetic aortic valve in place, history of arctic valve stenosis #History of PE #History of atrial fibrillation, chronically on Eliquis #Chronic anemia #History of liver cirrhosis #Chronic hypoxic respiratory failure on 2 L nasal cannula at home #Thrombocytopenia #Pulmonary hypertension ? Patient had a recent CABG and jeoweeacpohjd-wjcm-pfv graft placement in June 2023 at [facility]. She presented to [facility] for shortness of breath. She does state in the last 2 months she has been hospitalized twice each for 2 weeks since her CABG. She keeps having fluid overload and requires diuresis. He has been told that she has a leaky mitral valve and at some point she will need to have mitral valve surgery in particular MitraClip to be placed. Patient was discharged from [facility] on Sunday, August 20, 2023 but due to continued shortness of breath patient came into our emergency room on the . She is being diuresed aggressively since then. She has been placed on fluid restrictions 1000 daily. She was also found to be in A-fib with RVR initially and required a Cardizem drip which was later de- escalated to Cardizem 30 every 6. She was also on Eliquis 2.5 twice daily however it was held for potential thoracentesis. Thoracentesis was performed on 08/29 2023 which yielded 1 L dark bloody aspirate. It seems it was old blood and not a new bleed. Eliquis was restarted 08/30 2023. Due to recent CABG hemoglobin goal should be above 9. For hemoglobin 8.5 she was ordered a unit of blood on 08/30 2023. BiPAP has been ordered as needed. Pulmonology also was consulted. Cardiology has been consulted as well. Of note patient was also known to have pulmonary embolism diagnosed on 07/29 2023. She is being continued on Eliquis for that as well. Venous Dopplers bilateral lower extremities have ruled out DVT at this time. For her diabetes she has been on low-dose sliding scale insulin. Patient does have known history of liver cirrhosis. She also has thrombocytopenia which is most likely attributed to that at this time. Chest tube placed regarding effusion 08/31/2023. It was clamped for 24 hours later but due to recurring fluid it was unclamped 09/03/1911/18/2023 with immediate drainage of 400 cc. Total drainage so far has been 2 L from chest tube output since placement. Patient also required blood transfusion 08/2023. Hemoglobin stable since then. Effusion has recurred and we will plan to discuss with CT surgery for potential pleurodesis at this time. 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 Plan to consult in AM. Echo obtained this hospitalization: Echocardiogram reviewed. LVEF estimated at 65%, abnormal septal motion consistent with postoperative status from CABG. Mild pulmonary hypertension with RSVP of 41.4. Mildly increased right atrial size. There is severe mitral annular calcification for which patient has been recommended surgery at [place], however at this present time she is unsure if she wants to proceed with surgery. Plan for today 09/03/2023 ? Patient is 9.4 L net negative since admission ? Continue aggressive diuresis Lasix 60 IV 3 times daily,stop metolazone 2.5 daily ? Hypokalemic today. Potassium 3.1. Will order 40 oral x 1. ? Continue to hold Eliquis at this time. I have discussed with the family and they are well aware of why anticoagulation is being held at this time. ? s/p 1 unit blood transfusion 09/01. hb 8.9 today ? Recheck chest x-ray today and tomorrow. ? Continue MARTY stockings ? Stop Cardizem 30 every 6 hours. Switch to 30 every 8 hours with holding parameters of not to be administered if BP less than 100/60. Discussed with RN. Blood pressure slightly soft today. ? Continue digoxin 125 daily ? Thrombocytopenia secondary most likely to liver cirrhosis. ? Discussed with cardiology, nursing staff, at bedside. ? Discussed with pulmonology. Chest tube placed regarding effusion 08/31/2023. It was clamped for 24 hours later but due to recurring fluid it was unclamped 09/03/1911/18/2023 with immediate drainage of 400 cc. Total drainage so far has been 2 L from chest tube output since placement. Patient also required blood transfusion 08/2023. Hemoglobin stable since then. Effusion has recurred and we will plan to discuss with CT surgery for potential pleurodesis at this time. 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 Plan to consult in AM. -Patient also has a small pneumothorax on right side which appears to be present on previous scans that were also done at [facility]. ? Records from [facility] reviewed. They are in the chart. They will be scanned into the computer. Operative note also reviewed and available. Full code DVT prophylaxis: SCDs. Family updated at bedside. Plan for today September 04, 2023. Net -10 L overall. Continues to have chest tube in place. Clear fluid noted in tubing. Mildly blood-tinged fluid in Pleur-evac, however appears to be clearing.. Hemoglobin stable at 8.4. Platelets stable at 92,000. Hypokalemia 3.0 today, supplemented with 40 mEq KCl. Heart rate tachycardia 101 to 110/min today. She has not been getting Cardizem and metoprolol owing to low blood pressures. Currently on Levophed at 1 katharina. Add midodrine 10 mg 3 times daily and attempt to wean off Levophed infusion. Blood pressure allowing would aim to resume beta-blockers first and then add calcium channel blockers if needed. Digoxin 125 mcg to continue. Check dig level in am. Eliquis continues to be on hold as anticipate impending procedure. Resume as needed Xanax. Continue Lasix 60 mg every 12 hours. Monitor urine output and renal function. Increase insulin glargine to 25 units subcutaneously daily from 20 units subcutaneously daily. further course considering pleurodesis vs pleurex Attestations 2 Medical Necessity Statement*: continued admission for reasons above Coding Level of Care Code Acute Code for Chg Fwd High MDM includes number and complexity of problems actively addressed during encounter, amount and/or complexity of data reviewed/ordered and described risk of complication, morbidity or mortality of management as documented Diagnoses Systolic CHF, acute I50.21 Recurrent right pleural effusion J90 Diabetes mellitus E11.9 Atrial fibrillation with RVR I48.91 Prosthetic aortic valve stenosis T82.857A Chronic obstructive pulmonary disease, unspecified COPD type J44.9 COPD type: unspecified COPD Central obesity E65 Cirrhosis of liver K74.60
[2023-09-04 12:17] LABS: Glucose Point of Care 373 mg/dL (70-110)
[2023-09-04] MEDS: potassium chloride ER 20 mEq Tablet 60 MEQ PO (13:19)
[2023-09-04] MEDS: midodrine 5 mg TABLET 10 MG PO ×2 (15:52→20:38)
--- NOTE | 2023-09-04 17:00 | PC.NURSE ---
Dr Guaman notified that pt's Eliquis remains on hold per order and that last administration was 08/24.
[2023-09-04 18:02] LABS: Glucose Point of Care 325 mg/dL (70-110)
--- NOTE | 2023-09-04 18:44 | P.PN_ITS ---
Subjective 2 Subjective: Seen patient at bedside Sitting in recliner-on 2 L supplemental oxygen-mild respiratory distress- appearing weak Overnight started on Levophed [address] surgery about recurrent right pleural effusion post open heart surgery 6 weeks ago-and plan is to place Pleurx catheter as mechanical pleurodesis will be too aggressive and this patient. CT surgery to place Pleurx catheter depending on OR time availability Medications: Reviewed: Yes Vitals/I&O/Wt Last Vital Signs Temp 98.2 F 09/04/23 07:00 Pulse 99 09/04/23 13:20 Resp 16 09/04/23 13:10 BP 114/58 09/04/23 13:00 Pulse Ox 99 09/04/23 13:10 O2 Del Method Nasal Cannula 09/04/23 13:10 O2 Flow Rate 2 09/04/23 13:10 FiO2 3 08/24/23 16:00 09/04/23 09/04/23 09/04/23 06:59 14:59 22:59 Intake Total 239.125 / 1299.125 40.625 / 40.625 Output Total 916 / 1966 Balance -676.875 / -666.875 40.625 / 40.625 Physical Exam 2 Narrative: General: alert, NAD HEENT: conj clear, EOMI, PERRL, mmm, Neck: supple, no meningismus Heme: no cervical LAP Respiratory: Inspection: No visible deformity of the chest wall Palpation: Trachea is mildly deviated to the right, bilateral symmetric expansion Percussion: Bilateral tympanic percussion note both anterior and posteriorly Auscultation: Improved breath sounds on right lower lung zone Cardiovascular: rrr, nl s1s2, no mrg Abdomen: soft, nt, nd, no r/g, bs+ Extremities: pulses +, no edema, no c/c : no CVA tenderness Skin: intact, no rash MSK: no back or neck pain Neurologic: grossly intact Urinary Catheter Management: Begum Latex: Cath Placed During This Visit: yes Reason for Continuing Indwelling Catheter: Accurate Measurement of Urinary Output in Critically Ill Patients Urinary Catheter Date of Insertion: 08/23/23 Urinary Catheter Time of Insertion: 23:53 Data 09/04/23 03:17 09/04/23 03:17 Other Labs: Radiology Impressions Chest CT 08/23/23 20:47 IMPRESSION: 1. [id number] right-sided pleural effusion. Significant atelectatic changes in the right lung base and lingula. 2. Cirrhotic liver. 3. Splenomegaly with the spleen measuring up to 17.2 cm in length. 4. Abdominal ascites partially visualized in the upper abdomen. 5. Recannulated umbilical vein partially visualized consistent with portal hypertension. Chest CTA 08/31/23 14:15 IMPRESSION: 1. Resolution of the previously visualized left lower lobe subsegmental PE. No evidence of new PE within limitations of motion degradation. Within the same pulmonary segment as the previously visualized PE, there is subtle hypoattenuation within a small distal subsegmental branch, favored to be motion related though may reflect residual subsegmental PE. 2. Moderate pulmonary edema with trace bilateral pleural effusions, significantly improved since placement of the right-sided chest tube. The degree of pulmonary edema has worsened since prior. 3. Trace right-sided pneumothorax associated with the indwelling chest tube. 4. Postsurgical changes of the mediastinum status post CABG and aortic valve replacement. There is mediastinal adenopathy, possibly secondary to lymphovascular congestion. Correlation with clinical laboratory findings to exclude a lymphoproliferative process is recommended. The findings were verbally communicated by telephone with Yamileth Dunham at 4:44 PM [employer] DES[employer]INTER on 08/31/2023. The findings were acknowledged and understood. Chest X-Ray 09/03/23 06:32 IMPRESSION: 1. Imaging findings of pulmonary edema with small right pleural effusion. Pneumonia should be excluded clinically. 2. Right-sided chest tube remains in satisfactory position. No pneumothorax. Laboratory Results WBC 3.74 10^3/uL (3.29-11.43) 09/04/23 03:17 RBC 2.89 10^6/uL (3.85-5.65) L 09/04/23 03:17 Hgb 8.40 g/dL (11.27-16.99) L 09/04/23 03:17 Hct 27.1 % (36-47) L 09/04/23 03:17 MCV 93.8 fl (85-98) 09/04/23 03:17 MCH 29.1 pg (27-33) 09/04/23 03:17 MCHC 31.0 g/dL (30-55) 09/04/23 03:17 RDW 18.0 % (12.1-15.1) H 09/04/23 03:17 Plt Count 92 10^3/cmm (157-399) L 09/04/23 03:17 MPV 9.6 fL (7.4-10.4) 09/04/23 03:17 Neut % (Auto) 72.2 % 09/04/23 03:17 Lymph % (Auto) 11.5 % 09/04/23 03:17 [place] % (Auto) 10.2 % 09/04/23 03:17 Eos % (Auto) 4.5 % 09/04/23 03:17 Baso % (Auto) 0.8 % 09/04/23 03:17 Neut # (Auto) 2.70 10^3/uL (1.8-7.7) 09/04/23 03:17 Lymph # (Auto) 0.4 10^3/uL (0.8-4.8) L 09/04/23 03:17 [place] # (Auto) 0.4 10^3/uL (0.2-0.9) 09/04/23 03:17 Eos # (Auto) 0.2 10^3/uL (0.0-0.8) 09/04/23 03:17 Baso # (Auto) 0.0 10^3/uL (0.0-0.1) 09/04/23 03:17 Nucleated RBC % (auto) 0 % 09/04/23 03:17 Total Counted 100 (0-100) 08/29/23 20:33 Atypical Lymphs % Not Reportable 08/29/23 20:33 Segmented Neutrophils 86 % 08/29/23 20:33 Abs Segm Neuts (Man) 3.7 10/cmm (1.6-7.1) 08/29/23 20:33 Band Neutrophils Not Reportable 08/29/23 20:33 Lymphocytes (Manual) 10 % 08/29/23 20:33 Monocytes (Manual) 4.0 % 08/29/23 20:33 Absolute Monocytes 0.2 10^3/cmm (0.1-0.6) 08/29/23 20:33 Eosinophils (Manual) 0 % 08/29/23 20:33 Absolute Eosinophils 0.0 10^3/cmm (0.0-0.7) 08/29/23 20:33 Basophils (Manual) 0.0 % 08/29/23 20:33 Absolute Basophils 0.0 10^3/cmm (0.0-0.2) 08/29/23 20:33 Nucleated RBCs # 0.0 /100WBC 09/04/23 03:17 Differential Comment Yes 08/29/23 08:45 Platelet Estimate Decreased (Normal) L 08/29/23 20:33 Peripher Smr Path Cons Sent for review 08/28/23 03:49 Haptoglobin 36.0 mg/L (30-200) 08/28/23 03:49 PT 17.30 SECONDS (12.1-14.9) H 08/28/23 08:39 INR 1.37 (0.8-1.2) H 08/28/23 08:39 Specimen Type Arterial 08/23/23 17:47 Sample Site Radial, right 08/23/23 17:47 ABG pH 7.52 (7.35-7.45) H 08/23/23 17:47 ABG pCO2 36.6 mmHg (35-45) 08/23/23 17:47 ABG pO2 52.7 mmHg (80.0-100.0) L 08/23/23 17:47 ABG PO2/FiO2 Ratio 0 08/23/23 17:47 ABG HCO3 30.0 mmol/L (22-26) H 08/23/23 17:47 ABG Base Excess 6.8 mmol/L (-2.0-2.0) H 08/23/23 17:47 Elpidio Test Pos 08/23/23 17:47 Hematocrit 27.9 % (37-47) L 08/23/23 17:47 O2 Delivery Device Room air 08/23/23 17:47 FiO2 21.0 % 08/23/23 17:47 Concrete Conveyor Operator ID [place] 08/23/23 17:47 Sodium 131 mmol/L (136-145) L 09/04/23 03:17 Potassium 3.0 mmol/L (3.5-5.1) L 09/04/23 03:17 Chloride 88 mmol/L (98-107) L 09/04/23 03:17 Carbon Dioxide 38 mmol/L (22-29) H 09/04/23 03:17 Anion Gap 8.0 (5-19) 09/04/23 03:17 BUN 30 mg/dL (8-23) H 09/04/23 03:17 Creatinine 1.4 mg/dL (0.5-0.9) H 09/04/23 03:17 GFR Calculation 37.2 mL/min (90-130) L 09/04/23 03:17 Glucose 255 mg/dL (65-115) H 09/04/23 03:17 POC Glucose 365 mg/dL (70-110) H 09/04/23 20:32 Estimat Average Glucose 146 08/24/23 00:26 Hemoglobin A1c 6.7 % (4.0-6.0) H 08/24/23 00:26 Calculated Osmolality 287 mOsm/kg (285-295) 09/04/23 03:17 Lactic Acid 2.5 mmol/L (0.5-2.2) H 08/23/23 17:55 Lactic Acid (Sepsis) 2.8 mmol/L (0.5-2.2) H 08/23/23 22:59 Calcium 8.0 mg/dL (8.5-10.5) L 09/04/23 03:17 Phosphorus 3.5 mg/dL (2.5-4.5) 09/01/23 04:33 Magnesium 1.9 mg/dL (1.7-2.3) 09/04/23 03:17 Iron 36 ug/dL (37-145) L 08/23/23 19:27 TIBC 336 mcg/dl 08/23/23 19:27 % Saturation 10.7 % (20-50) L 08/23/23 19:27 Unsat Iron Binding 300 ug/dL (112-347) 08/23/23 19:27 Ferritin 177 ng/mL (15-150) H 08/23/23 19:27 Total Bilirubin 2.0 mg/dL (0.15-1.2) H 08/29/23 05:39 Direct Bilirubin 0.70 mg/dL (0.00-0.30) H 08/28/23 03:49 Indirect Bilirubin 1.30 08/28/23 03:49 AST 23 U/L (0-32) 08/29/23 05:39 ALT 8 U/L (0-33) 08/29/23 05:39 Alkaline Phosphatase 80 U/L (35-105) 08/29/23 05:39 Lactate Dehydrogenase 286 U/L (135-214) H 08/28/23 03:49 Troponin T Baseline 33 ng/L (0-10) H 08/23/23 17:55 Troponin T 120 Minute 35.07 ng/L (0-10) H 08/23/23 19:27 Delta Troponin T 2.07 ABS# (0-10) 08/23/23 19:27 Troponin T Hi Sens 6Hr 35.89 ng/L (0-10) H 08/24/23 00:26 Troponin T Hi Sens 6Hr Delta 2.89 ng/L (0-12) 08/24/23 00:26 C-Reactive Protein 19.6 mg/L (0.0-4.9) H 09/03/23 17:52 NT-Pro-B Natriuret Pep 2408 pg/mL (0-125) H 08/24/23 00:26 Total Protein 7.0 g/dL (6.6-8.7) 08/29/23 05:39 Albumin 3.0 g/dL (3.5-5.2) L 08/29/23 05:39 Globulin 4.0 g/dL (1.3-4.6) 08/29/23 05:39 Procalcitonin 0.18 ng/mL (0-0.5) 09/03/23 17:52 TSH 1.31 uIU/mL (0.27-4.20) 08/24/23 00:26 Fluid Color Red 08/29/23 08:45 Fluid Appearance Cloudy 08/29/23 08:45 Fluid WBC 211 /uL 08/29/23 08:45 Fluid RBC 202.000 10^3/uL 08/29/23 08:45 Fluid Hematocrit 2.3 % 08/29/23 08:45 Fld Polynuclear WBCs # 0.029 08/29/23 08:45 Fld Polynuclear WBCs % 13.700 % 08/29/23 08:45 Fl Mononucl WBCs #(Auto) 0.182 08/29/23 08:45 Fl Mononuclear % Auto 86.300 % 08/29/23 08:45 Fld Crystal Laterality Right pleural fluid 08/29/23 08:45 Fluid Albumin 1.7 g/dL 08/29/23 08:45 Fluid Creatinine 0.93 (0.5-0.9) H 08/29/23 08:45 Pleural pH 7.00 (6.5-7.5) 08/29/23 08:45 Pleural Total Protein 3.2 g/dL 08/29/23 08:45 Pleural LDH 139 U/L 08/29/23 08:45 Pleural Glucose 198.0 mg/dL 08/29/23 08:45 Pleural Amylase 16.0 U/L 08/29/23 08:45 Pleural Triglycerides 30 mg/dL 08/29/23 08:45 Digoxin 0.6 ng/mL (0.6-1.2) 08/23/23 19:27 Adenovirus (PCR) Not detected (NOT DETECT) 08/23/23 20:42 C. pneumoniae DNA (PCR) Not detected (NOT DETECT) 08/23/23 20:42 Coronavirus 229E (PCR) Not detected (NOT DETECT) 08/23/23 20:42 Human Metapneumovir PCR Not detected (NOT DETECT) 08/23/23 20:42 Influenza A (H1) PCR Not detected (NOT DETECT) 08/23/23 20:42 Influ A (H1/09) PCR Not detected (NOT DETECT) 08/23/23 20:42 Influenza A (H3) PCR Not detected (NOT DETECT) 08/23/23 20:42 Influenza Type A (PCR) Not detected (NOT DETECT) 08/23/23 20:42 Influenza Type B (PCR) Not detected (NOT DETECT) 08/23/23 20:42 M. pneumoniae (PCR) Not detected (NOT DETECT) 08/23/23 20:42 Parainfluenza 1 (PCR) Not detected (NOT DETECT) 08/23/23 20:42 Parainfluenza 2 (PCR) Not detected (NOT DETECT) 08/23/23 20:42 Parainfluenza 3 (PCR) Not detected (NOT DETECT) 08/23/23 20:42 Parainfluenza 4 (PCR) Not detected (NOT DETECT) 08/23/23 20:42 RSV Type A (PCR) Not detected (NOT DETECT) 08/23/23 20:42 RSV Type B (PCR) Not detected (NOT DETECT) 08/23/23 20:42 Entero/Rhino (PCR) Not detected (NOT DETECT) 08/23/23 20:42 SARS-CoV-2 (PCR) Not detected (NOT DETECT) 08/23/23 20:42 Blood Type O Positive 08/30/23 11:16 Rho(D) Type Rh positive 08/30/23 11:16 Antibody Screen Negative 08/30/23 11:16 Crossmatch See Detail 08/30/23 11:16 A&P Assessment and plan (1) Recurrent right pleural effusion: S/p 14 [place] pigtail placement 08/31/2023-drained 1900 cc serosanguineous fluid Clamped chest tube 2 days ago-chest x-ray today morning show gradual recurrence of right pleural effusion despite aggressive diuresis Unclamped chest tube yesterday and she put out [address] surgery about recurrent pleural effusion and plan is to place Pleurx catheter depending on OR time; agree mechanical pleurodesis could be aggressive in this patient (2) COPD (chronic obstructive pulmonary disease): She is on DuoNeb every 6 hours as needed Qualifiers: COPD type: unspecified COPD Qualified Code(s): J44.9 - Chronic obstructive pulmonary disease, unspecified (3) CHF (congestive heart failure): Currently on Lasix 60 Mg every 12- She is net -10.5 L. Hypokalemia-supplemented and monitoring Qualifiers: Heart failure chronicity: chronic Heart failure type: diastolic Qualified Code(s): I50.32 - Chronic diastolic (congestive) heart failure (4) S/P aortic valve replacement: Patient with significant cardiac history with a previous aortic valve replacement in 2017 and recent redo open heart surgery June 2023 at [facility] 08/23/2023-showed severe mitral annular calcification with trace to mild mitral regurgitation. Aortic valve is poorly seen but appeared mild aortic valve stenosis with mean gradient 19.3. The gradient to suggest mild to moderate stenosis Cardiology is following up (5) Atrial fibrillation with RVR: Heart rate is well-controlled held cardizem due to soft bp; Currently she is on metoprolol 25 twice daily digoxin 125 mcg p.o. daily Held Eliquis in view of chest tube; CTA 08/31/2019 for 3 days ago showed resolution of previously visualized left lower lobe subsegmental PE. Attestations 2 Medical Necessity Statement*: Patient has a pigtail for persistent right pleural effusion- Time Spent in Patient Care: Greater than 35 minutes (>than 50% of time spent in counselling and/or direct pt care on unit) . Coding Level of Care Code Acute Code for Chg Fwd Diagnoses Recurrent right pleural effusion J90 Chronic obstructive pulmonary disease, unspecified COPD type J44.9 COPD type: unspecified COPD Chronic diastolic congestive heart failure I50.32 Heart failure chronicity: chronic Heart failure type: diastolic S/P aortic valve replacement Z95.2 Atrial fibrillation with RVR I48.91 Time Spent (min) 43
--- NOTE | 2023-09-04 19:25 | PC.NURSE ---
Nurse clamped chest tube per doctors orders at 19:25 and instructed patient on NPO after midnight status for procedure by in the morning
[2023-09-04 20:34] LABS: Glucose Point of Care 365 mg/dL (70-110)
[2023-09-04] MEDS: metoprolol tartrate 25 mg Tablet PO (20:38)
--- NOTE | 2023-09-04 20:40 | PC.NURSE ---
Dr Morillo called nurse with following orders: Clamp chest tube, NPO after MDNT, Dr Singleton to see in AM. Rama placed computer orders.
[2023-09-04] MEDS: ALPRAZolam 0.5 mg Tablet 0.25 MG PO (21:57)
[2023-09-05] VITALS (95 sets, daily range): BP systolic 77–131; BP diastolic 25–89; PULSE 67–91; RESP 10–26; TEMP 36.6; O2SAT 91–100
--- NOTE | 2023-09-05 00:27 | PC.NURSE ---
Restarted Levo at 0027 due to Map of 60, starting at 2mcg
[2023-09-05 05:17] LABS: Basophils % 0.7 %; Eosinophils # 0.4 10^3/uL (0.0-0.8); Eosinophils % 6.3 %; Hematocrit 28.6 % (36-47); Lymphocytes # 0.6 10^3/uL (0.8-4.8); Lymphocytes % 9.3 %; Mean Corpuscular HGB Conc 31.1 g/dL (30-55); Mean Corpuscular Hemoglobin 28.9 pg (27-33); Mean Corpuscular Volume 92.9 fl (85-98); Mean Platelet Volume 9.4 fL (7.4-10.4); Monocytes # 0.6 10^3/uL (0.2-0.9); Monocytes % 9.5 %; Neutrophils # 4.38 10^3/uL (1.8-7.7); Nucleated Red Blood Cells % 0 %; Platelet Count 137 10^3/cmm (157-399); Red Blood Count 3.08 10^6/uL (3.85-5.65); Red Cell Distribution Width 18.1 % (12.1-15.1)
[2023-09-05 05:52] LABS: Digoxin 1.1 ng/mL (0.6-1.2)
[2023-09-05 06:27] LABS: Alanine Aminotransferase 8 U/L (0-33); Albumin Level 2.9 g/dL (3.5-5.2); Alkaline Phosphatase 75 U/L (35-105); Anion Gap 12.3 (5-19); Aspartate Amino Transferase 27 U/L (0-32); Blood Urea Nitrogen 36 mg/dL (8-23); Calcium 8.6 mg/dL (8.5-10.5); Carbon Dioxide 36 mmol/L (22-29); Chloride 86 mmol/L (98-107); Glomerular Filtration Rate 34.3 mL/min (90-130); Glucose 233 mg/dL (65-115); Osmolality Calculated 288 mOsm/kg (285-295); Potassium 3.3 mmol/L (3.5-5.1); Sodium 131 mmol/L (136-145); Total Bilirubin 2.5 mg/dL (0.15-1.2); Total Protein 6.9 g/dL (6.6-8.7)
--- NOTE | 2023-09-05 07:06 | PM.CONSULT ---
Providers/Reason For Consult Consulting Physician/Specialty*: Dr. Singleton/cardiothoracic surgery Reason for Consult*: Recurrent right pleural effusion Requesting Physician: Dr. Guaman Attending Physician: Irene Guaman MD Primary Care Provider: Ruslan Ward MD History of Present Illness History of Present Illness Nyasia Sultana is a 72 year old female who was admitted on August 23 through our emergency department [facility] for recurring shortness of breath. She is status post bioprosthetic aortic valve replacement through redo surgery in June 2023 at [facility]. She had a somewhat protracted postoperative course as she also underwent aortic root enlargement through a nicks procedure. Postoperative course has been complicated by atrial fibrillation along with a lower lobe pulmonary embolism. She has apparent to mitral valve disease and is being referred to [facility] for evaluation and considered correction of this. Medical history is complicated by COPD and liver cirrhosis. She had a recurrent right pleural effusion following her surgical hospitalization. Patient stated that she has been hospitalized twice since her hospitalization in June, each time for up to 2 weeks at [facility] related to volume overload and need for thoracentesis. Since arrival [facility] is undergoing diuresis as well as thoracentesis x [address] Morillo from our pulmonary service. She currently is a pigtail drain in place which is currently being clamped to determine the rate of effusion recurrence. She did have a transthoracic echo upon admission here at [facility] and is felt that she has severe mitral annular calcification and perhaps some functional mitral stenosis though her valve area by pressure half-time measurement was felt to be normal. Aortic valve is poorly seen with characteristics of her prosthetic valve but a mean gradient of 19.3 mm noted. She is currently resting comfortably in the ICU on 2 L nasal cannula. Review of Systems Const: Reports: fatigue; Denies: fever(s) or chills Card: Reports: irregular heart rhythm, edema, dyspnea on exertion and orthopnea; Denies: chest pain Resp: Reports: dyspnea and non-productive cough GI: Denies: abdominal pain, nausea, vomiting or hematemesis Musc: Reports: back pain Neuro: Denies: headache(s), numbness in extremities or weakness in extremities Rambo/Lymph: Reports: easy bruising Medications/Allergies Home Medications Medication Instructions Recorded Confirmed Last Taken Type multivitamin 1 tab PO DAILY 09/27/19 08/24/23 08/23/23 History lactobacillus combination no.4 3 3,000 mmu cells PO DAILY 07/15/21 08/24/23 08/23/23 History billion cell capsule (Probiotic) oxygen concentrator w/portable #1 ea 03/09/23 08/24/23 Unknown Rx metformin 1,000 mg tablet 1,000 mg PO BID 30 days #60 tabs 05/08/23 08/24/23 08/23/23 Rx nitroglycerin 0.4 mg sublingual 0.4 mg sublingual Q5M PRN chest 05/08/23 08/24/23 Unknown Rx tablet pain #30 tabs omeprazole 20 mg capsule,delayed 20 mg PO DAILY PRN Acid Reflux 05/10/23 08/24/23 08/23/23 History release aspirin 81 mg tablet,delayed 81 mg PO DAILY 07/29/23 08/24/23 08/23/23 History release glipizide 5 mg tablet 5 mg PO BID 07/29/23 08/24/23 08/23/23 History potassium chloride 20 mEq 20 meq PO DAILY 07/29/23 08/24/23 08/23/23 History tablet,extended release albuterol sulfate 90 mcg/actuation 2 puff inhalation Q6H PRN 08/22/23 08/24/23 08/24/23 Rx aerosol inhaler (ProAir HFA) shortness of breath or wheezing #8.5 grams apixaban 2.5 mg tablet (Eliquis) 2.5 mg PO BID 08/22/23 08/24/23 08/23/23 08:00 History atorvastatin 40 mg tablet 40 mg PO DAILY 08/22/23 08/24/23 08/23/23 History cholecalciferol (vitamin D3) 125 125 mcg PO DAILY 08/22/23 08/24/23 08/23/23 History mcg (5,000 unit) capsule citalopram 10 mg tablet 10 mg PO DAILY #30 tabs 08/22/23 08/24/23 08/23/23 Rx digoxin 125 mcg (0.125 mg) tablet 125 mcg PO DAILY #90 tabs 08/22/23 08/24/23 08/23/23 Rx fluticasone 500 mcg-salmeterol 50 1 inh inhalation BID #60 ea 08/22/23 08/24/23 08/23/23 Rx mcg/dose blistr powdr for inhalation (Advair Diskus) furosemide 40 mg tablet 80 mg (2 x 40 mg) PO BID #120 tabs 08/22/23 08/24/23 08/23/23 Rx insulin detemir U-100 100 unit/mL 20 unit (0.2 mL) SUBCUT DAILY #15 08/22/23 08/24/23 08/23/23 Rx (3 mL) subcutaneous pen mL pen needle, diabetic 31 gauge x #100 ea 08/22/23 08/24/23 Unknown Rx 5/16 (TechLITE Pen Needle) midodrine 5 mg tablet 5 mg PO Q8H 08/24/23 08/24/23 Unknown History spironolactone 25 mg tablet 12.5 mg PO DAILY 08/24/23 08/24/23 Unknown History Allergies Allergy/AdvReac Type Severity Reaction Status Date / Time prednisone Allergy ADR/ALGY-Pa Verified 05/18/23 12:10 lpitations Current Medications Generic Name Dose Route Start Last Admin Trade Name Freq PRN Reason Stop Dose Admin Acetaminophen 650 mg 08/23/23 20:58 09/01/23 00:57 Acetaminophen 325 Mg Tablet PO 650 mg Q6H PRN Administration Mild/Mod Pain Or Temp >/= 101 Hydrocodone Bitart/Acetaminophen 1 tab 09/01/23 12:32 09/04/23 18:14 Hydrocodone-Acetaminophen 5-325 Mg Tablet PO 1 tab Q8H PRN Administration MODERATE PAIN Alprazolam 0.25 mg 09/01/23 00:32 09/04/23 21:57 Alprazolam 0.5 Mg Tablet PO 0.25 mg BID PRN Administration ANXIETY Apixaban 2.5 mg 08/24/23 09:00 08/29/23 09:33 Apixaban 5 Mg Tablet PO Not Given BID KAYDEN Aspirin 81 mg 08/24/23 09:00 09/04/23 10:04 Aspirin 81 Mg Ec Tablet PO 81 mg DAILY KAYDEN Administration Atorvastatin Calcium 40 mg 08/24/23 09:00 09/04/23 10:03 Atorvastatin 40 Mg Tablet PO 40 mg DAILY KAYDEN Administration Budesonide 0.25 mg 08/27/23 20:00 09/04/23 20:28 Budesonide 0.5 Mg/2 Ml Neb INHALATION 0.25 mg BID.RESPIRATORY KAYDEN Administration Digoxin 125 mcg 08/24/23 09:00 09/04/23 10:03 Digoxin 125 Mcg Tablet PO 125 mcg DAILY KAYDEN Administration Diltiazem HCl 30 mg 09/03/23 15:00 09/04/23 10:05 Diltiazem 30 Mg Tablet PO Not Given TID KAYDEN Fluoxetine HCl 10 mg 08/25/23 09:00 09/04/23 10:04 Fluoxetine 10 Mg Capsule PO 10 mg DAILY KAYDEN Administration Furosemide 60 mg 09/03/23 22:00 09/04/23 21:45 Furosemide 10 Mg/Ml Sdv 10ml IVP 60 mg Q12H KAYDEN Administration norepinephrine 4 mg in 250 mls @ 0 mls/hr 09/03/23 23:00 09/05/23 00:26 Levophed IV 2 mcg/min .Q0M KAYDEN 7.5 mls/hr Titration Protocol Per Protocol Insulin Human Lispro 0 unit 08/26/23 12:26 09/04/23 20:38 Insulin Lispro 100 Unit/1 Ml SUBCUT 16 unit WM&BEDTIME KAYDEN Administration Protocol Metoprolol Tartrate 25 mg 08/26/23 21:00 09/04/23 20:38 Metoprolol Tartrate 25 Mg Tablet PO 25 mg BID@0900,2100 KAYDEN Administration Midodrine 10 mg 09/04/23 15:00 09/04/23 20:38 Midodrine 5 Mg Tablet PO 10 mg TID KAYDEN Administration Ondansetron HCl 4 mg 08/23/23 20:58 09/02/23 11:24 Ondansetron 2 Mg/Ml Sdv 2 Ml IVP 4 mg Q8H PRN Administration vomiting, or N/V if npo Sodium Chloride 1 spray 08/24/23 15:00 09/04/23 21:45 Saline Nasal [place] 44ml Btl NASAL 1 spray TID KAYDEN Administration PFSH Acute PFSH: Medical History Pulmonary hypertension Foot pain Cirrhosis of liver Diabetes mellitus COPD (chronic obstructive pulmonary disease) Hepatitis C CHF (congestive heart failure) ASHD (arteriosclerotic heart disease) Surgical History H/O bilateral cataract extraction S/P knee surgery S/P aortic valve replacement Family History Mother Diabetes Myocardial infarction Hypertension Father Diabetes Myocardial infarction Hypertension Grandmother Myocardial infarction Cancer Grandfather Myocardial infarction Cancer Other Heart disease Social History Smoking and tobacco/nicotine status: former use of tobacco/nicotine Quit status (tobacco/nicotine): has quit using Year quit tobacco: 1992 2-3-pack per day Former quit date comment: smoked for 30 years Alcohol intake: never Substance/Drug Use: never Lives independently: Yes Household members: spouse and other Details: brother Housing: House Marital status: Number of children: 0 Pets and animals: Yes Pets & animals: cat(s), dog(s) and bird(s) Vitals/I&O/Wt Last Vital Signs Temp 98.8 F 09/04/23 19:50 Pulse 73 09/05/23 05:27 Resp 14 09/05/23 04:00 BP 103/53 09/05/23 04:00 Pulse Ox 98 09/05/23 03:45 O2 Del Method Nasal Cannula 09/05/23 02:30 O2 Flow Rate 2 09/05/23 02:30 FiO2 3 08/24/23 16:00 09/04/23 09/05/23 09/05/23 22:59 06:59 14:59 Intake Total 500 / 740.625 0 / 740.625 Output Total 1134 / 1134 275 / 1409 Balance -634 / -393.375 -275 / -668.375 Physical Exam Const: COMMON NORMALS: patient oriented x3 and alert ORIENTATION/CONSCIOUSNESS: Yes oriented to person, Yes oriented to place and Yes oriented to time HENMT: COMMON NORMALS: normocephalic HEAD & SCALP: normocephalic; no cranial bruits Neck/C-Spine: COMMON NORMALS: full ROM, supple and No carotid bruits GENERAL: Yes trachea midline CERVICAL SPINE: Yes cervical ROM normal Chest: COMMONS NORMALS: normal inspection of the chest and normal palpation of entire chest wall OTHER: Right pleural drain in position Prior sternotomy incision line is intact Resp: COMMON NORMALS: No use of accessory muscles EFFORT & INSPECTION: Yes able to speak in complete sentences and Yes symmetric chest movement AUSCULTATION: diminished lung sounds on the right Cardio: COMMON NORMALS: regular rate, S1 normal heart sound present, No gallops present (Cardio) and No rub (Cardio) RATE: regular rate HEART SOUNDS: S1 normal heart sound present GI: COMMON NORMALS: Normal to inspection, nondistended, normoactive bowel sounds present Extremity: NARRATIVE EXTREMITY EXAM: 1+ lower extremity edema Neuro: COMMON NORMALS: patient oriented x3, no focal motor deficits and no sensory deficits noted SENSORIUM/ORIENTATION: Yes alert, Yes oriented to person, Yes oriented to place and Yes oriented to time Urinary Catheter Management: Begum Latex: Cath Placed During This Visit: yes Reason for Continuing Indwelling Catheter: Accurate Measurement of Urinary Output in Critically Ill Patients Urinary Catheter Date of Insertion: 08/23/23 Urinary Catheter Time of Insertion: 23:53 Data 09/05/23 04:15 09/05/23 04:15 A&P Assessment and plan (1) Recurrent right pleural effusion: I have conferred with my colleague, Dr. Morillo by phone yesterday evening. Given her difficulties with recurrent effusion, I am a bit hesitant to consider formal thoracoscopic pleurodesis at this time and I feel she is substantially deconditioned from her surgery back in June. I believe it may be more prudent to consider a tunneled pleural drain if there is evidence for substantial right pleural effusion recurrence. This will allow for potential outpatient management with a less invasive procedure with hopeful subsequent resolution. If not, allowing for reconditioning I think would be advantageous prior to planning for an elective thoracoscopic pleurodesis. Rationale for this was carefully discussed with Ms. Sultaan and her . They are in agreement. Current operating schedule availability will force allow for consideration for total pleural drain placement on September 07 at 3:30 PM. Consult Attestations Medical Necessity Statement: Recurrent right pleural effusion status post AVR Coding Level of Care Code Acute Code for Chg Fwd Diagnoses Recurrent right pleural effusion J90
[2023-09-05 07:42] LABS: Glucose Point of Care 282 mg/dL (70-110)
[2023-09-05] MEDS: budesonide 0.5 mg/2 mL Neb 0.25 MG INHALATION (08:50)
[2023-09-05] MEDS: insulin lispro 100 unit/1 mL SUBCUT ×4 (09:01→20:44)
[2023-09-05] MEDS: insulin glargine 100 units/1 mL 25 UNIT SUBCUT (09:01)
[2023-09-05] MEDS: midodrine 5 mg TABLET 10 MG PO ×3 (09:02→20:45)
[2023-09-05] MEDS: pantoprazole DR 40 mg Tablet PO (09:02)
[2023-09-05] MEDS: digoxin 125 mcg Tablet PO (09:02)
[2023-09-05] MEDS: aspirin 81 mg EC Tablet PO (09:02)
[2023-09-05] MEDS: fluoxetine 10 mg Capsule PO (09:03)
[2023-09-05] MEDS: atorvastatin 40 mg Tablet PO (09:03)
[2023-09-05] MEDS: FUROsemide 10 mg/mL SDV 10mL 60 MG IVP (09:43)
[2023-09-05] MEDS: metoprolol tartrate 25 mg Tablet PO (09:43)
[2023-09-05] MEDS: saline nasal spray 44mL Btl 1 SPRAY NASAL ×2 (09:44→14:49)
[2023-09-05 11:40] LABS: Glucose Point of Care 300 mg/dL (70-110)
--- NOTE | 2023-09-05 14:14 | P.PN_ITS ---
Subjective 2 Subjective: Patient feeling better. No chest pain. Breathing is better. Vitals/I&O/Wt Last Vital Signs Temp 97.8 F 09/05/23 12:08 Pulse 91 09/05/23 09:15 Resp 17 09/05/23 09:15 BP 121/45 09/05/23 09:15 Pulse Ox 97 09/05/23 09:15 O2 Del Method Nasal Cannula 09/05/23 08:40 O2 Flow Rate 2 09/05/23 08:40 FiO2 3 08/24/23 16:00 09/04/23 09/05/23 09/05/23 22:59 06:59 14:59 Intake Total 500 / 740.625 0 / 740.625 150 / 150 Output Total 1134 / 1134 275 / 1409 Balance -634 / -393.375 -275 / -668.375 150 / 150 Physical Exam 2 Narrative: GENERAL: Patient is alert, awake and oriented x3. [] NECK: No jugular vein distension. [] HEENT: No cyanosis. No icterus. No pallor. [] HEART: Regular S1 and S2. No murmur, rub or gallop. [] LUNGS: Diminished air entry. CENTRAL NERVOUS SYSTEM: Grossly nonfocal. [] EXTREMITIES: Lower extremities with 1+ edema bilaterally. Urinary Catheter Management: Begum Latex: Cath Placed During This Visit: yes Reason for Continuing Indwelling Catheter: Accurate Measurement of Urinary Output in Critically Ill Patients Urinary Catheter Date of Insertion: 08/23/23 Urinary Catheter Time of Insertion: 23:53 Data 09/06/23 04:16 09/06/23 04:16 A&P Assessment and plan (1) S/P aortic valve replacement: (2) CHF (congestive heart failure): Qualifiers: Heart failure type: diastolic Heart failure chronicity: chronic Qualified Code(s): I50.32 - Chronic diastolic (congestive) heart failure (3) Exertional dyspnea: (4) Atrial fibrillation with RVR: (5) Diabetes mellitus: Plan Patient's renal function has worsened. Will recommend getting diuretic therapy. Monitor I&O's. Monitor renal function Thank you for involving us with care of this patient. We will continue to follow. Please call with questions. Attestations 2 Medical Necessity Statement*: Care expected to cross 2 midnights. Coding Level of Care Code Acute Code for Chg Fwd Diagnoses S/P aortic valve replacement Z95.2 Chronic diastolic congestive heart failure I50.32 Heart failure type: diastolic Heart failure chronicity: chronic Exertional dyspnea R06.00 Atrial fibrillation with RVR I48.91 Diabetes mellitus E11.9
--- NOTE | 2023-09-05 14:53 | P.PN_ITS ---
Subjective 2 Subjective: No new complaints. Plan Pleurx placement on in the OR. Creatinine trending up to 1.5 today. Hemoglobin at 8.9. On Levophed at 2 mics currently. Medications: Reviewed: Yes Vitals/I&O/Wt Last Vital Signs Temp 97.8 F 09/05/23 12:08 Pulse 91 09/05/23 09:15 Resp 17 09/05/23 09:15 BP 121/45 09/05/23 09:15 Pulse Ox 97 09/05/23 09:15 O2 Del Method Nasal Cannula 09/05/23 08:40 O2 Flow Rate 2 09/05/23 08:40 FiO2 3 08/24/23 16:00 09/04/23 09/05/23 09/05/23 22:59 06:59 14:59 Intake Total 500 / 740.625 0 / 740.625 150 / 150 Output Total 1134 / 1134 275 / 1409 Balance -634 / -393.375 -275 / -668.375 150 / 150 Physical Exam 2 Narrative: General: No acute distress, AO x3 HEENT: PERRLA, pupils bilaterally equal and reactive, pallors not present Chest: chest tube in place, sraining serous fluid, blood tinged in pleur vac but clear in tube. CVS: S1-S2 regular, no murmurs, no tachycardia, no gallops, no rubs Abdomen: Soft, nontender, no organomegaly, bowel sounds present Neuro: No focal deficits, no facial deformity, AO x3, power 5/5 in all limbs Extremities: pitting edema B/L LE Urinary Catheter Management: Begum Latex: Cath Placed During This Visit: yes Reason for Continuing Indwelling Catheter: Accurate Measurement of Urinary Output in Critically Ill Patients Urinary Catheter Date of Insertion: 08/23/23 Urinary Catheter Time of Insertion: 23:53 Data 09/05/23 04:15 09/05/23 04:15 A&P Assessment and plan (1) Systolic CHF, acute: (2) Recurrent right pleural effusion: (3) Diabetes mellitus: (4) Atrial fibrillation with RVR: (5) Prosthetic aortic valve stenosis: (6) COPD (chronic obstructive pulmonary disease): Qualifiers: COPD type: unspecified COPD Qualified Code(s): J44.9 - Chronic obstructive pulmonary disease, unspecified (7) Central obesity: (8) Cirrhosis of liver: Plan #Acute hypoxic respiratory failure #Recurrent pleural effusion #Small pneumothorax right side #Secondary to acute on chronic diastolic CHF #Recent CABG at [facility] June 2023 #Bioprosthetic aortic valve in place, history of arctic valve stenosis #History of PE #History of atrial fibrillation, chronically on Eliquis #Chronic anemia #History of liver cirrhosis #Chronic hypoxic respiratory failure on 2 L nasal cannula at home #Thrombocytopenia #Pulmonary hypertension ? Patient had a recent CABG and [id number] graft placement in June 2023 at [facility]. She presented to [facility] for shortness of breath. She does state in the last 2 months she has been hospitalized twice each for 2 weeks since her CABG. She keeps having fluid overload and requires diuresis. He has been told that she has a leaky mitral valve and at some point she will need to have mitral valve surgery in particular MitraClip to be placed. Patient was discharged from [facility] on Sunday, August 20, 2023 but due to continued shortness of breath patient came into our emergency room on the . She is being diuresed aggressively since then. She has been placed on fluid restrictions 1000 daily. She was also found to be in A-fib with RVR initially and required a Cardizem drip which was later de- escalated to Cardizem 30 every 6. She was also on Eliquis 2.5 twice daily however it was held for potential thoracentesis. Thoracentesis was performed on 08/29 2023 which yielded 1 L dark bloody aspirate. It seems it was old blood and not a new bleed. Eliquis was restarted 08/30 2023. Due to recent CABG hemoglobin goal should be above 9. For hemoglobin 8.5 she was ordered a unit of blood on 08/30 2023. BiPAP has been ordered as needed. Pulmonology also was consulted. Cardiology has been consulted as well. Of note patient was also known to have pulmonary embolism diagnosed on 07/29 2023. She is being continued on Eliquis for that as well. Venous Dopplers bilateral lower extremities have ruled out DVT at this time. For her diabetes she has been on low-dose sliding scale insulin. Patient does have known history of liver cirrhosis. She also has thrombocytopenia which is most likely attributed to that at this time. Chest tube placed regarding effusion 08/31/2023. It was clamped for 24 hours later but due to recurring fluid it was unclamped 09/03/1911/18/2023 with immediate drainage of 400 cc. Total drainage so far has been 2 L from chest tube output since placement. Patient also required blood transfusion 08/2023. Hemoglobin stable since then. Effusion has recurred and we will plan to discuss with CT surgery for potential pleurodesis at this time. CT surgery not available post tronic machine operator today. Plan to consult in AM. Echo obtained this hospitalization: Echocardiogram reviewed. LVEF estimated at 65%, abnormal septal motion consistent with postoperative status from CABG. Mild pulmonary hypertension with RSVP of 41.4. Mildly increased right atrial size. There is severe mitral annular calcification for which patient has been recommended surgery at [place], however at this present time she is unsure if she wants to proceed with surgery. Plan for today 09/03/2023 ? Patient is 9.4 L net negative since admission ? Continue aggressive diuresis Lasix 60 IV 3 times daily,stop metolazone 2.5 daily ? Hypokalemic today. Potassium 3.1. Will order 40 oral x 1. ? Continue to hold Eliquis at this time. I have discussed with the family and they are well aware of why anticoagulation is being held at this time. ? s/p 1 unit blood transfusion 09/01. hb 8.9 today ? Recheck chest x-ray today and tomorrow. ? Continue MARTY stockings ? Stop Cardizem 30 every 6 hours. Switch to 30 every 8 hours with holding parameters of not to be administered if BP less than 100/60. Discussed with RN. Blood pressure slightly soft today. ? Continue digoxin 125 daily ? Thrombocytopenia secondary most likely to liver cirrhosis. ? Discussed with cardiology, nursing staff, at bedside. ? Discussed with pulmonology. Chest tube placed regarding effusion 08/31/2023. It was clamped for 24 hours later but due to recurring fluid it was unclamped 09/03/1911/18/2023 with immediate drainage of 400 cc. Total drainage so far has been 2 L from chest tube output since placement. Patient also required blood transfusion 08/2023. Hemoglobin stable since then. Effusion has recurred and we will plan to discuss with CT surgery for potential pleurodesis at this time. CT surgery not available post tronic machine operator today. Plan to consult in AM. -Patient also has a small pneumothorax on right side which appears to be present on previous scans that were also done at [facility]. ? Records from [facility] reviewed. They are in the chart. They will be scanned into the computer. Operative note also reviewed and available. Full code DVT prophylaxis: SCDs. Family updated at bedside. Plan for today September 04, 2023. Net -10 L overall. Continues to have chest tube in place. Clear fluid noted in tubing. Mildly blood-tinged fluid in Pleur-evac, however appears to be clearing.. Hemoglobin stable at 8.4. Platelets stable at 92,000. Hypokalemia 3.0 today, supplemented with 40 mEq KCl. Heart rate tachycardia 101 to 110/min today. She has not been getting Cardizem and metoprolol owing to low blood pressures. Currently on Levophed at 1 katharina. Add midodrine 10 mg 3 times daily and attempt to wean off Levophed infusion. Blood pressure allowing would aim to resume beta-blockers first and then add calcium channel blockers if needed. Digoxin 125 mcg to continue. Check dig level in am. Eliquis continues to be on hold as anticipate impending procedure. Resume as needed Xanax. Continue Lasix 60 mg every 12 hours. Monitor urine output and renal function. Increase insulin glargine to 25 units subcutaneously daily from 20 units subcutaneously daily. further course considering pleurodesis vs pleurex Plan for today September 05, 2023. Plan placement of Pleurx catheter on . Continues to be on low-dose Levophed today. Added midodrine 10 mg TID yesterday. Holding evening dose of Lasix today due to creatinine trending up to 1.5. Will closely monitor for clinical response with this change.dig level adequate at 1.1.She did receive metoprolol this morning.Continues to be net negative 10L. DVT ppx: SCDs Full code Attestations 2 Medical Necessity Statement*: continued amdission for diuresis, planned pleurex, weaning off pressors Coding Level of Care Code Acute Code for Chg Fwd Diagnoses Systolic CHF, acute I50.21 Recurrent right pleural effusion J90 Diabetes mellitus E11.9 Atrial fibrillation with RVR I48.91 Prosthetic aortic valve stenosis T82.857A Chronic obstructive pulmonary disease, unspecified COPD type J44.9 COPD type: unspecified COPD Central obesity E65 Cirrhosis of liver K74.60
[2023-09-05 18:05] LABS: Glucose Point of Care 281 mg/dL (70-110)
--- NOTE | 2023-09-05 19:08 | PC.NURSE ---
All charting by Silver Sterling Resident RN, reviewed by this nurse.
[2023-09-05 20:43] LABS: Glucose Point of Care 264 mg/dL (70-110)
--- NOTE | 2023-09-05 20:49 | PM.PN ---
Subjective Subjective: Patient appears comfortably sitting in chair but she is very weak from recurrent hospitalizations and deconditioning Clamped chest tube yesterday 09/04/2022 afternoon-she is on 2 L supplemental oxygen Discussed with CT surgery-regarding reaccumulation in 2 to 3 days postthoracentesis in which case I agree with the plan to place Pleurx catheter rather than pleurodesis which may be too aggressive in this patient Patient and her understands the plan Will repeat chest x-ray tomorrow morning. Medications: Reviewed: Yes Vitals/I&O/Wt Last Vital Signs Temp 97.9 F 09/05/23 17:15 Pulse 71 09/05/23 17:15 Resp 12 09/05/23 17:15 BP 95/46 09/05/23 17:15 Pulse Ox 96 09/05/23 17:15 O2 Del Method Room Air 09/05/23 17:15 O2 Flow Rate 2 09/05/23 08:40 FiO2 3 08/24/23 16:00 09/05/23 09/05/23 09/05/23 06:59 14:59 22:59 Intake Total 0 / 740.625 150 / 150 109.375 / 259.375 Output Total 275 / 1409 600 / 600 Balance -275 / -668.375 150 / 150 -490.625 / -340.625 Physical Exam Narrative: General: alert, NAD HEENT: conj clear, EOMI, PERRL, mmm, Neck: supple, no meningismus Heme: no cervical LAP Respiratory: Inspection: No visible deformity of the chest wall Palpation: Trachea is mildly deviated to the right, bilateral symmetric expansion Percussion: Bilateral tympanic percussion note both anterior and posteriorly Auscultation: Improved breath sounds on right lower lung zone Cardiovascular: rrr, nl s1s2, no mrg Abdomen: soft, nt, nd, no r/g, bs+ Extremities: pulses +, no edema, no c/c : no CVA tenderness Skin: intact, no rash MSK: no back or neck pain Neurologic: grossly intact Urinary Catheter Management: Begum Latex: Cath Placed During This Visit: yes Reason for Continuing Indwelling Catheter: Accurate Measurement of Urinary Output in Critically Ill Patients Urinary Catheter Date of Insertion: 08/23/23 Urinary Catheter Time of Insertion: 23:53 Data 09/06/23 04:16 09/06/23 04:16 Other Labs: Radiology Impressions Chest CT 08/23/23 20:47 IMPRESSION: 1. [id number] right-sided pleural effusion. Significant atelectatic changes in the right lung base and lingula. 2. Cirrhotic liver. 3. Splenomegaly with the spleen measuring up to 17.2 cm in length. 4. Abdominal ascites partially visualized in the upper abdomen. 5. Recannulated umbilical vein partially visualized consistent with portal hypertension. Chest CTA 08/31/23 14:15 IMPRESSION: 1. Resolution of the previously visualized left lower lobe subsegmental PE. No evidence of new PE within limitations of motion degradation. Within the same pulmonary segment as the previously visualized PE, there is subtle hypoattenuation within a small distal subsegmental branch, favored to be motion related though may reflect residual subsegmental PE. 2. Moderate pulmonary edema with trace bilateral pleural effusions, significantly improved since placement of the right-sided chest tube. The degree of pulmonary edema has worsened since prior. 3. Trace right-sided pneumothorax associated with the indwelling chest tube. 4. Postsurgical changes of the mediastinum status post CABG and aortic valve replacement. There is mediastinal adenopathy, possibly secondary to lymphovascular congestion. Correlation with clinical laboratory findings to exclude a lymphoproliferative process is recommended. The findings were verbally communicated by telephone with Yamileth Dunham at 4:44 PM [employer]ING [employer] on 08/31/2023. The findings were acknowledged and understood. Chest X-Ray 09/06/23 06:00 IMPRESSION: No significant change. Laboratory Results WBC 4.69 10^3/uL (3.29-11.43) 09/06/23 04:16 RBC 3.07 10^6/uL (3.85-5.65) L 09/06/23 04:16 Hgb 8.90 g/dL (11.27-16.99) L 09/06/23 04:16 Hct 29.0 % (36-47) L 09/06/23 04:16 MCV 94.5 fl (85-98) 09/06/23 04:16 MCH 29.0 pg (27-33) 09/06/23 04:16 MCHC 30.7 g/dL (30-55) 09/06/23 04:16 RDW 18.6 % (12.1-15.1) H 09/06/23 04:16 Plt Count 121 10^3/cmm (157-399) L 09/06/23 04:16 MPV 9.7 fL (7.4-10.4) 09/06/23 04:16 Neut % (Auto) 67.9 % 09/06/23 04:16 Lymph % (Auto) 14.9 % 09/06/23 04:16 Trinity % (Auto) 10.0 % 09/06/23 04:16 Eos % (Auto) 5.5 % 09/06/23 04:16 Baso % (Auto) 0.6 % 09/06/23 04:16 Neut # (Auto) 3.18 10^3/uL (1.8-7.7) 09/06/23 04:16 Lymph # (Auto) 0.7 10^3/uL (0.8-4.8) L 09/06/23 04:16 Trinity # (Auto) 0.5 10^3/uL (0.2-0.9) 09/06/23 04:16 Eos # (Auto) 0.3 10^3/uL (0.0-0.8) 09/06/23 04:16 Baso # (Auto) 0.0 10^3/uL (0.0-0.1) 09/06/23 04:16 Nucleated RBC % (auto) 0 % 09/06/23 04:16 Total Counted 100 (0-100) 08/29/23 20:33 Atypical Lymphs % Not Reportable 08/29/23 20:33 Segmented Neutrophils 86 % 08/29/23 20:33 Abs Segm Neuts (Man) 3.7 10/cmm (1.6-7.1) 08/29/23 20:33 Band Neutrophils Not Reportable 08/29/23 20:33 Lymphocytes (Manual) 10 % 08/29/23 20:33 Monocytes (Manual) 4.0 % 08/29/23 20:33 Absolute Monocytes 0.2 10^3/cmm (0.1-0.6) 08/29/23 20:33 Eosinophils (Manual) 0 % 08/29/23 20:33 Absolute Eosinophils 0.0 10^3/cmm (0.0-0.7) 08/29/23 20:33 Basophils (Manual) 0.0 % 08/29/23 20:33 Absolute Basophils 0.0 10^3/cmm (0.0-0.2) 08/29/23 20:33 Nucleated RBCs # 0.0 /100WBC 09/06/23 04:16 Differential Comment Yes 08/29/23 08:45 Platelet Estimate Decreased (Normal) L 08/29/23 20:33 Peripher Smr Path Cons Sent for review 08/28/23 03:49 Haptoglobin 36.0 mg/L (30-200) 08/28/23 03:49 PT 17.30 SECONDS (12.1-14.9) H 08/28/23 08:39 INR 1.37 (0.8-1.2) H 08/28/23 08:39 Specimen Type Arterial 08/23/23 17:47 Sample Site Radial, right 08/23/23 17:47 ABG pH 7.52 (7.35-7.45) H 08/23/23 17:47 ABG pCO2 36.6 mmHg (35-45) 08/23/23 17:47 ABG pO2 52.7 mmHg (80.0-100.0) L 08/23/23 17:47 ABG PO2/FiO2 Ratio 0 08/23/23 17:47 ABG HCO3 30.0 mmol/L (22-26) H 08/23/23 17:47 ABG Base Excess 6.8 mmol/L (-2.0-2.0) H 08/23/23 17:47 Elpidio Test Pos 08/23/23 17:47 Hematocrit 27.9 % (37-47) L 08/23/23 17:47 O2 Delivery Device Room air 08/23/23 17:47 FiO2 21.0 % 08/23/23 17:47 Comic Artist ID Dong 08/23/23 17:47 Sodium 131 mmol/L (136-145) L 09/06/23 04:16 Potassium 3.2 mmol/L (3.5-5.1) L 09/06/23 04:16 Chloride 86 mmol/L (98-107) L 09/06/23 04:16 Carbon Dioxide 35 mmol/L (22-29) H 09/06/23 04:16 Anion Gap 13.2 (5-19) 09/06/23 04:16 BUN 38 mg/dL (8-23) H 09/06/23 04:16 Creatinine 1.6 mg/dL (0.5-0.9) H 09/06/23 04:16 GFR Calculation 31.9 mL/min (90-130) L 09/06/23 04:16 Glucose 207 mg/dL (65-115) H 09/06/23 04:16 POC Glucose 257 mg/dL (70-110) H 09/06/23 06:30 Estimat Average Glucose 146 08/24/23 00:26 Hemoglobin A1c 6.7 % (4.0-6.0) H 08/24/23 00:26 Calculated Osmolality 287 mOsm/kg (285-295) 09/06/23 04:16 Lactic Acid 2.5 mmol/L (0.5-2.2) H 08/23/23 17:55 Lactic Acid (Sepsis) 2.8 mmol/L (0.5-2.2) H 08/23/23 22:59 Calcium 8.4 mg/dL (8.5-10.5) L 09/06/23 04:16 Phosphorus 3.5 mg/dL (2.5-4.5) 09/01/23 04:33 Magnesium 1.9 mg/dL (1.7-2.3) 09/04/23 03:17 Iron 36 ug/dL (37-145) L 08/23/23 19:27 TIBC 336 mcg/dl 08/23/23 19:27 % Saturation 10.7 % (20-50) L 08/23/23 19:27 Unsat Iron Binding 300 ug/dL (112-347) 08/23/23 19:27 Ferritin 177 ng/mL (15-150) H 08/23/23 19:27 Total Bilirubin 1.9 mg/dL (0.15-1.2) H 09/06/23 04:16 Direct Bilirubin 0.70 mg/dL (0.00-0.30) H 08/28/23 03:49 Indirect Bilirubin 1.30 08/28/23 03:49 AST 26 U/L (0-32) 09/06/23 04:16 ALT 9 U/L (0-33) 09/06/23 04:16 Alkaline Phosphatase 76 U/L (35-105) 09/06/23 04:16 Lactate Dehydrogenase 286 U/L (135-214) H 08/28/23 03:49 Troponin T Baseline 33 ng/L (0-10) H 08/23/23 17:55 Troponin T 120 Minute 35.07 ng/L (0-10) H 08/23/23 19:27 Delta Troponin T 2.07 ABS# (0-10) 08/23/23 19:27 Troponin T Hi Sens 6Hr 35.89 ng/L (0-10) H 08/24/23 00:26 Troponin T Hi Sens 6Hr Delta 2.89 ng/L (0-12) 08/24/23 00:26 C-Reactive Protein 19.6 mg/L (0.0-4.9) H 09/03/23 17:52 NT-Pro-B Natriuret Pep 2408 pg/mL (0-125) H 08/24/23 00:26 Total Protein 6.9 g/dL (6.6-8.7) 09/06/23 04:16 Albumin 2.9 g/dL (3.5-5.2) L 09/06/23 04:16 Globulin 4.0 g/dL (1.3-4.6) 09/06/23 04:16 Procalcitonin 0.18 ng/mL (0-0.5) 09/03/23 17:52 TSH 1.31 uIU/mL (0.27-4.20) 08/24/23 00:26 Fluid Color Red 08/29/23 08:45 Fluid Appearance Cloudy 08/29/23 08:45 Fluid WBC 211 /uL 08/29/23 08:45 Fluid RBC 202.000 10^3/uL 08/29/23 08:45 Fluid Hematocrit 2.3 % 08/29/23 08:45 Fld Polynuclear WBCs # 0.029 08/29/23 08:45 Fld Polynuclear WBCs % 13.700 % 08/29/23 08:45 Fl Mononucl WBCs #(Auto) 0.182 08/29/23 08:45 Fl Mononuclear % Auto 86.300 % 08/29/23 08:45 Fld Crystal Laterality Right pleural fluid 08/29/23 08:45 Fluid Albumin 1.7 g/dL 08/29/23 08:45 Fluid Creatinine 0.93 (0.5-0.9) H 08/29/23 08:45 Pleural pH 7.00 (6.5-7.5) 08/29/23 08:45 Pleural Total Protein 3.2 g/dL 08/29/23 08:45 Pleural LDH 139 U/L 08/29/23 08:45 Pleural Glucose 198.0 mg/dL 08/29/23 08:45 Pleural Amylase 16.0 U/L 08/29/23 08:45 Pleural Triglycerides 30 mg/dL 08/29/23 08:45 Digoxin 1.1 ng/mL (0.6-1.2) 09/05/23 04:15 Adenovirus (PCR) Not detected (NOT DETECT) 08/23/23 20:42 C. pneumoniae DNA (PCR) Not detected (NOT DETECT) 08/23/23 20:42 Coronavirus 229E (PCR) Not detected (NOT DETECT) 08/23/23 20:42 Human Metapneumovir PCR Not detected (NOT DETECT) 08/23/23 20:42 Influenza A (H1) PCR Not detected (NOT DETECT) 08/23/23 20:42 Influ A (H1/09) PCR Not detected (NOT DETECT) 08/23/23 20:42 Influenza A (H3) PCR Not detected (NOT DETECT) 08/23/23 20:42 Influenza Type A (PCR) Not detected (NOT DETECT) 08/23/23 20:42 Influenza Type B (PCR) Not detected (NOT DETECT) 08/23/23 20:42 M. pneumoniae (PCR) Not detected (NOT DETECT) 08/23/23 20:42 Parainfluenza 1 (PCR) Not detected (NOT DETECT) 08/23/23 20:42 Parainfluenza 2 (PCR) Not detected (NOT DETECT) 08/23/23 20:42 Parainfluenza 3 (PCR) Not detected (NOT DETECT) 08/23/23 20:42 Parainfluenza 4 (PCR) Not detected (NOT DETECT) 08/23/23 20:42 RSV Type A (PCR) Not detected (NOT DETECT) 08/23/23 20:42 RSV Type B (PCR) Not detected (NOT DETECT) 08/23/23 20:42 Entero/Rhino (PCR) Not detected (NOT DETECT) 08/23/23 20:42 SARS-CoV-2 (PCR) Not detected (NOT DETECT) 08/23/23 20:42 Blood Type O Positive 08/30/23 11:16 Rho(D) Type Rh positive 08/30/23 11:16 Antibody Screen Negative 08/30/23 11:16 Crossmatch See Detail 08/30/23 11:16 A&P Assessment and plan (1) Recurrent right pleural effusion: S/p 14 [place] pigtail placement 08/31/2023-drained 1900 cc serosanguineous fluid Clamped chest tube for 2 days-chest x-ray show gradual recurrence of right pleural effusion despite aggressive diuresis Unclamped chest tube for 3 days and she put out about 2000 cc Clamped chest tube yesterday 09/04/2022 afternoon-she is on 2 L supplemental oxygen Discussed with CT surgery-regarding reaccumulation in 2 to 3 days postthoracentesis in which case I agree with the plan to place Pleurx catheter rather than pleurodesis which may be too aggressive in this patient Patient and her understands the plan Will repeat chest x-ray tomorrow morning. (2) COPD (chronic obstructive pulmonary disease): She is on DuoNeb every 6 hours as needed Qualifiers: COPD type: unspecified COPD Qualified Code(s): J44.9 - Chronic obstructive pulmonary disease, unspecified (3) CHF (congestive heart failure): Currently on Lasix 60 Mg every 12- She is net -10.5 L. Hypokalemia-supplemented and monitoring Qualifiers: Heart failure type: diastolic Heart failure chronicity: chronic Qualified Code(s): I50.32 - Chronic diastolic (congestive) heart failure (4) S/P aortic valve replacement: Patient with significant cardiac history with a previous aortic valve replacement in 2017 and recent redo open heart surgery June 2023 at [facility] 08/23/2023-showed severe mitral annular calcification with trace to mild mitral regurgitation. Aortic valve is poorly seen but appeared mild aortic valve stenosis with mean gradient 19.3. The gradient to suggest mild to moderate stenosis Cardiology is following up (5) Atrial fibrillation with RVR: Heart rate is well-controlled held cardizem due to soft bp; Currently she is on metoprolol 25 twice daily digoxin 125 mcg p.o. daily Held Eliquis in view of chest tube; CTA 08/31/2019 for 3 days ago showed resolution of previously visualized left lower lobe subsegmental PE. Attestations Medical Necessity Statement*: Patient has a pigtail for persistent right pleural effusion- Time Spent in Patient Care: Greater than 35 minutes (>than 50% of time spent in counselling and/or direct pt care on unit). Coding Level of Care Code Acute Code for Chg Fwd Diagnoses Recurrent right pleural effusion J90 Chronic obstructive pulmonary disease, unspecified COPD type J44.9 COPD type: unspecified COPD Chronic diastolic congestive heart failure I50.32 Heart failure type: diastolic Heart failure chronicity: chronic S/P aortic valve replacement Z95.2 Atrial fibrillation with RVR I48.91 Time Spent (min) 36
[2023-09-06] VITALS (64 sets, daily range): BP systolic 83–131; BP diastolic 37–66; PULSE 69–143; RESP 0–26; TEMP 36.4; O2SAT 91–100
[2023-09-06 05:06] LABS: Basophils % 0.6 %; Eosinophils # 0.3 10^3/uL (0.0-0.8); Eosinophils % 5.5 %; Lymphocytes # 0.7 10^3/uL (0.8-4.8); Lymphocytes % 14.9 %; Mean Corpuscular HGB Conc 30.7 g/dL (30-55); Mean Corpuscular Volume 94.5 fl (85-98); Mean Platelet Volume 9.7 fL (7.4-10.4); Monocytes # 0.5 10^3/uL (0.2-0.9); Neutrophils # 3.18 10^3/uL (1.8-7.7); Neutrophils % 67.9 %; Nucleated Red Blood Cells % 0 %; Platelet Count 121 10^3/cmm (157-399); Red Blood Count 3.07 10^6/uL (3.85-5.65); Red Cell Distribution Width 18.6 % (12.1-15.1); White Blood Count 4.69 10^3/uL (3.29-11.43)
[2023-09-06 05:34] LABS: Alanine Aminotransferase 9 U/L (0-33); Albumin Level 2.9 g/dL (3.5-5.2); Alkaline Phosphatase 76 U/L (35-105); Anion Gap 13.2 (5-19); Aspartate Amino Transferase 26 U/L (0-32); Blood Urea Nitrogen 38 mg/dL (8-23); Calcium 8.4 mg/dL (8.5-10.5); Carbon Dioxide 35 mmol/L (22-29); Chloride 86 mmol/L (98-107); Glomerular Filtration Rate 31.9 mL/min (90-130); Glucose 207 mg/dL (65-115); Osmolality Calculated 287 mOsm/kg (285-295); Potassium 3.2 mmol/L (3.5-5.1); Sodium 131 mmol/L (136-145); Total Bilirubin 1.9 mg/dL (0.15-1.2); Total Protein 6.9 g/dL (6.6-8.7)
[2023-09-06] MEDS: lanolin oint 7 gm 1 APPLIC TOPICAL (05:34)
--- NOTE | 2023-09-06 06:00 | XRR_ITS ---
PROCEDURE INFORMATION: Exam: XR Chest Exam date and time: 09/06/2023 6:04 AM Age: 72 years old Clinical indication: Device placement; Chest tube; Prior surgery; Surgery date: 6+ months; Surgery type: Openheart; Additional info: Follow up, clamped chest tube TECHNIQUE: Imaging protocol: Radiologic exam of the chest. Views: 1 view. COMPARISON: CR (CHEST, ) 09/03/2023 8:01 AM FINDINGS: Tubes, catheters and devices: Stable right thoracostomy tube. Lungs: Bibasilar infiltrates, right greater than left. Pleural spaces: Unremarkable. No pleural effusion. No pneumothorax. Heart/Mediastinum: Vascular engorgement with interstitial edema, persistent cardiac decompensation. Bones/joints: Median sternotomy. Other findings: No significant change. Right effusion. XR/XR chest 1V portable [id number] IMPRESSION: No significant change.
[2023-09-06 06:37] LABS: Glucose Point of Care 257 mg/dL (70-110)
--- NOTE | 2023-09-06 08:01 | P.MISC_ITS ---
Miscellaneous Note Purpose of Documentation: Morning chest x-ray reviewed. Note: I have reviewed the chest x-ray obtained this morning. There appears to be no substantial change from the prior x-ray of approximately 3 days ago, perhaps slight improvement. Pleural drain has been clamped. I will confer with my hospitalist colleagues and Dr. Morillo concerning need to proceed with tunneled pleural drain tomorrow, given what appears to be the stability of the chest x- ray with her current tube clamped.
[2023-09-06] MEDS: fluoxetine 10 mg Capsule PO (08:12)
[2023-09-06] MEDS: aspirin 81 mg EC Tablet PO (08:12)
[2023-09-06] MEDS: midodrine 5 mg TABLET 10 MG PO ×3 (08:12→21:32)
[2023-09-06] MEDS: pantoprazole DR 40 mg Tablet PO (08:12)
[2023-09-06] MEDS: digoxin 125 mcg Tablet PO (08:12)
[2023-09-06] MEDS: atorvastatin 40 mg Tablet PO (08:13)
[2023-09-06] MEDS: insulin lispro 100 unit/1 mL SUBCUT ×4 (08:13→21:33)
[2023-09-06] MEDS: insulin glargine 100 units/1 mL 25 UNIT SUBCUT (08:13)
[2023-09-06] MEDS: saline nasal spray 44mL Btl 1 SPRAY NASAL ×2 (08:14→22:12)
--- NOTE | 2023-09-06 09:11 | PM.PN ---
Subjective Subjective: Patient is doing well. Vitals/I&O/Wt Last Vital Signs Temp 97.9 F 09/05/23 17:15 Pulse 87 09/06/23 08:12 Resp 16 09/06/23 08:00 BP 85/54 09/06/23 05:00 Pulse Ox 96 09/06/23 08:00 O2 Del Method Nasal Cannula 09/06/23 08:00 O2 Flow Rate 2 09/06/23 08:00 FiO2 3 08/24/23 16:00 09/05/23 09/06/23 09/06/23 22:59 06:59 14:59 Intake Total 109.375 / 259.375 250 / 509.375 Output Total 600 / 600 225 / 825 Balance -490.625 / -340.625 25 / -315.625 Physical Exam Narrative: GENERAL: Patient is alert, awake and oriented x3. [] NECK: No jugular vein distension. [] HEENT: No cyanosis. No icterus. No pallor. [] HEART: Regular S1 and S2. No murmur, rub or gallop. [] LUNGS: Diminished air entry. CENTRAL NERVOUS SYSTEM: Grossly nonfocal. [] EXTREMITIES: Lower extremities with 1+ edema bilaterally. Urinary Catheter Management: Begum Latex: Cath Placed During This Visit: yes Reason for Continuing Indwelling Catheter: Accurate Measurement of Urinary Output in Critically Ill Patients Urinary Catheter Date of Insertion: 08/23/23 Urinary Catheter Time of Insertion: 23:53 Data 09/08/23 04:00 09/08/23 04:00 A&P Assessment and plan (1) S/P aortic valve replacement: (2) CHF (congestive heart failure): Qualifiers: Heart failure type: diastolic Heart failure chronicity: chronic Qualified Code(s): I50.32 - Chronic diastolic (congestive) heart failure (3) Exertional dyspnea: (4) Atrial fibrillation with RVR: (5) Diabetes mellitus: Plan Patient's renal function is stable. Keep holding diuretic therapy. Close I&O's. Chest pain management per pulmonary team and CT surgery Thank you for involving us with care of this patient. Will continue to follow. Please call with questions. Attestations Medical Necessity Statement*: Care expected to cross 2 midnights. Coding Level of Care Code Acute Code for [facility] F[facility] Diagnoses S/P aortic valve replacement Z95.2 Chronic diastolic congestive heart failure I50.32 Heart failure type: diastolic Heart failure chronicity: chronic Exertional dyspnea R06.00 Atrial fibrillation with RVR I48.91 Diabetes mellitus E11.9
--- NOTE | 2023-09-06 09:54 | PC.NURSE ---
Educated patient and family on fluid restriction, care board updated with intake totals. Education also provided on fall risk and dangers of ambulating unattended with chest tube in place. Verbal conformation of understanding of all teachings.
[2023-09-06 12:29] LABS: Glucose Point of Care 233 mg/dL (70-110)
[2023-09-06 12:29] LABS: Glucose Point of Care 338 mg/dL (70-110)
[2023-09-06] MEDS: HYDROcodone-acetaminophen 5-325 mg Tablet 1 TAB PO (14:09)
--- NOTE | 2023-09-06 14:11 | XRR_ITS ---
PROCEDURE INFORMATION: Exam: XR Chest Exam date and time: 09/06/2023 2:40 PM Age: 72 years old Clinical indication: Shortness of breath; Additional info: Suddent onset of pain/ increased breathing TECHNIQUE: Imaging protocol: Radiologic exam of the chest. Views: 1 view. COMPARISON: CR (CHEST, ) 09/06/2023 6:04 AM FINDINGS: Tubes, catheters and devices: Unchanged small bore chest tube right lower pleural space. Lungs: Unchanged pneumonitis and/or atelectasis right lower lung. Otherwise, unremarkable. Pleural spaces: Unchanged small-moderate right pleural effusion. No left pleural effusion or pneumothorax. Heart/Mediastinum: Unchanged mild cardiomegaly. Bones/joints: Unchanged metal sternal sutures. Other findings: Stable surgical changes. XR/XR chest 1V portable [id number] IMPRESSION: 1. Unchanged small-moderate right pleural effusion. 2. Unchanged pneumonitis and/or atelectasis right lower lung. 3. Additional details as above. Unchanged.
--- NOTE | 2023-09-06 14:38 | P.PN_ITS ---
Subjective 2 Subjective: Complains of worsening dyspnea today. States that she is having a harder time breathing today, noted to be more tachypneic. Creatinine at 1.6 today. Urine output is 25 cc. Medications: Reviewed: Yes Vitals/I&O/Wt Last Vital Signs Temp 97.9 F 09/05/23 17:15 Pulse 91 09/06/23 13:00 Resp 19 H 09/06/23 13:00 BP 104/45 09/06/23 13:00 Pulse Ox 93 09/06/23 12:00 O2 Del Method Nasal Cannula 09/06/23 12:00 O2 Flow Rate 2 09/06/23 09:00 FiO2 3 08/24/23 16:00 09/05/23 09/06/23 09/06/23 22:59 06:59 14:59 Intake Total 109.375 / 259.375 250 / 509.375 236 / 236 Output Total 600 / 600 225 / 825 Balance -490.625 / -340.625 25 / -315.625 236 / 236 Physical Exam 2 Narrative: General: No acute distress, AO x3 HEENT: PERRLA, pupils bilaterally equal and reactive, pallors not present Chest: chest tube in place, sraining serous fluid, blood tinged in pleur vac but clear in tube. CVS: S1-S2 regular, no murmurs, no tachycardia, no gallops, no rubs Abdomen: Soft, nontender, no organomegaly, bowel sounds present Neuro: No focal deficits, no facial deformity, AO x3, power 5/5 in all limbs Extremities: pitting edema B/L LE Urinary Catheter Management: Begum Latex: Cath Placed During This Visit: yes Reason for Continuing Indwelling Catheter: Accurate Measurement of Urinary Output in Critically Ill Patients Urinary Catheter Date of Insertion: 08/23/23 Urinary Catheter Time of Insertion: 23:53 Data 09/06/23 04:16 09/06/23 04:16 Micro: Microbiology 09/06/23 05:47 Gram Stain - Final Sputum - Expectorated Sputum A&P Assessment and plan (1) Systolic CHF, acute: (2) Recurrent right pleural effusion: (3) Diabetes mellitus: (4) Atrial fibrillation with RVR: (5) Prosthetic aortic valve stenosis: (6) COPD (chronic obstructive pulmonary disease): Qualifiers: COPD type: unspecified COPD Qualified Code(s): J44.9 - Chronic obstructive pulmonary disease, unspecified (7) Central obesity: (8) Cirrhosis of liver: Plan #Acute hypoxic respiratory failure #Recurrent pleural effusion #Small pneumothorax right side #Secondary to acute on chronic diastolic CHF #Recent CABG at [facility] June 2023 #Bioprosthetic aortic valve in place, history of arctic valve stenosis #History of PE #History of atrial fibrillation, chronically on Eliquis #Chronic anemia #History of liver cirrhosis #Chronic hypoxic respiratory failure on 2 L nasal cannula at home #Thrombocytopenia #Pulmonary hypertension ? Patient had a recent CABG and zlqvxjkthoxbu-eknw-gli graft placement in June 2023 at [facility]. She presented to [facility] for shortness of breath. She does state in the last 2 months she has been hospitalized twice each for 2 weeks since her CABG. She keeps having fluid overload and requires diuresis. He has been told that she has a leaky mitral valve and at some point she will need to have mitral valve surgery in particular MitraClip to be placed. Patient was discharged from [facility] on Sunday, August 20, 2023 but due to continued shortness of breath patient came into our emergency room on the . She is being diuresed aggressively since then. She has been placed on fluid restrictions 1000 daily. She was also found to be in A-fib with RVR initially and required a Cardizem drip which was later de- escalated to Cardizem 30 every 6. She was also on Eliquis 2.5 twice daily however it was held for potential thoracentesis. Thoracentesis was performed on 08/29 2023 which yielded 1 L dark bloody aspirate. It seems it was old blood and not a new bleed. Eliquis was restarted 08/30 2023. Due to recent CABG hemoglobin goal should be above 9. For hemoglobin 8.5 she was ordered a unit of blood on 08/30 2023. BiPAP has been ordered as needed. Pulmonology also was consulted. Cardiology has been consulted as well. Of note patient was also known to have pulmonary embolism diagnosed on 07/29 2023. She is being continued on Eliquis for that as well. Venous Dopplers bilateral lower extremities have ruled out DVT at this time. For her diabetes she has been on low-dose sliding scale insulin. Patient does have known history of liver cirrhosis. She also has thrombocytopenia which is most likely attributed to that at this time. Chest tube placed regarding effusion 08/31/2023. It was clamped for 24 hours later but due to recurring fluid it was unclamped 09/03/1911/18/2023 with immediate drainage of 400 cc. Total drainage so far has been 2 L from chest tube output since placement. Patient also required blood transfusion 08/2023. Hemoglobin stable since then. Effusion has recurred and we will plan to discuss with CT surgery for potential pleurodesis at this time. CT surgery not available director television news today. Plan to consult in AM. Echo obtained this hospitalization: Echocardiogram reviewed. LVEF estimated at 65%, abnormal septal motion consistent with postoperative status from CABG. Mild pulmonary hypertension with RSVP of 41.4. Mildly increased right atrial size. There is severe mitral annular calcification for which patient has been recommended surgery at [place], however at this present time she is unsure if she wants to proceed with surgery. Plan for today 09/03/2023 ? Patient is 9.4 L net negative since admission ? Continue aggressive diuresis Lasix 60 IV 3 times daily,stop metolazone 2.5 daily ? Hypokalemic today. Potassium 3.1. Will order 40 oral x 1. ? Continue to hold Eliquis at this time. I have discussed with the family and they are well aware of why anticoagulation is being held at this time. ? s/p 1 unit blood transfusion 09/01. hb 8.9 today ? Recheck chest x-ray today and tomorrow. ? Continue MARTY stockings ? Stop Cardizem 30 every 6 hours. Switch to 30 every 8 hours with holding parameters of not to be administered if BP less than 100/60. Discussed with RN. Blood pressure slightly soft today. ? Continue digoxin 125 daily ? Thrombocytopenia secondary most likely to liver cirrhosis. ? Discussed with cardiology, nursing staff, at bedside. ? Discussed with pulmonology. Chest tube placed regarding effusion 08/31/2023. It was clamped for 24 hours later but due to recurring fluid it was unclamped 09/03/1911/18/2023 with immediate drainage of 400 cc. Total drainage so far has been 2 L from chest tube output since placement. Patient also required blood transfusion 08/2023. Hemoglobin stable since then. Effusion has recurred and we will plan to discuss with CT surgery for potential pleurodesis at this time. CT surgery not available director television news today. Plan to consult in AM. -Patient also has a small pneumothorax on right side which appears to be present on previous scans that were also done at [facility]. ? Records from [facility] reviewed. They are in the chart. They will be scanned into the computer. Operative note also reviewed and available. Full code DVT prophylaxis: SCDs. Family updated at bedside. Plan for today September 04, 2023. Net -10 L overall. Continues to have chest tube in place. Clear fluid noted in tubing. Mildly blood-tinged fluid in Pleur-evac, however appears to be clearing.. Hemoglobin stable at 8.4. Platelets stable at 92,000. Hypokalemia 3.0 today, supplemented with 40 mEq KCl. Heart rate tachycardia 101 to 110/min today. She has not been getting Cardizem and metoprolol owing to low blood pressures. Currently on Levophed at 1 katharina. Add midodrine 10 mg 3 times daily and attempt to wean off Levophed infusion. Blood pressure allowing would aim to resume beta-blockers first and then add calcium channel blockers if needed. Digoxin 125 mcg to continue. Check dig level in am. Eliquis continues to be on hold as anticipate impending procedure. Resume as needed Xanax. Continue Lasix 60 mg every 12 hours. Monitor urine output and renal function. Increase insulin glargine to 25 units subcutaneously daily from 20 units subcutaneously daily. further course considering pleurodesis vs pleurex Plan for today September 05, 2023. Plan placement of Pleurx catheter on . Continues to be on low-dose Levophed today. Added midodrine 10 mg TID yesterday. Holding evening dose of Lasix today due to creatinine trending up to 1.5. Will closely monitor for clinical response with this change.dig level adequate at 1.1.She did receive metoprolol this morning.Continues to be net negative 10L. DVT ppx: SCDs Full code Plan for today September 06, 2023. Awaiting placement of Pleurx. Chest x-ray shows improved effusion today. Off Levophed now. Continue midodrine. Lasix was held yesterday, patient reports increased dyspnea today and mild crackles on exam bilaterally. More tachypneic in conversation. Low-dose Lasix 20 mg IV x 1 today. Monitor renal function and urine output with the same. Us abdomen to assess for ascites which may potentially be contributing - paracentesis may be helpful if significant fluid noted. NPO post midnight for planned procedure Attestations 2 Medical Necessity Statement*: planned intervention tomorrow Coding Level of Care Code Acute Code for Chg Fwd High MDM includes number and complexity of problems actively addressed during encounter, amount and/or complexity of data reviewed/ordered and described risk of complication, morbidity or mortality of management as documented Diagnoses Systolic CHF, acute I50.21 Recurrent right pleural effusion J90 Diabetes mellitus E11.9 Atrial fibrillation with RVR I48.91 Prosthetic aortic valve stenosis T82.857A Chronic obstructive pulmonary disease, unspecified COPD type J44.9 COPD type: unspecified COPD Central obesity E65 Cirrhosis of liver K74.60
--- NOTE | 2023-09-06 14:39 | US_ITS ---
WS: [id number] INDICATION: Ascites TECHNIQUE: Ultrasound abdomen limited FINDINGS: No visualized ascites or fluid. IMPRESSION: No visualized ascites
[2023-09-06] MEDS: FUROsemide 10 mg/mL SDV 2mL 20 MG IVP (15:00)
[2023-09-06] MEDS: potassium chloride ER 20 mEq Tablet PO (15:00)
[2023-09-06] MEDS: budesonide 0.5 mg/2 mL Neb 0.25 MG INHALATION (20:03)
[2023-09-06 21:32] LABS: Glucose Point of Care 354 mg/dL (70-110)
[2023-09-06 21:32] LABS: Glucose Point of Care 227 mg/dL (70-110)
[2023-09-06] MEDS: metoprolol tartrate 25 mg Tablet PO (21:32)
[2023-09-07] VITALS (28 sets, daily range): BP systolic 92–115; BP diastolic 41–73; PULSE 70–96; RESP 12–28; TEMP 36.3–36.9; O2SAT 91–100
[2023-09-07 05:23] LABS: Basophils % 0.8 %; Eosinophils # 0.3 10^3/uL (0.0-0.8); Eosinophils % 5.2 %; Hematocrit 28.5 % (36-47); Lymphocytes # 0.5 10^3/uL (0.8-4.8); Lymphocytes % 10.8 %; Mean Corpuscular HGB Conc 31.2 g/dL (30-55); Mean Corpuscular Hemoglobin 29.6 pg (27-33); Mean Corpuscular Volume 94.7 fl (85-98); Monocytes # 0.5 10^3/uL (0.2-0.9); Monocytes % 9.8 %; Neutrophils # 3.64 10^3/uL (1.8-7.7); Neutrophils % 72.4 %; Nucleated Red Blood Cells % 0 %; Platelet Count 120 10^3/cmm (157-399); Red Blood Count 3.01 10^6/uL (3.85-5.65); Red Cell Distribution Width 18.6 % (12.1-15.1); White Blood Count 5.02 10^3/uL (3.29-11.43)
[2023-09-07 05:45] LABS: Alanine Aminotransferase 8 U/L (0-33); Albumin Level 2.9 g/dL (3.5-5.2); Alkaline Phosphatase 77 U/L (35-105); Anion Gap 13.4 (5-19); Aspartate Amino Transferase 27 U/L (0-32); Blood Urea Nitrogen 37 mg/dL (8-23); Calcium 8.4 mg/dL (8.5-10.5); Carbon Dioxide 36 mmol/L (22-29); Chloride 89 mmol/L (98-107); Glomerular Filtration Rate 40.5 mL/min (90-130); Glucose 172 mg/dL (65-115); Osmolality Calculated 293 mOsm/kg (285-295); Potassium 3.4 mmol/L (3.5-5.1); Sodium 135 mmol/L (136-145); Total Protein 6.9 g/dL (6.6-8.7)
--- NOTE | 2023-09-07 06:00 | XR_ITS ---
WS: [id number] XR chest 1V portable [id number] REASON FOR EXAM: right pleural effusion FINDINGS: Small bore chest tube in place in the lower right hemithorax position unchanged compared to 09/06/2023. Small pleural effusion and/or pleural thickening lower right hemithorax unchanged compared to 4. Small apical right pneumothorax unchanged compared to 09/06/2023. Continued ill-defined opacities in the right lower lung unchanged compared to 09/06/2023. No other interval change or new finding. IMPRESSION: Stable pleural pleural fluid and/or pleural thickening and small apical pneumothorax. Stable right lower lung opacities.
--- NOTE | 2023-09-07 06:19 | P.PN_ITS ---
Subjective 2 Subjective: Patient was up in chair on rounds this morning. at bedside. Nasal cannula in place. She denies dyspnea, no nursing service reports that usually around 2 AM she will demonstrate some shortness of breath which is improved with diuretic. Abdominal ultrasound has been performed though official report Is not listed as of yet. Vitals/I&O/Wt Last Vital Signs Temp 98.4 F 09/07/23 04:00 Pulse 79 09/07/23 06:00 Resp 14 09/07/23 04:00 BP 94/52 09/07/23 04:00 Pulse Ox 95 09/07/23 04:00 O2 Del Method Nasal Cannula 09/07/23 04:00 O2 Flow Rate 2 09/07/23 04:00 FiO2 3 08/24/23 16:00 09/06/23 09/06/23 09/07/23 14:59 22:59 06:59 Intake Total 236 / 236 240 / 476 Output Total 920 / 920 Balance 236 / 236 240 / 476 -920 / -444 Physical Exam 2 Resp: OTHER: Bibasilar crackles. Pleural drain remains in position though it is currently clamped. Urinary Catheter Management: Begum Latex: Cath Placed During This Visit: yes Reason for Continuing Indwelling Catheter: Accurate Measurement of Urinary Output in Critically Ill Patients Urinary Catheter Date of Insertion: 08/23/23 Urinary Catheter Time of Insertion: 23:53 Data 09/07/23 04:15 09/07/23 04:15 Micro: Microbiology 09/06/23 05:47 Gram Stain - Final Sputum - Expectorated Sputum A&P Assessment and plan (1) Recurrent right pleural effusion: We will await chest x-ray which is scheduled for this morning. Will make final determination at that time as to whether tunneled pleural drain would be of benefit given that she appears to improve after receiving diuretic and most recent chest x-ray was unchanged with pleural drain clamped x 48 hours. We are tentatively scheduled for tunneled pleural drain placement at 3:30 PM today. I will await review of chest x-ray further conversations with Dr. Morillo and our hospitalist colleagues. I discussed tentative plans with Ms. Sultana and her . They state understanding and are in agreement. Attestations 2 Medical Necessity Statement*: Acute recurrent pleural effusion status post AVR 2 months ago. Coding Level of Care Code Acute Code for Chg Fwd Diagnoses Recurrent right pleural effusion J90
[2023-09-07 07:23] LABS: Glucose Point of Care 208 mg/dL (70-110)
[2023-09-07] MEDS: budesonide 0.5 mg/2 mL Neb 0.25 MG INHALATION ×2 (08:12→19:45)
[2023-09-07] MEDS: atorvastatin 40 mg Tablet PO (08:24)
[2023-09-07] MEDS: aspirin 81 mg EC Tablet PO (08:24)
[2023-09-07] MEDS: digoxin 125 mcg Tablet PO (08:24)
[2023-09-07] MEDS: fluoxetine 10 mg Capsule PO (08:24)
[2023-09-07] MEDS: insulin lispro 100 unit/1 mL SUBCUT ×4 (08:24→21:00)
[2023-09-07] MEDS: pantoprazole DR 40 mg Tablet PO (08:25)
[2023-09-07] MEDS: metoprolol tartrate 25 mg Tablet PO ×2 (08:25→21:00)
[2023-09-07] MEDS: midodrine 5 mg TABLET 10 MG PO ×3 (08:25→20:59)
[2023-09-07] MEDS: insulin glargine 100 units/1 mL 25 UNIT SUBCUT (08:27)
--- NOTE | 2023-09-07 09:29 | PC.NURSE ---
Dr. Morillo at bedside this AM, plan to unclamp Chest tube and for HCP to remove this afternoon
--- NOTE | 2023-09-07 10:22 | PC.NURSE ---
Chest tube placed to suction per Dr. Morillo
[2023-09-07 11:11] LABS: Glucose Point of Care 258 mg/dL (70-110)
[2023-09-07] MEDS: ceFAZolin 2,000 MG in sodium chloride 0.9% (plus) 50 ML 100 MG IV (14:41)
[2023-09-07] MEDS: saline nasal spray 44mL Btl 1 SPRAY NASAL ×2 (14:41→21:01)
--- NOTE | 2023-09-07 15:12 | PM.PN ---
Subjective Subjective: Patient's right-sided effusion remains resolved for now. Plan is to unclamp the chest tube today. Drained any remaining fluid and discontinue the chest tube. It is likely that she does not need a Pleurx catheter at this time. Hemoglobin stable. Kidney function is improving. She reports waking up dyspneic at around 2 AM last night. Medications: Reviewed: Yes Vitals/I&O/Wt Last Vital Signs Temp 98.4 F 09/07/23 04:00 Pulse 79 09/07/23 13:00 Resp 19 H 09/07/23 13:00 BP 96/51 09/07/23 13:00 Pulse Ox 99 09/07/23 12:00 O2 Del Method Nasal Cannula 09/07/23 08:13 O2 Flow Rate 2 09/07/23 08:13 FiO2 3 08/24/23 16:00 09/07/23 09/07/23 09/07/23 06:59 14:59 22:59 Intake Total 420 / 420 Output Total 920 / 920 Balance -920 / -444 420 / 420 Physical Exam Narrative: General: No acute distress, AO x3 HEENT: PERRLA, pupils bilaterally equal and reactive, pallors not present Chest: chest tube in place, sraining serous fluid, blood tinged in pleur vac but clear in tube. CVS: S1-S2 regular, no murmurs, no tachycardia, no gallops, no rubs Abdomen: Soft, nontender, no organomegaly, bowel sounds present Neuro: No focal deficits, no facial deformity, AO x3, power 5/5 in all limbs Extremities: pitting edema B/L LE Urinary Catheter Management: Begum Latex: Cath Placed During This Visit: yes Reason for Continuing Indwelling Catheter: Accurate Measurement of Urinary Output in Critically Ill Patients Urinary Catheter Date of Insertion: 08/23/23 Urinary Catheter Time of Insertion: 23:53 Data 09/07/23 04:15 09/07/23 04:15 Micro: Microbiology 09/06/23 05:47 Gram Stain - Final Sputum - Expectorated Sputum A&P Assessment and plan (1) Systolic CHF, acute: (2) Recurrent right pleural effusion: (3) Diabetes mellitus: (4) Atrial fibrillation with RVR: (5) Prosthetic aortic valve stenosis: (6) COPD (chronic obstructive pulmonary disease): Qualifiers: COPD type: unspecified COPD Qualified Code(s): J44.9 - Chronic obstructive pulmonary disease, unspecified (7) Central obesity: (8) Cirrhosis of liver: Plan #Acute hypoxic respiratory failure #Recurrent pleural effusion #Small pneumothorax right side #Secondary to acute on chronic diastolic CHF #Recent CABG at [facility] June 2023 #Bioprosthetic aortic valve in place, history of arctic valve stenosis #History of PE #History of atrial fibrillation, chronically on Eliquis #Chronic anemia #History of liver cirrhosis #Chronic hypoxic respiratory failure on 2 L nasal cannula at home #Thrombocytopenia #Pulmonary hypertension ? Patient had a recent CABG and wglsnprmphqwq-jkwa-rji graft placement in June 2023 at [facility]. She presented to [facility] for shortness of breath. She does state in the last 2 months she has been hospitalized twice each for 2 weeks since her CABG. She keeps having fluid overload and requires diuresis. He has been told that she has a leaky mitral valve and at some point she will need to have mitral valve surgery in particular MitraClip to be placed. Patient was discharged from [facility] on Sunday, August 20, 2023 but due to continued shortness of breath patient came into our emergency room on the . She is being diuresed aggressively since then. She has been placed on fluid restrictions 1000 daily. She was also found to be in A-fib with RVR initially and required a Cardizem drip which was later de-escalated to Cardizem 30 every 6. She was also on Eliquis 2.5 twice daily however it was held for potential thoracentesis. Thoracentesis was performed on 08/29 2023 which yielded 1 L dark bloody aspirate. It seems it was old blood and not a new bleed. Eliquis was restarted 08/30 2023. Due to recent CABG hemoglobin goal should be above 9. For hemoglobin 8.5 she was ordered a unit of blood on 08/30 2023. BiPAP has been ordered as needed. Pulmonology also was consulted. Cardiology has been consulted as well. Of note patient was also known to have pulmonary embolism diagnosed on 07/29 2023. She is being continued on Eliquis for that as well. Venous Dopplers bilateral lower extremities have ruled out DVT at this time. For her diabetes she has been on low-dose sliding scale insulin. Patient does have known history of liver cirrhosis. She also has thrombocytopenia which is most likely attributed to that at this time. Chest tube placed regarding effusion 08/31/2023. It was clamped for 24 hours later but due to recurring fluid it was unclamped 09/03/1911/18/2023 with immediate drainage of 400 cc. Total drainage so far has been 2 L from chest tube output since placement. Patient also required blood transfusion 08/2023. Hemoglobin stable since then. Effusion has recurred and we will plan to discuss with CT surgery for potential pleurodesis at this time. CT surgery not available head of conservation today. Plan to consult in AM. Echo obtained this hospitalization: Echocardiogram reviewed. LVEF estimated at 65%, abnormal septal motion consistent with postoperative status from CABG. Mild pulmonary hypertension with RSVP of 41.4. Mildly increased right atrial size. There is severe mitral annular calcification for which patient has been recommended surgery at [place], however at this present time she is unsure if she wants to proceed with surgery. Plan for today 09/03/2023 ? Patient is 9.4 L net negative since admission ? Continue aggressive diuresis Lasix 60 IV 3 times daily,stop metolazone 2.5 daily ? Hypokalemic today. Potassium 3.1. Will order 40 oral x 1. ? Continue to hold Eliquis at this time. I have discussed with the family and they are well aware of why anticoagulation is being held at this time. ? s/p 1 unit blood transfusion 09/01. hb 8.9 today ? Recheck chest x-ray today and tomorrow. ? Continue MARTY stockings ? Stop Cardizem 30 every 6 hours. Switch to 30 every 8 hours with holding parameters of not to be administered if BP less than 100/60. Discussed with RN. Blood pressure slightly soft today. ? Continue digoxin 125 daily ? Thrombocytopenia secondary most likely to liver cirrhosis. ? Discussed with cardiology, nursing staff, at bedside. ? Discussed with pulmonology. Chest tube placed regarding effusion 08/31/2023. It was clamped for 24 hours later but due to recurring fluid it was unclamped 09/03/1911/18/2023 with immediate drainage of 400 cc. Total drainage so far has been 2 L from chest tube output since placement. Patient also required blood transfusion 08/2023. Hemoglobin stable since then. Effusion has recurred and we will plan to discuss with CT surgery for potential pleurodesis at this time. CT surgery not available head of conservation today. Plan to consult in AM. -Patient also has a small pneumothorax on right side which appears to be present on previous scans that were also done at [facility]. ? Records from [facility] reviewed. They are in the chart. They will be scanned into the computer. Operative note also reviewed and available. Full code DVT prophylaxis: SCDs. Family updated at bedside. Plan for today September 04, 2023. Net -10 L overall. Continues to have chest tube in place. Clear fluid noted in tubing. Mildly blood-tinged fluid in Pleur-evac, however appears to be clearing.. Hemoglobin stable at 8.4. Platelets stable at 92,000. Hypokalemia 3.0 today, supplemented with 40 mEq KCl. Heart rate tachycardia 101 to 110/min today. She has not been getting Cardizem and metoprolol owing to low blood pressures. Currently on Levophed at 1 katharina. Add midodrine 10 mg 3 times daily and attempt to wean off Levophed infusion. Blood pressure allowing would aim to resume beta-blockers first and then add calcium channel blockers if needed. Digoxin 125 mcg to continue. Check dig level in am. Eliquis continues to be on hold as anticipate impending procedure. Resume as needed Xanax. Continue Lasix 60 mg every 12 hours. Monitor urine output and renal function. Increase insulin glargine to 25 units subcutaneously daily from 20 units subcutaneously daily. further course considering pleurodesis vs pleurex Plan for today September 05, 2023. Plan placement of Pleurx catheter on . Continues to be on low-dose Levophed today. Added midodrine 10 mg TID yesterday. Holding evening dose of Lasix today due to creatinine trending up to 1.5. Will closely monitor for clinical response with this change.dig level adequate at 1.1.She did receive metoprolol this morning.Continues to be net negative 10L. DVT ppx: SCDs Full code Plan for today September 06, 2023. Awaiting placement of Pleurx. Chest x-ray shows improved effusion today. Off Levophed now. Continue midodrine. Lasix was held yesterday, patient reports increased dyspnea today and mild crackles on exam bilaterally. More tachypneic in conversation. Low-dose Lasix 20 mg IV x 1 today. Monitor renal function and urine output with the same. Us abdomen to assess for ascites which may potentially be contributing - paracentesis may be helpful if significant fluid noted. NPO post midnight for planned procedure Plan for today September 07, 2023. Pleurx catheter deferred for now as her effusion appears to be resolved. Chest tube to be discontinued later this afternoon. Kidney function is improving with creatinine at 1.3 today. Continue midodrine. Lasix 20 mg IV x 1 today since reported being dyspneic overnight. No crackles on exam, lungs do appear to be clear today. DC Begum catheter in anticipation of discharge likely in the upcoming 24 hours. Ultrasound of the abdomen was completed yesterday, no ascites was visualized. No role for paracentesis. Blood pressure soft, however MAP maintained greater than 65. Resume Eliquis 2.5 mg twice daily Attestations Medical Necessity Statement*: Plan removal of chest tube, Begum catheter today. Lasix 20 mg IV x 1. Chest x-ray tomorrow morning. Anticipate discharge in the upcoming 24 hours if continues to do well. Coding Level of Care Code Acute Code for Chg Fwd Diagnoses Systolic CHF, acute I50.21 Recurrent right pleural effusion J90 Diabetes mellitus E11.9 Atrial fibrillation with RVR I48.91 Prosthetic aortic valve stenosis T82.857A Chronic obstructive pulmonary disease, unspecified COPD type J44.9 COPD type: unspecified COPD Central obesity E65 Cirrhosis of liver K74.60
[2023-09-07 17:03] LABS: Glucose Point of Care 290 mg/dL (70-110)
--- NOTE | 2023-09-07 17:23 | PC.NURSE ---
Dr. Morillo pulled Chest tube, order to hold 1800 Eliquis until 2100. 1500 lasix and potassium one time orders adjusted to after procedure
--- NOTE | 2023-09-07 18:06 | P.PN_ITS ---
Subjective 2 Subjective: Seen patient at bedside Chest x-ray today morning remained stable with minimal pleural effusion -despite clamping chest tube more than 48 hours ago At this point of time-patient may not require Pleurx catheter-discussed with CT surgery and agree with the plan Unclamp chest tube-she put out about 350 cc and it was removed Patient can be discharged home from pulmonary standpoint. Informed patient that if she becomes dyspneic she needs to return to ER and if there is recurrence of pleural effusion-then at that point we will place a Pleurx catheter Medications: Reviewed: Yes Vitals/I&O/Wt Last Vital Signs Temp 98.4 F 09/07/23 04:00 Pulse 79 09/07/23 13:00 Resp 19 H 09/07/23 13:00 BP 96/51 09/07/23 13:00 Pulse Ox 99 09/07/23 12:00 O2 Del Method Nasal Cannula 09/07/23 08:13 O2 Flow Rate 2 09/07/23 08:13 FiO2 3 08/24/23 16:00 09/07/23 09/07/23 09/07/23 06:59 14:59 22:59 Intake Total 420 / 420 Output Total 920 / 920 Balance -920 / -444 420 / 420 Physical Exam 2 Narrative: General: alert, NAD HEENT: conj clear, EOMI, PERRL, mmm, Neck: supple, no meningismus Heme: no cervical LAP Respiratory: Inspection: No visible deformity of the chest wall Palpation: Trachea is mildly deviated to the right, bilateral symmetric expansion Percussion: Bilateral tympanic percussion note both anterior and posteriorly Auscultation: Improved breath sounds on right lower lung zone Cardiovascular: rrr, nl s1s2, no mrg Abdomen: soft, nt, nd, no r/g, bs+ Extremities: pulses +, no edema, no c/c : no CVA tenderness Skin: intact, no rash MSK: no back or neck pain Neurologic: grossly intact Urinary Catheter Management: Begum Latex: Cath Placed During This Visit: yes Reason for Continuing Indwelling Catheter: Accurate Measurement of Urinary Output in Critically Ill Patients Urinary Catheter Date of Insertion: 08/23/23 Urinary Catheter Time of Insertion: 23:53 Data 09/07/23 04:15 09/07/23 04:15 Other Labs: Radiology Impressions Chest CT 08/23/23 20:47 IMPRESSION: 1. [id number] right-sided pleural effusion. Significant atelectatic changes in the right lung base and lingula. 2. Cirrhotic liver. 3. Splenomegaly with the spleen measuring up to 17.2 cm in length. 4. Abdominal ascites partially visualized in the upper abdomen. 5. Recannulated umbilical vein partially visualized consistent with portal hypertension. Chest CTA 08/31/23 14:15 IMPRESSION: 1. Resolution of the previously visualized left lower lobe subsegmental PE. No evidence of new PE within limitations of motion degradation. Within the same pulmonary segment as the previously visualized PE, there is subtle hypoattenuation within a small distal subsegmental branch, favored to be motion related though may reflect residual subsegmental PE. 2. Moderate pulmonary edema with trace bilateral pleural effusions, significantly improved since placement of the right-sided chest tube. The degree of pulmonary edema has worsened since prior. 3. Trace right-sided pneumothorax associated with the indwelling chest tube. 4. Postsurgical changes of the mediastinum status post CABG and aortic valve replacement. There is mediastinal adenopathy, possibly secondary to lymphovascular congestion. Correlation with clinical laboratory findings to exclude a lymphoproliferative process is recommended. The findings were verbally communicated by telephone with Yamileth Dunham at 4:44 PM [employer] on 08/31/2023. The findings were acknowledged and understood. Laboratory Results WBC 5.02 10^3/uL (3.29-11.43) 09/07/23 04:15 RBC 3.01 10^6/uL (3.85-5.65) L 09/07/23 04:15 Hgb 8.90 g/dL (11.27-16.99) L 09/07/23 04:15 Hct 28.5 % (36-47) L 09/07/23 04:15 MCV 94.7 fl (85-98) 09/07/23 04:15 MCH 29.6 pg (27-33) 09/07/23 04:15 MCHC 31.2 g/dL (30-55) 09/07/23 04:15 RDW 18.6 % (12.1-15.1) H 09/07/23 04:15 Plt Count 120 10^3/cmm (157-399) L 09/07/23 04:15 MPV 9.0 fL (7.4-10.4) 09/07/23 04:15 Neut % (Auto) 72.4 % 09/07/23 04:15 Lymph % (Auto) 10.8 % 09/07/23 04:15 [place] % (Auto) 9.8 % 09/07/23 04:15 Eos % (Auto) 5.2 % 09/07/23 04:15 Baso % (Auto) 0.8 % 09/07/23 04:15 Neut # (Auto) 3.64 10^3/uL (1.8-7.7) 09/07/23 04:15 Lymph # (Auto) 0.5 10^3/uL (0.8-4.8) L 09/07/23 04:15 [place] # (Auto) 0.5 10^3/uL (0.2-0.9) 09/07/23 04:15 Eos # (Auto) 0.3 10^3/uL (0.0-0.8) 09/07/23 04:15 Baso # (Auto) 0.0 10^3/uL (0.0-0.1) 09/07/23 04:15 Nucleated RBC % (auto) 0 % 09/07/23 04:15 Total Counted 100 (0-100) 08/29/23 20:33 Atypical Lymphs % Not Reportable 08/29/23 20:33 Segmented Neutrophils 86 % 08/29/23 20:33 Abs Segm Neuts (Man) 3.7 10/cmm (1.6-7.1) 08/29/23 20:33 Band Neutrophils Not Reportable 08/29/23 20:33 Lymphocytes (Manual) 10 % 08/29/23 20:33 Monocytes (Manual) 4.0 % 08/29/23 20:33 Absolute Monocytes 0.2 10^3/cmm (0.1-0.6) 08/29/23 20:33 Eosinophils (Manual) 0 % 08/29/23 20: Absolute Eosinophils 0.0 10^3/cmm (0.0-0.7) 08/29/23 20:33 Basophils (Manual) 0.0 % 08/29/23 20: Absolute Basophils 0.0 10^3/cmm (0.0-0.2) 08/29/23 20:33 Nucleated RBCs # 0.0 /100WBC 09/07/23 04:15 Differential Comment Yes 08/29/23 08:45 Platelet Estimate Decreased (Normal) L 08/29/23 20:33 Peripher Smr Path Cons Sent for review 08/28/23 03:49 Haptoglobin 36.0 mg/L (30-200) 08/28/23 03:49 PT 17.30 SECONDS (12.1-14.9) H 08/28/23 08:39 INR 1.37 (0.8-1.2) H 08/28/23 08:39 Specimen Type Arterial 08/23/23 17:47 Sample Site Radial, right 08/23/23 17:47 ABG pH 7.52 (7.35-7.45) H 08/23/23 17:47 ABG pCO2 36.6 mmHg (35-45) 08/23/23 17:47 ABG pO2 52.7 mmHg (80.0-100.0) L 08/23/23 17:47 ABG PO2/FiO2 Ratio 0 08/23/23 17:47 ABG HCO3 30.0 mmol/L (22-26) H 08/23/23 17:47 ABG Base Excess 6.8 mmol/L (-2.0-2.0) H 08/23/23 17:47 Elpidio Test Pos 08/23/23 17:47 Hematocrit 27.9 % (37-47) L 08/23/23 17:47 O2 Delivery Device Room air 08/23/23 17:47 FiO2 21.0 % 08/23/23 17:47 Clinical Reimbursement Specialist ID Dong 08/23/23 17:47 Sodium 135 mmol/L (136-145) L 09/07/23 04:15 Potassium 3.4 mmol/L (3.5-5.1) L 09/07/23 04:15 Chloride 89 mmol/L (98-107) L 09/07/23 04:15 Carbon Dioxide 36 mmol/L (22-29) H 09/07/23 04:15 Anion Gap 13.4 (5-19) 09/07/23 04:15 BUN 37 mg/dL (8-23) H 09/07/23 04:15 Creatinine 1.3 mg/dL (0.5-0.9) H 09/07/23 04:15 GFR Calculation 40.5 mL/min (90-130) L 09/07/23 04:15 Glucose 172 mg/dL (65-115) H 09/07/23 04:15 POC Glucose 290 mg/dL (70-110) H 09/07/23 17:00 Estimat Average Glucose 146 08/24/23 00:26 Hemoglobin A1c 6.7 % (4.0-6.0) H 08/24/23 00:26 Calculated Osmolality 293 mOsm/kg (285-295) 09/07/23 04:15 Lactic Acid 2.5 mmol/L (0.5-2.2) H 08/23/23 17:55 Lactic Acid (Sepsis) 2.8 mmol/L (0.5-2.2) H 08/23/23 22:59 Calcium 8.4 mg/dL (8.5-10.5) L 09/07/23 04:15 Phosphorus 3.5 mg/dL (2.5-4.5) 09/01/23 04:33 Magnesium 1.9 mg/dL (1.7-2.3) 09/04/23 03:17 Iron 36 ug/dL (37-145) L 08/23/23 19:27 TIBC 336 mcg/dl 08/23/23 19:27 % Saturation 10.7 % (20-50) L 08/23/23 19:27 Unsat Iron Binding 300 ug/dL (112-347) 08/23/23 19:27 Ferritin 177 ng/mL (15-150) H 08/23/23 19:27 Total Bilirubin 2.0 mg/dL (0.15-1.2) H 09/07/23 04:15 Direct Bilirubin 0.70 mg/dL (0.00-0.30) H 08/28/23 03:49 Indirect Bilirubin 1.30 08/28/23 03:49 AST 27 U/L (0-32) 09/07/23 04:15 ALT 8 U/L (0-33) 09/07/23 04:15 Alkaline Phosphatase 77 U/L (35-105) 09/07/23 04:15 Lactate Dehydrogenase 286 U/L (135-214) H 08/28/23 03:49 Troponin T Baseline 33 ng/L (0-10) H 08/23/23 17:55 Troponin T 120 Minute 35.07 ng/L (0-10) H 08/23/23 19:27 Delta Troponin T 2.07 ABS# (0-10) 08/23/23 19:27 Troponin T Hi Sens 6Hr 35.89 ng/L (0-10) H 08/24/23 00:26 Troponin T Hi Sens 6Hr Delta 2.89 ng/L (0-12) 08/24/23 00:26 C-Reactive Protein 19.6 mg/L (0.0-4.9) H 09/03/23 17:52 NT-Pro-B Natriuret Pep 2408 pg/mL (0-125) H 08/24/23 00:26 Total Protein 6.9 g/dL (6.6-8.7) 09/07/23 04:15 Albumin 2.9 g/dL (3.5-5.2) L 09/07/23 04:15 Globulin 4.0 g/dL (1.3-4.6) 09/07/23 04:15 Procalcitonin 0.18 ng/mL (0-0.5) 09/03/23 17:52 TSH 1.31 uIU/mL (0.27-4.20) 08/24/23 00:26 Fluid Color Red 08/29/23 08:45 Fluid Appearance Cloudy 08/29/23 08:45 Fluid WBC 211 /uL 08/29/23 08:45 Fluid RBC 202.000 10^3/uL 08/29/23 08:45 Fluid Hematocrit 2.3 % 08/29/23 08:45 Fld Polynuclear WBCs # 0.029 08/29/23 08:45 Fld Polynuclear WBCs % 13.700 % 08/29/23 08:45 Fl Mononucl WBCs #(Auto) 0.182 08/29/23 08:45 Fl Mononuclear % Auto 86.300 % 08/29/23 08:45 Fld Crystal Laterality Right pleural fluid 08/29/23 08:45 Fluid Albumin 1.7 g/dL 08/29/23 08:45 Fluid Creatinine 0.93 (0.5-0.9) H 08/29/23 08:45 Pleural pH 7.00 (6.5-7.5) 08/29/23 08:45 Pleural Total Protein 3.2 g/dL 08/29/23 08:45 Pleural LDH 139 U/L 08/29/23 08:45 Pleural Glucose 198.0 mg/dL 08/29/23 08:45 Pleural Amylase 16.0 U/L 08/29/23 08:45 Pleural Triglycerides 30 mg/dL 08/29/23 08:45 Digoxin 1.1 ng/mL (0.6-1.2) 09/05/23 04:15 Adenovirus (PCR) Not detected (NOT DETECT) 08/23/23 20:42 C. pneumoniae DNA (PCR) Not detected (NOT DETECT) 08/23/23 20:42 Coronavirus 229E (PCR) Not detected (NOT DETECT) 08/23/23 20:42 Human Metapneumovir PCR Not detected (NOT DETECT) 08/23/23 20:42 Influenza A (H1) PCR Not detected (NOT DETECT) 08/23/23 20:42 Influ A (H1/09) PCR Not detected (NOT DETECT) 08/23/23 20:42 Influenza A (H3) PCR Not detected (NOT DETECT) 08/23/23 20:42 Influenza Type A (PCR) Not detected (NOT DETECT) 08/23/23 20:42 Influenza Type B (PCR) Not detected (NOT DETECT) 08/23/23 20:42 M. pneumoniae (PCR) Not detected (NOT DETECT) 08/23/23 20:42 Parainfluenza 1 (PCR) Not detected (NOT DETECT) 08/23/23 20:42 Parainfluenza 2 (PCR) Not detected (NOT DETECT) 08/23/23 20:42 Parainfluenza 3 (PCR) Not detected (NOT DETECT) 08/23/23 20:42 Parainfluenza 4 (PCR) Not detected (NOT DETECT) 08/23/23 20:42 RSV Type A (PCR) Not detected (NOT DETECT) 08/23/23 20:42 RSV Type B (PCR) Not detected (NOT DETECT) 08/23/23 20:42 Entero/Rhino (PCR) Not detected (NOT DETECT) 08/23/23 20:42 SARS-CoV-2 (PCR) Not detected (NOT DETECT) 08/23/23 20:42 Blood Type O Positive 08/30/23 11:16 Rho(D) Type Rh positive 08/30/23 11:16 Antibody Screen Negative 08/30/23 11:16 Crossmatch See Detail 08/30/23 11:16 Micro: Microbiology 09/06/23 05:47 Gram Stain - Final Sputum - Expectorated Sputum Sputum Culture - Preliminary A&P Assessment and plan (1) Recurrent right pleural effusion: S/p 14 [place] pigtail placement 08/31/2023-drained 1900 cc serosanguineous fluid Clamped chest tube for 2 days-chest x-ray show gradual recurrence of right pleural effusion despite aggressive diuresis Unclamped chest tube for 3 days and she put out about 2000 cc Clamped chest tube 09/04/2022 afternoon-she is on 2 L supplemental oxygen Chest x-ray today morning remained stable with minimal pleural effusion -despite clamping chest tube more than 48 hours ago At this point of time-patient may not require Pleurx catheter-discussed with CT surgery and agree with the plan Unclamp chest tube-she put out about 350 cc and it was removed Patient can be discharged home from pulmonary standpoint. Informed patient that if she becomes dyspneic she needs to return to ER and if there is recurrence of pleural effusion-then at that point we will place a Pleurx catheter (2) COPD (chronic obstructive pulmonary disease): She is on DuoNeb every 6 hours as needed Qualifiers: COPD type: unspecified COPD Qualified Code(s): J44.9 - Chronic obstructive pulmonary disease, unspecified (3) CHF (congestive heart failure): Currently on Lasix 20 mg daily She is net -10.5 L. Qualifiers: Heart failure type: diastolic Heart failure chronicity: chronic Qualified Code(s): I50.32 - Chronic diastolic (congestive) heart failure (4) S/P aortic valve replacement: Patient with significant cardiac history with a previous aortic valve replacement in 2018 and recent redo open heart surgery June 2023 at [facility] Echo 08/23/2023-showed severe mitral annular calcification with trace to mild mitral regurgitation. Aortic valve is poorly seen but appeared mild aortic valve stenosis with mean gradient 19.3. The gradient to suggest mild to moderate stenosis Cardiology is following up (5) Atrial fibrillation with RVR: Heart rate is well-controlled held cardizem due to soft bp; Currently she is on metoprolol 25 twice daily digoxin 125 mcg p.o. daily CTA 08/31/2023 for 3 days ago showed resolution of previously visualized left lower lobe subsegmental PE. resume Elliquis 2.5 mg twice daily Attestations 2 Medical Necessity Statement*: anticipated discharge in 24 -48 hrs Time Spent in Patient Care: Greater than 35 minutes (>than 50% of time spent in counselling and/or direct pt care on unit) . Coding Level of Care Code Acute Code for Chg Fwd Diagnoses Recurrent right pleural effusion J90 Chronic obstructive pulmonary disease, unspecified COPD type J44.9 COPD type: unspecified COPD Chronic diastolic congestive heart failure I50.32 Heart failure type: diastolic Heart failure chronicity: chronic S/P aortic valve replacement Z95.2 Atrial fibrillation with RVR I48.91 Time Spent (min) 42
[2023-09-07] MEDS: potassium chloride ER 20 mEq Tablet 40 MEQ PO (18:10)
[2023-09-07] MEDS: FUROsemide 10 mg/mL SDV 2mL 20 MG IVP (18:10)
[2023-09-07 20:42] LABS: Glucose Point of Care 287 mg/dL (70-110)
[2023-09-07] MEDS: apixaban 5 mg Tablet 2.5 MG PO (21:00)
[2023-09-08] VITALS (28 sets, daily range): BP systolic 87–124; BP diastolic 44–83; PULSE 70–102; RESP 13–30; TEMP 36.6–36.8; O2SAT 87–100
--- NOTE | 2023-09-08 03:56 | PC.NURSE ---
pt hygiene pt an dhusband doing bed bath at this time. pt given warm baths packs, shower cap, along with all other hygiene essentials.
[2023-09-08 04:19] LABS: Basophils # 0.1 10^3/uL (0.0-0.1); Basophils % 1.3 %; Eosinophils # 0.4 10^3/uL (0.0-0.8); Hematocrit 29.9 % (36-47); Lymphocytes # 1.1 10^3/uL (0.8-4.8); Lymphocytes % 16.6 %; Mean Corpuscular HGB Conc 30.4 g/dL (30-55); Mean Corpuscular Hemoglobin 29.1 pg (27-33); Mean Corpuscular Volume 95.5 fl (85-98); Mean Platelet Volume 9.5 fL (7.4-10.4); Monocytes # 0.6 10^3/uL (0.2-0.9); Monocytes % 9.2 %; Neutrophils % 65.8 %; Nucleated Red Blood Cells % 0 %; Platelet Count 159 10^3/cmm (157-399); Red Blood Count 3.13 10^6/uL (3.85-5.65); Red Cell Distribution Width 18.7 % (12.1-15.1); White Blood Count 6.38 10^3/uL (3.29-11.43)
[2023-09-08 04:44] LABS: Alanine Aminotransferase 9 U/L (0-33); Alkaline Phosphatase 90 U/L (35-105); Anion Gap 12.8 (5-19); Aspartate Amino Transferase 28 U/L (0-32); Blood Urea Nitrogen 36 mg/dL (8-23); Calcium 8.5 mg/dL (8.5-10.5); Carbon Dioxide 34 mmol/L (22-29); Chloride 88 mmol/L (98-107); Globulin 4.3 g/dL (1.3-4.6); Glomerular Filtration Rate 40.5 mL/min (90-130); Glucose 237 mg/dL (65-115); Osmolality Calculated 288 mOsm/kg (285-295); Potassium 3.8 mmol/L (3.5-5.1); Sodium 131 mmol/L (136-145); Total Bilirubin 2.6 mg/dL (0.15-1.2); Total Protein 7.3 g/dL (6.6-8.7)
--- NOTE | 2023-09-08 06:00 | XR_ITS ---
WS: [id number] XR chest 1V portable [id number] REASON FOR EXAM: follow up effusion post chest tube removal FINDINGS: Compared to the previous day, there is small bore right chest tube is been removed. Patchy and linear right lower lobe lung opacities are unchanged compared to the previous day. Pleural thickening and/or small amount of pleural fluid unchanged compared to the previous day. Small apical pneumothorax unchanged. IMPRESSION: Removal of right small bore chest tube, otherwise stable abnormal chest.
[2023-09-08] MEDS: budesonide 0.5 mg/2 mL Neb 0.25 MG INHALATION (07:45)
[2023-09-08 08:09] LABS: Glucose Point of Care 303 mg/dL (70-110)
[2023-09-08] MEDS: insulin lispro 100 unit/1 mL SUBCUT ×4 (08:41→21:16)
[2023-09-08] MEDS: apixaban 5 mg Tablet 2.5 MG PO ×2 (08:42→18:24)
[2023-09-08] MEDS: digoxin 125 mcg Tablet PO (08:42)
[2023-09-08] MEDS: fluoxetine 10 mg Capsule PO (08:42)
[2023-09-08] MEDS: pantoprazole DR 40 mg Tablet PO (08:42)
[2023-09-08] MEDS: midodrine 5 mg TABLET 10 MG PO ×3 (08:42→21:15)
[2023-09-08] MEDS: aspirin 81 mg EC Tablet PO (08:42)
[2023-09-08] MEDS: atorvastatin 40 mg Tablet PO (08:42)
[2023-09-08] MEDS: insulin glargine 100 units/1 mL 28 UNIT SUBCUT (09:29)
[2023-09-08] MEDS: metoprolol tartrate 25 mg Tablet PO ×2 (09:59→21:15)
[2023-09-08 11:15] LABS: Glucose Point of Care 326 mg/dL (70-110)
--- NOTE | 2023-09-08 11:49 | PM.PN ---
Subjective Subjective: Patient feeling better. Vitals/I&O/Wt Last Vital Signs Temp 97.8 F 09/08/23 06:31 Pulse 86 09/08/23 09:00 Resp 22 H 09/08/23 09:00 BP 87/49 09/08/23 09:00 Pulse Ox 97 09/08/23 09:00 O2 Del Method Nasal Cannula 09/08/23 07:46 O2 Flow Rate 2 09/08/23 07:46 FiO2 3 08/24/23 16:00 09/07/23 09/08/23 09/08/23 22:59 06:59 14:59 Intake Total 250 / 670 250 / 920 200 / 200 Output Total 450 / 450 350 / 800 Balance -200 / 220 -100 / 120 200 / 200 Physical Exam Narrative: GENERAL: Patient is alert, awake and oriented x3. [] NECK: No jugular vein distension. [] HEENT: No cyanosis. No icterus. No pallor. [] HEART: Regular S1 and S2. No murmur, rub or gallop. [] LUNGS: Diminished air entry. CENTRAL NERVOUS SYSTEM: Grossly nonfocal. [] EXTREMITIES: Lower extremities with 1+ edema bilaterally. Urinary Catheter Management: Begum Latex: Cath Placed During This Visit: yes Reason for Continuing Indwelling Catheter: Accurate Measurement of Urinary Output in Critically Ill Patients Urinary Catheter Date of Insertion: 08/23/23 Urinary Catheter Time of Insertion: 23:53 Data 09/09/23 05:56 09/09/23 05:56 Micro: Microbiology 09/06/23 05:47 Gram Stain - Final Sputum - Expectorated Sputum Sputum Culture - Preliminary A&P Assessment and plan (1) S/P aortic valve replacement: (2) CHF (congestive heart failure): Qualifiers: Heart failure type: diastolic Heart failure chronicity: chronic Qualified Code(s): I50.32 - Chronic diastolic (congestive) heart failure (3) Exertional dyspnea: (4) Atrial fibrillation with RVR: (5) Diabetes mellitus: Plan Patient is overall stable. Continue po lasix, metoprolol and eliquis Thank you for involving us with care of this patient. Please call with questions. Attestations Medical Necessity Statement*: Care expected to cross 2 midnights Coding Level of Care Code Acute Code for [facility] Diagnoses S/P aortic valve replacement Z95.2 Chronic diastolic congestive heart failure I50.32 Heart failure type: diastolic Heart failure chronicity: chronic Exertional dyspnea R06.00 Atrial fibrillation with RVR I48.91 Diabetes mellitus E11.9
[2023-09-08 16:46] LABS: Glucose Point of Care 332 mg/dL (70-110)
--- NOTE | 2023-09-08 17:03 | P.PN_ITS ---
Subjective 2 Subjective: Chest tube was removed yesterday. Chest x-ray taken this morning continues to show much improved effusion. Nearly resolved. Creatinine stable at 1.3. Feels better. Medications: Reviewed: Yes Vitals/I&O/Wt Last Vital Signs Temp 97.8 F 09/08/23 06:31 Pulse 87 09/08/23 16:00 Resp 16 09/08/23 16:00 BP 111/72 09/08/23 16:00 Pulse Ox 98 09/08/23 16:00 O2 Del Method Nasal Cannula 09/08/23 07:46 O2 Flow Rate 2 09/08/23 15:52 FiO2 3 08/24/23 16:00 09/08/23 09/08/23 09/08/23 06:59 14:59 22:59 Intake Total 250 / 920 450 / 450 250 / 700 Output Total 350 / 800 Balance -100 / 120 450 / 450 250 / 700 Physical Exam 2 Narrative: General: No acute distress, AO x3 HEENT: PERRLA, pupils bilaterally equal and reactive, pallors not present Chest: chest tube in place, sraining serous fluid, blood tinged in pleur vac but clear in tube. CVS: S1-S2 regular, no murmurs, no tachycardia, no gallops, no rubs Abdomen: Soft, nontender, no organomegaly, bowel sounds present Neuro: No focal deficits, no facial deformity, AO x3, power 5/5 in all limbs Extremities: pitting edema B/L LE Urinary Catheter Management: Begum Latex: Cath Placed During This Visit: yes Reason for Continuing Indwelling Catheter: Accurate Measurement of Urinary Output in Critically Ill Patients Urinary Catheter Date of Insertion: 08/23/23 Urinary Catheter Time of Insertion: 23:53 Data 09/08/23 04:00 09/08/23 04:00 Micro: Microbiology 09/06/23 05:47 Gram Stain - Final Sputum - Expectorated Sputum Sputum Culture - Preliminary Coag positive Staphylococcus A&P Assessment and plan (1) Systolic CHF, acute: (2) Recurrent right pleural effusion: (3) Diabetes mellitus: (4) Atrial fibrillation with RVR: (5) Prosthetic aortic valve stenosis: (6) COPD (chronic obstructive pulmonary disease): Qualifiers: COPD type: unspecified COPD Qualified Code(s): J44.9 - Chronic obstructive pulmonary disease, unspecified (7) Central obesity: (8) Cirrhosis of liver: Plan #Acute hypoxic respiratory failure #Recurrent pleural effusion #Small pneumothorax right side #Secondary to acute on chronic diastolic CHF #Recent CABG at [facility] June 2023 #Bioprosthetic aortic valve in place, history of arctic valve stenosis #History of PE #History of atrial fibrillation, chronically on Eliquis #Chronic anemia #History of liver cirrhosis #Chronic hypoxic respiratory failure on 2 L nasal cannula at home #Thrombocytopenia #Pulmonary hypertension ? Patient had a recent CABG and [id number] graft placement in June 2023 at [facility]. She presented to [facility] for shortness of breath. She does state in the last 2 months she has been hospitalized twice each for 2 weeks since her CABG. She keeps having fluid overload and requires diuresis. He has been told that she has a leaky mitral valve and at some point she will need to have mitral valve surgery in particular MitraClip to be placed. Patient was discharged from [facility] on Sunday, August 20, 2023 but due to continued shortness of breath patient came into our emergency room on the . She is being diuresed aggressively since then. She has been placed on fluid restrictions 1000 daily. She was also found to be in A-fib with RVR initially and required a Cardizem drip which was later de- escalated to Cardizem 30 every 6. She was also on Eliquis 2.5 twice daily however it was held for potential thoracentesis. Thoracentesis was performed on 08/29 2023 which yielded 1 L dark bloody aspirate. It seems it was old blood and not a new bleed. Eliquis was restarted 08/30 2023. Due to recent CABG hemoglobin goal should be above 9. For hemoglobin 8.5 she was ordered a unit of blood on 08/30 2023. BiPAP has been ordered as needed. Pulmonology also was consulted. Cardiology has been consulted as well. Of note patient was also known to have pulmonary embolism diagnosed on 07/29 2023. She is being continued on Eliquis for that as well. Venous Dopplers bilateral lower extremities have ruled out DVT at this time. For her diabetes she has been on low-dose sliding scale insulin. Patient does have known history of liver cirrhosis. She also has thrombocytopenia which is most likely attributed to that at this time. Chest tube placed regarding effusion 08/31/2023. It was clamped for 24 hours later but due to recurring fluid it was unclamped 09/03/1911/18/2023 with immediate drainage of 400 cc. Total drainage so far has been 2 L from chest tube output since placement. Patient also required blood transfusion 08/2023. Hemoglobin stable since then. Effusion has recurred and we will plan to discuss with CT surgery for potential pleurodesis at this time. CT surgery not available senior staff consultant today. Plan to consult in AM. Echo obtained this hospitalization: Echocardiogram reviewed. LVEF estimated at 65%, abnormal septal motion consistent with postoperative status from CABG. Mild pulmonary hypertension with RSVP of 41.4. Mildly increased right atrial size. There is severe mitral annular calcification for which patient has been recommended surgery at [place], however at this present time she is unsure if she wants to proceed with surgery. Plan for today 09/03/2023 ? Patient is 9.4 L net negative since admission ? Continue aggressive diuresis Lasix 60 IV 3 times daily,stop metolazone 2.5 daily ? Hypokalemic today. Potassium 3.1. Will order 40 oral x 1. ? Continue to hold Eliquis at this time. I have discussed with the family and they are well aware of why anticoagulation is being held at this time. ? s/p 1 unit blood transfusion 09/01. hb 8.9 today ? Recheck chest x-ray today and tomorrow. ? Continue MARTY stockings ? Stop Cardizem 30 every 6 hours. Switch to 30 every 8 hours with holding parameters of not to be administered if BP less than 100/60. Discussed with RN. Blood pressure slightly soft today. ? Continue digoxin 125 daily ? Thrombocytopenia secondary most likely to liver cirrhosis. ? Discussed with cardiology, nursing staff, at bedside. ? Discussed with pulmonology. Chest tube placed regarding effusion 08/31/2023. It was clamped for 24 hours later but due to recurring fluid it was unclamped 09/03/1911/18/2023 with immediate drainage of 400 cc. Total drainage so far has been 2 L from chest tube output since placement. Patient also required blood transfusion 08/2023. Hemoglobin stable since then. Effusion has recurred and we will plan to discuss with CT surgery for potential pleurodesis at this time. CT surgery not available senior staff consultant today. Plan to consult in AM. -Patient also has a small pneumothorax on right side which appears to be present on previous scans that were also done at [facility]. ? Records from [facility] reviewed. They are in the chart. They will be scanned into the computer. Operative note also reviewed and available. Full code DVT prophylaxis: SCDs. Family updated at bedside. Plan for today September 04, 2023. Net -10 L overall. Continues to have chest tube in place. Clear fluid noted in tubing. Mildly blood-tinged fluid in Pleur-evac, however appears to be clearing.. Hemoglobin stable at 8.4. Platelets stable at 92,000. Hypokalemia 3.0 today, supplemented with 40 mEq KCl. Heart rate tachycardia 101 to 110/min today. She has not been getting Cardizem and metoprolol owing to low blood pressures. Currently on Levophed at 1 katharina. Add midodrine 10 mg 3 times daily and attempt to wean off Levophed infusion. Blood pressure allowing would aim to resume beta-blockers first and then add calcium channel blockers if needed. Digoxin 125 mcg to continue. Check dig level in am. Eliquis continues to be on hold as anticipate impending procedure. Resume as needed Xanax. Continue Lasix 60 mg every 12 hours. Monitor urine output and renal function. Increase insulin glargine to 25 units subcutaneously daily from 20 units subcutaneously daily. further course considering pleurodesis vs pleurex Plan for today September 05, 2023. Plan placement of Pleurx catheter on . Continues to be on low-dose Levophed today. Added midodrine 10 mg TID yesterday. Holding evening dose of Lasix today due to creatinine trending up to 1.5. Will closely monitor for clinical response with this change.dig level adequate at 1.1.She did receive metoprolol this morning.Continues to be net negative 10L. DVT ppx: SCDs Full code Plan for today September 06, 2023. Awaiting placement of Pleurx. Chest x-ray shows improved effusion today. Off Levophed now. Continue midodrine. Lasix was held yesterday, patient reports increased dyspnea today and mild crackles on exam bilaterally. More tachypneic in conversation. Low-dose Lasix 20 mg IV x 1 today. Monitor renal function and urine output with the same. Us abdomen to assess for ascites which may potentially be contributing - paracentesis may be helpful if significant fluid noted. NPO post midnight for planned procedure Plan for today September 07, 2023. Pleurx catheter deferred for now as her effusion appears to be resolved. Chest tube to be discontinued later this afternoon. Kidney function is improving with creatinine at 1.3 today. Continue midodrine. Lasix 20 mg IV x 1 today since reported being dyspneic overnight. No crackles on exam, lungs do appear to be clear today. DC Begum catheter in anticipation of discharge likely in the upcoming 24 hours. Ultrasound of the abdomen was completed yesterday, no ascites was visualized. No role for paracentesis. Blood pressure soft, however MAP maintained greater than 65. Resume Eliquis 2.5 mg twice daily Plan for today September 08, 2023. Chest tube was removed. No recollection of fluid on chest x-ray this morning. Creatinine function continues to be stable. Transition IV to oral Lasix today. P.o. 40 mg Lasix. Assessed by physical therapy. Recommended home exercise program. Anticipate discharge in the upcoming 24 hours. Transfer out of ICU. Disposition planning to be home with home health. Attestations 2 Medical Necessity Statement*: Convert IV to oral diuretics, anticipate discharge in the upcoming 24 hours. Coding Level of Care Code Acute Code for Chg Fwd Diagnoses Systolic CHF, acute I50.21 Recurrent right pleural effusion J90 Diabetes mellitus E11.9 Atrial fibrillation with RVR I48.91 Prosthetic aortic valve stenosis T82.857A Chronic obstructive pulmonary disease, unspecified COPD type J44.9 COPD type: unspecified COPD Central obesity E65 Cirrhosis of liver K74.60
[2023-09-08] MEDS: FUROsemide 40 mg Tablet PO (18:24)
--- NOTE | 2023-09-08 19:17 | PC.NURSE ---
Shift summary: patient ambulated in room, educated on instructions after getting home, uneventful shift. plan to D/C in AM
[2023-09-08 21:03] LABS: Glucose Point of Care 318 mg/dL (70-110)
[2023-09-09] VITALS (17 sets, daily range): BP systolic 96–109; BP diastolic 54–57; PULSE 79–84; RESP 16–17; TEMP 37.1; O2SAT 96–100
[2023-09-09] MEDS: ALPRAZolam 0.5 mg Tablet 0.25 MG PO (05:20)
[2023-09-09 06:45] LABS: Basophils % 0.7 %; Eosinophils # 0.3 10^3/uL (0.0-0.8); Eosinophils % 5.7 %; Hematocrit 26.7 % (36-47); Lymphocytes # 0.7 10^3/uL (0.8-4.8); Lymphocytes % 15.2 %; Mean Corpuscular HGB Conc 30.3 g/dL (30-55); Mean Corpuscular Hemoglobin 29.1 pg (27-33); Mean Platelet Volume 9.3 fL (7.4-10.4); Monocytes # 0.5 10^3/uL (0.2-0.9); Monocytes % 10.8 %; Neutrophils # 2.88 10^3/uL (1.8-7.7); Neutrophils % 66.2 %; Nucleated Red Blood Cells % 0 %; Platelet Count 121 10^3/cmm (157-399); Red Blood Count 2.78 10^6/uL (3.85-5.65); Red Cell Distribution Width 18.9 % (12.1-15.1); White Blood Count 4.35 10^3/uL (3.29-11.43)
[2023-09-09 06:46] LABS: Glucose Point of Care 229 mg/dL (70-110)
[2023-09-09 07:07] LABS: Alanine Aminotransferase 8 U/L (0-33); Albumin Level 2.8 g/dL (3.5-5.2); Alkaline Phosphatase 81 U/L (35-105); Anion Gap 11.6 (5-19); Aspartate Amino Transferase 27 U/L (0-32); Blood Urea Nitrogen 34 mg/dL (8-23); Calcium 8.1 mg/dL (8.5-10.5); Carbon Dioxide 36 mmol/L (22-29); Chloride 89 mmol/L (98-107); Globulin 3.8 g/dL (1.3-4.6); Glomerular Filtration Rate 49.1 mL/min (90-130); Glucose 211 mg/dL (65-115); Osmolality Calculated 290 mOsm/kg (285-295); Potassium 3.6 mmol/L (3.5-5.1); Sodium 133 mmol/L (136-145); Total Bilirubin 2.2 mg/dL (0.15-1.2); Total Protein 6.6 g/dL (6.6-8.7)
[2023-09-09] MEDS: insulin lispro 100 unit/1 mL SUBCUT ×2 (08:27→12:15)
[2023-09-09] MEDS: digoxin 125 mcg Tablet PO (08:28)
[2023-09-09] MEDS: pantoprazole DR 40 mg Tablet PO (08:28)
[2023-09-09] MEDS: aspirin 81 mg EC Tablet PO (08:28)
[2023-09-09] MEDS: apixaban 5 mg Tablet 2.5 MG PO (08:29)
[2023-09-09] MEDS: midodrine 5 mg TABLET 10 MG PO (08:29)
[2023-09-09] MEDS: fluoxetine 10 mg Capsule PO (08:31)
[2023-09-09] MEDS: atorvastatin 40 mg Tablet PO (08:31)
[2023-09-09] MEDS: metoprolol tartrate 25 mg Tablet PO (08:31)
[2023-09-09] MEDS: insulin glargine 100 units/1 mL 28 UNIT SUBCUT (08:42)
[2023-09-09] MEDS: saline nasal spray 44mL Btl 1 SPRAY NASAL (08:43)
--- NOTE | 2023-09-09 11:31 | PC.CHAP ---
Pastoral Care Encounter/Spiritual Assessment Type of Contact [] Declined supervisor filtration visit [] Patient/Family/Request visit [] Outpatient visit [] Follow-up visit [] Physician referral [] Code/Alert [] Routine visit [] Staff referral [] Actively dying [] Patient sleeping [] Family support [] [] Out of room [] Palliative care [] [] Receiving care in room [] Pre-surgical visit [] Trauma [] Long length of stay [] ICU visit [] Other: Relational/Emotional Strength [] Patient feels connected with others/family/visitors/staff [] Distress [] Loneliness/isolation [] Abandonment Spirituality of Patient [x] Person of Cecy [] Attends Anglican of their Cecy [] Believes in Prayer [] Reads Bible or Zoroastrian materials [] There are Spiritual issues to be addressed 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 [x] Prayer [] Active listening [] Non-anxious presence [] Spiritual/emotional support [] Crisis/trauma care [] Spiritual counseling [] Bereavement support [] Provided bereavement packet [] Provided Bible/devotional materials [] Provided toy/stuffed animal, coloring book to patient or family member [] Provided Communion [] Anointing/Eclectic [] Salvation [] Completed spiritual assessment [] Other: Impact on Illness or Injury [] Angry [] Fearful [] Anxious [] Often cries [] Exhaustion [] Unable to work [] Unable to attend islam [] Unable to walk/stand [] Unable to read [] Unable to drive [] Unable to eat/drink [] Unable to sleep [] Unable to be with family [] Patient intubated [] Other: Summary Prayed with patient Time spent with patient
[2023-09-09 11:44] LABS: Glucose Point of Care 272 mg/dL (70-110)
--- NOTE | 2023-09-09 13:29 | PC.NURSE ---
discharge instructions given and explained to pt and spouse.they verb understanding of instructions.discharged via w/c to exit at this time.spouse to drive pt home.
--- NOTE | 2023-09-09 18:52 | P.DS_ITS ---
Discharge Providers Date of Admission: 08/23/23 20:05 Date of Discharge: September 09, 2023 Attending Provider at Admission: Guru Garcia MD Attending Provider at Discharge: Irene Guaman MD Consults: Cardiology, pulmonology, cardiothoracic surgery Primary Care Provider: Ruslan Chavarria MD Diagnoses at Discharge Discharge Diagnosis (1) Systolic CHF, acute: Status: Acute (2) Recurrent right pleural effusion: Status: Acute (3) Diabetes mellitus: Status: Acute (4) Atrial fibrillation with RVR: Status: Acute (5) Prosthetic aortic valve stenosis: Status: Acute (6) COPD (chronic obstructive pulmonary disease): Status: Acute Qualifiers: COPD type: unspecified COPD Qualified Code(s): J44.9 - Chronic obstructive pulmonary disease, unspecified (7) Central obesity: Status: Acute (8) Cirrhosis of liver: Status: Acute Reason for Visit Reason for Visit: sent over by dr fluid build up Hospital Course Hospital Course Nyasia Sultana is a 72 year old female who recently had aortic valve surgery at [facility] [place] June 2023, history of bioprosthetic aortic valve for aortic valve stenosis, history of PE, history of atrial fibrillation, on Eliquis, hypertension, hyperlipidemia, history of mitral valve regurg with consideration of mitral valve surgery in [facility], COPD, liver cirrhosis, who presents to [facility] for shortness of breath and thereafter had a prolonged admission here between August 23 to September 09, 2023. Patient had TAVR replacement in 2018 number echocardiogram September 2022 showed mild to moderate mitral valve regurgitation and moderately severe aortic valve stenosis which is worsening compared to January 2021 echo. She had a redo open heart surgery at [facility] [place] after aortic valve replacement in jun 2023 but she got readmitted to [facility] [place] for 2 weeks on 2 separate occasions in last 2 months since her open heart surgery. She had fluid overload requiring diuresis and even underwent thoracentesis, without significant relief. Patient was also placed on Eliquis for left subsegmental PE noted in June last week. She was admitted to the cardiac stepdown unit for respiratory failure secondary to acute pulmonary edema and A-fib with RVR. She was placed on fluid restriction, IV diuresis, treated with IV Cardizem for A-fib RVR. Eventually her heart rate was able to be controlled. Echocardiogram showed an LVEF of 65% with abnormal septal motion consistent with postoperative state. There was mild pulmonary hypertension noted. Patient was overall net negative about 11 L during the course of her admission here. She was also noted to have a large right-sided pleural effusion for which thoracentesis and chest tube placement was performed by pulmonology. It showed 1000 cc of dark red-colored pleural fluid, pleural fluid analysis was suggestive of transudative effusion. Initially during the course of admission the fluid was reaccumulating fairly quickly after several attempts at clamping and it was thought patient may need pleurodesis versus placement of a Pleurx catheter so that she may have sustained relief from this effusion. However eventually the pleural fluid reaccumulation had slowed down significantly to not warrant these procedures anymore. Repeat chest x-ray on September 07, 2023 showed near resolution of the right-sided pleural effusion. Chest tube was discontinued. Follow-up chest x-ray taken on September 08, 2023 continue to show significant improvement in the pleural effusion. She had evidence of acute kidney injury, creatinine had trended up to 1.6, diuresis was briefly held and then reinstated on September 07, 2023 cautiously. Her creatinine has improved to 1.1 at the time of discharge. She has good urine output. Lasix has been resumed at 40 mg daily Changes to medications during this hospital course include: Increasing midodrine to 10 mg 3 times daily, addition of Prozac 10 mg daily and as needed Xanax for anxiety, discontinuing spironolactone due to soft blood pressure and acute kidney injury , Addition of metoprolol 25 mg p.o. twice daily for atrial fibrillation. Eliquis 2.5 mg twice daily has been continued, of note she has a recent history of PE.. She did receive 1 unit of packed red blood cell transfusion to maintain a hemoglobin goal of 8. Recommended follow-ups with cardiology and primary care provider within 1 week. Physical Exam Narrative: General: No acute distress, AO x3 HEENT: PERRLA, pupils bilaterally equal and reactive, pallors not present Chest: Normal vesicular breath sounds, no added sounds, equal good air entry bilaterally CVS: S1-S2 regular, no murmurs, no tachycardia, no gallops, no rubs Abdomen: Soft, nontender, no organomegaly, bowel sounds present Neuro: No focal deficits, no facial deformity, AO x3, power 5/5 in all limbs Extremities: imporved LE edema compared to admission Urinary Catheter Management: Begum Latex: Cath Placed During This Visit: yes Reason for Continuing Indwelling Catheter: Accurate Measurement of Urinary Output in Critically Ill Patients Urinary Catheter Date of Insertion: 08/23/23 Urinary Catheter Time of Insertion: 23:53 Discharge Data Studies Completed and Pending Completed Studies During Hospitalization Category Date Time Status CT chest wo con [id number] Routine Cat Scan 08/23/23 20:47 Completed CTA chest [CT angio chest PE protcl 02915] Urgent Cat Scan 08/31/23 14:15 Completed CXRP [XR chest 1V portable [id number]] AM LABS Exams 08/24/23 18:00 Completed CXRP [XR chest 1V portable 96085] AM LABS Exams 09/08/23 06:00 Completed CXRP [XR chest 1V portable [id number]] Routine Exams 08/31/23 13:41 Completed CXRP [XR chest 1V portable [id number]] Routine Exams 09/02/23 04:00 Completed XR chest 1V portable [id number] Routine Exams 08/29/23 09:12 Completed XR chest 1V portable [id number] Routine Exams 08/30/23 10:41 Completed XR chest 1V portable [id number] Routine Exams 08/31/23 08:00 Completed XR chest 1V portable [id number] Routine Exams 09/01/23 10:41 Completed XR chest 1V portable [id number] Routine Exams 09/03/23 06:32 Completed XR chest 1V portable [id number] Routine Exams 09/06/23 06:00 Completed XR chest 1V portable [id number] Routine Exams 09/07/23 06:00 Completed XR chest 1V portable [id number] Stat Exams 08/23/23 17:11 Completed XR chest 1V portable [id number] Stat Exams 09/06/23 14:11 Completed Cytology [PTH] Routine Pth 08/29/23 09:12 [place] [id number] Routine Ultrasound 08/23/23 20:47 Completed CV. echo complete* [id number] Routine Ultrasound 08/23/23 20:47 Completed US abdomen lmt fluid [id number] Routine Ultrasound 09/06/23 14:39 Completed Pending at discharge Category Date Time Status Sputum Culture and Gram Stain Stat Lab 09/06/23 05:47 Results Radiology Impressions Chest CT 08/23/23 20:47 IMPRESSION: 1. [id number] right-sided pleural effusion. Significant atelectatic changes in the right lung base and lingula. 2. Cirrhotic liver. 3. Splenomegaly with the spleen measuring up to 17.2 cm in length. 4. Abdominal ascites partially visualized in the upper abdomen. 5. Recannulated umbilical vein partially visualized consistent with portal hypertension. Chest CTA 08/31/23 14:15 IMPRESSION: 1. Resolution of the previously visualized left lower lobe subsegmental PE. No evidence of new PE within limitations of motion degradation. Within the same pulmonary segment as the previously visualized PE, there is subtle hypoattenuation within a small distal subsegmental branch, favored to be motion related though may reflect residual subsegmental PE. 2. Moderate pulmonary edema with trace bilateral pleural effusions, significantly improved since placement of the right-sided chest tube. The degree of pulmonary edema has worsened since prior. 3. Trace right-sided pneumothorax associated with the indwelling chest tube. 4. Postsurgical changes of the mediastinum status post CABG and aortic valve replacement. There is mediastinal adenopathy, possibly secondary to lymphovascular congestion. Correlation with clinical laboratory findings to exclude a lymphoproliferative process is recommended. The findings were verbally communicated by telephone with Yamileth Dunham at 4:44 PM DEBEAKER on 08/31/2023. The findings were acknowledged and understood. Laboratory Results WBC 4.35 10^3/uL (3.29-11.43) 09/09/23 05:56 RBC 2.78 10^6/uL (3.85-5.65) L 09/09/23 05:56 Hgb 8.10 g/dL (11.27-16.99) L 09/09/23 05:56 Hct 26.7 % (36-47) L 09/09/23 05:56 MCV 96.0 fl (85-98) 09/09/23 05:56 MCH 29.1 pg (27-33) 09/09/23 05:56 MCHC 30.3 g/dL (30-55) 09/09/23 05:56 RDW 18.9 % (12.1-15.1) H 09/09/23 05:56 Plt Count 121 10^3/cmm (157-399) L 09/09/23 05:56 MPV 9.3 fL (7.4-10.4) 09/09/23 05:56 Neut % (Auto) 66.2 % 09/09/23 05:56 Lymph % (Auto) 15.2 % 09/09/23 05:56 [place] % (Auto) 10.8 % 09/09/23 05:56 Eos % (Auto) 5.7 % 09/09/23 05:56 Baso % (Auto) 0.7 % 09/09/23 05:56 Neut # (Auto) 2.88 10^3/uL (1.8-7.7) 09/09/23 05:56 Lymph # (Auto) 0.7 10^3/uL (0.8-4.8) L 09/09/23 05:56 [place] # (Auto) 0.5 10^3/uL (0.2-0.9) 09/09/23 05:56 Eos # (Auto) 0.3 10^3/uL (0.0-0.8) 09/09/23 05:56 Baso # (Auto) 0.0 10^3/uL (0.0-0.1) 09/09/23 05:56 Nucleated RBC % (auto) 0 % 09/09/23 05:56 Total Counted 100 (0-100) 08/29/23 20:33 Atypical Lymphs % Not Reportable 08/29/23 20:33 Segmented Neutrophils 86 % 08/29/23 20:33 Abs Segm Neuts (Man) 3.7 10/cmm (1.6-7.1) 08/29/23 20:33 Band Neutrophils Not Reportable 08/29/23 20:33 Lymphocytes (Manual) 10 % 08/29/23 20:33 Monocytes (Manual) 4.0 % 08/29/23 20:33 Absolute Monocytes 0.2 10^3/cmm (0.1-0.6) 08/29/23 20:33 Eosinophils (Manual) 0 % 08/29/23 20:33 Absolute Eosinophils 0.0 10^3/cmm (0.0-0.7) 08/29/23 20:33 Basophils (Manual) 0.0 % 08/29/23 20:33 Absolute Basophils 0.0 10^3/cmm (0.0-0.2) 08/29/23 20:33 Nucleated RBCs # 0.0 /100WBC 09/09/23 05:56 Differential Comment Yes 08/29/23 08:45 Platelet Estimate Decreased (Normal) L 08/29/23 20:33 Peripher Smr Path Cons Sent for review 08/28/23 03:49 Haptoglobin 36.0 mg/L (30-200) 08/28/23 03:49 PT 17.30 SECONDS (12.1-14.9) H 08/28/23 08:39 INR 1.37 (0.8-1.2) H 08/28/23 08:39 Specimen Type Arterial 08/23/23 17:47 Sample Site Radial, right 08/23/23 17:47 ABG pH 7.52 (7.35-7.45) H 08/23/23 17:47 ABG pCO2 36.6 mmHg (35-45) 08/23/23 17:47 ABG pO2 52.7 mmHg (80.0-100.0) L 08/23/23 17:47 ABG PO2/FiO2 Ratio 0 08/23/23 17:47 ABG HCO3 30.0 mmol/L (22-26) H 08/23/23 17:47 ABG Base Excess 6.8 mmol/L (-2.0-2.0) H 08/23/23 17:47 Elpidio Test Pos 08/23/23 17:47 Hematocrit 27.9 % (37-47) L 08/23/23 17:47 O2 Delivery Device Room air 08/23/23 17:47 FiO2 21.0 % 08/23/23 17:47 Bonded Structures Repairer ID Dong 08/23/23 17:47 Sodium 133 mmol/L (136-145) L 09/09/23 05:56 Potassium 3.6 mmol/L (3.5-5.1) 09/09/23 05:56 Chloride 89 mmol/L (98-107) L 09/09/23 05:56 Carbon Dioxide 36 mmol/L (22-29) H 09/09/23 05:56 Anion Gap 11.6 (5-19) 09/09/23 05:56 BUN 34 mg/dL (8-23) H 09/09/23 05:56 Creatinine 1.1 mg/dL (0.5-0.9) H 09/09/23 05:56 GFR Calculation 49.1 mL/min (90-130) L 09/09/23 05:56 Glucose 211 mg/dL (65-115) H 09/09/23 05:56 POC Glucose 272 mg/dL (70-110) H 09/09/23 11:29 Estimat Average Glucose 146 08/24/23 00:26 Hemoglobin A1c 6.7 % (4.0-6.0) H 08/24/23 00:26 Calculated Osmolality 290 mOsm/kg (285-295) 09/09/23 05:56 Lactic Acid 2.5 mmol/L (0.5-2.2) H 08/23/23 17:55 Lactic Acid (Sepsis) 2.8 mmol/L (0.5-2.2) H 08/23/23 22:59 Calcium 8.1 mg/dL (8.5-10.5) L 09/09/23 05:56 Phosphorus 3.5 mg/dL (2.5-4.5) 09/01/23 04:33 Magnesium 1.9 mg/dL (1.7-2.3) 09/04/23 03:17 Iron 36 ug/dL (37-145) L 08/23/23 19:27 TIBC 336 mcg/dl 08/23/23 19:27 % Saturation 10.7 % (20-50) L 08/23/23 19:27 Unsat Iron Binding 300 ug/dL (112-347) 08/23/23 19:27 Ferritin 177 ng/mL (15-150) H 08/23/23 19:27 Total Bilirubin 2.2 mg/dL (0.15-1.2) H 09/09/23 05:56 Direct Bilirubin 0.70 mg/dL (0.00-0.30) H 08/28/23 03:49 Indirect Bilirubin 1.30 08/28/23 03:49 AST 27 U/L (0-32) 09/09/23 05:56 ALT 8 U/L (0-33) 09/09/23 05:56 Alkaline Phosphatase 81 U/L (35-105) 09/09/23 05:56 Lactate Dehydrogenase 286 U/L (135-214) H 08/28/23 03:49 Troponin T Baseline 33 ng/L (0-10) H 08/23/23 17:55 Troponin T 120 Minute 35.07 ng/L (0-10) H 08/23/23 19:27 Delta Troponin T 2.07 ABS# (0-10) 08/23/23 19:27 Troponin T Hi Sens 6Hr 35.89 ng/L (0-10) H 08/24/23 00:26 Troponin T Hi Sens 6Hr Delta 2.89 ng/L (0-12) 08/24/23 00:26 C-Reactive Protein 19.6 mg/L (0.0-4.9) H 09/03/23 17:52 NT-Pro-B Natriuret Pep 2408 pg/mL (0-125) H 08/24/23 00:26 Total Protein 6.6 g/dL (6.6-8.7) 09/09/23 05:56 Albumin 2.8 g/dL (3.5-5.2) L 09/09/23 05:56 Globulin 3.8 g/dL (1.3-4.6) 09/09/23 05:56 Procalcitonin 0.18 ng/mL (0-0.5) 09/03/23 17:52 TSH 1.31 uIU/mL (0.27-4.20) 08/24/23 00:26 Fluid Color Red 08/29/23 08:45 Fluid Appearance Cloudy 08/29/23 08:45 Fluid WBC 211 /uL 08/29/23 08:45 Fluid RBC 202.000 10^3/uL 08/29/23 08:45 Fluid Hematocrit 2.3 % 08/29/23 08:45 Fld Polynuclear WBCs # 0.029 08/29/23 08:45 Fld Polynuclear WBCs % 13.700 % 08/29/23 08:45 Fl Mononucl WBCs #(Auto) 0.182 08/29/23 08:45 Fl Mononuclear % Auto 86.300 % 08/29/23 08:45 Fld Crystal Laterality Right pleural fluid 08/29/23 08:45 Fluid Albumin 1.7 g/dL 08/29/23 08:45 Fluid Creatinine 0.93 (0.5-0.9) H 08/29/23 08:45 Pleural pH 7.00 (6.5-7.5) 08/29/23 08:45 Pleural Total Protein 3.2 g/dL 08/29/23 08:45 Pleural LDH 139 U/L 08/29/23 08:45 Pleural Glucose 198.0 mg/dL 08/29/23 08:45 Pleural Amylase 16.0 U/L 08/29/23 08:45 Pleural Triglycerides 30 mg/dL 08/29/23 08:45 Digoxin 1.1 ng/mL (0.6-1.2) 09/05/23 04:15 Adenovirus (PCR) Not detected (NOT DETECT) 08/23/23 20:42 C. pneumoniae DNA (PCR) Not detected (NOT DETECT) 08/23/23 20:42 Coronavirus 229E (PCR) Not detected (NOT DETECT) 08/23/23 20:42 Human Metapneumovir PCR Not detected (NOT DETECT) 08/23/23 20:42 Influenza A (H1) PCR Not detected (NOT DETECT) 08/23/23 20:42 Influ A (H1/09) PCR Not detected (NOT DETECT) 08/23/23 20:42 Influenza A (H3) PCR Not detected (NOT DETECT) 08/23/23 20:42 Influenza Type A (PCR) Not detected (NOT DETECT) 08/23/23 20:42 Influenza Type B (PCR) Not detected (NOT DETECT) 08/23/23 20:42 M. pneumoniae (PCR) Not detected (NOT DETECT) 08/23/23 20:42 Parainfluenza 1 (PCR) Not detected (NOT DETECT) 08/23/23 20:42 Parainfluenza 2 (PCR) Not detected (NOT DETECT) 08/23/23 20:42 Parainfluenza 3 (PCR) Not detected (NOT DETECT) 08/23/23 20:42 Parainfluenza 4 (PCR) Not detected (NOT DETECT) 08/23/23 20:42 RSV Type A (PCR) Not detected (NOT DETECT) 08/23/23 20:42 RSV Type B (PCR) Not detected (NOT DETECT) 08/23/23 20:42 Entero/Rhino (PCR) Not detected (NOT DETECT) 08/23/23 20:42 SARS-CoV-2 (PCR) Not detected (NOT DETECT) 08/23/23 20:42 Blood Type O Positive 08/30/23 11:16 Rho(D) Type Rh positive 08/30/23 11:16 Antibody Screen Negative 08/30/23 11:16 Crossmatch See Detail 08/30/23 11:16 Vitals Last Vital Signs Temp 98.8 F 09/09/23 04:00 Pulse 82 09/09/23 10:32 Resp 16 09/09/23 10:32 BP 97/57 09/09/23 13:00 Pulse Ox 96 09/09/23 10:32 O2 Del Method Room Air 09/09/23 08:46 O2 Flow Rate 2 09/08/23 15:52 FiO2 3 08/24/23 16:00 Discharge Plan Discharge Patient Disposition: Home Health Service Condition: Stable Prescriptions: New hydrocodone-acetaminophen 5-325 mg Tablet 1 tab PO Q8H PRN (Reason: Moderate Pain) 5 Days Qty: 15 0RF alprazolam 0.5 mg Tablet 0.25 mg PO BID PRN (Reason: Anxiety) 7 Days Qty: 14 0RF pantoprazole 40 mg Tablet,Delayed Release (Dr/Ec) 40 mg PO DAILY 30 Days Qty: 30 0RF fluoxetine 10 mg Capsule 10 mg PO DAILY 30 Days Qty: 30 0RF metoprolol tartrate 25 mg Tablet 25 mg PO BID@0900,2100 30 Days Qty: 30 0RF (DME) DME: [facility] See Rx Instructions .ROUTE Qty: 1 0RF Rx Instructions: As directed Continued multivitamin Tablet 1 tab PO DAILY Probiotic 3 billion cell capsule 3,000 mmu cells PO DAILY Rx Instructions: administer with a meal nitroglycerin 0.4 mg tablet, sublingual 0.4 mg sublingual Q5M PRN (Reason: chest pain) Qty: 30 2RF Rx Instructions: do not exceed 3 doses per episode metformin 1,000 mg tablet 1,000 mg PO BID 30 Days Qty: 60 3RF Hold Instructions: Resume on 11/27/22. Patient may restart on Monday atorvastatin 40 mg tablet 40 mg PO DAILY cholecalciferol (vitamin D3) 125 mcg (5,000 unit) capsule 125 mcg PO DAILY Eliquis 2.5 mg tablet 2.5 mg PO BID digoxin 125 mcg (0.125 mg) tablet 125 mcg PO DAILY Qty: 90 3RF fluticasone propion-salmeterol [Advair Diskus] 500-50 mcg/dose blister with device 1 inh inhalation BID Qty: 60 5RF albuterol sulfate [ProAir HFA] 90 mcg/actuation HFA aerosol inhaler 2 puff inhalation Q6H PRN (Reason: shortness of breath or wheezing) Qty: 8.5 6RF insulin detemir U-100 100 unit/mL (3 mL) insulin pen 20 unit SUBCUT DAILY Qty: 15 3RF Rx Instructions: Inject 20 U SQ daily, increase by 5 units every 3 days if glucose fasting is >150 (DME) pen needle, diabetic [TechLITE Pen Needle] 31 gauge x 5/16 needle See Rx Instructions .ROUTE .MEDSUPPLY Qty: 100 6RF Rx Instructions: As directed (DME) oxygen concentrator w/portable See Rx Instructions .Route .MEDSUPPLY Qty: 1 0RF Rx Instructions: As directed oxygen concentrator w/portable 2 litters n/c aspirin 81 mg Tablet,Delayed Release (Dr/Ec) 81 mg PO DAILY potassium chloride 20 mEq tablet extended release 20 meq PO DAILY glipizide 5 mg tablet 5 mg PO BID Changed furosemide 40 mg tablet 40 mg PO DAILY Qty: 120 3RF midodrine 5 mg tablet 10 mg PO Q8H 30 Days Qty: 90 0RF Discontinued omeprazole 20 mg capsule,delayed release(DR/EC) 20 mg PO DAILY PRN (Reason: Acid Reflux) citalopram 10 mg tablet 10 mg PO DAILY Qty: 30 3RF spironolactone 25 mg tablet 12.5 mg PO DAILY Discharge Orders: Discharge Order (Routine); Ordered 09/09/23 Ordered By: Irene Guaman Other Ambulatory Orders: DME: Oxygen (Order) Location: None Selected Ordered By: Irene Guaman Referrals: [facility] [Outside] ([facility] [phone]) Kin Erickson M.D [Physician] - Vickie Ozuna FNP [Nurse Practitioner] - 1 week ([facility] call [facility] at [phone] on monday to [place] an appointment for 1 week with nurse practitioner vickie ozuna) Ruslan Chavarria MD [Primary Care Provider] - 7-10 days (please call dr chavarria's clinic at [phone] on monday to [place] an appointment for 7-10 days) Discharge Diet: Cardiac Discharge Activity: Increase activity as tolerated Patient Instructions: Metoprolol (By mouth) (Lopressor, Toprol XL), Metoprolol (By mouth), Hydrocodone/Acetaminophen (By mouth), Alprazolam (By mouth) (Xanax, Xanax XR, alprazolam Intensol, Gabazolamin), Fluoxetine (By mouth), Pantoprazole (By mouth), Heart Failure (DC), A-fib (Atrial Fibrillation) (DC), How to Use an Incentive Spirometer (DC), COPD (Chronic Obstructive Pulmonary Disease) (DC), Pleural Effusion (DC), Anemia (DC), CHF Stoplight, Opioid Safety Discharge Attestations Time Spent in Discharge Care*: greater than 30 min Quality Metrics Clinical Quality Measures [ No reported AMI, CVA or VTE this stay] Coding Level of Care Code Acute Code for Chg Fwd Diagnoses Systolic CHF, acute I50.21 Recurrent right pleural effusion J90 Diabetes mellitus E11.9 Atrial fibrillation with RVR I48.91 Prosthetic aortic valve stenosis T82.857A Chronic obstructive pulmonary disease, unspecified COPD type J44.9 COPD type: unspecified COPD Central obesity E65 Cirrhosis of liver K74.60
== END 2023-09-09 13:35 | disposition home health service (06) | DRG 291 ==
LOC: ER 19:52 → ER IP 22:28 → CSU 23:23 → ICU 08-30 17:59 → CSU 09-08 18:47
PROVIDERS: Internal Medicine; Internal Medicine Pulmonary Disease; Admitting Provider Family Medicine; Emergency Provider Emergency Medicine; PCP Family Medicine; Visit Provider Student in an Organized Health Care Education/Training Program
DX: I11.0 Hypertensive heart disease with heart failure (principal); I50.33 Acute on chronic diastolic (congestive) heart failure; J96.01 Acute respiratory failure with hypoxia; J93.9 Pneumothorax, unspecified; Z68.41 Body mass index [BMI] 40.0-44.9, adult; J90 Pleural effusion, not elsewhere classified; I25.10 Atherosclerotic heart disease of native coronary artery without angina pectoris; I48.91 Unspecified atrial fibrillation; E78.5 Hyperlipidemia, unspecified; I34.0 Nonrheumatic mitral (valve) insufficiency; J44.9 Chronic obstructive pulmonary disease, unspecified; K74.60 Unspecified cirrhosis of liver; I27.20 Pulmonary hypertension, unspecified; R00.0 Tachycardia, unspecified; E87.6 Hypokalemia; D69.59 Other secondary thrombocytopenia; F41.0 Panic disorder [episodic paroxysmal anxiety]; D64.9 Anemia, unspecified; E66.9 Obesity, unspecified; Z11.52 Encounter for screening for COVID-19; Z79.01 Long term (current) use of anticoagulants; Z95.1 Presence of aortocoronary bypass graft; Z95.3 Presence of xenogenic heart valve; Z86.711 Personal history of pulmonary embolism; Z79.82 Long term (current) use of aspirin; Z79.84 Long term (current) use of oral hypoglycemic drugs; Z79.4 Long term (current) use of insulin; Z86.19 Personal history of other infectious and parasitic diseases; Z87.891 Personal history of nicotine dependence
CPT/HCPCS: 36415; 36416; 36430; 36600; 51702; 51798; 71045; 71046; 71250; 71275; 76705; 80048; 80053; 80162; 80503; 82042; 82150; 82247; 82248; 82274; 82570; 82728; 82803; 82945; 82962; 83010; 83036; 83540; 83550; 83605; 83615; 83735; 83880; 83986; 84100; 84145; 84157; 84443; 84478; 84484; 85007; 85014; 85025; 85027; 85610; 86140; 86850; 86900; 86920; 87070; 87075; 87077; 87186; 87205; 87486; 87581; 87633; 88112; 88305; 89050; 93005; 93306; 93970; 94640; 94660; 94664; 94760; 96365; 96366; 96367; 96372; 96375; 96376; 97110; 97161; 97165; 97535; 99285; C9113; J0612; J0690; J1815; J1940; J2405; J3010; J3480; J3490; J7050; J7613; J7626; P9016; P9046; Q9967

== ENCOUNTER 2023-09-17 18:47 | Observation (INO) | payer MEDICARE, SELFPAY ==
[2023-09-17] VITALS (26 sets, daily range): BP systolic 58–96; BP diastolic 27–54; PULSE 56–75; RESP 17–29; TEMP 33.9; O2SAT 73–100; BMI 38.9
--- NOTE | 2023-09-17 18:51 | ED_ITS ---
Documented by User: Navi Kendall MD 09/17/23 22:25 HPI - SOB/Dyspnea 2 General: Chief Complaint: Shortness of Breath/Dyspnea Stated Complaint: RESP DISTRESS Time Seen by Provider: 09/17/23 18:51 History of Present Illness: HPI Narrative: 72-year-old female presents to the emerg ency department via EMS personnel secondary to having increased shortness of breath. The patient states she had a coronary artery bypass graft in June 2023. She does appear to be very weak and lethargic she states she is having significant difficulty breathing. She also endorses significant swelling of her lower legs. She denies chest pain at present. She denies fevers chills or night sweats. Review of Systems 2 General: Reports: 10 or more systems reviewed and unremarkable except in HPI and below Card: Reports: edema Resp: Reports: dyspnea PFSH ED 2 PFSH: Medical History Pulmonary hypertension Foot pain Cirrhosis of liver Diabetes mellitus COPD (chronic obstructive pulmonary disease) Hepatitis C CHF (congestive heart failure) ASHD (arteriosclerotic heart disease) Surgical History H/O bilateral cataract extraction S/P knee surgery S/P aortic valve replacement Family History Mother Diabetes Myocardial infarction Hypertension Father Diabetes Myocardial infarction Hypertension Grandmother Myocardial infarction Cancer Grandfather Myocardial infarction Cancer Other Heart disease Social History Smoking and tobacco/nicotine status: former use of tobacco/nicotine Quit status (tobacco/nicotine): has quit using Year quit tobacco: 1992 2-3-pack per day Former quit date comment: smoked for 30 years Alcohol intake: never Substance/Drug Use: never Lives independently: Yes Household members: spouse and other Details: brother Housing: House Marital status: Number of children: 0 Pets and animals: Yes Pets & animals: cat(s), dog(s) and bird(s) Physical Exam 2 Narrative: EXAM NARRATIVE: Constitutional: the patient appears with normal development. Vital signs reviewed as documented. Ill-appearing, weak, frail and in obvious distress. HENMT: Normocephalic, atraumatic. External ears normal appearance without drainage. Nose without drainage, normal appearance. Mucus membranes moist. Neck is supple, No jugular venous distension, trachea is midline, no appreciable carotid bruits. No lymphadenopathy. No meningeal signs. Flexion, extension and lateral rotation is without pain. Eyes: Pupils are equal, round, reactive to light and accommodation. No scleral icterus. Extra-ocular movement are intact. Thorax is symmetrical and with equal rise and fall with respirations. Resp: Right breath sounds decreased greater than left. Decreased bilaterally in the bases, bilateral Rales noted. Increased work of breathing. Cardio: Sinus rhythm with RBBB. Positive S1, S2. 3/6 systoic ejection murmur noted. GI: Abdominal exam reveals normal bowel sounds to all quadrants. No organomegaly. No obvious palpable masses noted. No hepatomegally appreciated. Soft, non-tender to palpation. Extremity: Extremities are with 2 + lower extremity edema, both femoral and pedal pulses are 2+ and equal bilaterally. Moves all extremities well, sensation in all extremities. Neuro: Alert and oriented x4, person, place, time and situation. Cranial nerves II through XII are grossly intact, there is no focal neurological deficits that I can appreciate at present. Motor strength in the upper and lower extremities are equal and bilateral 5/5. Psych: Cooperative, calm, normal thought process, appropriate judgment. Skin: No lesions, rashes. No gross abnormalities noted. Back: Symmetrical, no obvious deformity, No CVA tenderness Course 2 ED course: I have contacted the hospitalist physician to request admission and we have contacted Dr. Amin in cardiology to get approval for a stat echocardiogram. Procedure Note: Ultrasound Guided Central Venous Catheter (CVC) Placement Indication: Hemodynamic monitoring/Intravenous access Consent obtain as documented. Maximal Sterile Barrier Technique utilized and included appropriate hand washing before and after the procedure, use of Cap, mask, sterile gown, sterile gloves and sterile full body drape. A time-out was completed verifying correct patient, procedure, site, positioning, and special equipment if applicable. The patient was placed in a dependent position appropriate for central line placement based on the vein to be cannulated. The patient?s <right neck was prepped and draped in sterile fashion. 1% Lidocaine was used to anesthetize the surrounding skin area. A triple lumen <7-Khmer> catheter was introduced into the the <right internal jugular using the Seldinger technique <and under ultrasound guidance>. The catheter was threaded smoothly over the guide wire and appropriate blood return was obtained. Each lumen of the catheter was evacuated of air and flushed with sterile saline. The catheter was then sutured in place to the skin and a sterile dressing applied. Perfusion to the extremity distal to the point of catheter insertion was checked and found to be adequate. Post-procedure xray was obtained and reviewed and proper placement of the catheter was verified. Estimated Blood Loss: <__5ml__> The patient tolerated the procedure well and there were no complications. Vital Signs: Vital signs: Vital Signs Temperature 93.0 F L 09/17/23 23:06 Pulse Rate 60 09/18/23 00:30 Respiratory Rate 16 09/18/23 00:30 Blood Pressure 76/37 09/18/23 00:30 Pulse Oximetry 100 09/18/23 00:30 Oxygen Delivery Me thod Nasal Cannula 09/17/23 21:40 Oxygen Flow Rate 3 09/17/23 21:40 MDM - SOB/Dyspnea Medical Decision Making Physical exam completed and documented, I will obtain a CBC, CMP, blood cultures, procalcitonin and lactic acid, two-view chest x-ray and a urinalysis. Differential diagnosis includes congestive heart failure community-acquired pneumonia, viral illness, acute exacerbation of chronic pulmonary disease. Medical Records I reviewed the patient's medical records. Lab Data I reviewed the patient's lab results. 09/17/23 19:35 09/17/23 21:54 Labs/Radiology: Radiology Impressions Chest X-Ray 09/17/23 20:54 IMPRESSION: 1. Moderate-sized right-sided pleural effusion redemonstrated and similar. 2. New right IJ approach central venous catheter positioned with its tip near the upper cavoatrial junction. No pneumothorax. Laboratory Results WBC 12.13 10^3/uL (3.29-11.43) H 09/17/23 19:35 RBC 2.87 10^6/uL (3.85-5.65) L 09/17/23 19:35 Hgb 8.70 g/dL (11.27-16.99) L 09/17/23 19:35 Hct 32.4 % (36-47) L 09/17/23 19:35 MCV 112.9 fl (85-98) H 09/17/23 19:35 MCH 30.3 pg (27-33) 09/17/23 19:35 MCHC 26.9 g/dL (30-55) L 09/17/23 19:35 RDW 22.2 % (12.1-15.1) H 09/17/23 19:35 Plt Count 322 10^3/cmm (157-399) 09/17/23 19:35 MPV 9.1 fL (7.4-10.4) 09/17/23 19:35 Neut % (Auto) 82.2 % 09/17/23 19:35 Lymph % (Auto) 8.2 % 09/17/23 19:35 Johnson % (Auto) 4.9 % 09/17/23 19:35 Eos % (Auto) 0.4 % 09/17/23 19:35 Baso % (Auto) 0.4 % 09/17/23 19:35 Neut # (Auto) 9.96 10^3/uL (1.8-7.7) H 09/17/23 19:35 Lymph # (Auto) 1.0 10^3/uL (0.8-4.8) 09/17/23 19:35 Johnson # (Auto) 0.6 10^3/uL (0.2-0.9) 09/17/23 19:35 Eos # (Auto) 0.1 10^3/uL (0.0-0.8) 09/17/23 19:35 Baso # (Auto) 0.1 10^3/uL (0.0-0.1) 09/17/23 19:35 Nucleated RBC % (auto) 0.2 % 09/17/23 19:35 Nucleated RBCs # 0.0 /100WBC 09/17/23 19:35 PT 29.20 SECONDS (12.1-14.9) H 09/17/23 19:35 INR 2.64 (0.8-1.2) H 09/17/23 19:35 APTT 36.5 SECONDS (23.9-36.7) 09/17/23 19:35 Sodium 129 mmol/L (136-145) L 09/17/23 21:54 Potassium 6.5 mmol/L (3.5-5.1) H* 09/17/23 21:54 Chloride 84 mmol/L (98-107) L 09/17/23 21:54 Carbon Dioxide 7 mmol/L (22-29) L* 09/17/23 21:54 Anion Gap 44.5 (5-19) H 09/17/23 21:54 BUN 97 mg/dL (8-23) H* 09/17/23 21:54 Creatinine 6.7 mg/dL (0.5-0.9) H* 09/17/23 21:54 GFR Calculation 6.1 mL/min (90-130) L 09/17/23 21:54 Glucose 228 mg/dL (65-115) H 09/17/23 21:54 POC Glucose 152 mg/dL (70-110) H 09/17/23 22:23 Calculated Osmolality 305 mOsm/kg (285-295) H 09/17/23 21:54 Lactic Acid 23.3 mmol/L (0.5-2.2) H* 09/17/23 21:54 Calcium 10.2 mg/dL (8.5-10.5) 09/17/23 21:54 Magnesium 2.9 mg/dL (1.7-2.3) H 09/17/23 19:35 Total Bilirubin 2.7 mg/dL (0.15-1.2) H 09/17/23 19:35 AST 55 U/L (0-32) H 09/17/23 19:35 ALT 20 U/L (0-33) 09/17/23 19:35 Alkaline Phosphatase 98 U/L (35-105) 09/17/23 19:35 Troponin T Baseline 61 ng/L (0-10) H 09/17/23 19:35 Troponin T 120 Minute 57.63 ng/L (0-10) H 09/17/23 21:54 Delta Troponin T -3.37 ABS# (0-10) L 09/17/23 21:54 NT-Pro-B Natriuret Pep 6216 pg/mL (0-125) H 09/17/23 19:35 Total Protein 7.4 g/dL (6.6-8.7) 09/17/23 19:35 Albumin 3.1 g/dL (3.5-5.2) L 09/17/23 19:35 Globulin 4.3 g/dL (1.3-4.6) 09/17/23 19:35 Procalcitonin 0.63 ng/mL (0-0.5) H 09/17/23 19:35 All radiology interpretation(s) finalized by discharge Critical Care Time 2 Critical Care Time: Critical Care Time: Yes Total Critical Care Time: 60 Attestation: The patients was emergently evaluated as this patient's presentation and case had a high probability of a clinically significant, sudden, or life threatening deterioration of this patient's initial critical presentation or condition which required my full and direct attention, intervention and personal management. Discharge Plan Discharge Patient Disposition: Admitted As Inpatient Admit Provider: Ever Velazquez Clinical Impression: Acute renal failure, Acute hypotension, Acute hyperkalemia Condition: Stable Coding Level of Care Code ED Undercover Cop for Chg Fwd Documented by User: Reji Godoy MD 09/18/23 01:15 HPI - SOB/Dyspnea 2 General: Chief Complaint: Shortness of Breath/Dyspnea Stated Complaint: RESP DISTRESS Time Seen by Provider: 09/17/23 18:51 PFSH ED 2 PFSH: Medical History Pulmonary hypertension Foot pain Cirrhosis of liver Diabetes mellitus COPD (chronic obstructive pulmonary disease) Hepatitis C CHF (congestive heart failure) ASHD (arteriosclerotic heart disease) Surgical History H/O bilateral cataract extraction S/P knee surgery S/P aortic valve replacement Family History Mother Diabetes Myocardial infarction Hypertension Father Diabetes Myocardial infarction Hypertension Grandmother Myocardial infarction Cancer Grandfather Myocardial infarction Cancer Other Heart disease Social History Smoking and tobacco/nicotine status: former use of tobacco/nicotine Quit status (tobacco/nicotine): has quit using Year quit tobacco: 1992 2-3-pack per day Former quit date comment: smoked for 30 years Alcohol intake: never Substance/Drug Use: never Lives independently: Yes Household members: spouse and other Details: brother Housing: House Marital status: Number of children: 0 Pets and animals: Yes Pets & animals: cat(s), dog(s) and bird(s) Course 2 Vital Signs: Vital signs: Vital Signs Temperature 93.0 F L 09/17/23 23:06 Pulse Rate 60 09/18/23 00:30 Respiratory Rate 16 09/18/23 00:30 Blood Pressure 76/37 09/18/23 00:30 Pulse Oximetry 100 09/18/23 00:30 Oxygen Delivery Me thod Nasal Cannula 09/17/23 21:40 Oxygen Flow Rate 3 09/17/23 21:40 MDM - SOB/Dyspnea Medical Decision Making Physical exam completed and documented, I will obtain a CBC, CMP, blood cultures, procalcitonin and lactic acid, two-view chest x-ray and a urinalysis. Differential diagnosis includes congestive heart failure community-acquired pneumonia, viral illness, acute exacerbation of chronic pulmonary disease. Patient presents here with acute renal failure with hyperkalemia severe lactic acidosis. It was recommended by nephrology to transfer for patient have CRRT. I did speak to patient family patient does not want to be transferred I spoke to her at length about her options she states that she is tired and does not want any further treatment and wants to be comfort care patient was placed on comfort care at this time. Lab Data 09/17/23 19:35 09/17/23 21:54 Labs/Radiology: Radiology Impressions Chest X-Ray 09/17/23 20:54 IMPRESSION: 1. Moderate-sized right-sided pleural effusion redemonstrated and similar. 2. New right IJ approach central venous catheter positioned with its tip near the upper cavoatrial junction. No pneumothorax. Laboratory Results WBC 12.13 10^3/uL (3.29-11.43) H 09/17/23 19:35 RBC 2.87 10^6/uL (3.85-5.65) L 09/17/23 19:35 Hgb 8.70 g/dL (11.27-16.99) L 09/17/23 19:35 Hct 32.4 % (36-47) L 09/17/23 19:35 MCV 112.9 fl (85-98) H 09/17/23 19:35 MCH 30.3 pg (27-33) 09/17/23 19:35 MCHC 26.9 g/dL (30-55) L 09/17/23 19:35 RDW 22.2 % (12.1-15.1) H 09/17/23 19:35 Plt Count 322 10^3/cmm (157-399) 09/17/23 19:35 MPV 9.1 fL (7.4-10.4) 09/17/23 19:35 Neut % (Auto) 82.2 % 09/17/23 19:35 Lymph % (Auto) 8.2 % 09/17/23 19:35 Johnson % (Auto) 4.9 % 09/17/23 19:35 Eos % (Auto) 0.4 % 09/17/23 19:35 Baso % (Auto) 0.4 % 09/17/23 19:35 Neut # (Auto) 9.96 10^3/uL (1.8-7.7) H 09/17/23 19:35 Lymph # (Auto) 1.0 10^3/uL (0.8-4.8) 09/17/23 19:35 Johnson # (Auto) 0.6 10^3/uL (0.2-0.9) 09/17/23 19:35 Eos # (Auto) 0.1 10^3/uL (0.0-0.8) 09/17/23 19:35 Baso # (Auto) 0.1 10^3/uL (0.0-0.1) 09/17/23 19:35 Nucleated RBC % (auto) 0.2 % 09/17/23:35 Nucleated RBCs # 0.0 /100WBC 09/17/23 19:35 PT 29.20 SECONDS (12.1-14.9) H 09/17/23 19:35 INR 2.64 (0.8-1.2) H 09/17/23 19:35 APTT 36.5 SECONDS (23.9-36.7) 09/17/23 19:35 Sodium 129 mmol/L (136-145) L 09/17/23 21:54 Potassium 6.5 mmol/L (3.5-5.1) H* 09/17/23 21:54 Chloride 84 mmol/L (98-107) L 09/17/23 21:54 Carbon Dioxide 7 mmol/L (22-29) L* 09/17/23 21:54 Anion Gap 44.5 (5-19) H 09/17/23 21:54 BUN 97 mg/dL (8-23) H* 09/17/23 21:54 Creatinine 6.7 mg/dL (0.5-0.9) H* 09/17/23 21:54 GFR Calculation 6.1 mL/min (90-130) L 09/17/23 21:54 Glucose 228 mg/dL (65-115) H 09/17/23 21:54 POC Glucose 152 mg/dL (70-110) H 09/17/23 22:23 Calculated Osmolality 305 mOsm/kg (285-295) H 09/17/23 21:54 Lactic Acid 23.3 mmol/L (0.5-2.2) H* 09/17/23 21:54 Calcium 10.2 mg/dL (8.5-10.5) 09/17/23 21:54 Magnesium 2.9 mg/dL (1.7-2.3) H 09/17/23 19:35 Total Bilirubin 2.7 mg/dL (0.15-1.2) H 09/17/23 19:35 AST 55 U/L (0-32) H 09/17/23 19:35 ALT 20 U/L (0-33) 09/17/23 19:35 Alkaline Phosphatase 98 U/L (35-105) 09/17/23 19:35 Troponin T Baseline 61 ng/L (0-10) H 09/17/23 19:35 Troponin T 120 Minute 57.63 ng/L (0-10) H 09/17/23 21:54 Delta Troponin T -3.37 ABS# (0-10) L 09/17/23 21:54 NT-Pro-B Natriuret Pep 6216 pg/mL (0-125) H 09/17/23 19:35 Total Protein 7.4 g/dL (6.6-8.7) 09/17/23 19:35 Albumin 3.1 g/dL (3.5-5.2) L 09/17/23 19:35 Globulin 4.3 g/dL (1.3-4.6) 09/17/23 19:35 Procalcitonin 0.63 ng/mL (0-0.5) H 09/17/23 19:35 Discharge Plan Discharge Patient Disposition: Admitted As Inpatient Admit Provider: Ever Velazquez Clinical Impression: Acute renal failure, Acute hypotension, Acute hyperkalemia Condition: Stable Coding Level of Care Code ED Undercover Cop for Collette Cooley
--- NOTE | 2023-09-17 18:51 | XRR_ITS ---
PROCEDURE INFORMATION: Exam: XR Chest Exam date and time: 09/17/2023 6:59 PM Age: 72 years old Clinical indication: Dyspnea and shortness of breath; Prior surgery; Surgery date: 6+ months; Surgery type: Aortic valve replacement; Patient HX: EMS arrival for resp distress. History of chf and copd. TECHNIQUE: Imaging protocol: Radiologic exam of the chest. Views: 1 view. COMPARISON: CR XR chest 1V portable [id number] 09/08/2023 7:13 AM FINDINGS: Lungs: Unremarkable. No consolidation. Pleural spaces: Small right-sided pleural effusion similar to the prior examination. Heart/Mediastinum: Unremarkable. No cardiomegaly. Vasculature: Status post median sternotomy aortic replacement and CABG. Bones/joints: See Vasculature finding. XR/XR chest 1V portable [id number] IMPRESSION: Small right-sided pleural effusion similar to the prior examination.
--- NOTE | 2023-09-17 19:17 | ECG_ITS ---
[facility] Test Date: 2023-09-17 Pat Name: Nyasia Sultana Department: Room: Gender: Female Sole Filler: : 1950 Requested By: Navi Kendall Order Number: [id number] Marisela MD: Dangelo Amin M.D. Measurements Intervals [place] Rate: 63 P: -49 UT: 139 QRS: 16 QRSD: 53 T: -16 QT: 499 QTc: 512 Interpretive Statements SINUS RHYTHM with significant baseline artifact First-degree AV block, possible periods of second-degree AV block. LOW QRS VOLTAGE [QRS DEFLECTION < 0.5/1.0 mV IN LIMB/CHEST LEADS] Possible ANTEROSEPTAL MYOCARDIAL INFARCTION , OF INDETERMINATE AGE [40+ ms Q WAVE IN V1-V4] ST DEPRESSION, CONSIDER SUBENDOCARDIAL INJURY [0.1+ mV ST DEPRESSION] Compared to ECG 08/23/2023 19:19:13 Low QRS voltage now present Myocardial infarct finding now present ST (T wave) deviation now present Atrial flutter no longer present Ventricular premature complex(es) no longer present Electronically Signed On 09-17-2023 23:04:58 REFRIGERATOR REPAIR TECHNICIAN by Dangelo Amin M.D. [id number]
[2023-09-17 19:41] LABS: Glucose Point of Care 118 mg/dL (70-110)
[2023-09-17 19:47] LABS: Basophils # 0.1 10^3/uL (0.0-0.1); Basophils % 0.4 %; Eosinophils # 0.1 10^3/uL (0.0-0.8); Eosinophils % 0.4 %; Hematocrit 32.4 % (36-47); Lymphocytes % 8.2 %; Mean Corpuscular HGB Conc 26.9 g/dL (30-55); Mean Corpuscular Hemoglobin 30.3 pg (27-33); Mean Corpuscular Volume 112.9 fl (85-98); Mean Platelet Volume 9.1 fL (7.4-10.4); Monocytes # 0.6 10^3/uL (0.2-0.9); Monocytes % 4.9 %; Neutrophils # 9.96 10^3/uL (1.8-7.7); Neutrophils % 82.2 %; Nucleated Red Blood Cells % 0.2 %; Platelet Count 322 10^3/cmm (157-399); Red Blood Count 2.87 10^6/uL (3.85-5.65); Red Cell Distribution Width 22.2 % (12.1-15.1); White Blood Count 12.13 10^3/uL (3.29-11.43)
[2023-09-17 20:01] LABS: INR 2.64 (0.8-1.2)
[2023-09-17 20:02] LABS: Partial Thromboplastin Time 36.5 SECONDS (23.9-36.7)
[2023-09-17 20:16] LABS: Troponin(5th) Baseline 61 ng/L (0-10)
[2023-09-17 20:26] LABS: Alanine Aminotransferase 20 U/L (0-33); Alkaline Phosphatase 98 U/L (35-105); Creatinine Clr Calc Pharmacy 8.9345; Globulin 4.3 g/dL (1.3-4.6); Total Protein 7.4 g/dL (6.6-8.7)
[2023-09-17 20:46] LABS: Albumin Level 3.1 g/dL (3.5-5.2); Anion Gap 45.1 (5-19); Aspartate Amino Transferase 55 U/L (0-32); Calcium 8.4 mg/dL (8.5-10.5); Chloride 79 mmol/L (98-107); Glomerular Filtration Rate 6.2 mL/min (90-130); Glucose 118 mg/dL (65-115); Osmolality Calculated 289 mOsm/kg (285-295); Sodium 124 mmol/L (136-145); Total Bilirubin 2.7 mg/dL (0.15-1.2)
[2023-09-17 20:47] LABS: Blood Urea Nitrogen 96 mg/dL (8-23); Carbon Dioxide 7 mmol/L (22-29)
[2023-09-17 20:48] LABS: NT Pro B Type Natriuretic Pept 6216 pg/mL (0-125); Potassium 7.1 mmol/L (3.5-5.1)
--- NOTE | 2023-09-17 20:54 | XRR_ITS ---
PROCEDURE INFORMATION: Exam: XR Chest Exam date and time: 09/17/2023 9:02 PM Age: 72 years old Clinical indication: Other vascular access device placement or adjustment; Central line, non-tunnelled; Prior surgery; Surgery date: 1-6 months; Surgery type: Cabg; Patient HX: Central line placement TECHNIQUE: Imaging protocol: Radiologic exam of the chest. Views: 1 view. COMPARISON: CR (CHEST, ) 09/17/2023 6:59 PM FINDINGS: Tubes, catheters and devices: New right IJ approach central venous catheter positioned with its tip near the upper cavoatrial junction. No pneumothorax. Lungs: Unremarkable. No consolidation. Pleural spaces: Moderate-sized right-sided pleural effusion redemonstrated and similar. Heart/Mediastinum: Unremarkable. No cardiomegaly. Bones/joints: Prior median sternotomy, CABG and aortic valve replacement redemonstrated. XR/XR chest 1V portable [id number] IMPRESSION: 1. Moderate-sized right-sided pleural effusion redemonstrated and similar. 2. New right IJ approach central venous catheter positioned with its tip near the upper cavoatrial junction. No pneumothorax.
--- NOTE | 2023-09-17 21:06 | ECG_ITS ---
[facility] Test Date: 2023-09-17 Pat Name: Nyasia Sultana Department: Room: Gender: Female Alining Inspector: : 1950 Requested By: Navi Kendall Order Number: [id number] Reading MD: Dangelo Amin M.D. Measurements Intervals [place] Rate: 62 P: 60 ME: 272 QRS: 143 QRSD: 114 T: -1 QT: 443 QTc: 452 Interpretive Statements SINUS RHYTHM WITH FIRST DEGREE AV BLOCK, possible second-degree AV block POSSIBLE ANTERIOR MYOCARDIAL INFARCTION , OF INDETERMINATE AGE [30 ms Q WAVE IN V3/V4, OR R < 0.2 mV IN V4] Right bundle branch block Compared to ECG 09/17/2023 19:17:34 First degree AV block now present Myocardial infarct finding still present ST (T wave) deviation still present Electronically Signed On 09-17-2023 23:08:17 INTERVENTION ANALYST by Dangelo Amin M.D. [id number]
[2023-09-17 21:09] LABS: Glucose Point of Care 93 mg/dL (70-110)
[2023-09-17] MEDS: calcium chloride 10% Syr 10 mL 2 GM IVP (21:18)
[2023-09-17] MEDS: norepinephrine 4 MG/250 ML BAG 7.5 MG IV (21:19)
[2023-09-17] MEDS: sodium bicarbonate 8.4% 1 mEq/mL 50mL Syr 50 MEQ IVP ×2 (21:27)
[2023-09-17] MEDS: insulin regular-human 100 units/1 mL 20 UNIT IVP (21:27)
[2023-09-17] MEDS: dextrose 50% syringe 50 mL 100 ML (21:27)
[2023-09-17] MEDS: albuterol 2.5 mg/3 mL Neb 10 MG INHALATION (21:32)
--- NOTE | 2023-09-17 21:37 | PC.NURSE ---
Per verbal order dr winslow increase Levo from 8mcg to 14mcg for bp at 88/43.
[2023-09-17] MEDS: sodium chloride 0.9% 1,000 ML 999 ML IV ×2 (22:14→23:03)
[2023-09-17 22:20] LABS: Procalcitonin 0.63 ng/mL (0-0.5)
[2023-09-17 22:23] LABS: Troponin 5 2HR 57.63 ng/L (0-10); Troponin 5 2HR Delta -3.37 ABS# (0-10)
[2023-09-17 22:26] LABS: Glucose Point of Care 152 mg/dL (70-110)
--- NOTE | 2023-09-17 22:30 | USCV_ITS ---
Nyasia Sultana Age: 72 Gender: F : 1950 Exam Date: 09/17/2023 22:51 Ordering Phys: Navi Kendall MD Technologist: Jeffrey Segura Exam Location: [facility] [place] Indication: sob BP: 93 / 34 HR: Rhythm: Sinus Technical Quality: Adequate MEASUREMENTS (Male / Female) Normal Values DOPPLER AV Peak Velocity 226.0 cm/s MV Area PHT 5.7 cm squared Mitral E to A Ratio 1.2 TR Peak Velocity 122.0 cm/s TR Peak Gradient 6.0 mmHg FINDINGS Left Ventricle Normal left ventricular size, systolic function and wall thickness, with no regional wall motion abnormalities. Grade II/IV diastolic dysfunction, moderately elevated filling pressures. Left ventricular ejection fraction is estimated at 65 %. Right Ventricle Normal right ventricular size and systolic function. Right Atrium Mildly increased right atrial size. Left Atrium Mildly increased left atrial size. Mitral Valve Structurally normal mitral valve. Mild mitral valve regurgitation. Severe mitral annular calcification. Possible mild functional mitral stenosis. Aortic Valve The aortic valve is thickened. There appears to been a TAVR performed. The TAVR valve is seated well and functioning normally. There is a slightly increased gradient consistent with a prosthetic valve but no significant stenoses. Tricuspid Valve Structurally normal tricuspid valve. Trace tricuspid valve regurgitation. Pulmonic Valve Pulmonic valve not well visualized. Pericardium Normal pericardium without effusion. Aorta Normal ascending aorta dimension. IVC The inferior vena cava appears normal. CONCLUSIONS Normal left ventricular size, systolic function and wall thickness, with no regional wall motion abnormalities. Grade II/IV diastolic dysfunction, moderately elevated filling pressures. Left ventricular ejection fraction is estimated at 65 %. Structurally normal mitral valve. Mild mitral valve regurgitation. The aortic valve is thickened. There appears to been a TAVR performed. The TAVR valve is seated well and functioning normally. The previous echo was done 3 weeks ago. There is no significant change. The previously noted pericardial effusion is resolved. Dr. Dangelo Amin MD (Electronically Signed) Final Date: 17 September 2023 23:45 S
[2023-09-17 22:31] LABS: Lactic Sepsis W/Reflex 23.3 mmol/L (0.5-2.2)
[2023-09-17 22:31] LABS: Magnesium 2.9 mg/dL (1.7-2.3)
[2023-09-17] MEDS: DOPamine drip 400 MG/250 ML PREMIX 18.7100000000000009 MG IV (22:32)
[2023-09-17] MEDS: piperacillin-tazobactam 3.375 GM in sodium chloride 0.9% (plus) 50 ML IV (23:20)
[2023-09-17 23:25] LABS: Anion Gap 44.5 (5-19); Calcium 10.2 mg/dL (8.5-10.5); Chloride 84 mmol/L (98-107); Glomerular Filtration Rate 6.1 mL/min (90-130); Glucose 228 mg/dL (65-115); Osmolality Calculated 305 mOsm/kg (285-295); Sodium 129 mmol/L (136-145)
[2023-09-17 23:28] LABS: Blood Urea Nitrogen 97 mg/dL (8-23); Carbon Dioxide 7 mmol/L (22-29); Creatinine Clr Calc Pharmacy 8.8012; Potassium 6.5 mmol/L (3.5-5.1)
[2023-09-17] MEDS: vancomycin 1,000 MG in sodium chloride 0.9% 250 ML 250 MG IV (23:30)
[2023-09-17] MEDS: morphine 4 mg/mL SDV 1 mL IVP (23:46)
[2023-09-17 23:48] LABS: Reflex Lactate Order REFLEX LACTIC ORDERD
[2023-09-17] MEDS: LORazepam 2 mg/mL INJ 10 mL MDV 1 MG IVP (23:49)
--- NOTE | 2023-09-17 23:53 | P.HP_ITS ---
Providers/Chief Complaint 2 Primary Care Provider: Ruslan Ward MD Chief Complaint: RESP DISTRESS History of Present Illness Pleasant 69-year-old lady with history of CAD, CABG x 3, aortic valve replacement in June at [facility], mitral disease, history of PE, atrial fibrillation, on anticoagulation with Eliquis, HTN, HLD, COPD, liver cirrhosis, discharged from hospital on 09/09 after hospitalization due to acute respiratory failure, CHF, A-fib with RVR, LAWRENCE, recurrent right pleural effusion, diuresed 11 L, effusion drained with thoracentesis and chest tube. Acute kidney injury during her hospitalization, creatinine came up to 1.6 but improved down to 1.1. Continued on Lasix. Continued on Eliquis 2.5 mg. She was brought in for evaluation due to shortness of breath, generalized weakness, worsening edema, blood glucose found to be 70, received D10 and round, started on 3 L nasal cannula oxygen which she was on at home. She was hypotensive requiring pressor initiation and up titration, central line was placed in ER, started on Levophed, second pressor had to be added and was started on dopamine. She was found to have multiple severe metabolic abnormalities with severe metabolic acidosis, anion gap 44.5, bicarb 7, lactic acid 23.3, BUN 97, creatinine 7, potassium 7.1. Sodium 129. She received insulin, dextrose, calcium gluconate, 2 A of bicarb. She received fluid boluses, continued on pressors. Appearing pale, cool to touch extremities, concern for possible cardiogenic shock, previously with new precordial effusion bedside ultrasound was performed, no obvious pericardial effusion, stat echocardiogram was requested. With treatments repeat potassium 6.5, bicarb 7, anion gap 45.5, BUN 7, creatinine 6.7. She has not produced any urine. Nephrology contacted, recommendation for stat renal replacement therapy, at the same time on 2 pressors, Levophed at 18, dopamine at 12.5 not likely to tolerate dialysis, no CRRT available in-house. Arrangements were to be initiated for transfer in the meantime depending on timing possibly obtaining dialysis access in house, further workup consideration with patient and family including CTA with history of PE, although reportedly has not missed any Eliquis, consideration of other etiologies, possible septic shock, consideration of empiric antibiotic, further assessment of possibly of infection sources, pleural effusion although was reported transudative last admission, consider CTA possibility of bowel ischemia, otherwise with liver cirrhosis possibility of SBP, other infection. Temperature obtained, 93 Fahrenheit. With additional discussion with patient and family together with ER physician patient indicated on discussion of severity of illness and goals of care that she would not want cardiopulmonary cessation in case of cardiac arrest, would not want intubation, and on further discussion stated she would not want to have dialysis or transfer. Instead would want to go with hospice/comfort care alone with end-of-life supportive measures. Family support her in her goals of care, transfer deferred and preparations were made for end-of-life care. Review of Systems 2 Const: Reports: fatigue and malaise; Denies: fever(s), chills or body aches Card: Denies: chest pain, edema, pre-syncope or dyspnea on exertion Resp: Reports: dyspnea; Denies: productive cough, change in phlegm color or hemoptysis GI: Denies: abdominal pain, nausea, vomiting, diarrhea, constipation, hematochezia or melena : Denies: flank pain, urinary frequency or hematuria Musc: Denies: back pain, joint swelling or joint redness Skin/Breast: Denies: rash or new lesions Medications/Allergies Home Medications Medication Instructions Recorded Confirmed Last Taken Type multivitamin 1 tab PO DAILY 09/27/19 08/24/23 08/23/23 History lactobacillus combination no.4 3 3,000 mmu cells PO DAILY 07/15/21 08/24/23 08/23/23 History billion cell capsule (Probiotic) oxygen concentrator w/portable #1 ea 03/09/23 08/24/23 Unknown Rx metformin 1,000 mg tablet 1,000 mg PO BID 30 days #60 tabs 05/08/23 08/24/23 08/23/23 Rx nitroglycerin 0.4 mg sublingual 0.4 mg sublingual Q5M PRN chest 05/08/23 08/24/23 Unknown Rx tablet pain #30 tabs aspirin 81 mg tablet,delayed 81 mg PO DAILY 07/29/23 08/24/23 08/23/23 History release glipizide 5 mg tablet 5 mg PO BID 07/29/23 08/24/23 08/23/23 History potassium chloride 20 mEq 20 meq PO DAILY 07/29/23 08/24/23 08/23/23 History tablet,extended release albuterol sulfate 90 mcg/actuation 2 puff inhalation Q6H PRN 08/22/23 08/24/23 08/24/23 Rx aerosol inhaler (ProAir HFA) shortness of breath or wheezing #8.5 grams apixaban 2.5 mg tablet (Eliquis) 2.5 mg PO BID 08/22/23 08/24/23 08/23/23 08:00 History atorvastatin 40 mg tablet 40 mg PO DAILY 08/22/23 08/24/23 08/23/23 History cholecalciferol (vitamin D3) 125 125 mcg PO DAILY 08/22/23 08/24/23 08/23/23 History mcg (5,000 unit) capsule digoxin 125 mcg (0.125 mg) tablet 125 mcg PO DAILY #90 tabs 08/22/23 08/24/23 08/23/23 Rx fluticasone 500 mcg-salmeterol 50 1 inh inhalation BID #60 ea 08/22/23 08/24/23 08/23/23 Rx mcg/dose blistr powdr for inhalation (Advair Diskus) insulin detemir U-100 100 unit/mL 20 unit (0.2 mL) SUBCUT DAILY #15 08/22/23 08/24/23 08/23/23 Rx (3 mL) subcutaneous pen mL pen needle, diabetic 31 gauge x #100 ea 08/22/23 08/24/23 Unknown Rx 5/16 (TechLITE Pen Needle) DME: Denis #1 ea 09/08/23 Unknown Rx fluoxetine 10 mg capsule 10 mg PO DAILY 30 days #30 caps 09/08/23 Unknown Rx furosemide 40 mg tablet 40 mg PO DAILY #120 tabs 09/08/23 08/24/23 08/23/23 Rx metoprolol tartrate 25 mg tablet 25 mg PO BID@0900,2100 30 days #30 09/08/23 Unknown Rx tabs midodrine 5 mg tablet 10 mg (2 x 5 mg) PO Q8H 30 days 09/08/23 08/24/23 Unknown Rx #90 tabs pantoprazole 40 mg tablet,delayed 40 mg PO DAILY 30 days #30 tabs 09/08/23 Unknown Rx release ondansetron HCl 4 mg tablet 4 mg PO Q8H PRN nausea and 09/14/23 Unknown Rx vomiting #30 tabs Allergies Allergy/AdvReac Type Severity Reaction Status Date / Time prednisone Allergy ADR/ALGY-Pa Verified 05/18/23 12:10 lpitations PFSH Acute 2 PFSH: Medical History Pulmonary hypertension Foot pain Cirrhosis of liver Diabetes mellitus COPD (chronic obstructive pulmonary disease) Hepatitis C CHF (congestive heart failure) ASHD (arteriosclerotic heart disease) Surgical History H/O bilateral cataract extraction S/P knee surgery S/P aortic valve replacement Family History Mother Diabetes Myocardial infarction Hypertension Father Diabetes Myocardial infarction Hypertension Grandmother Myocardial infarction Cancer Grandfather Myocardial infarction Cancer Other Heart disease Social History Smoking and tobacco/nicotine status: former use of tobacco/nicotine Quit status (tobacco/nicotine): has quit using Year quit tobacco: 1992 2-3-pack per day Former quit date comment: smoked for 30 years Alcohol intake: never Substance/Drug Use: never Lives independently: Yes Household members: spouse and other Details: brother Housing: House Marital status: Number of children: 0 Pets and animals: Yes Pets & animals: cat(s), dog(s) and bird(s) Vitals/I&O/Wt Last Vital Signs Temp 93.0 F L 09/17/23 23:06 Pulse 75 09/17/23 23:30 Resp 21 H 09/17/23 23:30 BP 92/39 09/17/23 23:30 Pulse Ox 100 09/17/23 23:30 O2 Del Method Nasal Cannula 09/17/23 21:40 O2 Flow Rate 3 09/17/23 21:40 09/17/23 09/17/23 09/18/23 14:59 22:59 06:59 Intake Total 63.049 / 63.049 1196.736 / 1259.785 Balance 63.049 / 63.049 1196.736 / 1259.785 Weight last 48 hrs Weight 99.79 kg Physical Exam 2 Narrative: Accompanied by her and her friend. Const: COMMON NORMALS: patient oriented x3 and alert GENERAL APPEARANCE: c ooperative and ill appearing ORIENTATION/CONSCIOUSNESS: Yes awake OTHER: Pale, weak. HENMT: COMMON NORMALS: oropharynx normal Neck/C-Spine: COMMON NORMALS: no JVD Resp: COMMON NORMALS: normal respiratory effort and clear to auscultation bilaterally AUSCULTATION: diminished lung sounds on the right in the lower lung parikh Cardio: COMMON NORMALS: no JVD, regular rhythm, S1 normal heart sound present, S2 normal heart sound present and No murmurs present (Cardio) RHYTHM: regular rhythm HEART SOUNDS: S1 normal heart sound present and S2 normal heart sound present GI: COMMON NORMALS: Normal to inspection, nondistended, normoactive bowel sounds present, Soft to palpation and non-tender PALPATION: Yes Soft to palpation Extremity: GENERAL: Yes edema (2+) Neuro: COMMON NORMALS: patient oriented x3 and moves all extremities S ENSORIUM/ORIENTATION: Yes alert Skin: COMMON NORMALS: no rashes or lesions noted GENERAL SKIN EXAM: no rashes or lesions noted Data 09/17/23 19:35 09/17/23 21:54 Micro: Microbiology 09/17/23 21:56 Blood Culture - Preliminary Blood SPECIMEN COLLECTED 09/17/23 21:54 Blood Culture - Preliminary Blood SPECIMEN COLLECTED A&P Assessment and plan (1) Comfort measures only status: End-of-life comfort measures requested, morphine for any pain, Ativan for anxiety or distress. Begum catheter. Nasal cannula oxygen as needed. Family unwilling to stay with her. Plan Acute renal failure: Has not produced any urine, severe metabolic acidosis, hyperkalemia, need for urgent dialysis, on 2 pressors. Unclear etiology, possibly prerenal, possibly hepatorenal possible cardiorenal. Suspected ATN. Consideration of renal replacement as above. Discussed with nephrology. Discussed with patient, family together with ER physician, she declines further aggressive care. Transition to comfort measures. Severe hyperkalemia: As above Shock: Unresponsive to pressors Levophed 18 mcg/min, dopamine 12.5 mcg/kg/min. Consideration of cardiogenic shock, elevated with stat echocardiogram with recent new pericardial effusion, CABG, aortic valve replacement, evaluated for concern of possible worsening effusion, tamponade, myocardial or valvular abnormality following recent surgery. Additional consideration of possible PE/obstructive shock with prior/recent PE, septic shock, consideration of bowel ischemia, possible SBP with history of cirrhosis, question of empyema with recurrent pleural effusion, hypovolemic shock with recent diuresis. Discussed needing further evaluation. As per goals of care further assessments is, however, deferred and she is initiating end-of-life comfort care. Hyponatremia Hyperbilirubinemia Troponin elevation Pulmonary hypertension and atrial fibrillation HTN HLD COPD Liver cirrhosis Other medical problems. Attestations 2 Medical Necessity Statement*: Hospitalization required for end-of-life measures, unable to return home with likely imminent demise. Coding Level of Care Code Critical Care >/= 30 minutes Critical care time (in minutes): 40 The high probability of a clinically significant, sudden or life threatening deterioration, as referenced in this documentation, required my full and direct attention, intervention and personal management. The critical care time shown is in addition to time spent performing any reported separately billable procedures and includes the following: [x] Data and vital sign review and interpretation [x ] Patient assessment, examination and intervention [x] Medication orders and management [x] Patient/Family updates as able [x] Care Coordination and Documentation. Diagnoses Comfort measures only status Z51.5
[2023-09-18] VITALS: BP 85/45; PULSE 70; RESP 16; O2SAT 97
[2023-09-18 00:10] VITALS: BP 91/49; PULSE 66; RESP 16; O2SAT 95
[2023-09-18 00:20] VITALS: BP 82/44; PULSE 64; RESP 16; O2SAT 95
[2023-09-18 00:30] VITALS: BP 76/37; PULSE 60; RESP 16; O2SAT 100
[2023-09-18 01:20] VITALS: BP 87/42; PULSE 58; O2SAT 94
[2023-09-18] MEDS: morphine 10 mg/0.5 mL oral liq UD SUBLINGUAL (01:43)
--- NOTE | 2023-09-18 02:47 | PC.NURSE ---
Addendum entered by Beth Morales RN 09/18/23 02:52: Family refused rossi catheter. Original Note: Per report from ED nurse, rossi was not placed on patient because patient would not tolerate it.
[2023-09-18] MEDS: LORazepam 2 mg/mL INJ 10 mL MDV IVP (03:10)
--- NOTE | 2023-09-18 06:00 | PC.NURSE ---
Addendum entered by Beth Morales RN 09/18/23 06:56: Central line removed from right neck. Manual pressure held for 5 minutes and pressure dressing placed. Addendum entered by Beth Morales RN 09/18/23 06:55: Post-mortem care completed. Jesse Kaden notified that family is ready for patient's body to be trasnfereed to the home. Addendum entered by Beth Morales RN 09/18/23 06:01: Family at bedside. Original Note: Patient's TOD 05:35 AM confirmed with second nurse. supervisor production department and Dr. Velazquez notified. Per MTS, patient is not a candidate for donation.
--- NOTE | 2023-09-18 07:02 | P.DES_ITS ---
Discharge Providers DDS Date of Admission: 09/18/23 01:42 Date Summary Completed: 09/18/23 Attending Provider at Admission: Ever Velazquez Time of : 05:35 Attending Provider at Discharge: Ever Velazquez Primary Care Provider: Ruslan Ward MD DS Diagnoses Hospital Diagnoses (1) Comfort measures only status: Reason for Visit Reason for Visit RESP DISTRESS Summary Date and Time of Date of : 09/18/23 Time of : 05:35 Summary Summary: Pleasant 69-year-old lady with history of CAD, CABG x 3, aortic valve replacement in June at [facility], mitral disease, history of PE, atrial fibrillation, on anticoagulation with Eliquis, HTN, HLD, COPD, liver cirrhosis, discharged from hospital on 09/09 after hospitalization due to acute respiratory failure, CHF, A-fib with RVR, LAWRENCE, recurrent right pleural effusion, diuresed 11 L, effusion drained with thoracentesis and chest tube. Acute kidney injury during her hospitalization, creatinine came up to 1.6 but improved down to 1.1. Continued on Lasix. Continued on Eliquis 2.5 mg. She was brought in for evaluation due to shortness of breath, generalized weakness, worsening edema, blood glucose found to be 70, received D10 and round, started on 3 L nasal cannula oxygen which she was on at home. She was hypotensive requiring pressor initiation and up titration, central line was placed in ER, started on Levophed, second pressor had to be added and was started on dopamine. She was found to have multiple severe metabolic abnormalities with severe metabolic acidosis, anion gap 44.5, bicarb 7, lactic acid 23.3, BUN 97, creatinine 7, potassium 7.1. Sodium 129. She received insulin, dextrose, calcium gluconate, 2 A of bicarb. She received fluid boluses, continued on pressors. Appearing pale, cool to touch extremities, concern for possible cardiogenic shock, previously with new precordial effusion bedside ultrasound was performed, no obvious pericardial effusion, stat echocardiogram was requested. With treatments repeat potassium 6.5, bicarb 7, anion gap 45.5, BUN 7, creatinine 6.7. She has not produced any urine. Nephrology contacted, recommendation for stat renal replacement therapy, at the same time on 2 pressors, Levophed at 18, dopamine at 12.5 not likely to tolerate dialysis, no CRRT available in-house. Arrangements were to be initiated for transfer in the meantime depending on timing possibly obtaining dialysis access in house, further workup consideration with patient and family including CTA with history of PE, although reportedly has not missed any Eliquis, consideration of other etiologies, possible septic shock, consideration of empiric antibiotic, further assessment of possibly of infection sources, pleural effusion although was reported transudative last admission, consider CTA possibility of bowel ischemia, otherwise with liver cirrhosis possibility of SBP, other infection. Possible metformin induced lactic acidosis. Temperature obtained, 93 Fahrenheit. With additional discussion with patient and family together with ER physician patient indicated on discussion of severity of illness and goals of care that she would not want cardiopulmonary resuscitation in case of cardiac arrest, would not want intubation, and on further discussion stated she would not want to have dialysis or transfer. Instead would want to go with hospice/comfort care alone with end-of-life supportive measures. Family support her in her goals of care, transfer deferred and preparations were made for end-of-life care on medical floor. Additional Data Advance directives?: No Discharge Plan Discharge Patient Disposition: Condition: Prescriptions: No Action multivitamin Tablet 1 tab PO DAILY Probiotic 3 billion cell capsule 3,000 mmu cells PO DAILY Rx Instructions: administer with a meal nitroglycerin 0.4 mg tablet, sublingual 0.4 mg sublingual Q5M PRN (Reason: chest pain) Qty: 30 2RF Rx Instructions: do not exceed 3 doses per episode metformin 1,000 mg tablet 1,000 mg PO BID 30 Days Qty: 60 3RF Hold Instructions: Resume on 11/27/22. Patient may restart on Monday atorvastatin 40 mg tablet 40 mg PO DAILY cholecalciferol (vitamin D3) 125 mcg (5,000 unit) capsule 125 mcg PO DAILY Eliquis 2.5 mg tablet 2.5 mg PO BID digoxin 125 mcg (0.125 mg) tablet 125 mcg PO DAILY Qty: 90 3RF fluticasone propion-salmeterol [Advair Diskus] 500-50 mcg/dose blister with device 1 inh inhalation BID Qty: 60 5RF albuterol sulfate [ProAir HFA] 90 mcg/actuation HFA aerosol inhaler 2 puff inhalation Q6H PRN (Reason: shortness of breath or wheezing) Qty: 8.5 6RF insulin detemir U-100 100 unit/mL (3 mL) insulin pen 20 unit SUBCUT DAILY Qty: 15 3RF Rx Instructions: Inject 20 U SQ daily, increase by 5 units every 3 days if glucose fasting is >150 (DME) pen needle, diabetic [TechLITE Pen Needle] 31 gauge x 5/16 needle See Rx Instructions .ROUTE .MEDSUPPLY Qty: 100 6RF Rx Instructions: As directed (DME) oxygen concentrator w/portable See Rx Instructions .Route .MEDSUPPLY Qty: 1 0RF Rx Instructions: As directed oxygen concentrator w/portable 2 litters n/c ondansetron HCl 4 mg tablet 4 mg PO Q8H PRN (Reason: nausea and vomiting) Qty: 30 3RF aspirin 81 mg Tablet,Delayed Release (Dr/Ec) 81 mg PO DAILY potassium chloride 20 mEq tablet extended release 20 meq PO DAILY glipizide 5 mg tablet 5 mg PO BID pantoprazole 40 mg Tablet,Delayed Release (Dr/Ec) 40 mg PO DAILY 30 Days Qty: 30 0RF fluoxetine 10 mg Capsule 10 mg PO DAILY 30 Days Qty: 30 0RF metoprolol tartrate 25 mg Tablet 25 mg PO BID@0900,2100 30 Days Qty: 30 0RF furosemide 40 mg tablet 40 mg PO DAILY Qty: 120 3RF midodrine 5 mg tablet 10 mg PO Q8H 30 Days Qty: 90 0RF (DME) DME: Walker [facility] See Rx Instructions .ROUTE Qty: 1 0RF Rx Instructions: As directed Referrals: Ruslan Ward MD [Primary Care Provider] - Patient Instructions: Opioid Safety, Pain Management DS Attestations Time Spent in /Discharge Care*: greater than 30 min Quality - AMI: AMI present?: No Quality - Stroke: CVA present?: No Quality - VTE: VTE present?: No Coding Level of Care Code 02077 Total time (in minutes) for Discharge: 35 Diagnoses Comfort measures only status Z51.5
--- NOTE | 2023-09-18 08:44 | PC.NURSE ---
note Pt at 534. Not a candidate for donation. home called. home picked up at 0830. All lines removed and post-mortem care provided.
== END 2023-09-18 08:30 | disposition expired ==
LOC: ER 23:50 → MEDSURG 09-18 01:15
PROVIDERS: Internal Medicine; Admitting Provider Internal Medicine; Emergency Provider Emergency Medicine; PCP Family Medicine; Visit Provider Internal Medicine
DX: Z51.5 Encounter for palliative care (principal); I25.10 Atherosclerotic heart disease of native coronary artery without angina pectoris; Z95.1 Presence of aortocoronary bypass graft; Z86.711 Personal history of pulmonary embolism; I48.91 Unspecified atrial fibrillation; Z79.01 Long term (current) use of anticoagulants; E78.5 Hyperlipidemia, unspecified; J44.9 Chronic obstructive pulmonary disease, unspecified; I11.0 Hypertensive heart disease with heart failure; I50.9 Heart failure, unspecified; N17.9 Acute kidney failure, unspecified; Z79.82 Long term (current) use of aspirin; Z86.19 Personal history of other infectious and parasitic diseases; Z87.891 Personal history of nicotine dependence; J90 Pleural effusion, not elsewhere classified
CPT/HCPCS: 36415; 36416; 71045; 80048; 80053; 82962; 83605; 83735; 83880; 84145; 84484; 85025; 85610; 85730; 87040; 93005; 93306; 94640; 96365; 96366; 96367; 96375; 99285; 99291; C1751; G0378; J1265; J1815; J2060; J2270; J2543; J3370; J3490; J7030; J7050; J7613